=== PATIENT | female | born 1940 | race Caucasian/White ===

== ENCOUNTER → 2018-04-06 | Day surgery (SDC) | payer MEDICARE ==
[2018-04-06 11:24] VITALS: RESP 16; BMI 44.6
--- NOTE | 2018-04-06 13:43 | USB ---
EXAMINATION TYPE: US biopsy breast VAD LT, US biopsy breast add'l VAD LT, MG diagnostic mammo LT wo CAD DATE OF EXAM: 04/06/2018 CLINICAL HISTORY: N63 Breast lump/mass. Abnormal mammogram and ultrasound TECHNIQUE: Ultrasound guided core biopsy of right breast possible 2 sites with clip placement and follow-up diagnostic two-view mammogram.. COMPARISON: Outside ultrasound and mammogram from January 2018. FINDINGS: The procedure of ultrasound guided core biopsy was explained to the patient. Benefits, alternatives, and risks were discussed. An informed consent was then obtained. The patient was placed in supine positioning for imaging and for the procedure. Preprocedure ultrasound shows measured 2.5 cm irregular hypoechoic mass 12:00 position left breast zone A with posterior shadowing and a more superficial irregular heterogeneous hypoechoic wider greater than tall 2.4 cm lesion in zone B 12:00 position, this is within 1 cm of the zone A lesion. Scanning of axilla showed no definitive suspicious adenopathy. Overlying skin was prepped and draped in usual sterile fashion. Lidocaine was used as anesthetic into the skin and subcutaneous tissue up to area of concern in the left breast. Lidocaine with epinephrine is used as anesthetic into the deeper tissue. Under ultrasound guidance, a 12-gauge vacuum assisted biopsy gun device was used to obtain 8 core samples. Following this, a biopsy clip was left in lesion. Primary larger lesion. Under ultrasound guidance, a second vacuum assisted biopsy gun device was used to obtain 3 core samples through smaller zone B lesion. The patient tolerated the procedure well without any immediate complication. The patient was kept in the radiology department for short stay after the procedure and then discharged home in stable condition. Postprocedure mammogram shows successful deployment of clips within 1 to 2 cm of each other likely reflecting single lesion. IMPRESSION: Successful, uncomplicated ultrasound guided core biopsy of 2 areas of concern in the left breast, full pathology results to follow. High index of suspicion noted at time of biopsy. BI-RADS 5 lesion(s). Pathology Results: Malignant A. BREAST, LEFT, TWELVE O'CLOCK SITE A, CORE BIOPSY: INVASIVE POORLY DIFFERENTIATED DUCTAL CARCINOMA. SEE SURGICAL PATHOLOGY CANCER CASE SUMMARY AND COMMENT. B. BREAST, LEFT, TWELVE O'CLOCK SITE B, CORE BIOPSY: INVASIVE POORLY DIFFERENTIATED DUCTAL CARCINOMA. SEE SURGICAL PATHOLOGY CANCER CASE SUMMARY AND COMMENT. Recommendation Surgical consult of the left breast. [facility] CENTERMandy
[2018-04-06 14:07] VITALS: BP 136/72; PULSE 71; TEMP 97.8
== END ==
LOC: RADUSWWP 11:03
PROVIDERS: ATTEND Surgery
DX: C50.912 Malignant neoplasm of unspecified site of left female breast (principal)
CPT/HCPCS: 88305; 88342; 77065; 19083; 19084; A4648; J2001

== ENCOUNTER → 2018-04-13 | Outpatient (CLI) | payer MEDICARE ==
[2018-04-13 09:00] VITALS: BP 118/78; PULSE 92; TEMP 96.2; BMI 45.3
--- NOTE | 2018-04-13 10:33 | P.GSHP ---
History of Present Illness H&P Date: 04/13/18 The patient is a 77 year old white female status post a core biopsy of two sites in the left breast at twelve o'clock. Both were positive for invasive ductal carcinoma. Patient felt a change in her breast about 6 weeks just prior to her normal mammogram. She had no nipple discharge or changes. past surgical history: 1. thyroid surgery no cancer 2. bilaterl knee surgery 1999 family history: none menstral periods: start 10 : 1, not breast feed menopause: hysterectomy 1973, not take ovaries; done for heavy bleeding BCP: a few weeks hormones: none smoke: none alcohol: none drugs: none medical problems: atrial fib, on on savasya , stopped three days before for the biopsy arthritis uses a cane HEENT: macular degeneration lung: COPD sees DR. Nash/ may be related to wood burning stoves when young heart: atrial fib/ leaking valve follows with cardiology GI: none gu: as above musculoskeletal: arthritis neurologic: none endocirne: none - Constitutional Constitutional: Denies chills, Denies fever - EENT Comment: macular degeneration Ears: bilateral: decreased hearing, deny: ear discharge, earache, tinnitus Ears, nose, mouth and throat: Denies headache, Denies sore throat - Breasts Breasts: bilateral: as per HPI - Cardiovascular Comment: atrial fib Cardiovascular: Denies chest pain, Denies shortness of breath - Respiratory Comment: COPD - Gastrointestinal Gastrointestinal: Denies abdominal pain, Denies diarrhea, Denies nausea, Denies vomiting - Genitourinary (Female) Genitourinary: Denies dysuria, Denies hematuria - Menstruation Comment: hysterectomy bleeding no cancer - Musculoskeletal Comment: arthritis - Integumentary Integumentary: Denies pruritus, Denies rash - Neurological Neurological: Denies numbness, Denies weakness - Psychiatric Psychiatric: Denies anxiety, Denies depression - Endocrine Endocrine: Denies fatigue, Denies weight change - Hematologic/Lymphatic Comment: on blood thinner for atrail fib - Allergic/Immunologic Allergic/Immunologic: Reports seasonal allergies Past Medical History Past Medical History: Atrial Fibrillation, Asthma, COPD, Hyperlipidemia, Hypertension Additional Past Medical History / Comment(s): ALLERGIES History of Any Multi-Drug Resistant Organisms: None Reported Past Surgical History: Breast Surgery, Hysterectomy, Joint Replacement Additional Past Surgical History / Comment(s): BILATERAL KNEES REPLACED. LEFT LOBE THYROIDECTOMY BREAST BX-x1 Past Anesthesia/Blood Transfusion Reactions: No Reported Reaction Past Psychological History: No Psychological Hx Reported Smoking Status: Never smoker Past Alcohol Use History: None Reported Past Drug Use History: None Reported Medications and Allergies Home Medications Medication Instructions Recorded Confirmed Type Acetaminophen [Tylenol] 350 mg PO Q4-6H PRN 08/03/16 04/13/18 History Cyanocobalamin [Vitamin B-12] 1 tab PO QAM 08/03/16 04/13/18 History Edoxaban Tosylate [Savaysa] 30 mg PO QAM 08/03/16 04/13/18 History Fluticasone/Salmeterol [Advair Hfa 2 puff INHALATION BID 08/03/16 04/13/18 History 115-21 Mcg Inhaler] Hydrochlorothiazide 25 mg PO QAM 08/03/16 04/13/18 History [Hydrochlorothiazide] Olmesartan Medoxomil [Benicar] 20 mg PO QAM 08/03/16 04/13/18 History Simvastatin [Simvastatin] 20 mg PO HS 08/03/16 04/13/18 History Carvedilol [Coreg] 3.125 mg PO BID 03/15/18 04/13/18 History Febuxostat [Uloric] 40 mg PO QAM 03/15/18 04/13/18 History Vit C/E/Zn/Coppr/Lutein/Zeaxan 1 each PO BID 03/15/18 04/13/18 History [Preservision Areds 2 Softgel] Allergies Allergy/AdvReac Type Severity Reaction Status Date / Time No Known Allergies Allergy Verified 04/06/18 11:15 Surgical - Exam Vital Signs Temp Pulse BP Pulse Ox 96.2 F L 92 118/78 94 L 04/13/18 08:46 04/13/18 08:46 04/13/18 08:46 04/13/18 08:46 - General obese - Eyes normal ocular movement, no icteric - ENT no hearing loss, no congestion - Neck no masses, trachea midline - Respiratory normal expansion, normal respiratory effort, clear to auscultation - Cardiovascular Rhythm: irregularly irregular Heart Sounds: normal: S1, S2 - Abdomen Abdomen: soft, non tender, no guarding, no rigid, no rebound - Neurologic no disoriented, no combative - Musculoskeletal wheel chair bound - Psychiatric oriented to time, oriented to person, oriented to place, speech is normal, memory intact left breast: mass at 12 oclock right breast: no masses bilateral axilla no adenopathy of concern Results Pathology reviewed with patient and her daughter, surgical options and risk and benefits discussed. It is uncertain if the patient has one or two lesions in the breast. The case was discussed at length with DR. Santiago who recommended surgery prior to possible chemotherapy, if needed she can possible have chemotherapy postoperatively. The patient understands and wishes to proceed with surgery at this time. WE will obtain preoperative clearance. WE will also await ER, VT and HEr 2 makers if these are all negative will proceed with a PET scan pre-op. Assessment and Plan Assessment: 1. left breast cancer 2. atrial tigre 3. morbid obesity 4. COPD Plan: 1. pre-operative clearance 2. left breast lumpectomy, SNB, possible AND cc: denis Santiago
== END ==
LOC: WWCWWP 08:43
PROVIDERS: ATTEND Surgery
DX: C50.912 Malignant neoplasm of unspecified site of left female breast (principal); Z53.9 Procedure and treatment not carried out, unspecified reason

== ENCOUNTER 2018-04-25 07:25 | Day surgery (SDC) | payer MEDICARE ==
[2018-04-24 09:24] VITALS: BMI 45.4
[~2018-04-25 07:25] MED LIST: ALPRAZolam 0.25 MG TAB PO PRN; DEXAMETHASONE SOD PHOSPHATE 10 MG/ML 1 ML VIAL IV ONE; HEPARIN SODIUM,PORCINE 5,000 UNIT/ML 1 ML VIAL SQ ONE; HYDROmorphone 0.5 MG/0.5 ML SYRINGE IVP PRN; LACTATED RINGERS 1,000 ML IV SCH; MORPHINE SULFATE 2 MG/ML SYRINGE IV PRN; ONDANSETRON 4 MG/2 ML VIAL IVP ONE; ONDANSETRON 4 MG/2 ML VIAL IVP PRN; Pre Op ABX Message 1 EACH MISC MISCELLANE ONE
[2018-04-25] MEDS ORDERED: LIDOCAINE 1% 20 ML VIAL (10MG/ML) FOR IV START INTRADERMA ONE (08:29)
[2018-04-25] MEDS ORDERED: SODIUM BICARB 4% 5 ML VIAL (0.48 MEQ/ML) MISCELLANE ONE (09:15)
[2018-04-25] MEDS ORDERED: LIDOCAINE 1% INJ 10MG/ML (20 ML MDV) SQ ONE ×2 (09:15→11:24)
[2018-04-25] MEDS ORDERED: HEPARIN SODIUM,PORCINE 5,000 UNIT/ML 1 ML VIAL SQ ONE (10:19)
--- NOTE | 2018-04-25 10:21 | P.BCPRE ---
History of Present Illness Consent for Procedure: I have explained the operation/procedure to the patient, including the risks, benefits, side effects, alternative therapies (including not receiving the proposed treatment or service), the likelihood of the patient achieving his/her goals, and potential recuperation problems for the procedure/sedation/analgesia , as well as any blood products, if indicated. I also explained to the patient the risks, benefits and side effects of the alternatives, as well as the risks related to not receiving the proposed procedure, care, treatment, or services. Past Medical History Past Medical History: Atrial Fibrillation, Asthma, COPD, Hyperlipidemia, Hypertension, Renal Disease Additional Past Medical History / Comment(s): Chronic Kidney disease History of Any Multi-Drug Resistant Organisms: None Reported Past Surgical History: Breast Surgery, Hysterectomy, Joint Replacement Additional Past Surgical History / Comment(s): BILATERAL KNEES REPLACED. LEFT LOBE THYROIDECTOMY; BREAST BX Past Anesthesia/Blood Transfusion Reactions: No Reported Reaction Smoking Status: Never smoker - Past Family History Mother Family Medical History: No Reported History Medications and Allergies Home Medications Medication Instructions Recorded Confirmed Type Acetaminophen [Tylenol] 350 mg PO Q4-6H PRN 08/03/16 04/25/18 History Cyanocobalamin [Vitamin B-12] 1 tab PO QAM 08/03/16 04/25/18 History Edoxaban Tosylate [Savaysa] 30 mg PO QAM 08/03/16 04/24/18 History Fluticasone/Salmeterol [Advair Hfa 2 puff INHALATION BID 08/03/16 04/25/18 History 115-21 Mcg Inhaler] Hydrochlorothiazide 25 mg PO QAM 08/03/16 04/25/18 History [Hydrochlorothiazide] Olmesartan Medoxomil [Benicar] 20 mg PO QAM 08/03/16 04/24/18 History Simvastatin [Simvastatin] 20 mg PO HS 08/03/16 04/24/18 History Carvedilol [Coreg] 3.125 mg PO BID 03/15/18 04/24/18 History Febuxostat [Uloric] 40 mg PO QAM 03/15/18 04/25/18 History Vit C/E/Zn/Coppr/Lutein/Zeaxan 1 each PO BID 03/15/18 04/25/18 History [Preservision Areds 2 Softgel] Allergies Allergy/AdvReac Type Severity Reaction Status Date / Time No Known Allergies Allergy Verified 04/24/18 09:07 NAPBC Queries - NAPBC Queries Was patient's case review presented at tumor board? If no, comment.: Yes Was preop planning done after biopsy for surgical care, and treatment guidelines reviewed?: Yes Was breast conservation surgery offered? If no, comment.: Yes Was sentinel node biopsy appropriate for patient? If no, comment.: Yes Was diagnosis confirmed by percutaneous core biopsy? If no, comment.: Yes If masectomy patient, was a preop referral to a reconstructive surgeon offered? : Yes (Patient is opting for breast conservation)
[2018-04-25] MEDS ORDERED: PHENYLEPHRINE-0.9% NACL SYG 1 MG/10 ML SYRINGE ONE (10:50)
[2018-04-25] MEDS ORDERED: MIDAZOLAM 2 MG/2 ML VIAL ONE (10:50)
[2018-04-25] MEDS ORDERED: SUCCINYLCHOLINE CHLORIDE VIAL 200 MG/10 ML VIAL IV ONE (10:50)
[2018-04-25] MEDS ORDERED: ESMOLOL 100 MG/10 ML VIAL ONE (10:50)
[2018-04-25] MEDS ORDERED: HYDROmorphone (PF) 1 MG/ML ONE (10:50)
[2018-04-25] MEDS ORDERED: fentaNYL (PF) 50 MCG/ML 2 ML AMP ONE (10:50)
[2018-04-25] MEDS ORDERED: LIDOCAINE 1% INJ 10MG/ML (20 ML MDV) ONE (10:50)
[2018-04-25] MEDS ORDERED: ePHEDrine SULFATE/0.9% NACL/PF 50 MG/5 ML SYRINGE IV ONE (10:50)
[2018-04-25] MEDS ORDERED: PROPOFOL 10 MG/ML 20 ML VIAL IV ONE (10:50)
--- NOTE | 2018-04-25 11:55 | NM ---
EXAMINATION TYPE: NM sentinel node injection DATE OF EXAM: 04/25/2018 COMPARISON: Mammogram 04/06/2018 HISTORY: Left breast cancer TECHNIQUE AND FINDINGS: The procedure of sentinel lymph node injection was explained to the patient. The benefits, alternatives, and risks were discussed. An informed consent was then obtained. Overlying skin is cleaned with sterile alcohol. Following this, 562 uCi Tc99m Tilmanocept was inject ed into upper outer aspect of the left nipple intradermally. The patient tolerated the procedure well without any immediate complication. The patient was kept in the radiology department for short stay after the procedure and then taken to surgery for surgical p rocedure what is presumed intraoperative gamma probe will be used for sentinel lymph node detection. IMPRESSION: Left breast radiotracer injection for sentinel node localization as above.
[2018-04-25] MEDS ORDERED: ceFAZolin 2,000 MG in DEXTROSE/WATER 1 50ML.BAG IVPB SCH (12:00)
[2018-04-25] MEDS ORDERED: LACTATED RINGERS 1,000 ML IV ONE (12:12)
--- NOTE | 2018-04-25 13:57 | P.OP ---
Date of Procedure: 04/25/18 Preoperative Diagnosis: Left breast cancer Postoperative Diagnosis: Same Procedure(s) Performed: Left breast lumpectomy, sentinel node biopsy, excision of axillary tail area positive on frozen section for cancer Anesthesia: SALLY Surgeon: Elana Mehta Estimated Blood Loss (ml): 15 IV fluids (ml): 1,100 Pathology: other (Left breast tissue, left sentinel node biopsy) Condition: stable Disposition: PACU Indications for Procedure: Core biopsy left breast positive for malignancy Operative Findings: Left breast cancer, probable left axillary tail additionally site positive for cancer Description of Procedure: The patient was taken to the operating room and following induction of general anesthesia the left breast and axilla were prepped and draped in a sterile fashion. The axilla was approached initially. An incision was made just inferior to the hairbearing area and using the neoprobe the area of greatest radioactivity was identified. Diseaction into the area of the axilla revealed two lymph nodes which were radioactive. These was sent for frozen section evaluation. These were negative for malignancy. However, a second area of tissue was identified which was somewhat suspicious. This was also sent for frozen section patient. 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 The patient did have 2 sentinel nodes which were removed the radioactive count was over 50,000 units of the sentinel nodes at 10 seconds, and each of these were negative for malignancy. Additionally the background radioactive count at 10 seconds was approximately 20. No other adenopathy of concern was identified. The concern was whether the lesion removed in the region of the axilla was axillary breast tissue or a replaced lymph node. The case was discussed w intraoperatively with pathology as well as medical oncologist Dr. Santiago. The thought process was that the patient is very large and is at high risk for lymphedema, she will most likely receive radiation therapy to the area of the axilla. Therefore rather than a completion axillary dissection with 2 sentinel nodes being negative, and the third area of questionable eitology (replaced axillary breast tissue, replaced lymph node) we decided to re-excise the area of the positive nodule had been identified and await permanent pathology. The area of the breast was approached. Incision was made in the area of the needle localization's and the tissue was excised . The inferior margin appeared to be somewhat close grossly and this was re-excised. The specimen was painted for orientation. Radiographic evaluation revealed the concern had been removed. The dissection of the area was carried down to the muscle of the chest wall. Anteriorly a portion of skin was removed. Following this the remaining tissue was mobilized approximately 5 cm x 3 cm for 15 cm. The tissue was able to be moved into the defect for an oncoplastic closure. A BioZorb was chosen a 4 x 4 device was used. This was placed in the cavity and secured in place using Vicryl suture. The deep tissues were closed using Vicryl suture. The skin was closed using a 4-0 Vicryl suture followed by a 4-0 Monocryl. The area of the axilla was evaluated no evidence of bleeding was identified. The skin was closed using 4-0 Vicryl suture followed by a 4-0 Monocryl. Patient tolerated the procedure in stable condition. All instrument and sponge counts were correct at the end of the case. 1. Approximately 5 cm primary mass in the left breast at 12:00 2. Approximately 1 cm firm area in the region of the tail of the breast replaced axillary node versus axillary breast tissue 3. 2 sentinel nodes negative for cancer Plan: 1. Await final pathology to evaluate for margins and better evaluate the area of the desmoplastic tumor in the area of the axillary tail of the breast
--- NOTE | 2018-04-25 13:59 | P.DS ---
Providers Attending physician: Elana Mehta Primary care physician: Nasim Tovar Plan - Discharge Summary New Discharge Prescriptions: No Action Acetaminophen [Tylenol] 350 mg PO Q4-6H PRN PRN Reason: Pain Cyanocobalamin [Vitamin B-12] 1 tab PO QAM Edoxaban Tosylate [Savaysa] 30 mg PO QAM Fluticasone/Salmeterol [Advair Hfa 115-21 Mcg Inhaler] 2 puff INHALATION BID Hydrochlorothiazide [Hydrochlorothiazide] 25 mg PO QAM Olmesartan Medoxomil [Benicar] 20 mg PO QAM Simvastatin [Simvastatin] 20 mg PO HS Febuxostat [Uloric] 40 mg PO QAM Carvedilol [Coreg] 3.125 mg PO BID Vit C/E/Zn/Coppr/Lutein/Zeaxan [Preservision Areds 2 Softgel] 1 each PO BID Discharge Medication List Acetaminophen [Tylenol] 350 mg PO Q4-6H PRN 08/03/16 [History] Cyanocobalamin [Vitamin B-12] 1 tab PO QAM 08/03/16 [History] Edoxaban Tosylate [Savaysa] 30 mg PO QAM 08/03/16 [History] Fluticasone/Salmeterol [Advair Hfa 115-21 Mcg Inhaler] 2 puff INHALATION BID [History] Hydrochlorothiazide [Hydrochlorothiazide] 25 mg PO QAM 08/03/16 [History] Olmesartan Medoxomil [Benicar] 20 mg PO QAM 08/03/16 [History] Simvastatin [Simvastatin] 20 mg PO HS 08/03/16 [History] Carvedilol [Coreg] 3.125 mg PO BID 03/15/18 [History] Febuxostat [Uloric] 40 mg PO QAM 03/15/18 [History] Vit C/E/Zn/Coppr/Lutein/Zeaxan [Preservision Areds 2 Softgel] 1 each PO BID [History] Follow up Appointment(s)/Referral(s): Elana Mehta MD [STAFF PHYSICIAN] - 1 Week Activity/Diet/Wound Care/Special Instructions: 1. Do not drive today 2. May shower after 24 hours 2. Restart blood thinner at 24 hours Discharge Disposition: HOME SELF-CARE
[2018-04-25 14:37] VITALS: TEMP 97.2
--- NOTE | 2018-04-25 15:02 | MM ---
EXAMINATION TYPE: MG pre op needle loc LT, MG surgical specimen LT DATE OF EXAM: 04/25/2018 COMPARISON: Mammogram 04/06/2018 CLINICAL HISTORY: Breast cancer, abnormal mammogram TECHNIQUE: Needle localization with wire placement and surgical excision of area of concern in the left breast. FINDINGS: The procedure of needle localization with wire placement and than surgical excision was explained to the patient. Benefits, alternatives, and risks were discussed. An informed consent was then obtained. The overlying skin was prepped and draped in usual sterile fashion. Lidocaine buffered with bicarbonate was used as anesthetic into the skin and subcutaneous tissue up to the level of area of concern. A 9 cm needle was used. A second 9 cm needle was used to bracket the lesion. Subsequent 90 degrees mammogram show the needles to be in satisfactory position relative to the targeted area. At this point, wires were placed and the needles withdrawn. The wires fixed to patient's skin. Images were marked for surgeon. The patient tolerated the procedure well without any immediate complication. The patient was kept in the radiology department for short stay after the procedure and then taken to surgery for surgical excision. Mass with markers and wires are identified in specimen mammogram. The patient was kept in hospital for short stay after the procedure and then discharged home in stable condition. IMPRESSION: Successful, uncomplicated needle localization with wire placement and surgical excision of breast mass and biopsy markers in the left breast, full pathology results to follow. Pathology Results: Malignant A. "SENTINEL LYMPH NODE #1", BIOPSY: Infiltrating poorly differentiated adenocarcinoma involving adipose tissue, no normal breast or lymphoid tissue identified. Focal lymph vascular space invasion is identified. B. SENTINEL LYMPH NODE #2, BIOPSY: Negative for metastatic adenocarcinoma. Immunohistochemical studies for LORETTA and Cytokeratin 7 are negative. C. SENTINEL LYMPH NODE #3, BIOPSY: Negative for metastatic adenocarcinoma in two lymph nodes. Immunohistochemical studies for LORETTA and Cytokeratin 7 are negative for adenocarcinoma.' Good stain performance is noted on control sections for both specimens B and C. D. LEFT BREAT LUMPECTOMY: 3.8 x 3.3 x 2.5 cm in greatest dimension infiltrating poorly differentiated ductal adenocarcinoma with multifocal lymph vascular space invasion and a tumor nodule, in block D1 extending to an un- inked cauterized margin near the anterior margin of resection. Duct carcinoma in situ is identified focally. Lobular carcinoma in situ is not identified. E. NEW ANTERIOR MARGIN, EXCISION: Skin with post surgical changes, negative for involvement by adenocarcinoma. F. ADDITIONAL TISSUE ADJACENT TO POSITIVE AXILLARY TISSUE, EXCISION: Adipose tissue, negative for involvement by adenocarcinoma. Recommendation Surgical consult of the left breast. (continued surgical follow up, medical oncologic management) JEANNE
[2018-04-25 15:23] VITALS: RESP 20
[2018-04-25 15:27] LABS: Magnesium 1.8 mg/dL (1.6-2.3); Potassium 4.8 mmol/L (3.5-5.1)
[2018-04-25 15:35] VITALS: BP 136/71; PULSE 110
== END 2018-04-25 16:09 | disposition home or self-care (01) ==
LOC: OR 07:25
PROVIDERS: ATTEND Surgery
DX: C50.812 Malignant neoplasm of overlapping sites of left female breast (principal); I48.1 Persistent atrial fibrillation; I12.9 Hypertensive chronic kidney disease with stage 1 through stage 4 chronic kidney disease, or unspecified chronic kidney disease; N18.9 Chronic kidney disease, unspecified; E78.2 Mixed hyperlipidemia; J44.9 Chronic obstructive pulmonary disease, unspecified; E89.0 Postprocedural hypothyroidism; E66.01 Morbid (severe) obesity due to excess calories; Z68.42 Body mass index [BMI] 45.0-49.9, adult; Z96.653 Presence of artificial knee joint, bilateral; Z79.51 Long term (current) use of inhaled steroids; Z79.899 Other long term (current) drug therapy
CPT/HCPCS: 83735; 84132; 88342; 88331; 88307; 88341; 76098; 19281; 38792; 19301; 38525; A4648; A9520; J2250; J0330; J1644; J1100; J2405; J2001; J3010; J1170; J0690; J2370; J2704

== ENCOUNTER → 2018-05-04 | Outpatient (CLI) | payer MEDICARE ==
[2018-05-04 14:28] VITALS: BP 142/65; PULSE 90; TEMP 97.3; BMI 45.4
--- NOTE | 2018-05-04 14:54 | P.PN ---
Progress Note - Text Progress Note Date: 05/04/18 Patient is status post left breast lumpectomy and axillary node biopsy. The area in the axilla was suspicious for axillary tail breast tissue and after intra-operative consultation with medical oncology it was determined to await final pathology prior to proceeding with an axillary dissection secondary tot he risk of lymphedema. Pathology showed one "sentinel" node to be positive although this was not the radio-active node, and the other two sentinel nodes to be negative. The anterior margin was positive, however, it was re-excised and the skin was negative. The patient is without complaints. Lungs: clear heart: RRR incision: clean and dry IMP/PLAN: 1. follow up with medical and radiation oncology 2. consider completion axillary disection 3. follow up in two weeks cc: Dr. Delgado
== END | disposition home or self-care (01) ==
LOC: WWCWWP 14:11
PROVIDERS: ATTEND Surgery
DX: Z53.9 Procedure and treatment not carried out, unspecified reason (principal)

== ENCOUNTER → 2018-05-19 | Outpatient (CLI) | payer MEDICARE ==
[2018-05-19 11:57] VITALS: BMI 46.0
--- NOTE | 2018-05-19 12:02 | P.PN ---
Subjective Progress Note Date: 05/19/18 Patient is a 77-year-old white female status post left breast lumpectomy and sentinel node biopsy on 04/25/2018. The patient at this time is doing well. There was some question as to whether the patient had a second primary site in the axillary breast tissue versus a replaced lymph node. However her sentinel lymph nodes were negative. The patient is going to be presented at tumor board. She has seen radiation oncology will follow up with medical oncology. Depending on results of these meetings she will follow up in 3 months time. Lungs: Clear Heart: Regular rate and rhythm Incision: Clean and dry left breast Incision: Clean and dry left axilla Impression/plan: 1. Patient status post left breast lumpectomy and sentinel node biopsy patient is following with medical and radiation oncology 2. Patient to be presented at tumor board 3. Depending on results of tumor board meeting follow-up in 3 months time CC: Dr. Tovar Patient with no complaints of swelling in her arm at this time, however we will have her see a lymphedema specialist proactively. Objective - Vital Signs Vital signs: Intake & Output 05/18/18 05/19/18 05/19/18 18:59 06:59 18:59 Weight 145.603 kg
== END ==
LOC: WWCWWP 11:09
PROVIDERS: ATTEND Surgery
DX: Z51.89 Encounter for other specified aftercare (principal)

== ENCOUNTER → 2018-08-17 | Outpatient (CLI) | payer MEDICARE ==
[2018-08-17 08:47] VITALS: BP 118/68; PULSE 87; BMI 45.8
--- NOTE | 2018-08-17 09:08 | P.PN ---
Subjective Progress Note Date: 08/17/18 The patient is a 77-year-old white female who is status post left breast lumpectomy and sentinel biopsy and [id number]. At this time the patient is doing well. She is status post radiation therapy 3 weeks to the left breast and axilla. Additionally she is on Armidex. She was not recommended to undergo any chemotherapy. She initially had a question of a second primary in the axillary breast tissue versus a replaced lymph node. She was diagnosed as STAGE 2. Objective - Vital Signs Vital signs: Vital Signs Temp Pulse 87 08/17/18 08:41 Resp BP 118/68 08/17/18 08:41 Pulse Ox Intake & Output 08/16/18 08/17/18 08/17/18 18:59 06:59 18:59 Weight 144.696 kg - Constitutional General appearance: Present: obese - EENT Eyes: Present: EOMI - Neck Details: no adenopathy of concern Neck: Present: normal ROM - Respiratory Respiratory: bilateral: CTA - Cardiovascular Rhythm: regular Heart sounds: normal: S1, S2 - Gastrointestinal General gastrointestinal: Present: normal bowel sounds, soft - Musculoskeletal Musculoskeletal Comment(s): in a wheel chair - Psychiatric Psychiatric: Present: A&O x's 3, appropriate affect, intact judgment & insight Assessment and Plan Assessment: Impression: 1. Patient status post left breast lumpectomy and sentinel biopsy, diagnosed a stage II breast cancer status post radiation therapy and on Arimidex 2. Patient doing well at this time with no evidence of recurrent disease Plan: 1. Repeat left breast mammogram in 3 months 2. Repeat examination in 3 months Cc: Dr. Tovar
== END | disposition home or self-care (01) ==
LOC: WWCWWP 08:22
PROVIDERS: ATTEND Surgery
DX: Z53.9 Procedure and treatment not carried out, unspecified reason (principal)

== ENCOUNTER → 2018-09-11 | Outpatient (CLI) | payer MEDICARE ==
--- NOTE | 2018-09-11 13:00 | BD ---
EXAMINATION TYPE: Axial Bone Density DATE OF EXAM: 09/11/2018 COMPARISON: NONE CLINICAL HISTORY: Height: 64 IN Weight: 314 LBS FRAX RISK QUESTIONS: Secondary Osteoporosis: 3. Menopause before 45: YES AGE 34 RISK FACTORS HISTORY OF: Active: IN ACTIVE Diet low in dairy products/other sources of calcium: YES Postmenopausal woman: AGE 34 Lost more than 2 inches in height since high school: YES 6" MEDICATIONS: Additional Medications: VIT D, ULORIC, ADVAIR, BENICAR, HYDROCHLOROT, SIMVASTATIN, COREG, SAVAYSA, CA ESERVISION, B12, ANASTROZOLE, Additional History: BREAST CANCER WITH RADIATION EXAM MEASUREMENTS: Bone mineral densitometry was performed using the [employer] System. Bone mineral density as measured about the Lumbar spine is: ----- L1-L4(G/cm2): 1.287 T Score Values are as follows: ----- L2: 1.7 ----- L3: 2.1 ----- L4: 0.3 ----- L1-L4: 0.9 Bone mineral density has: Increased 12.5% since study of: 03/01/2005 Bone mineral density about the R hip (g/cm2): 0.866 Bone mineral density about the L hip (g/cm2): 0.866 T Score values are as follows: -----R Neck: -1.2 -----L Neck: -1.2 -----R Total: 0.3 -----L Total: 0.1 Bone mineral density has: Decreased -1.7% since study of: 03/01/2005 IMPRESSION: No evidence for osteoporosis or osteopenia. NOTE: T-SCORE=SD OF THE YOUNG ADULT MEAN.
== END | disposition home or self-care (01) ==
LOC: RADBDWWP 09:19
PROVIDERS: ATTEND Internal Medicine Hematology & Oncology
DX: C50.812 Malignant neoplasm of overlapping sites of left female breast (principal)
CPT/HCPCS: 77080

== ENCOUNTER → 2018-11-24 | Outpatient (CLI) | payer MEDICARE ==
--- NOTE | 2018-11-24 13:26 | MM ---
Reason for exam: follow-up at short interval from prior study. Last mammogram was performed 8 months ago. History: Patient is postmenopausal and has history of breast cancer at age 77. Malignant MG pre op needle loc LT of the left breast, April 25, 2018. Lumpectomy of the left breast, April 25, 2018. Malignant US biopsy breast VAD LT of the left breast, April 06, 2018. Malignant US biopsy breast add'l VAD LT of the left breast, April 06, 2018. Physical Findings: Nurse did not find any significant physical abnormalities on exam. MG 3D Diag Mammo W/Cad LT CC, MLO, and XCCL view(s) were taken of the left breast. Prior study comparison: April 06, 2018, left breast MG diagnostic mammo LT wo CAD. November 12, 2015, bilateral MG screening mammo w CAD. The breast tissue is heterogeneously dense. This may lower the sensitivity of mammography. Stable benign calcifications. Post lumpectomy changes with skin thickening. No significant new findings when compared with previous films. These results were verbally communicated with the patient and result sheet given to the patient on 11/24/18. ASSESSMENT: Benign, BI-RAD 2 RECOMMENDATION: Follow-up diagnostic mammogram of both breasts in 6 months.
== END | disposition home or self-care (01) ==
LOC: RADMAMWWP 12:34
PROVIDERS: ATTEND Surgery
DX: R92.8 Other abnormal and inconclusive findings on diagnostic imaging of breast (principal)
CPT/HCPCS: 77065; G0279; 77061

== ENCOUNTER → 2018-12-01 | Outpatient (CLI) | payer MEDICARE ==
[2018-12-01 10:23] VITALS: BP 142/69; PULSE 94; RESP 18; TEMP 96.9; BMI 48.6
--- NOTE | 2018-12-01 10:39 | P.PN ---
Subjective Progress Note Date: 12/01/18 Principal diagnosis: invasive cancer of the left breast STAGE: AJCC IIB, T2N1 ER+WA=HER2/JEROME- Kina is a 78-year-old white female who is status post a left breast lumpectomy in April 2018. She was treated with radiation therapy. She is also receiving feeding of Arimidex. She has no complaints at this time. She had her most recent mammogram on 1418. This was of the left breast and was felt to be benign BIRADS 2 and follow-up diagnostic mammogram of both breasts in 6 months time was recommended. Interval history: The patient has not had any changes in medical status since her last appointment. Objective - Vital Signs Vital signs: Vital Signs Temp 96.9 F L 12/01/18 10:12 Pulse 94 12/01/18 10:12 Resp 18 12/01/18 10:12 BP 142/69 12/01/18 10:12 Pulse Ox 96 12/01/18 10:12 Intake & Output 11/30/18 12/01/18 12/01/18 18:59 06:59 18:59 Weight 145.15 kg - Exam BMI 48.7 - Constitutional General appearance: Present: cooperative, obese - EENT EENT Comment(s): Mild conjunctival erythema related to an injection on the right thigh for macular degeneration Eyes: Present: EOMI ENT: Present: hearing grossly normal - Neck Neck: Present: normal ROM - Respiratory Respiratory: bilateral: CTA - Cardiovascular Rhythm: regular Heart sounds: normal: S1, S2 - Gastrointestinal General gastrointestinal: Present: soft - Integumentary Integumentary: Present: normal turgor - Musculoskeletal Musculoskeletal Comment(s): uses a wheel chair back and knee pain related to arthritis - Psychiatric Psychiatric: Present: A&O x's 3, appropriate affect, intact judgment & insight - Additional findings Additional findings: Breast examination: Right breast: Multi-positional exam no dominant masses or nodules of concern Right axilla: Enlarged node palpable freely mobile (no lesions on the upper extremity which was just reason for enlarged node under the right arm) Left breast: Changes related to lumpectomy and radiation no dominant masses or nodules of concern Left axilla: No adenopathy of concern Assessment and Plan Assessment: Impression: 1. Stage IIB left breast cancer treated with lumpectomy, sentinel node biopsy, radiation therapy, on Arimidex 2. Right axillary adenopathy 3. Arthritis 4. The lateral knee replacement Plan: 1. Ultrasound of right axilla to evaluate enlarged lymph node 2. Continued surveillance of the breast no evidence of recurrent cancer at this time 3. Follow-up here in 3 months time 4. Follow-up with medical and radiation oncology CC: Dr. Tovar
--- NOTE | 2018-12-03 08:37 | MM ---
Reason for exam: additional evaluation requested from prior study. Last mammogram was performed less than 1 month ago. History: Patient is postmenopausal and has history of breast cancer at age 77. Malignant MG pre op needle loc LT of the left breast, April 25, 2018. Lumpectomy of the left breast, April 25, 2018. Malignant US biopsy breast VAD LT of the left breast, April 06, 2018. Malignant US biopsy breast add'l VAD LT of the left breast, April 06, 2018. MG 3D Diag Mammo W/Cad RT CC and MLO view(s) were taken of the right breast. Prior study comparison: November 24, 2018, left breast MG 3d diag mammo w/cad LT. April 06, 2018, left breast MG diagnostic mammo LT wo CAD. There are scattered fibroglandular densities. No suspicious abnormality. Left axillary node has a 1 mm cortex on mammogram. Sonographic finding of thickened cortex may be artifactual. These results were verbally communicated with the patient and result sheet given to the patient on 12/01/18. ASSESSMENT: Probably benign, BI-RAD 3 RECOMMENDATION: Ultrasound of the right breast in 3 months. Possibly reactive node.
--- NOTE | 2018-12-07 08:03 | USB ---
History: Patient is postmenopausal and has history of breast cancer at age 77. Malignant MG pre op needle loc LT of the left breast, April 25, 2018. Lumpectomy of the left breast, April 25, 2018. Malignant US biopsy breast VAD LT of the left breast, April 06, 2018. Malignant US biopsy breast add'l VAD LT of the left breast, April 06, 2018. US Breast Axilla RT Right limited breast ultrasound including focal area of concern, retroareolar and axilla demonstrates a probable lymph node right axilla 2.7 x 1.3 x 1.8 cm with possible thickened cortex measuing 8 mm. No suspicious breast abnormality in the right upper outer quadrant. These results were verbally communicated with the patient and result sheet given to the patient on 12/01/18. ASSESSMENT: Incomplete: need additional imaging evaluation, BI-RAD 0 RECOMMENDATION: Follow-up diagnostic mammogram of the right breast.
== END ==
LOC: WWCWWP 09:24
PROVIDERS: ATTEND Surgery
DX: N63.31 Unspecified lump in axillary tail of the right breast (principal)
CPT/HCPCS: 77065; 76642; G0279; 77061

== ENCOUNTER → 2019-03-02 | Outpatient (CLI) | payer MEDICARE ==
--- NOTE | 2019-03-02 11:38 | USB ---
Reason for exam: clinical finding. History: Patient is postmenopausal and has history of breast cancer at age 77. Malignant MG pre op needle loc LT of the left breast, April 25, 2018. Lumpectomy of the left breast, April 25, 2018. Malignant US biopsy breast VAD LT of the left breast, April 06, 2018. Malignant US biopsy breast add'l VAD LT of the left breast, April 06, 2018. Indicated problem(s): palpable abnormality in the right breast. Physical Findings: Nurse Summary: left breast skin thickening, all soft, movable (nurse ts). US Breast RT Right complete breast ultrasound includes all four quadrants, the retroareolar region and axilla. Finding demonstrates stable lymph node correlate clinically. These results were verbally communicated with the patient and result sheet given to the patient on 03/02/19. ASSESSMENT: Benign, BI-RAD 2 RECOMMENDATION: Follow-up diagnostic mammogram of both breasts in 9 months. Ultrasound of the right breast in 9 months. Back on schedule.
== END | disposition home or self-care (01) ==
LOC: RADUSWWP 10:30
PROVIDERS: ATTEND Surgery
DX: R92.8 Other abnormal and inconclusive findings on diagnostic imaging of breast (principal); N63.31 Unspecified lump in axillary tail of the right breast

== ENCOUNTER → 2019-03-08 | Outpatient (CLI) | payer MEDICARE ==
[2019-03-08 13:30] VITALS: BP 112/78; PULSE 105; RESP 18; TEMP 97.6; BMI 47.9
--- NOTE | 2019-03-08 13:53 | P.PN ---
Subjective Progress Note Date: 03/08/19 Principal diagnosis: Patient for evaluation of prior enlarged right axillary node Stage IIB left breast cancer Kina is a 78-year-old white female who is status post left breast lumpectomy in April 2018. She was treated with radiation therapy and she is also receiving unlimited ax. She has no complaints at this time. On a prior exam she was noted to have a right axillary enlarged node however ultrasound of this area performed on does not reveal any axillary adenopathy of concern. She is due for bilateral diagnostic mammogram in 9 months and an ultrasound of the right breast at that time as well. The patient herself does not complain of any adenopathy or any concerns at this time. Family history: Negative Review of systems: HEENT: Negative Lungs: COPD Heart: Atrial fibrillation GI: Negative :follows with DR. Snow Musculoskeletal: Arthritis Neurologic: Negative Hematologic: Negative Psychiatric: Negative Objective - Vital Signs Vital signs: Vital Signs Temp 97.6 F 03/08/19 13:26 Pulse 105 H 03/08/19 13:26 Resp 18 03/08/19 13:26 BP 112/78 03/08/19 13:26 Pulse Ox 97 03/08/19 13:26 Intake & Output 03/07/19 03/08/19 03/08/19 18:59 06:59 18:59 Weight 147.418 kg - Exam BMI 48 - Constitutional General appearance: Present: obese - EENT Eyes: Present: EOMI ENT: Present: hearing grossly normal - Neck Neck: Present: normal ROM - Respiratory Respiratory: bilateral: CTA - Cardiovascular Rhythm: regular Heart sounds: normal: S1, S2 - Gastrointestinal General gastrointestinal: Present: soft - Integumentary Integumentary Comment(s): Left breast skin radiation changes Integumentary: Present: normal turgor - Musculoskeletal Musculoskeletal Comment(s): using a walker - Psychiatric Psychiatric: Present: A&O x's 3, appropriate affect, intact judgment & insight - Additional findings Additional findings: Breast examination: Right breast: No dominant masses or nodules of concern, fibrocystic changes Right axilla: No adenopathy of concern, particularly attention under the right axilla did not reveal any adenopathy of concern on today's examination Left breast: Postop changes, postradiation changes, examination no dominant masses or nodules of concern Left axilla: No adenopathy of concern Assessment and Plan Assessment: Impression: 1. Patient status post left breast lumpectomy and radiation therapy for a staged to be left breast cancer 2. Patient is presently on anastrozole 3. COPD 4. A-fib 5. arthritis 6. obesity 7. No evidence of recurrent cancer Plan: 1. Continue anastrozole 2. Continue close surveillance follow-up in 6 months 3. Medical management of medical conditions CC: Dr. Tovar
== END | disposition home or self-care (01) ==
LOC: WWCWWP 13:18
PROVIDERS: ATTEND Surgery
DX: Z53.9 Procedure and treatment not carried out, unspecified reason (principal)

== ENCOUNTER → 2019-09-28 | Outpatient (CLI) | payer MEDICARE ==
[2019-09-28 13:19] VITALS: BP 129/90; PULSE 98; RESP 18; TEMP 98; BMI 48.8
--- NOTE | 2019-09-28 13:43 | P.PN ---
Subjective Progress Note Date: 09/28/19 Principal diagnosis: Stage IIB left breast cancer [id number] Her2-G3 Kina is a 78-year-old white female who is status post left breast lumpectomy and sentinel node biopsy and 6518. The patient has undergone radiation therapy She recieved 15 fractions which she completed in June 2018. She was not felt to be a candidate for chemotherapy. She did receive anastrozole which she is still taking. She is following with Dr. Hale yearly, she is following with radiation oncology 6 months. Not have any complications related to her surgery or treatment at this time. The patient does not feel anything of concern in her breast or under her arms at this time. Patient had a left breast mammogram performed 11/24/2018. Results of this were benign BIRADS 2, the patient had a right breast mammogram then performed on 12/01/18 these were felt to be probably benign BIRADS 3 and ultrasound of the right breast in 3 months was recommended. The patient also had an ultrasound performed on which revealed a 2.7 x 1.8 cm lymph node which was felt to be most likely reactive. The patient absolutely underwent a repeat right breast ultrasound including the axilla in February 2019 which was benign BIRADS 2 stable lymph node was noted in the exam. Family History: niece: uterine cancer Medical history: Atrial fib Arthritis Surgical history: Left breast core biopsy Hysterectomy Replacement Hemithyroidectomy Systems: HEENT: Macular degeneration Lungs: COPD Heart: Atrial fib/leaking heart valve patient is on blood thinner GI: Negative : Hysterectomy Musculoskeletal: Arthritis Neurologic: Negative Endocrine: Negative Social history: Smoke: Negative Alcohol: Negative Drugs: Negative Objective - Vital Signs Vital signs: Vital Signs Temp 98.0 F 09/28/19 13:16 Pulse 98 09/28/19 13:16 Resp 18 09/28/19 13:16 BP 129/90 09/28/19 13:16 Pulse Ox 94 L 09/28/19 13:16 - Exam BMI 48.8 - Constitutional General appearance: Present: obese - EENT Eyes: Present: EOMI ENT: Present: hearing grossly normal - Neck Neck: Present: normal ROM - Respiratory Respiratory: bilateral: CTA - Cardiovascular Rhythm: regular Heart sounds: normal: S1, S2 - Gastrointestinal Gastrointestinal Comment(s): no guarding or rebound General gastrointestinal: Present: soft - Integumentary Integumentary: Present: normal turgor - Musculoskeletal Musculoskeletal Comment(s): uses a walker - Psychiatric Psychiatric: Present: A&O x's 3, appropriate affect, intact judgment & insight - Additional findings Additional findings: Breast examination: Bra 54 DD Ptosis Grade 3 Right breast: Multi-positional exam no dominant masses or nodules of concern fibrocystic changes Right axilla: No adenopathy of concern at this time Left breast: Multi-positional exam well-healed scar from prior surgery, radiation changes, no dominant masses or nodules of concern, fungal infection under her right breast Left axilla: No adenopathy of concern Estimated bilaterally to rule out swelling 24 cm bilateral Assessment and Plan Assessment: Impression: 1. Patient status post lumpectomy for stage II be left breast cancer, status post lumpectomy, radiation, on anastrozole did not have chemotherapy 2. No evidence of recurrent cancer 3. Patient not complaining of any swelling of her left arm or hand 4. Fungal infection under right breast 5. Fibrocystic changes bilat Plan: 1. Bilateral mammogram in November with extreme at that time 2. Nystatin powder under right breast 3. Medical management of medical conditions CC: Dr. Tovar Time with Patient: Greater than 30 (discussion of coordination of care)
== END ==
LOC: WWCWWP 12:32
PROVIDERS: ATTEND Surgery
DX: Z53.9 Procedure and treatment not carried out, unspecified reason (principal)

== ENCOUNTER → 2019-11-23 | Outpatient (CLI) | payer MEDICARE ==
[2019-11-23 11:37] VITALS: BMI 47.1
== END | disposition home or self-care (01) ==
LOC: DBWHC3 08:36
PROVIDERS: ATTEND Family Medicine
DX: R73.03 Prediabetes (principal)
CPT/HCPCS: 97802

== ENCOUNTER → 2019-12-05 | Outpatient (CLI) | payer MEDICARE ==
--- NOTE | 2019-12-05 09:54 | MM ---
Reason for exam: additional evaluation requested from prior study. Last mammogram was performed 1 year ago. History: Patient is postmenopausal and has history of breast cancer at age 77. Malignant MG pre op needle loc LT of the left breast, April 25, 2018. Lumpectomy of the left breast, April 25, 2018. Malignant US biopsy breast VAD LT of the left breast, April 06, 2018. Malignant US biopsy breast add'l VAD LT of the left breast, April 06, 2018. Physical Findings: Nurse did not find any significant physical abnormalities on exam. MG 3D Diag Mammo W/Cad BART Bilateral CC and MLO view(s) were taken. XCCL view(s) were taken of the left breast. Prior study comparison: December 01, 2018, right breast MG 3d diag mammo w/cad RT. November 24, 2018, left breast MG 3d diag mammo w/cad LT. April 06, 2018, left breast MG diagnostic mammo LT wo CAD. Post surgical changes left breast. No significant new findings when compared with previous films. These results were verbally communicated with the patient and result sheet given to the patient on 12/05/19. ASSESSMENT: Benign, BI-RAD 2 RECOMMENDATION: Follow-up diagnostic mammogram of both breasts in 1 year.
--- NOTE | 2019-12-05 09:55 | USB ---
Reason for exam: additional evaluation requested from prior study. History: Patient is postmenopausal and has history of breast cancer at age 77. Malignant MG pre op needle loc LT of the left breast, April 25, 2018. Lumpectomy of the left breast, April 25, 2018. Malignant US biopsy breast VAD LT of the left breast, April 06, 2018. Malignant US biopsy breast add'l VAD LT of the left breast, April 06, 2018. US Breast RT Left complete breast ultrasound includes all four quadrants, the retroareolar region and axilla. Finding demonstrates a 0.9cm oval lymph node at the axilla. These results were verbally communicated with the patient and result sheet given to the patient on 12/05/19. ASSESSMENT: Negative, BI-RAD 1 RECOMMENDATION: Follow-up diagnostic mammogram of both breasts in 1 year.
== END | disposition home or self-care (01) ==
LOC: RADMAMWWP 08:37
PROVIDERS: ATTEND Surgery
DX: Z08 Encounter for follow-up examination after completed treatment for malignant neoplasm (principal); Z85.3 Personal history of malignant neoplasm of breast
CPT/HCPCS: 77066; 76641; G0279; 77062

== ENCOUNTER → 2019-12-13 | Outpatient (CLI) | payer MEDICARE ==
[2019-12-13 09:42] VITALS: BP 143/90; PULSE 90; RESP 18; TEMP 97.6
--- NOTE | 2019-12-13 09:46 | P.PN ---
Subjective Progress Note Date: 12/13/19 Principal diagnosis: surveillance stage IIB T2N1 ER+Pr+Her2/micheal- Kina is an 79-year-old white female who is status post left breast lumpectomy and sentinel node biopsy on 65. The patient has undergone radiation therapy She recieved 15 fractions which she completed in June 2018. She was not felt to be a candidate for chemotherapy. She did receive anastrozole which she is still taking. She is following with Dr. Hale yearly, she is following with radiation oncology 6 months. Not have any complications related to her surgery or treatment at this time. The patient does not feel anything of concern in her breast or under her arms at this time[place] [address]. Following this it was recommended that she undergo a right breast ultrasound. Nothing of concern was noted on the mammogram. The ultrasound was a follow-up from prior ultrasound. Ultrasound was [id number]. This was of the right breast. It demonstrated a 0.9 cm oval lymph node at the axilla. It was felt to be negative BIRADS 1. Follow-up diagnostic mammogram of both breasts in 1 year was recommended. Family History: niece: uterine cancer Medical history: Atrial fib Arthritis Surgical history: Left breast core biopsy left bresat lumpectomy and SNB left thyroid bilateral knee replacement Hysterectomy Hemithyroidectomy Systems: HEENT: Macular degeneration Lungs: COPD Heart: Atrial fib/leaking heart valve patient is on blood thinner GI: Negative : Hysterectomy Musculoskeletal: Arthritis Neurologic: Negative Endocrine: Negative Social history: Smoke: Negative Alcohol: Negative Drugs: Negative Objective - Constitutional General appearance: Present: obese - EENT Eyes: Present: EOMI ENT: Present: hearing grossly normal - Neck Details: no adenopathy Neck: Present: normal ROM - Respiratory Respiratory: bilateral: CTA - Cardiovascular Rhythm: regular Heart sounds: normal: S1, S2 - Gastrointestinal General gastrointestinal: Present: normal bowel sounds, soft - Integumentary Integumentary: Present: normal turgor - Musculoskeletal Musculoskeletal Comment(s): difficulty with ambulation/ uses a walker - Psychiatric Psychiatric: Present: A&O x's 3, appropriate affect, intact judgment & insight - Additional findings Additional findings: Breast examination: BRA 54DD ptosis grade 3 Special: This radiation changes noted in the left breast related to prior surgery, scar related to prior surgery with some asymmetry in the left breast No skin changes of concern otherwise noted in either breast No nipple inversion Palpation: Right breast: fibro-cystic breast changes no dominant masses or nodules of concern Right axilla: No adenopathy of concern Left breast: Skin changes related to radiation therapy, thickening related to radiation therapy and scar tissue no dominant masses or nodules of concern Left axilla: No adenopathy of concern Assessment and Plan Assessment: Impression: 1. Patient status post lumpectomy/radiation therapy for stage IIB left breast cancer presently on anastrozole 2. No evidence of recurrent cancer at this time 3. Patient not complaining of any swelling of her arm or hand 4. Fungal infection under breast resolved 5. Fibrocystic changes bilateral Plan: 1. Bilateral mammogram in 1 year 2. Six-month follow-up surveillance 3. Continue anastrozole 4. Patient to call sooner if any questions of concern CC: Dr. Tovar encounter 15 minutes, > 50% of time in planning and counselling Time with Patient: Less than 30
== END | disposition home or self-care (01) ==
LOC: WWCWWP 09:24
PROVIDERS: ATTEND Surgery
DX: Z53.9 Procedure and treatment not carried out, unspecified reason (principal)

== ENCOUNTER → 2020-09-15 | Outpatient (CLI) | payer MEDICARE ==
--- NOTE | 2020-09-15 18:40 | BD ---
EXAMINATION TYPE: Axial Bone Density DATE OF EXAM: 09/15/2020 COMPARISON: NONE CLINICAL HISTORY: Postmenopausal screening Height: 5 FT 5 IN Weight: 320 FRAX RISK QUESTIONS: Alcohol (3 or more units per day): NO Family History (Parent hip fracture): NO Glucocorticoids (More than 3mos): NO (Ex: prednisone, prednisolone, methylprednisolone, dexamethasone, and hydrocortisone). History of Fracture in Adulthood: NO Secondary Osteoporosis: 1. Type 1 Diabetes: NO 2. Hyperthyroidism: NO 3. Menopause before 45: PART AGE 34 4. Malnutrition: NO 5. Chronic liver disease: NO Rheumatoid Arthritis: YES Current Tobacco Use: NO RISK FACTORS HISTORY OF: Family History of Osteoporosis: NO Active: YES Diet low in dairy products/other sources of calcium: YES Postmenopausal woman: PART AGE 34 Take estrogen and/or progesterone medications: SHE THINK SHE WAS ON HRT UNSURE Lost more than 2 inches in height since high school: YES Frequent falls: NO Poor Health: NO MEDICATIONS: Additional Medications: ALBUTEROL, ALLOPURINOL, ADVAIR, LOSARTAN, HYDROCHLOROTHIAZIDE, SIMVASTATIN, C ARVEDILOL, ANASTROZOLE, PRESERVISION, Additional History: EXAM MEASUREMENTS: Bone mineral densitometry was performed using the [employer] System. Bone mineral density as measured about the Lumbar spine is: ----- L1-L4(G/cm2): 1.276 T Score Values are as follows: ----- L2: 1.0 ----- L3: 2.3 ----- L4: 0.4 ----- L1-L4: 0.8 Bone mineral density has: DECREASED -0.1 % since study of: 2017 Bone mineral density about the R hip (g/cm2): 0.875 Bone mineral density about the L hip (g/cm2): 0.796 T Score values are as follows: -----R Neck: -1.2 -----L Neck: -1.7 -----R Total: 0.0 -----L Total: -0.7 Bone mineral density has: DECREASED - 5.9% since study of: 2017 IMPRESSION: Osteopenia (T Score between -2.5 and -1). There is slightly increased risk of fracture and the patient may be considered for treatment. Re-Screen 2-5 years. NOTE: T-SCORE=SD OF THE YOUNG ADULT MEAN.
== END | disposition home or self-care (01) ==
LOC: RADBDWWP 09:09
PROVIDERS: ATTEND Internal Medicine Hematology & Oncology
DX: M85.80 Other specified disorders of bone density and structure, unspecified site (principal); Z79.890 Hormone replacement therapy; C50.812 Malignant neoplasm of overlapping sites of left female breast
CPT/HCPCS: 77080

== ENCOUNTER → 2020-12-10 | Outpatient (CLI) | payer MEDICARE ==
--- NOTE | 2020-12-10 11:59 | MM ---
Reason for exam: additional evaluation requested from prior study. Last mammogram was performed 1 year ago. History: Patient is postmenopausal and has history of breast cancer at age 77. Malignant MG pre op needle loc LT of the left breast, April 25, 2018. Lumpectomy of the left breast, April 25, 2018. Malignant US biopsy breast VAD LT of the left breast, April 06, 2018. Malignant US biopsy breast add'l VAD LT of the left breast, April 06, 2018. Physical Findings: Nurse did not find any significant physical abnormalities on exam. MG 3D Diag Mammo W/Cad BART Bilateral CC and MLO view(s) were taken. ML, LM, CC with magnification, and MLO with magnification view(s) were taken of the left breast. Prior study comparison: December 05, 2019, bilateral MG 3d diag mammo w/cad BART. December 01, 2018, right breast MG 3d diag mammo w/cad RT. November 24, 2018, left breast MG 3d diag mammo w/cad LT. The breast tissue is heterogeneously dense. This may lower the sensitivity of mammography. Finding: There are new heterogeneous, grouped/clustered calcifications in the 9 o'clock position of the left breast, 7cm from the nipple which may be post radiation changes. Post surgical changes left breast. New finding since December 05, 2019. These results were verbally communicated with the patient and result sheet given to the patient on 12/10/20. ASSESSMENT: Probably benign, BI-RAD 3 RECOMMENDATION: Follow-up diagnostic mammogram of the left breast in 3 months. (3-6 months)
== END | disposition home or self-care (01) ==
LOC: RADMAMWWP 10:29
PROVIDERS: ATTEND Surgery
DX: Z08 Encounter for follow-up examination after completed treatment for malignant neoplasm (principal); Z85.3 Personal history of malignant neoplasm of breast
CPT/HCPCS: 77066; G0279; 77062

== ENCOUNTER → 2020-12-12 | Outpatient (CLI) | payer MEDICARE ==
[2020-12-12 09:40] VITALS: BP 127/69; PULSE 107; RESP 20; TEMP 98
--- NOTE | 2020-12-12 10:12 | P.PN ---
Subjective Progress Note Date: 12/12/20 Principal diagnosis: stage IIB left breast cancer, S0C2KcPH+Pr+Her2-G3 stage IIB left breast cancer, T2N1ER+Pr+Her2- surveillance stage IIB T2N1 ER+Pr+Her2/micheal-G3 Kina is an 80-year-old white female who is status post left breast lumpectomy and sentinel node biopsy on 65. The patient has undergone radiation therapy She recieved 15 fractions which she completed in June 2018. She was not felt to be a candidate for chemotherapy. She did receive anastrozole which she is still taking. She is following with Dr. Hale yearly, she is following with radiation oncology 6 months. The patient does not feel anything of concern in her breast or under her arms at this time. [place] [address]. Following this it was recommended that she undergo a right breast ultrasound. Nothing of concern was noted on the mammogram. The ultrasound was a follow-up from prior ultrasound. Ultrasound was [id number]. This was of the right breast. It demonstrated a 0.9 cm oval lymph node at the axilla. It was felt to be negative BIRADS 1. Follow-up diagnostic mammogram of both breasts in 1 year was recommended. The patients most recent mammogram was on 12-10-20, the mammogram was read as heterogeneous group/clustered calcifications in the 9 o'clock position postsurgical changes which may be related also to radiation changes. The radiograph was reviewed with Dr. Wells and we have called and also as the Dr. Orr review this and he is going to contact us back. The patient herself does not feel anything of concern in either breast. She does not complain of any new breast lumps masses or nodules. She is not complaining of any breast pain. Family History: niece: uterine cancer patient: left breast cancer Medical history: Atrial fib Arthritis Surgical history: Left breast core biopsy left bresat lumpectomy and SNB left thyroid bilateral knee replacement Hysterectomy [place] thyroidectomy two molars extracted 1 week ago Systems: HEENT: Macular degeneration, two molars extracted (cavities) Lungs: COPD Heart: Atrial fib/leaking heart valve patient is on blood thinner GI: Negative : Hysterectomy Musculoskeletal: Arthritis Psychiatric: Negative Neurologic: Negative Endocrine: Negative Allergies: none Social history: Smoke: Negative Alcohol: Negative Drugs: Negative Objective - Vital Signs Vital signs: Vital Signs Temp 98.0 F 12/12/20 09:35 Pulse 107 H 12/12/20 09:35 Resp 20 12/12/20 09:35 BP 127/69 12/12/20 09:35 Pulse Ox 97 12/12/20 09:35 Intake & Output 12/11/20 12/12/20 12/12/20 18:59 06:59 18:59 Weight 142.882 kg - Exam BMI 52.4 - Constitutional General appearance: Present: obese - EENT Eyes: Present: EOMI ENT: Present: hard of hearing - Neck Neck: Present: normal ROM - Respiratory Respiratory: bilateral: CTA - Cardiovascular Heart sounds: normal: S1, S2 - Gastrointestinal General gastrointestinal: Present: normal bowel sounds, soft - Integumentary Integumentary: Present: normal turgor - Psychiatric Psychiatric: Present: A&O x's 3, appropriate affect, intact judgment & insight - Additional findings Additional findings: breast exam: BRA 54DD inspection: bilateral grader 3 ptosis, scar and radiation changes left breast, fungal infection under right breast Palpation: Right breast: Multiple positional exam fibrocystic changes, no dominant masses or nodules of concern; fungal infection under the right breast Right axilla: No adenopathy of concern Left breast: Radiation and scar changes, otherwise no dominant masses or nodules of concern Left axilla: No adenopathy of concern Assessment and Plan Assessment: Impression: Atrial fib Arthritis Stage IIB left breast cancer diagnosed in 2018 treated with lumpectomy, radiation therapy, and anastrozole No evidence of recurrent cancer at this time however postoperative and post- radiation changes apparent in the left breast Abnormal left breast mammogram/repeat in 6 months Fungal infection under right breast Fibrocystic changes right breast Plan: 1. Repeat left breast mammogram in 6 months 2. Nystatin undergo right breast 3. Patient to follow up sooner if any questions or concerns 4. Continue follow-up with radiation and medical oncology 5. Follow-up. 6 months after left breast mammogram Cc: encounter 25 minutes, > 50% of time in planning and counselling
== END | disposition home or self-care (01) ==
LOC: WWCWWP 09:07
PROVIDERS: ATTEND Surgery
DX: Z53.9 Procedure and treatment not carried out, unspecified reason (principal)

== ENCOUNTER 2021-03-18 10:50 | Inpatient (IN) | payer MEDICARE ==
[2021-03-18] MEDS ORDERED: methylPREDNISolone SOD SUCCI 125 MG/2 ML VIAL IV STA (11:43)
[2021-03-18] MEDS ORDERED: IPRATROPIUM-ALBUTEROL 3 ML NEB INHALATION STA (11:43)
--- NOTE | 2021-03-18 12:11 | XR ---
EXAMINATION TYPE: XR chest 2V DATE OF EXAM: 03/18/2021 COMPARISON: NONE HISTORY: Shortness of breath TECHNIQUE: Frontal and lateral views of the chest are obtained. FINDINGS: Scattered senescent parenchymal changes noted. Hyperinflation compatible with COPD. No evidence for infiltrate. No evidence for atelectasis. Elevation right hemidiaphragm. Heart size is stable. Mediastinal structures are stable and grossly unremarkable. No evidence for hilar prominence. Degenerative changes dorsal spine. IMPRESSION: 1. No evidence for acute pulmonary disease.
--- NOTE | 2021-03-18 12:27 | ED ---
URI HPI - General Chief Complaint: Upper Respiratory Infection Stated Complaint: SOB Time Seen by Provider: 03/18/21 11:20 Source: patient Mode of arrival: ambulatory Limitations: no limitations - History of Present Illness Initial Comments: Patient is an 80-year-old female with history of COPD, A. fib, hypertension, kidney disease, presenting to the emergency Department with complaints of increasing shortness of breath cough over the past week. She states she went to her doctor last week for what she thought was a sinus infection, they did put her on amoxicillin and a steroid, she did feel improvement but over the last few days. Her symptoms are worse. She states she's lost some of her voice. She talked to her stuntman, Dr. Herrera who recommended coming in for examination. She is not on home O2. Patient denies any fevers or chills, no nausea or vomiting, no abdominal pain. She has been fully vaccinated against Covid since the end of January. She denies any chest pains. She has no further complaints at this time. Upon arrival to the ER, her vital signs are stable. - Related Data Home Medications Medication Instructions Recorded Confirmed Cyanocobalamin [Vitamin B-12] 1 tab PO QAM 08/03/16 03/18/21 Edoxaban Tosylate [Savaysa] 30 mg PO QAM 08/03/16 03/18/21 Fluticasone/Salmeterol [Advair Hfa 2 puff INHALATION RT-BID 08/03/16 03/18/21 115-21 Mcg Inhaler] Hydrochlorothiazide 25 mg PO QAM 08/03/16 03/18/21 Simvastatin 20 mg PO HS 08/03/16 03/18/21 Carvedilol [Coreg] 3.125 mg PO BID 03/15/18 03/18/21 Vit C/E/Zn/Coppr/Lutein/Zeaxan 1 cap PO BID 03/15/18 03/18/21 [Preservision Areds 2 Softgel] Anastrozole [Arimidex] 1 tab PO QAM 08/17/18 03/18/21 Loratadine [Claritin] 10 mg PO DAILY 03/08/19 03/18/21 Losartan Potassium 50 mg PO QAM 03/08/19 03/18/21 allopurinoL [Zyloprim] 100 mg PO QAM 03/08/19 03/18/21 Albuterol Sulfate [Proair 1 puff INHALATION RT-Q6H PRN 06/12/20 03/18/21 Digihaler] Acetaminophen [Tylenol Arthritis] 650 mg PO Q8H PRN 03/18/21 03/18/21 Cholecalciferol (Vitamin D3) 100 mcg PO DAILY 03/18/21 03/18/21 [Vitamin D3 (4,000 Iu)] Fluticasone Nasal [place] [Flonase 1 spray EA NOSTRIL DAILY 03/18/21 03/18/21 Nasal [place]] Allergies Allergy/AdvReac Type Severity Reaction Status Date / Time No Known Allergies Allergy Verified 03/18/21 13:04 Review of Systems ROS Statement: Those systems with pertinent positive or pertinent negative responses have been documented in the HPI. ROS Other: All systems not noted in ROS Statement are negative. Past Medical History Past Medical History: Atrial Fibrillation, Asthma, COPD, Hyperlipidemia, Hypertension, Renal Disease Additional Past Medical History / Comment(s): Chronic Kidney disease History of Any Multi-Drug Resistant Organisms: None Reported Past Surgical History: Breast Surgery, Hysterectomy, Joint Replacement Additional Past Surgical History / Comment(s): BILATERAL KNEES REPLACED. LEFT LOBE THYROIDECTOMY; BREAST BX Past Anesthesia/Blood Transfusion Reactions: No Reported Reaction Past Psychological History: No Psychological Hx Reported Smoking Status: Never smoker Past Alcohol Use History: None Reported Past Drug Use History: None Reported - Past Family History Mother Family Medical History: No Reported History General Exam - General Exam Comments Initial Comments: GENERAL: Patient is well-developed and well-nourished. Patient is nontoxic and in no acute distress, obese. HEAD: Atraumatic, normocephalic. EYES: Pupils equal round and reactive to light, extraocular movements intact, sclera anicteric, conjunctiva are normal. Eyelids were unremarkable. ENT: TMs normal, nares patent, oropharynx clear without exudates. Moist mucous memb ranes. NECK: Normal range of motion, supple without lymphadenopathy or JVD. LUNGS: Unlabored respirations. Decreased sounds in the lower shaikh, no wheezes. HEART: Regular rate and rhythm without murmurs, rubs or gallops. ABDOMEN: Soft, nontender, normoactive bowel sounds. No guarding, no rebound. No masses appreciated. : Deferred MUSCULOSKELETAL: Normal extremities with adequate strength and normal range of motion, no pitting or edema. No clubbing or cyanosis. NEUROLOGICAL: Patient is alert and oriented x 3. Motor and sensory are also intact. Cranial nerves II through XII grossly intact. Symmetrical smile. Normal speech, normal gait. PSYCH: Normal mood, normal affect. SKIN: Warm, Dry, normal turgor, no rashes or lesions noted. Limitations: no limitations Course Vital Signs 03/18/21 03/18/21 03/18/21 11:00 12:38 12:47 Temperature 98.2 F Pulse Rate 52 L 56 L 52 L Respiratory 18 Rate Blood Pressure 103/68 O2 Sat by Pulse 97 Oximetry 03/18/21 12:54 Temperature Pulse Rate 40 L Respiratory 22 Rate Blood Pressure 135/54 O2 Sat by Pulse 96 Oximetry Medical Decision Making - Medical Decision Making Patient is an 80-year-old female with history of COPD, presenting with 1 week of increasing shortness of breath, cough. She did finish a course of amoxicillin and steroids last week. Vitals are stable upon arrival. Labs show a normal white count, creatinine slightly up at 1.30, BUN is 33. Lactic acid is 2.5. Troponin is normal, BNP is 683, rapid Covid is not detected. His x-ray shows no acute process. EKG showing A. fib with slow ventricular response, heart rate has been in the 40s. Patient was given a liter bolus of fluids, DuoNeb and steroids. Patient will be admitted for COPD exacerbation, A. fib with slow response. Patient accepted by Dr. Maciel, with consult to cardiology. Case discussed with Dr. Quintanilla. - Lab Data Result diagrams: 03/18/21 12:28 03/18/21 12: Lab Results 03/18/21 03/18/21 03/18/21 Range/Units 12:28 12: 12: WBC 8.2 (3.8-10.6) k/uL RBC 4.65 (3.80-5.40) m/uL Hgb 15.2 (11.4-16.0) gm/dL Hct 46.8 H (34.0-46.0) % MCV 100.7 H (80.0-100.0) fL MCH 32.6 (25.0-35.0) pg MCHC 32.3 (31.0-37.0) g/dL RDW 14.3 (11.5-15.5) % Plt Count 188 (150-450) k/uL MPV 8.9 Neutrophils % 66 % Lymphocytes % 21 % Monocytes % 7 % Eosinophils % 4 % Basophils % 1 % Neutrophils # 5.4 (1.3-7.7) k/uL Lymphocytes # 1.7 (1.0-4.8) k/uL Monocytes # 0.6 (0-1.0) k/uL Eosinophils # 0.3 (0-0.7) k/uL Basophils # 0.0 (0-0.2) k/uL Macrocytosis Slight Sodium 139 (137-145) mmol/L Potassium 3.8 (3.5-5.1) mmol/L Chloride 104 (98-107) mmol/L Carbon Dioxide 27 (22-30) mmol/L Anion Gap 8 mmol/L BUN 33 H (7-17) mg/dL Creatinine 1.30 H (0.52-1.04) mg/dL Est GFR (CKD-EPI)AfAm 45 (>60 ml/min/1.73 sqM) Est GFR (CKD-EPI)NonAf 39 (>60 ml/min/1.73 sqM) Glucose 133 H (74-99) mg/dL Plasma Lactic Acid Liban 2.5 H* (0.7-2.0) mmol/L Calcium 9.2 (8.4-10.2) mg/dL Total Bilirubin 0.9 (0.2-1.3) mg/dL AST 27 (14-36) U/L ALT 20 (4-34) U/L Alkaline Phosphatase 82 (38-126) U/L Troponin I (0.000-0.034) ng/mL NT-Pro-B Natriuret Pep pg/mL Total Protein 6.0 L (6.3-8.2) g/dL Albumin 3.7 (3.5-5.0) g/dL Influenza Type A (PCR) (Not Detectd) Influenza Type B (PCR) (Not Detectd) RSV (PCR) (Not Detectd) SARS-CoV-2 (PCR) (Not Detectd) 03/18/21 03/18/21 03/18/21 Range/Units 12:28 12:28 12:28 WBC (3.8-10.6) k/uL RBC (3.80-5.40) m/uL Hgb (11.4-16.0) gm/dL Hct (34.0-46.0) % MCV (80.0-100.0) fL MCH (25.0-35.0) pg MCHC (31.0-37.0) g/dL RDW (11.5-15.5) % Plt Count (150-450) k/uL MPV Neutrophils % % Lymphocytes % % Monocytes % % Eosinophils % % Basophils % % Neutrophils # (1.3-7.7) k/uL Lymphocytes # (1.0-4.8) k/uL Monocytes # (0-1.0) k/uL Eosinophils # (0-0.7) k/uL Basophils # (0-0.2) k/uL Macrocytosis Sodium (137-145) mmol/L Potassium (3.5-5.1) mmol/L Chloride (98-107) mmol/L Carbon Dioxide (22-30) mmol/L Anion Gap mmol/L BUN (7-17) mg/dL Creatinine (0.52-1.04) mg/dL Est GFR (CKD-EPI)AfAm (>60 ml/min/1.73 sqM) Est GFR (CKD-EPI)NonAf (>60 ml/min/1.73 sqM) Glucose (74-99) mg/dL Plasma Lactic Acid Liban (0.7-2.0) mmol/L Calcium (8.4-10.2) mg/dL Total Bilirubin (0.2-1.3) mg/dL AST (14-36) U/L ALT (4-34) U/L Alkaline Phosphatase (38-126) U/L Troponin I <0.012 (0.000-0.034) ng/mL NT-Pro-B Natriuret Pep 683 pg/mL Total Protein (6.3-8.2) g/dL Albumin (3.5-5.0) g/dL Influenza Type A (PCR) Not Detected (Not Detectd) Influenza Type B (PCR) Not Detected (Not Detectd) RSV (PCR) Not Detected (Not Detectd) SARS-CoV-2 (PCR) Not Detected (Not Detectd) - EKG Data EKG Comments: A. fib with slow ventricular response, pulmonary disease pattern, incomplete RBBB, T-wave abnormalities. Ventricular rate 42, QRS duration 102, QTC 496. Disposition Clinical Impression: Atrial fibrillation with slow ventricular response, COPD exacerbation Disposition: ADMITTED IP TO THIS HOSP Condition: Stable Is patient prescribed a controlled substance at d/c from ED?: No Referrals: Nasim Tovar DO [Primary Care Provider] - 1-2 days Decision Date: 03/18/21 Decision Time: 14:10
[2021-03-18 12:55] LABS: Basophils % (A) 1 %; Eosinophils # (A) 0.3 k/uL (0-0.7); Eosinophils % (A) 4 %; HCT 46.8 % (34.0-46.0); HGB 15.2 gm/dL (11.4-16.0); Lymphocytes # (A) 1.7 k/uL (1.0-4.8); Lymphocytes % (A) 21 %; MCH 32.6 pg (25.0-35.0); MCHC 32.3 g/dL (31.0-37.0); MCV 100.7 fL (80.0-100.0); Macrocytosis Slight; Mean Platelet Volume 8.9; Monocytes # (A) 0.6 k/uL (0-1.0); Monocytes % (A) 7 %; Neutrophils # (A) 5.4 k/uL (1.3-7.7); Neutrophils % (A) 66 %; Platelet Count 188 k/uL (150-450); RBC 4.65 m/uL (3.80-5.40); RDW 14.3 % (11.5-15.5); WBC 8.2 k/uL (3.8-10.6)
[2021-03-18 13:07] LABS: Albumin 3.7 g/dL (3.5-5.0); Calcium 9.2 mg/dL (8.4-10.2); Potassium 3.8 mmol/L (3.5-5.1); Total Bilirubin 0.9 mg/dL (0.2-1.3)
[2021-03-18] MEDS ORDERED: SODIUM CHLORIDE 0.9% 1,000 ML IV STA (13:30)
[2021-03-18] MEDS ORDERED: ALBUTEROL HFA INHALER INHALATION PRN (14:09)
[2021-03-18] MEDS ORDERED: ACETAMINOPHEN TAB 325 MG TAB PO PRN (14:09)
[2021-03-18] MEDS ORDERED: FUROSEMIDE 10 MG/ML 4 ML VIAL IV STA (19:37)
--- NOTE | 2021-03-18 19:40 | P.HPIM ---
History of Present Illness H&P Date: 03/18/21 Chief Complaint: Short of breath History of presenting complaint: This is a 80-year-old patient of Dr. 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 Chronic stable medical conditions include atrial fibrillation, asthma, hyperlipidemia, hypertension, chronic kidney disease. Patient presents with about 10 days of increasing shortness of breath. Basically presented with activity. No edema. No chest pain. No fever no chills. No cough. At her baseline uses a walker Review of systems: GEN.: Tired EYES: None HEENT: None NECK: None RESPIRATORY: [As above CARDIOVASCULAR: None GASTROINTESTINAL: None GENITOURINARY: None MUSCULOSKELETAL: Joint pains LYMPHATICS: None HEMATOLOGICAL: None PSYCHIATRY: None NEUROLOGICAL: Does use a walker Past medical history to include: Atrial fibrillation, asthma, hyperlipidemia, hypertension, chronic kidney disease Social history: Daughter lives with her. Does use a walker. No history of smoking or alcohol Family history: Reviewed, noncontributory to presentation Physical examination: VITAL SIGNS: 98.2, 52, 18, 103/68, 97% room air GENERAL: BMI 51.3, reclining in bed, tired awake. EYES: Pupils equal. Conjunctiva normal. HEENT: External appearance of nose and ears normal, oral cavity grossly normal. NECK: JVD not raised; masses not palpable. HEART: First and second heart sounds are normal; no edema. LUNGS: Respiratory rate increased, decreased breath sounds. ABDOMEN: Soft, nontender, liver spleen not palpable, no masses palpable. PSYCH: Alert and oriented x3; mood and affect normal MUSCULAR skeletal: Evidence of OA. NEUROLOGICAL: Cranial nerves grossly intact; no facial asymmetry, power and sensation grossly intact. LYMPHATICS: No lymph nodes palpable in the axilla and neck INVESTIGATIONS, reviewed in the clinical context: WBC 8.2 hemoglobin 15.2 platelets 188 potassium 3.8 bun 33 creatinine 1.30 Lactic acid 2.5 troponin I less than 0.012 proBNP 63 Influenza type A, diabetic, RSV, COVID 19: Not detected EKG tracing personally reviewed by me-atrial fibrillation with a rate of 42 Chest x-ray film personally reviewed by me-elevated right diaphragm. Assessment and plan: -Persistent atrial fibrillation with a heart rate down to the 40s. Patient is on a beta liat that is currently being held. I.e. patient is on Coreg this may be the reason for patient shortness of breath -Moderate persistent asthma Continue DuoNeb and Symbicort -Morbid obesity BMI 51.3 Weight loss measures. Follow-up with PCP as an outpatient -Essential hypertension continue with losartan and follow blood pressure closely -History of breast cancer Continue with antiemetics Patient's Coreg has been discontinued. Patient is on telemetry. Other home medications resumed. We'll give 1 dose of IV Lasix. If heart rate doesn't, then pacemaker may be needed. Care was discussed with the patient. Questions answered. Past Medical History Past Medical History: Atrial Fibrillation, Asthma, COPD, Hyperlipidemia, Hypertension, Renal Disease Additional Past Medical History / Comment(s): Chronic Kidney disease History of Any Multi-Drug Resistant Organisms: None Reported Past Surgical History: Breast Surgery, Hysterectomy, Joint Replacement Additional Past Surgical History / Comment(s): BILATERAL KNEES REPLACED. LEFT LOBE THYROIDECTOMY; BREAST BX Past Anesthesia/Blood Transfusion Reactions: No Reported Reaction Past Psychological History: No Psychological Hx Reported Smoking Status: Never smoker Past Alcohol Use History: None Reported Past Drug Use History: None Reported - Past Family History Mother Family Medical History: No Reported History Medications and Allergies Home Medications Medication Instructions Recorded Confirmed Type Cyanocobalamin [Vitamin B-12] 1 tab PO QAM 08/03/16 03/18/21 History Edoxaban Tosylate [Savaysa] 30 mg PO QAM 08/03/16 03/18/21 History Fluticasone/Salmeterol [Advair Hfa 2 puff INHALATION RT-BID 08/03/16 03/18/21 History 115-21 Mcg Inhaler] Hydrochlorothiazide 25 mg PO QAM 08/03/16 03/18/21 History Simvastatin 20 mg PO HS 08/03/16 03/18/21 History Carvedilol [Coreg] 3.125 mg PO BID 03/15/18 03/18/21 History Vit C/E/Zn/Coppr/Lutein/Zeaxan 1 cap PO BID 03/15/18 03/18/21 History [Preservision Areds 2 Softgel] Anastrozole [Arimidex] 1 tab PO QAM 08/17/18 03/18/21 History Loratadine [Claritin] 10 mg PO DAILY 03/08/19 03/18/21 History Losartan Potassium 50 mg PO QAM 03/08/19 03/18/21 History allopurinoL [Zyloprim] 100 mg PO QAM 03/08/19 03/18/21 History Albuterol Sulfate [Proair 1 puff INHALATION RT-Q6H PRN 06/12/20 03/18/21 History Digihaler] Acetaminophen [Tylenol Arthritis] 650 mg PO Q8H PRN 03/18/21 03/18/21 History Cholecalciferol (Vitamin D3) 100 mcg PO DAILY 03/18/21 03/18/21 History [Vitamin D3 (4,000 Iu)] Fluticasone Nasal [place] [Flonase 1 spray EA NOSTRIL DAILY 03/18/21 03/18/21 History Nasal [place]] Allergies Allergy/AdvReac Type Severity Reaction Status Date / Time No Known Allergies Allergy Verified 03/18/21 13:04 Physical Exam Vitals: Vital Signs Temp Pulse Resp BP Pulse Ox 03/18/21 16:03 51 L 18 152/56 94 L 03/18/21 14:45 43 L 17 103/70 92 L 03/18/21 12:54 40 L 22 135/54 96 03/18/21 12:47 52 L 03/18/21 12:38 56 L 03/18/21 11:00 98.2 F 52 L 18 103/68 97 Intake and Output 03/18/21 03/18/21 03/18/21 06:59 14:59 22:59 Other: Weight 144.242 kg Results CBC & Chem 7: 03/18/21 12:28 03/18/21 12:28 Labs: Abnormal Lab Results - Last 24 Hours (Table) 03/18/21 03/18/21 03/18/21 Range/Units 12:28 12:28 12:28 Hct 46.8 H (34.0-46.0) % MCV 100.7 H (80.0-100.0) fL BUN 33 H (7-17) mg/dL Creatinine 1.30 H (0.52-1.04) mg/dL Glucose 133 H (74-99) mg/dL Plasma Lactic Acid Liban 2.5 H* (0.7-2.0) mmol/L Total Protein 6.0 L (6.3-8.2) g/dL
[2021-03-18] MEDS ORDERED: ENOXAPARIN 40 MG/0.4 ML SYRINGE SQ SCH (19:45)
[2021-03-18] MEDS: IPRATROPIUM-ALBUTEROL 3 ML NEB INHALATION PRN (20:41)
[2021-03-18] MEDS: SYMBICORT 160-4.5 MCG INHALER INHALATION SCH (20:41)
[2021-03-18] MEDS: ATORVASTATIN 10 MG TAB PO SCH (21:45)
[2021-03-18] MEDS: VIT A,C & E-LUTEIN-MINERALS 1 EACH TAB PO SCH (23:14)
[2021-03-19] MEDS ORDERED: EPINEPHrine 10 ML SYRINGE (0.1 MG/ML) ONE (03:46)
[2021-03-19] MEDS ORDERED: DEXTROSE 50% SYRINGE 50 ML IVP ONE (03:46)
[2021-03-19 03:54] LABS: Glucose,Whole Blood 273 mg/dL (75-99)
[2021-03-19] MEDS ORDERED: MIDAZOLAM 1 MG/ML 5 ML VIAL IV STA ×3 (04:04→05:50)
--- NOTE | 2021-03-19 04:20 | ED ---
Medical Decision Making - Medical Decision Making 80 female DF for evaluation patient had a cardiac arrest effusing the bathroom, patient was on med medical hold. Patient's prior charting show significant bradycardia throughout ER stay Patient found on ground with no pulse, patient given IV does have review of return of spontaneous circulation Patient intubated, does remain moderately responsive requiring sedation Patient placed on Levothroid for heart rate control Spoke with cardiology regarding significant bradycardia, patient will need ICU admission did speak with ICU, also updated Dr. sargent - Lab Data Result diagrams: 03/19/21 04:25 03/19/21 04:25 Lab Results 03/18/21 03/18/21 03/18/21 Range/Units 12:28 12:28 12:28 WBC 8.2 (3.8-10.6) k/uL RBC 4.65 (3.80-5.40) m/uL Hgb 15.2 (11.4-16.0) gm/dL Hct 46.8 H (34.0-46.0) % MCV 100.7 H (80.0-100.0) fL MCH 32.6 (25.0-35.0) pg MCHC 32.3 (31.0-37.0) g/dL RDW 14.3 (11.5-15.5) % Plt Count 188 (150-450) k/uL MPV 8.9 Neutrophils % 66 % Lymphocytes % 21 % Monocytes % 7 % Eosinophils % 4 % Basophils % 1 % Neutrophils # 5.4 (1.3-7.7) k/uL Lymphocytes # 1.7 (1.0-4.8) k/uL Monocytes # 0.6 (0-1.0) k/uL Eosinophils # 0.3 (0-0.7) k/uL Basophils # 0.0 (0-0.2) k/uL Macrocytosis Slight Sodium 139 (137-145) mmol/L Potassium 3.8 (3.5-5.1) mmol/L Chloride 104 (98-107) mmol/L Carbon Dioxide 27 (22-30) mmol/L Anion Gap 8 mmol/L BUN 33 H (7-17) mg/dL Creatinine 1.30 H (0.52-1.04) mg/dL Est GFR (CKD-EPI)AfAm 45 (>60 ml/min/1.73 sqM) Est GFR (CKD-EPI)NonAf 39 (>60 ml/min/1.73 sqM) Glucose 133 H (74-99) mg/dL Lactic Ac Sepsis Rflx Plasma Lactic Acid Liban 2.5 H* (0.7-2.0) mmol/L Calcium 9.2 (8.4-10.2) mg/dL Total Bilirubin 0.9 (0.2-1.3) mg/dL AST 27 (14-36) U/L ALT 20 (4-34) U/L Alkaline Phosphatase 82 (38-126) U/L Troponin I (0.000-0.034) ng/mL NT-Pro-B Natriuret Pep pg/mL Total Protein 6.0 L (6.3-8.2) g/dL Albumin 3.7 (3.5-5.0) g/dL Influenza Type A (PCR) (Not Detectd) Influenza Type B (PCR) (Not Detectd) RSV (PCR) (Not Detectd) SARS-CoV-2 (PCR) (Not Detectd) 03/18/21 03/18/21 03/18/21 Range/Units 12:28 12:28 12:28 WBC (3.8-10.6) k/uL RBC (3.80-5.40) m/uL Hgb (11.4-16.0) gm/dL Hct (34.0-46.0) % MCV (80.0-100.0) fL MCH (25.0-35.0) pg MCHC (31.0-37.0) g/dL RDW (11.5-15.5) % Plt Count (150-450) k/uL MPV Neutrophils % % Lymphocytes % % Monocytes % % Eosinophils % % Basophils % % Neutrophils # (1.3-7.7) k/uL Lymphocytes # (1.0-4.8) k/uL Monocytes # (0-1.0) k/uL Eosinophils # (0-0.7) k/uL Basophils # (0-0.2) k/uL Macrocytosis Sodium (137-145) mmol/L Potassium (3.5-5.1) mmol/L Chloride (98-107) mmol/L Carbon Dioxide (22-30) mmol/L Anion Gap mmol/L BUN (7-17) mg/dL Creatinine (0.52-1.04) mg/dL Est GFR (CKD-EPI)AfAm (>60 ml/min/1.73 sqM) Est GFR (CKD-EPI)NonAf (>60 ml/min/1.73 sqM) Glucose (74-99) mg/dL Lactic Ac Sepsis Rflx Plasma Lactic Acid Liban (0.7-2.0) mmol/L Calcium (8.4-10.2) mg/dL Total Bilirubin (0.2-1.3) mg/dL AST (14-36) U/L ALT (4-34) U/L Alkaline Phosphatase (38-126) U/L Troponin I <0.012 (0.000-0.034) ng/mL NT-Pro-B Natriuret Pep 683 pg/mL Total Protein (6.3-8.2) g/dL Albumin (3.5-5.0) g/dL Influenza Type A (PCR) Not Detected (Not Detectd) Influenza Type B (PCR) Not Detected (Not Detectd) RSV (PCR) Not Detected (Not Detectd) SARS-CoV-2 (PCR) Not Detected (Not Detectd) 03/18/21 Range/Units 13:13 WBC (3.8-10.6) k/uL RBC (3.80-5.40) m/uL Hgb (11.4-16.0) gm/dL Hct (34.0-46.0) % MCV (80.0-100.0) fL MCH (25.0-35.0) pg MCHC (31.0-37.0) g/dL RDW (11.5-15.5) % Plt Count (150-450) k/uL MPV Neutrophils % % Lymphocytes % % Monocytes % % Eosinophils % % Basophils % % Neutrophils # (1.3-7.7) k/uL Lymphocytes # (1.0-4.8) k/uL Monocytes # (0-1.0) k/uL Eosinophils # (0-0.7) k/uL Basophils # (0-0.2) k/uL Macrocytosis Sodium (137-145) mmol/L Potassium (3.5-5.1) mmol/L Chloride (98-107) mmol/L Carbon Dioxide (22-30) mmol/L Anion Gap mmol/L BUN (7-17) mg/dL Creatinine (0.52-1.04) mg/dL Est GFR (CKD-EPI)AfAm (>60 ml/min/1.73 sqM) Est GFR (CKD-EPI)NonAf (>60 ml/min/1.73 sqM) Glucose (74-99) mg/dL Lactic Ac Sepsis Rflx Y Plasma Lactic Acid Liban (0.7-2.0) mmol/L Calcium (8.4-10.2) mg/dL Total Bilirubin (0.2-1.3) mg/dL AST (14-36) U/L ALT (4-34) U/L Alkaline Phosphatase (38-126) U/L Troponin I (0.000-0.034) ng/mL NT-Pro-B Natriuret Pep pg/mL Total Protein (6.3-8.2) g/dL Albumin (3.5-5.0) g/dL Influenza Type A (PCR) (Not Detectd) Influenza Type B (PCR) (Not Detectd) RSV (PCR) (Not Detectd) SARS-CoV-2 (PCR) (Not Detectd) - EKG Data -: EKG Interpreted by Me (EKG is now wide complex QRS rate of 79 QRS 160 QTC 550) - Radiology Data Radiology results: report reviewed (Chest x-ray shows successful positive ET tube placement), image reviewed Critical Care Time Critical Care Time: Yes Total Critical Care Time: 31 Disposition Clinical Impression: Atrial fibrillation with slow ventricular response, COPD exacerbation, Cardiopulmonary arrest, Bradycardia Disposition: ADMITTED IP TO THIS HOSP Condition: Stable Is patient prescribed a controlled substance at d/c from ED?: No Procedures - Intubation Laryngoscope: Stan Size: 4 ET Tube Size: 7.5 ET Tube Uncuffed: No Tube Secured Location: teeth Tube Placement Confirmation: visualized tube passing through cords, equal breath sounds bilaterally, no breath sounds over epigastrium Patient Tolerated Procedure: well Intubation Complications: none
[2021-03-19] MEDS: NOREPINEPHRINE 4 MG in SODIUM CHLORIDE 0.9% 250 ML IV SCH ×2 (04:21→09:19)
--- NOTE | 2021-03-19 04:25 | XR ---
EXAM: XR Chest, 1 View CLINICAL HISTORY: ITS.REASON XR Reason: ET TECHNIQUE: Frontal view of the chest. COMPARISON: No relevant prior studies available. FINDINGS: Lungs: Similar prominent asymmetric elevation the right hemidiaphragm. Subsegmental perihilar changes noted, slightly increased from the previous exam. No lobar consolidation. Pleural space: No definite large pleural effusion or pneumothorax, accounting for limitations with supine technique. Heart: The cardiac silhouette is presumed accentuated by AP portable technique Mediastinum: No significant abnormality identified. The trachea is midline. Bones/joints: Unremarkable. Tubes, lines and devices: The endotracheal tube is identified approximately 1.5 cm from the armaan. A nasogastric tube traverses the mediastinum and extends into the left upper quadrant. IMPRESSION: 1. The endotracheal tube is identified approximately 1.5 cm from the armaan. 2. Similar prominent asymmetric elevation the right hemidiaphragm. Subsegmental perihilar changes noted, slightly increased from the previous exam. No lobar consolidation. No large pleural effusion or pneumothorax, accounting for limitations with supine technique.
[2021-03-19 04:39] LABS: Basophils % (A) 0 %; Eosinophils % (A) 0 %; HCT 47.5 % (34.0-46.0); HGB 14.8 gm/dL (11.4-16.0); Lymphocytes # (A) 2.3 k/uL (1.0-4.8); Lymphocytes % (A) 16 %; MCH 32.2 pg (25.0-35.0); MCHC 31.2 g/dL (31.0-37.0); MCV 103.2 fL (80.0-100.0); Macrocytosis Slight; Monocytes # (A) 0.6 k/uL (0-1.0); Monocytes % (A) 4 %; Neutrophils # (A) 11.3 k/uL (1.3-7.7); Neutrophils % (A) 79 %; Platelet Count 187 k/uL (150-450); WBC 14.4 k/uL (3.8-10.6)
[2021-03-19 04:42] LABS: VBG PH 7.2 (7.31-7.41)
[2021-03-19] MEDS ORDERED: MIDAZOLAM HCL 50 MG in SODIUM CHLORIDE 0.9% 40 ML IV SCH (05:00)
[2021-03-19 05:11] LABS: ABG Base Excess -6.1 mmol/L; ABG HCO3 20 mmol/L (21-25); ABG Oxygen Saturation 99.7 % (94-97); ABG PCO2 38 mmHg (35-45); ABG PH 7.33 (7.35-7.45); ABG PO2 312 mmHg (83-108); ABG TCO2 21 mmol/L (19-24); Allen Test Performed? Yes
--- NOTE | 2021-03-19 05:15 | CT ---
EXAM: CT Head Without Intravenous Contrast CLINICAL HISTORY: ITS.REASON CT Reason: fall TECHNIQUE: Axial computed tomography images of the head/brain without intravenous contrast. CTDI is 45.2 mGy and DLP is 1128 mGy-cm. This CT exam was performed using one or more of the following dose reduction techniques: automated exposure control, adjustment of the mA and/or kV according to patient size, and/or use of iterative reconstruction technique. COMPARISON: No relevant prior studies available. FINDINGS: Artifacts: There is beam hardening artifact from dental hardware which degrades image quality through the inferior occipital region and the posterior fossa. Limitations: There is mild motion artifact which degrades image quality on multiple image slices. Brain: No definite intracranial hemorrhage. No mass effect Underlying parenchymal involutional changes and mild periventricular deep white matter hypodense changes noted. Ventricles: Unremarkable. No ventriculomegaly. Bones/joints: Unremarkable. No acute fracture. Soft tissues: No significant overlying soft tissue abnormality identified radiographically. No radiopaque foreign body. Sinuses: Unremarkable as visualized. No acute sinusitis. Mastoid air cells: Unremarkable as visualized. No mastoid effusion. Tubes, lines and devices: An orogastric tube and endotracheal tube are noted in the oropharynx. IMPRESSION: No acute intracranial process identified. EXAM: CT Cervical Spine Without Intravenous Contrast CLINICAL HISTORY: ITS.REASON CT Reason: fall TECHNIQUE: Axial computed tomography images of the cervical spine without intravenous contrast. CTDI is 41.8 mGy and DLP is 1050 mGy-cm. This CT exam was performed using one or more of the following dose reduction techniques: automated exposure control, adjustment of the mA and/or kV according to patient size, and/or use of iterative reconstruction technique. COMPARISON: No relevant prior studies available. FINDINGS: Limitations: There is mild motion artifact which degrades image quality on multiple image slices. Vertebrae: The vertebral bodies are intact without acute osseous traumatic injury. No anterolisthesis or retrolisthesis is identified. The facet joints are well aligned without subluxation or dislocation. The spinous processes are intact. Discs/spinal canal/neural foramina: Multilevel disc marginal hypertrophic changes are noted at several levels with disc space narrowing noted. No severe osseous canal stenosis. Facet hypertrophic changes noted at several levels bilaterally. Soft tissues: No significant acute traumatic injury identified. Lung apices: Curvilinear subsegmental changes in the posterior right upper lobe are presumed atelectasis or scarring. Tubes, lines and devices: The endotracheal tube is noted in the cervical trachea. The orogastric tube is noted in the esophagus. IMPRESSION: No acute osseous traumatic injury or significant abnormal alignment involving the cervical spine. Incidental degenerative changes. No severe osseous canal stenosis.
[2021-03-19 05:16] LABS: Albumin 3.5 g/dL (3.5-5.0); Calcium 8.9 mg/dL (8.4-10.2); Magnesium 1.9 mg/dL (1.6-2.3); Phosphorus 6.7 mg/dL (2.5-4.5); Potassium 4.2 mmol/L (3.5-5.1); Total Bilirubin 0.7 mg/dL (0.2-1.3); Total Protein 5.8 g/dL (6.3-8.2)
[2021-03-19] MEDS: IPRATROPIUM-ALBUTEROL 3 ML NEB INHALATION PRN (07:05)
[2021-03-19] MEDS: allopurinoL 100 MG TAB PO SCH (07:32)
[2021-03-19] MEDS: ANASTROZOLE 1 MG TAB PO SCH (07:32)
[2021-03-19] MEDS: EDOXABAN TOSYLATE 30 MG TABLET PO SCH (07:33)
[2021-03-19] MEDS: VIT A,C & E-LUTEIN-MINERALS 1 EACH TAB PO SCH ×2 (07:34→22:18)
[2021-03-19] MEDS ORDERED: NALOXONE 0.4 MG/ML 1 ML VIAL IV PRN (08:22)
[2021-03-19 08:57] LABS: Glucose,Whole Blood 223 mg/dL (75-99)
[2021-03-19] MEDS ORDERED: LOSARTAN 50 MG TAB PO SCH (09:00)
[2021-03-19] MEDS ORDERED: CYANOCOBALAMIN 500 MCG TAB PO SCH (09:00)
[2021-03-19] MEDS ORDERED: hydroCHLOROthiazide 25 MG TAB PO SCH (09:00)
[2021-03-19] MEDS: INSULIN ASPART (NovoLOG) 100 UNIT/ML VIAL SQ SCH ×4 (09:22→21:15)
[2021-03-19] MEDS: CHLORHEXIDINE GLUCONATE 15 ML CUP MUCOUS MEM SCH ×2 (09:23→21:07)
[2021-03-19] MEDS ORDERED: CISATRACURIUM 2 MG/ML 5 ML VIAL IV ONE ×2 (09:27→09:30)
--- NOTE | 2021-03-19 10:04 | PCN ---
PROCEDURE NOTE PULMONARY/CRITICAL CARE PROCEDURE NOTE: PROCEDURE: Left internal jugular triple-lumen catheter. PREOPERATIVE DIAGNOSIS: Administration of fluids and pressors. POSTOPERATIVE DIAGNOSIS: Administration of fluids and pressors. OPERATORS: Dr. Maurer, Dr. Holt, Dr. Jolly. There was informed consent and universal timeout. TRIPLE LUMEN CATHETER PLACEMENT: Indication: Hemodynamic monitoring/Intravenous access. A time-out was completed verifying correct patient, procedure, site, positioning, and implant(s) or special equipment if applicable. The patient was placed in a dependent position appropriate for triple lumen catheter placement based on the vein to be cannulated. The patient's left neck was prepped and draped in sterile fashion. 1% Lidocaine was used to anesthetize the surrounding skin area. A triple lumen 9F Cordis catheter was introduced into the internal jugular vein using Seldinger technique. The catheter was threaded smoothly over the guide wire and appropriate blood return was obtained. Each lumen of the catheter was evacuated of air and flushed with sterile saline. The catheter was then sutured in place to the skin and a sterile dressing applied. Perfusion to the extremity distal to the point of catheter insertion was checked and found to be adequate. We used the left internal jugular site. We went through via the posterior approach. There was no immediate complication. There was good blood return from all 3 ports. The patient tolerated the procedure well. Catheter was sutured in place. Sterile dressing was applied by the nurse. A chest x-ray demonstrated the catheter to be in the area of the right atrium. Again, there was no immediate complication. Patient tolerated procedure well. MMODL / IJN: [id number] /
[2021-03-19] MEDS: SYMBICORT 160-4.5 MCG INHALER INHALATION SCH (10:12)
[2021-03-19 10:23] LABS: ABG Base Excess -1.7 mmol/L; ABG HCO3 24 mmol/L (21-25); ABG Oxygen Saturation 97.4 % (94-97); ABG PCO2 45 mmHg (35-45); ABG PH 7.34 (7.35-7.45); ABG PO2 102 mmHg (83-108); ABG TCO2 26 mmol/L (19-24); Allen Test Performed? Yes
--- NOTE | 2021-03-19 10:28 | PCN ---
PROCEDURE NOTE PROCEDURE: Right femoral arterial line. PREOPERATIVE DIAGNOSIS: Frequent blood draws and blood gas monitoring. POSTOPERATIVE DIAGNOSIS: Frequent blood draws and blood gas monitoring. OPERATORS: Dr. Maurer, Dr. Holt, Christina Jolly. ARTERIAL LINE PLACEMENT: Indications: Hemodynamic monitoring. A time-out was completed verifying correct patient, procedure, site, positioning, and implant(s) or special equipment if applicable. Eladio's test was performed to ensure adequate perfusion. The patient's right groin was prepped and draped in sterile fashion. 1% Lidocaine was used to anesthetize the area. An 18G Arrow arterial line was introduced into the right femoral artery. The catheter was threaded over the guide wire and the needle was removed with appropriate pulsatile blood return. Blood loss was minimal. The catheter was then sutured in place to the skin and a sterile dressing applied. Perfusion to the extremity distal to the point of catheter insertion was checked and found to be adequate. The patient tolerated the procedure well and there were no complications. There was informed consent and universal timeout. We used the right femoral artery. There was no immediate complication. There was good blood return and waveform. Catheter was sutured in place. Sterile dressing was applied by the nurse. There was no immediate complication. MMODL / IJN: [id number] /
--- NOTE | 2021-03-19 10:38 | P.CNPUL ---
History of Present Illness Consult date: 03/19/21 Requesting physician: Dax Maciel Reason for consult: other Chief complaint: Respiratory failure, syncope, cardiopulmonary arrest. History of present illness: Pulmonary consult dated 03/19/2021. 80-year-old female, who presented to the emergency department, on March 18, at 10:50 in the morning. The patient came in with complaints of increasing shortness of breath, and cough. She recently saw her doctor who put her on some antibiotics for a sinus infection. She apparently sees my partner as well, for her COPD. She apparently has a history of atrial fibrillation, hypertension, and chronic kidney disease. Anyway, sometime in the emergency department, she got up to go to the bathroom, and was found to be unresponsive on the bathroom floor. She had a brief episode of cardiopulmonary resuscitation, she received 2 rounds of epinephrine. The ER doctor who I spoke to follow she probably had a vasovagal episode. Patient did test negative for coronavirus, has received both of her vaccinations. Anyway, she did require intubation and mechanical ventilation. Currently, she seen in the emergency department, in the trauma room. The patient's on the volume assist control mode rate of 14, tidal volume 450, FiO2 50%, with a PEEP of 5. Arterial blood gases on the same settings, but 100%, she will PaO2 of 312, pCO2 38, and a pH is 7.33. The patient is on norepinephrine at 0.11 mcg/kg/m, and when we saw her in the emergency department, was on first set, at 10 mg an hour. We told the nurse to switch her to propofol. She's not receiving any additional IV fluids. Once in the ICU, we placed a right femoral arterial line, and a left internal jugular triple-lumen catheter. She apparently was scheduled to have a pacemaker insertion sometime in the future. Medical problem list includes atrial fibrillation, COPD/asthma, hyperlipidemia, hypertension, and chronic kidney disease. Labs include a white count of 14.4, hemoglobin 14.8, hematocrit 47.5, and a platelet count of 187,000. Repeat blood gases show a PaO2 of 102, pCO2 45, and a pH is 7.34. Sodium 138, potassium 4.2, chlorides 101, CO2 22, anion gap 15, BUN and creatinine 28 and 1.43. Lactic acid initially was 7.2. Chest x-ray shows a properly placed left internal jugular triple-lumen catheter, and endotracheal tube which is above the tracheal armaan, and relatively clear lung shaikh, but an elevated right diaphragm. Brain and cervical spine CT evaluations were both negative. Review of Systems REVIEW OF SYSTEMS: CONSTITUTIONAL: Weakness. NEUROLOGIC: Vasovagal syncope. HEENT: [ Negative.] CARDIAC: Bradycardia, cardiopulmonary arrest. PULMONARY: Shortness of breath and cough. GI: [Negative.] : [Negative.] RHEUMATOLOGIC: [ Negative.] IMMUNOLOGIC: [ Negative.] ENDOCRINE: [Negative. ] DERMATOLOGIC: [Negative.] Past Medical History Past Medical History: Atrial Fibrillation, Asthma, COPD, Hyperlipidemia, Hypertension, Renal Disease Additional Past Medical History / Comment(s): Chronic Kidney disease History of Any Multi-Drug Resistant Organisms: None Reported Past Surgical History: Breast Surgery, Hysterectomy, Joint Replacement Additional Past Surgical History / Comment(s): BILATERAL KNEES REPLACED. LEFT LOBE THYROIDECTOMY; BREAST BX Past Anesthesia/Blood Transfusion Reactions: No Reported Reaction Past Psychological History: No Psychological Hx Reported Smoking Status: Never smoker Past Alcohol Use History: None Reported Past Drug Use History: None Reported - Past Family History Mother Family Medical History: No Reported History Medications and Allergies Home Medications Medication Instructions Recorded Confirmed Type Cyanocobalamin [Vitamin B-12] 1 tab PO QAM 08/03/16 03/18/21 History Edoxaban Tosylate [Savaysa] 30 mg PO QAM 08/03/16 03/18/21 History Fluticasone/Salmeterol [Advair Hfa 2 puff INHALATION RT-BID 08/03/16 03/18/21 History 115-21 Mcg Inhaler] Hydrochlorothiazide 25 mg PO QAM 08/03/16 03/18/21 History Simvastatin 20 mg PO HS 08/03/16 03/18/21 History Carvedilol [Coreg] 3.125 mg PO BID 03/15/18 03/18/21 History Vit C/E/Zn/Coppr/Lutein/Zeaxan 1 cap PO BID 03/15/18 03/18/21 History [Preservision Areds 2 Softgel] Anastrozole [Arimidex] 1 tab PO QAM 08/17/18 03/18/21 History Loratadine [Claritin] 10 mg PO DAILY 03/08/19 03/18/21 History Losartan Potassium 50 mg PO QAM 03/08/19 03/18/21 History allopurinoL [Zyloprim] 100 mg PO QAM 03/08/19 03/18/21 History Albuterol Sulfate [Proair 1 puff INHALATION RT-Q6H PRN 06/12/20 03/18/21 History Digihaler] Acetaminophen [Tylenol Arthritis] 650 mg PO Q8H PRN 03/18/21 03/18/21 History Cholecalciferol (Vitamin D3) 100 mcg PO DAILY 03/18/21 03/18/21 History [Vitamin D3 (4,000 Iu)] Fluticasone Nasal [place] [Flonase 1 spray EA NOSTRIL DAILY 03/18/21 03/18/21 History Nasal [place]] Allergies Allergy/AdvReac Type Severity Reaction Status Date / Time No Known Allergies Allergy Verified 03/18/21 13:04 Physical Exam Osteopathic Statement: *. No significant issues noted on an osteopathic structural exam other than those noted in the History and Physical/Consult. Vitals: Vital Signs Temp Pulse Resp BP Pulse Ox 03/19/21 10:00 43 L 14 123/52 96 03/19/21 09:45 44 L 14 110/58 96 03/19/21 09:30 50 L 14 106/69 99 03/19/21 09:15 48 L 14 104/70 97 03/19/21 09:00 97.8 F 50 L 14 131/66 97 03/19/21 08:19 97.5 F L 53 L 28 H 126/45 99 03/19/21 08:00 97.5 F L 53 L 28 H 126/45 99 03/19/21 07:51 97.5 F L 53 L 28 H 152/76 99 03/19/21 07:29 49 L 03/19/21 07:05 50 L 03/19/21 05:37 43 L 28 H 140/71 99 03/19/21 04:34 40 L 24 109/53 98 03/19/21 03:40 62 18 98 03/19/21 02:30 43 L 03/19/21 00:27 98.3 F 65 18 117/52 95 03/18/21 20:51 111 H 03/18/21 20:41 92 03/18/21 20:24 98.3 F 75 18 153/65 94 L 03/18/21 16:03 51 L 18 152/56 94 L 03/18/21 14:45 43 L 17 103/70 92 L 03/18/21 12:54 40 L 22 135/54 96 03/18/21 12:47 52 L 03/18/21 12:38 56 L 03/18/21 11:00 98.2 F 52 L 18 103/68 97 Intake and Output 03/18/21 03/19/21 03/19/21 22:59 06:59 14:59 Intake Total 7.270 257.130 Output Total 41 Balance 7.270 216.130 Intake: IV 10 0.9 Normal Saline @ KVO 10 Intake, IV Titration 7.270 247.130 Amount Midazolam HCl 50 mg In 0.4 Sodium Chloride 0.9% 40 ml @ 1 MG/HR 1 mls/hr IV .Q24H [facility] Rx#:[id number] Norepinephrine 4 mg In 6.870 247.130 Sodium Chloride 0.9% 250 ml @ 0.05 MCG/KG/MIN 27. 478 mls/hr IV .Q9H15M [facility]IL[facility] Rx#:[id number] Output: Urine 41 Other: Voiding Method Indwelling Catheter No acute distress, sedated, with an orally placed endotracheal tube. HEENT examination is grossly unremarkable. Neck supple. Full range of motion. No adenopathy thyromegaly or neck vein distention. Recently placed left internal jugular triple-lumen catheter. Cardiovascular examination reveals an irregular rhythm and rate. S1-S2 normal. No S3 or S4. Heart sounds are distant. No murmur noted. She is in atrial fibrillation. Heart rate 43 bpm. Lungs reveal mostly clear breath sounds. Her sounds are equal bilaterally. Scattered rhonchi are noted. No wheezes or crackles. Abdomen soft bowel sounds are heard. No masses or tenderness. Abdomen is obese. Extremities are intact. Trace edema. No cyanosis or clubbing. Skin is without rash or lesion. Neurologic examination could not be properly assessed. Results - Laboratory Findings CBC and BMP: 03/19/21 04:25 03/19/21 04:25 ABG ABG pH 7.33 (7.35-7.45) L 03/19/21 05:07 ABG pCO2 38 mmHg (35-45) 03/19/21 05:07 ABG pO2 312 mmHg (83-108) H 03/19/21 05:07 ABG O2 Saturation 99.7 % (94-97) H 03/19/21 05:07 Abnormal lab findings: Abnormal Labs 03/18/21 03/18/21 03/18/21 12:28 12:28 12:28 WBC Hct 46.8 H MCV 100.7 H Neutrophils # ABG pH ABG pO2 ABG HCO3 ABG O2 Saturation VBG pH VBG pCO2 VBG HCO3 BUN 33 H Creatinine 1.30 H Glucose 133 H POC Glucose (mg/dL) Plasma Lactic Acid Liban 2.5 H* Phosphorus AST ALT Total Protein 6.0 L 03/19/21 03/19/21 03/19/21 03:53 04:25 04:25 WBC 14.4 H Hct 47.5 H MCV 103.2 H Neutrophils # 11.3 H ABG pH ABG pO2 ABG HCO3 ABG O2 Saturation VBG pH VBG pCO2 VBG HCO3 BUN 28 H Creatinine 1.43 H Glucose 329 H POC Glucose (mg/dL) 273 H Plasma Lactic Acid Liban Phosphorus 6.7 H AST 152 H ALT 129 H Total Protein 5.8 L 03/19/21 03/19/21 03/19/21 04:25 04:25 05:07 WBC Hct MCV Neutrophils # ABG pH 7.33 L ABG pO2 312 H ABG HCO3 20 L ABG O2 Saturation 99.7 H VBG pH 7.20 L* VBG pCO2 54 H VBG HCO3 20 L BUN Creatinine Glucose POC Glucose (mg/dL) Plasma Lactic Acid Liban 7.2 H* Phosphorus AST ALT Total Protein 03/19/21 08:56 WBC Hct MCV Neutrophils # ABG pH ABG pO2 ABG HCO3 ABG O2 Saturation VBG pH VBG pCO2 VBG HCO3 BUN Creatinine Glucose POC Glucose (mg/dL) 223 H Plasma Lactic Acid Liban Phosphorus AST ALT Total Protein - Diagnostic Findings Chest x-ray: image reviewed Assessment and Plan Assessment: Status post cardiopulmonary arrest, possible vasovagal syncope, in a patient with a history of bradycardia, and slow atrial fibrillation. Status post intubation and mechanical ventilation, for airway protection, 03/19/2021. History of COPD/asthma. History of hyperlipidemia. History of hypertension. History of chronic atrial fibrillation. History of chronic kidney disease. Recent sinus infection. Obesity. Plan: Plan dated 03/19/2021. The patient had a right femoral arterial line placed, and a left internal jugular triple-lumen catheter placed. We'll make sure the patient's on updrafts in the form of albuterol sulfate, and ipratropium bromide, every 4 hours [id number]. Additional recommendations and suggestions are forthcoming. If she is stable, we will attempt to wean and extubate her tomorrow. We discontinue the Versed in favor of propofol. Additional recommendations and suggestions are forthcoming. Prognosis is guarded. We'll continue to follow this patient and make recommendations where appropriate. Time with Patient: Greater than 30
--- NOTE | 2021-03-19 12:04 | P.CRDCN ---
History of Present Illness Consult date: 03/19/21 History of present illness: This is a 80-year-old female with history of COPD who came to the emergency room with complaints of cough and shortness of breath and concern for COVID. Apparently she had some sinus infection recently and has received antibiotics and outpatient. She has history of atrial fibrillation, hypertension and also chronic kidney disease. She was bradycardic when she came to the emergency room. While in the emergency room, patient went to the bathroom and apparently was found on the floor. She was unconscious requiring cardiopulmonary resus citation. Apparently she received 2 rounds of epinephrine. Subsequently she was intubated and transferred to intensive care unit. She has been bradycardic with heart rates in the 40s. She was on Coreg at home. She has had admissions to this hospital previously. There is question with history of possible pacemaker insertion being contemplated. At the time of my examination patient is on epinephrine drip. She is maintaining adequate blood pressure. Her heart rate is in the 40s. She is intubated and sedated. Her pupils are slightly unequal and reactive sluggishly. Her mental status is unknown at this time. We'll continue monitoring her heart rate. We'll discontinue Coreg. He geno ent's mental status is back to normal and she continues to have significant bradycardia, pacemaker insertion may be constricted. Meanwhile we'll get an echocardiogram to assess her LV function. Review of Systems Not obtained Past Medical History Past Medical History: Atrial Fibrillation, Asthma, COPD, Hyperlipidemia, Hypertension, Renal Disease Additional Past Medical History / Comment(s): Chronic Kidney disease History of Any Multi-Drug Resistant Organisms: None Reported Past Surgical History: Breast Surgery, Hysterectomy, Joint Replacement Additional Past Surgical History / Comment(s): BILATERAL KNEES REPLACED. LEFT LOBE THYROIDECTOMY; BREAST BX Past Anesthesia/Blood Transfusion Reactions: No Reported Reaction Past Psychological History: No Psychological Hx Reported Smoking Status: Never smoker Past Alcohol Use History: None Reported Past Drug Use History: None Reported - Past Family History Mother Family Medical History: No Reported History Medications and Allergies Home Medications Medication Instructions Recorded Confirmed Type Cyanocobalamin [Vitamin B-12] 1 tab PO QAM 08/03/16 03/18/21 History Edoxaban Tosylate [Savaysa] 30 mg PO QAM 08/03/16 03/18/21 History Fluticasone/Salmeterol [Advair Hfa 2 puff INHALATION RT-BID 08/03/16 03/18/21 History 115-21 Mcg Inhaler] Hydrochlorothiazide 25 mg PO QAM 08/03/16 03/18/21 History Simvastatin 20 mg PO HS 08/03/16 03/18/21 History Carvedilol [Coreg] 3.125 mg PO BID 03/15/18 03/18/21 History Vit C/E/Zn/Coppr/Lutein/Zeaxan 1 cap PO BID 03/15/18 03/18/21 History [Preservision Areds 2 Softgel] Anastrozole [Arimidex] 1 tab PO QAM 08/17/18 03/18/21 History Loratadine [Claritin] 10 mg PO DAILY 03/08/19 03/18/21 History Losartan Potassium 50 mg PO QAM 03/08/19 03/18/21 History allopurinoL [Zyloprim] 100 mg PO QAM 03/08/19 03/18/21 History Albuterol Sulfate [Proair 1 puff INHALATION RT-Q6H PRN 06/12/20 03/18/21 History Digihaler] Acetaminophen [Tylenol Arthritis] 650 mg PO Q8H PRN 03/18/21 03/18/21 History Cholecalciferol (Vitamin D3) 100 mcg PO DAILY 03/18/21 03/18/21 History [Vitamin D3 (4,000 Iu)] Fluticasone Nasal [place] [Flonase 1 spray EA NOSTRIL DAILY 03/18/21 03/18/21 History Nasal [place]] Allergies Allergy/AdvReac Type Severity Reaction Status Date / Time No Known Allergies Allergy Verified 03/18/21 13:04 Physical Exam Vitals: Vital Signs Temp Pulse Resp BP Pulse Ox 03/19/21 11:00 45 L 23 106/59 97 03/19/21 10:45 44 L 23 101/67 96 03/19/21 10:30 46 L 23 112/69 98 03/19/21 10:15 44 L 24 100/57 95 03/19/21 10:00 43 L 14 123/52 96 03/19/21 09:45 44 L 14 110/58 96 03/19/21 09:30 50 L 14 106/69 99 03/19/21 09:15 48 L 14 104/70 97 03/19/21 09:00 97.8 F 50 L 14 131/66 97 03/19/21 08:19 97.5 F L 53 L 28 H 126/45 99 03/19/21 08:00 97.5 F L 53 L 28 H 126/45 99 03/19/21 07:51 97.5 F L 53 L 28 H 152/76 99 03/19/21 07:29 49 L 03/19/21 07:05 50 L 03/19/21 05:37 43 L 28 H 140/71 99 03/19/21 04:34 40 L 24 109/53 98 03/19/21 03:40 62 18 98 03/19/21 02:30 43 L 03/19/21 00:27 98.3 F 65 18 117/52 95 03/18/21 20:51 111 H 03/18/21 20:41 92 03/18/21 20:24 98.3 F 75 18 153/65 94 L 03/18/21 16:03 51 L 18 152/56 94 L 03/18/21 14:45 43 L 17 103/70 92 L 03/18/21 12:54 40 L 22 135/54 96 03/18/21 12:47 52 L 03/18/21 12:38 56 L Intake and Output 03/18/21 03/19/21 03/19/21 22:59 06:59 14:59 Intake Total 7.270 364.471 Output Total 55 Balance 7.270 309.471 Intake: IV 23 0.9 Normal Saline @ KVO 20 0.9 Normal Saline 3 Pressure Bag @ 3mL/hr Intake, IV Titration 7.270 341.471 Amount Midazolam HCl 50 mg In 0.4 Sodium Chloride 0.9% 40 ml @ 1 MG/HR 1 mls/hr IV .Q24H [facility] Rx#:[id number] Norepinephrine 4 mg In 6.870 341.471 Sodium Chloride 0.9% 250 ml @ 0.05 MCG/KG/MIN 27. 478 mls/hr IV .Q9H15M [facility] Rx#:[id number] Output: Urine 55 Other: Voiding Method Indwelling Catheter ABP, PAP, CO, CI - Last 8 Hours Arterial Blood Pressure 137/42 Arterial Blood Pressure 115/35 Arterial Blood Pressure 113/37 Arterial Blood Pressure 140/53 GENERAL EXAM: Patient is intubated and sedated. Patient's pupils are slightly unequal, right being greater than the left. Sedation reactive HEENT: Normocephalic. Normal reaction of pupils, equal size, normal range of extraocular motion. No erythema or exudates in the throat. NECK: No masses, no nuchal rigidity. CHEST: No chest wall deformity. LUNGS: Diminished breath sounds HEART: S1 and S2 normal. Distant heart sounds ABDOMEN: No hepatosplenomegaly, normal bowel sounds, no guarding or rigidity. SKIN: No rashes CENTRAL NERVOUS SYSTEM: Not done EXTREMITIES: No cyanosis, clubbing or edema. Results 03/19/21 04:25 03/19/21 04:25 Cardiac Enzymes 03/18/21 03/18/21 03/19/21 Range/Units 12: 12: 04:25 AST 27 152 H (14-36) U/L Troponin I <0.012 (0.000-0.034) ng/mL CBC 03/18/21 03/19/21 Range/Units 12: 04:25 WBC 8.2 14.4 H (3.8-10.6) k/uL RBC 4.65 4.60 (3.80-5.40) m/uL Hgb 15.2 14.8 (11.4-16.0) gm/dL Hct 46.8 H 47.5 H (34.0-46.0) % Plt Count 188 187 (150-450) k/uL Comprehensive Metabolic Panel 03/18/21 03/19/21 Range/Units 12: 04:25 Sodium 139 138 (137-145) mmol/L Potassium 3.8 4.2 (3.5-5.1) mmol/L Chloride 104 101 (98-107) mmol/L Carbon Dioxide 27 22 (22-30) mmol/L BUN 33 H 28 H (7-17) mg/dL Creatinine 1.30 H 1.43 H (0.52-1.04) mg/dL Glucose 133 H 329 H (74-99) mg/dL Calcium 9.2 8.9 (8.4-10.2) mg/dL AST 27 152 H (14-36) U/L ALT 20 129 H (4-34) U/L Alkaline Phosphatase 82 66 (38-126) U/L Total Protein 6.0 L 5.8 L (6.3-8.2) g/dL Albumin 3.7 3.5 (3.5-5.0) g/dL Current Medications Generic Name Dose Route Start Last Admin Trade Name Freq PRN Reason Stop Dose Admin Albuterol/Ipratropium 3 ml 03/19/21 12:00 Ipratropium-Albuterol 3 Ml Neb INHALATION RT-Q4H [facility] Allopurinol 100 mg 03/19/21 09:00 03/19/21 07:32 Allopurinol 100 Mg Tab PO Not Given QAM [facility] Anastrozole 1 mg 03/19/21 09:00 03/19/21 07:32 Anastrozole 1 Mg Tab PO Not Given QAM [facility] Atorvastatin Calcium 10 mg 03/18/21 21:00 03/18/21 21:45 Atorvastatin 10 Mg Tab PO 10 mg HS [facility] Administration Chlorhexidine Gluconate 15 ml 03/19/21 09:00 03/19/21 09:23 Chlorhexidine Gluconate 15 Ml Cup MUCOUS MEM 15 ml BID [facility] Administration Edoxaban 30 mg 03/19/21 09:00 03/19/21 07:33 Edoxaban Tosylate 30 Mg Tablet PO Not Given QAM [facility] Propofol 1,000 mg/ IV Solution 100 mls @ 0 mls/hr 03/19/21 08:30 03/19/21 08:43 IV 30 mcg/kg/min .Q0M [facility] 25.964 mls/hr Administration Protocol Titrate Norepinephrine Bitartrate 32 250 mls @ 3.381 mls/hr 03/19/21 11:00 mg/ Sodium Chloride IV .Q24H [facility] Protocol 0.05 MCG/KG/MIN Insulin Aspart 0 unit 03/19/21 08:30 03/19/21 09:22 Insulin Aspart (Novolog) 100 Unit/Ml Vial SQ 4 unit Q4H [facility] Administration Protocol Multivitamins/Minerals 1 each 03/18/21 21:00 03/19/21 07:34 Vit A,C & S-Vegjfh-Jinqixkn 1 Each Tab PO Not Given BID [facility] Naloxone HCl 0.2 mg 03/19/21 08:22 Naloxone 0.4 Mg/Ml 1 Ml Vial IV Q2M PRN Opioid Reversal Pantoprazole Sodium 40 mg 03/20/21 09:00 Pantoprazole 40 Mg/10 Ml Vial IVP DAILY [facility] Intake and Output 03/18/21 03/19/21 03/19/21 22:59 06:59 14:59 Intake Total 7.270 364.471 Output Total 55 Balance 7.270 309.471 Intake: IV 23 0.9 Normal Saline @ KVO 20 0.9 Normal Saline 3 Pressure Bag @ 3mL/hr Intake, IV Titration 7.270 341.471 Amount Midazolam HCl 50 mg In 0.4 Sodium Chloride 0.9% 40 ml @ 1 MG/HR 1 mls/hr IV .Q24H [facility] Rx#:[id number] Norepinephrine 4 mg In 6.870 341.471 Sodium Chloride 0.9% 250 ml @ 0.05 MCG/KG/MIN 27. 478 mls/hr IV .Q9H15M [facility] Rx#:[id number] Output: Urine 55 Other: Voiding Method Indwelling Catheter 03/19/21 04:25 03/19/21 04:25 EKG Interpretations (text) Initial EKG showed atrial fibrillation with slow ventricular response. His second EKG showed wide-complex rhythm, probably post resuscitation Assessment and Plan (1) Atrial fibrillation with slow ventricular response Current Visit: Yes Status: Acute Code(s): I48.91 - UNSPECIFIED ATRIAL FIBRILLATION SNOMED Code(s): 63846572 (2) COPD exacerbation Current Visit: Yes Status: Acute Code(s): J44.1 - CHRONIC OBSTRUCTIVE PULMONARY DISEASE W (ACUTE) EXACERBATION SNOMED Code(s): 601055019 (3) Cardiopulmonary arrest Current Visit: Yes Status: Acute Code(s): I46.9 - CARDIAC ARREST, CAUSE UNSPECIFIED SNOMED Code(s): 750601491 (4) Essential hypertension Current Visit: Yes Status: Acute Code(s): I10 - ESSENTIAL (PRIMARY) HYPERTENSION SNOMED Code(s): 67195399 (5) Chronic renal failure Current Visit: Yes Status: Acute Code(s): N18.9 - CHRONIC KIDNEY DISEASE, UNSPECIFIED SNOMED Code(s): 50054299 Plan: Continue current therapy. Chest x-ray did not reveal any evidence of Sigmund CHF. Patient is still bradycardic but with adequate blood pressure. Will keep her off Coreg and continue monitor heart rhythm. Get an echocardiogram. Further recommendation depend upon the clinical course
--- NOTE | 2021-03-19 12:06 | XR ---
EXAMINATION TYPE: XR chest 1V portable DATE OF EXAM: 03/19/2021 COMPARISON: Chest x-ray 03/19/2021 at earlier time HISTORY: Status post central venous catheter placement TECHNIQUE: Single frontal view of the chest is obtained. FINDINGS: Left jugular central venous catheter placement has been performed, distal tip of the amanda ter is coursing to the level of the cavoatrial junction towards the right atrium. Endotracheal and NG tube are overlying appropriate positions. There is no evident pneumothorax. This persistent elevatio n right hemidiaphragm. Patient is markedly rotated. Heart is likely enlarged. Patchy basilar density is noted. IMPRESSION: No evident complication status post central venous catheter placement.
[2021-03-19 12:12] LABS: Glucose,Whole Blood 161 mg/dL (75-99)
[2021-03-19] MEDS ORDERED: SODIUM CHLORIDE 0.9% 1,000 ML IV ONE (12:19)
[2021-03-19] MEDS: SODIUM CHLORIDE 0.9% 1,000 ML IV SCH ×2 (12:23→22:19)
[2021-03-19] MEDS: IPRATROPIUM-ALBUTEROL 3 ML NEB INHALATION SCH ×4 (14:06→23:58)
[2021-03-19 16:46] LABS: Glucose,Whole Blood 158 mg/dL (75-99)
[2021-03-19] MEDS: NOREPINEPHRINE 32 MG in SODIUM CHLORIDE 0.9% 218 ML IV SCH (17:00)
--- NOTE | 2021-03-19 19:05 | P.PN ---
Progress Note - Text Progress Note Date: 03/19/21 Chief Complaint: Short of breath History of presenting complaint: This is a 80-year-old patient of Dr. Tovar. Charge Out Clerk Dr. Bland. Chronic stable medical conditions include atrial fibrillation, asthma, hyperlipidemia, hypertension, chronic kidney disease. Patient presents with about 10 days of increasing shortness of breath. Basically presented with activity. No edema. No chest pain. No fever no chills. No cough. At her baseline uses a walker. Today: Only this morning patient was being held in the ER as an overflow was found unconscious in the bathroom for. With no pulse. Patient is intubated. Patient did have return of spontaneous circulation. Bradycardic. Admitted to the ICU. Currently on the ventilator with FiO2 50 and a PEEP of 5. Has endotracheal tube. Current drips include norepinephrine and propofol. Review of systems: Patient intubated Active Medications Albuterol/Ipratropium (Ipratropium-Albuterol 3 Ml Neb) 3 ml INHALATION RT-Q4H [facility] Last Admin: 03/19/21 16:06 Dose: Not Given Documented by: Allopurinol ([facility]ol 100 Mg Tab) [facility] [place] Admin: 03/19/21 07:32 Dose: Not Given Documented by: Anastrozole (Anastrozole 1 Mg Tab) 1 [facility] [place] Admin: 03/19/21 07:32 Dose: Not Given Documented by: Atorvastatin Calcium (Atorvastatin 10 Mg Tab) [facility] Last Admin: 03/18/21 21:45 Dose: 10 mg Documented by: Chlorhexidine Gluconate (Chlorhexidine Gluconate 15 Ml Cup) 15 ml MUCOUS MEM BID [facility] Last Admin: 03/19/21 09:23 Dose: 15 ml Documented by: Edoxaban (Edoxaban Tosylate 30 Mg Tablet) 30 [facility] [place] Admin: 03/19/21 07:33 Dose: Not Given Documented by: Propofol 1,000 mg/ IV Solution 100 mls @ 0 mls/hr IV .Q0M [facility]; Protocol Last Admin: 03/19/21 18:12 Dose: 50 mcg/kg/min, 43.08 mls/hr Documented by: Norepinephrine Bitartrate 32 (mg/ Sodium Chloride) 250 mls @ 3.381 mls/hr IV .Q24H [facility]; Protocol Last Titration: 03/19/21 18:05 Dose: 0.1 mcg/kg/min, 6.761 mls/hr Documented by: Sodium Chloride (Saline 0.9%) 1,000 mls @ 100 mls/hr IV .Q10H [facility] Last Admin: 03/19/21 12:23 Dose: 100 mls/hr Documented by: Insulin Aspart (Insulin Aspart (Novolog) 100 Unit/Ml Vial) 0 unit SQ Q4H [facility]; Protocol Last Admin: 03/19/21 17:38 Dose: 2 unit Documented by: Multivitamins/Minerals (Vit A,C & S-Bjlqmb-Cclqpevr 1 Each Tab) 1 each PO BID [facility] Last Admin: 03/19/21 07:34 Dose: Not Given Documented by: Naloxone HCl (Naloxone 0.4 Mg/Ml 1 Ml Vial) 0.2 mg IV Q2M PRN PRN Reason: Opioid Reversal Pantoprazole Sodium (Pantoprazole 40 Mg/10 Ml Vial) 40 mg IVP DAILY [facility] Past medical history to include: Atrial fibrillation, asthma, hyperlipidemia, hypertension, chronic kidney disease Social history: Daughter lives with her. Does use a walker. No history of smoking or alcohol Family history: Reviewed, noncontributory to presentation Physical examination: VITAL SIGNS: 97.6, 51, 15, 113/65, 98% on ventilator GENERAL: Laying in bed, intubated EYES: Pupils equal. Conjunctiva normal. HEENT: External appearance of nose and ears normal, ETT. NECK: JVD unable to assess; masses not palpable. HEART: Heart sounds irregular; no edema. LUNGS: Respiratory rate increased, decreased breath sounds. ABDOMEN: Soft, nontender, liver spleen not palpable, no masses palpable. PSYCH: Patient sedated MUSCULAR skeletal: Evidence of OA. INVESTIGATIONS, reviewed in the clinical context: March 19: Obesity 14.4 hemoglobin 14.8 platelets 187 potassium 4.2 bun 28 creatinine 1.43 AST 152 ALT 129 WBC 8.2 hemoglobin 15.2 platelets 188 potassium 3.8 bun 33 creatinine 1.30 Lactic acid 2.5 troponin I less than 0.012 proBNP 63 Influenza type A, diabetic, RSV, COVID 19: Not detected EKG tracing personally reviewed by me-atrial fibrillation with a rate of 42 Chest x-ray film personally reviewed by me-elevated right diaphragm. Assessment and plan: -Persistent atrial fibrillation with a heart rate down to the 40s./Symptomatic bradycardia Coreg discontinued. Telemetry. -Acute hypoxic respiratory failure, requiring ventilator support On FiO2 of 50% -Moderate persistent asthma Continue DuoNeb and Symbicort -Morbid obesity BMI 51.3 Weight loss measures. Follow-up with PCP as an outpatient -Essential hypertension Currently antihypertensive held -Cardiogenic shock On IV norepinephrine -History of breast cancer Continue with antiemetics intubated. ICU. Follow with top and seat cover fitter and cardiology. May need a farshad cemaker.
[2021-03-19] MEDS: ATORVASTATIN 10 MG TAB PO SCH (21:07)
[2021-03-19 21:23] LABS: Glucose,Whole Blood 162 mg/dL (75-99)
--- NOTE | 2021-03-19 22:22 | US ---
EXAMINATION TYPE: US kidneys/renal and bladder DATE OF EXAM: 03/19/2021 COMPARISON: US CLINICAL HISTORY: assess for CK D. Assess for CKD per order. Patient on ventilator. EXAM MEASUREMENTS: Right Kidney: 10.0 x 5.8 x 5.2 cm Left Kidney: 11.0 x 6.0 x 6.0 cm Difficult study due to patient body habitus and positioning. Right Kidney: Hypoechoic area seen laterally: 2.8 x 2.8 x 2.4 cm. Hyperechoic foci seen: #1: 0.7 x 0. 8 x 0.4 cm. #2: 0.9 x 0.8 x 0.4 cm. Left Kidney: Hypoechoic area seen laterally: 4.0 x 3.1 x 3.9 cm. Hypoechoic area seen mid: 4.0 x 2.5 x 2.0 cm. Bladder: Not visualized. Bilateral Jets seen: No. IMPRESSION: There is no hydronephrosis. There is rounded hypoechoic area in the lateral right kidney involving th e cortex that is not clearly a cyst. There are calculi in the right kidney. There is hypoechoic focus with posterior enhancement is probably a cyst in the posterior left kidney. Exam limited by the patient's size. Urinary bladder not well evaluated. Bladder apparently was empty . Renal tumor not excluded. CT scan recommended for further evaluation if clinically indicated.
[2021-03-19 23:08] LABS: Appearance,Urine Cloudy (Clear); Bacteria,Urine Rare /hpf; Bilirubin,Urine Negative (Negative); Blood,Urine Large (Negative); Color,Urine Yellow; Glucose,Urine (UA) Negative (Negative); Hyaline Casts,Urine 42 /lpf (0-2); Ketones,Urine Negative (Negative); Leukocyte Esterase,Urine Large (Negative); Mucus,Urine Rare /hpf; Nitrite,Urine Negative (Negative); PH, Urine 5.5 (5.0-8.0); Protein,Urine 1+ (Negative); RBC,Urine 96 /hpf (0-5); Specific Gravity,Urine 1.025 (1.001-1.035); Squamous Epithelial Cell,Urine 1 /hpf (0-4); Urobilinogen,Urine <2.0 mg/dL (<2.0); WBC,Urine 37 /hpf (0-5)
[2021-03-20 00:50] LABS: Glucose,Whole Blood 165 mg/dL (75-99)
[2021-03-20] MEDS: INSULIN ASPART (NovoLOG) 100 UNIT/ML VIAL SQ SCH ×6 (01:00→20:45)
[2021-03-20] MEDS: IPRATROPIUM-ALBUTEROL 3 ML NEB INHALATION SCH ×5 (03:46→19:56)
[2021-03-20 05:15] LABS: Glucose,Whole Blood 150 mg/dL (75-99)
[2021-03-20 05:16] LABS: ABG Base Excess -0.8 mmol/L; ABG HCO3 24 mmol/L (21-25); ABG Oxygen Saturation 95.3 % (94-97); ABG PCO2 37 mmHg (35-45); ABG PH 7.42 (7.35-7.45); ABG PO2 75 mmHg (83-108); ABG TCO2 25 mmol/L (19-24)
[2021-03-20 05:40] LABS: Allen Test Performed? no
[2021-03-20 05:46] LABS: Calcium 8.6 mg/dL (8.4-10.2); Magnesium 1.8 mg/dL (1.6-2.3); Potassium 3.6 mmol/L (3.5-5.1)
[2021-03-20 06:19] LABS: Basophils % (A) 0 %; Eosinophils % (A) 0 %; HCT 43.6 % (34.0-46.0); HGB 13.9 gm/dL (11.4-16.0); Lymphocytes # (A) 1.2 k/uL (1.0-4.8); Lymphocytes % (A) 8 %; MCH 32.3 pg (25.0-35.0); Macrocytosis Slight; Mean Platelet Volume 9.3; Monocytes # (A) 0.9 k/uL (0-1.0); Monocytes % (A) 6 %; Neutrophils # (A) 12.9 k/uL (1.3-7.7); Neutrophils % (A) 85 %; Platelet Count 157 k/uL (150-450); RBC 4.31 m/uL (3.80-5.40); RDW 14.6 % (11.5-15.5); WBC 15.2 k/uL (3.8-10.6)
[2021-03-20] MEDS: MAGNESIUM SULFATE-D5W PMX 1 GM in DEXTROSE/WATER 1 100ML.BAG IVPB SCH ×2 (06:41→08:01)
[2021-03-20] MEDS ORDERED: POTASSIUM BICARBONATE/CIT AC 20 MEQ TABLET.EFF NG-TUBE SCH (07:00)
--- NOTE | 2021-03-20 08:00 | ECHOF ---
Referral Reason:shortness of breath, bradycardia MEASUREMENTS -------- HEIGHT: 167.6 cm WEIGHT: 143.3 kg BP: 132/46 RVIDd: 4.4 cm (< 3.3) IVSd: 1.3 cm (0.6 - 1.1) LVIDd: 4.2 cm (3.9 - 5.3) LVPWd: 1.5 cm (0.6 - 1.1) IVSs: 1.9 cm LVIDs: 2.6 cm LVPWs: 1.5 cm LA Diam: 4.2 cm (2.7 - 3.8) Ao Diam: 3.3 cm (2.0 - 3.7) AV Cusp: 2.1 cm (1.5 - 2.6) MV EXCURSION: 16.074 mm (> 18.000) MV EF SLOPE: 55 mm/s (70 - 150) EPSS: 1.4 cm RAP: 5.00 mmHg RVSP: 51.60 mmHg FINDINGS -------- Atrial fibrillation. This was a technically difficult study with suboptimal views. The left ventricular size is normal. There is moderate concentric left ventricular hypertrophy. O verall left ventricular systolic function is mildly impaired with, an EF between 45 - 50 %. The right ventricle is severely enlarged. The left atrium is mildly dilated. The right atrium was not well visualized. 5 ml of Lumason was utilized for enhancement of images. The aortic valve was not well visualized. The mitral valve was not well visualized. Mild mitral regurgitation is present. The tricuspid valve was not well visualized. [id number] tricuspid regurgitation present. Th ere is moderate pulmonary hypertension. The right ventricular systolic pressure, as measured by Dop pler, is 51.60mmHg. The pulmonic valve was not well visualized. The aortic root size is normal. IVC Not well visulized. There is no pericardial effusion. CONCLUSIONS -------- 1. Atrial fibrillation. 2. This was a technically difficult study with suboptimal views. 3. There is moderate concentric left ventricular hypertrophy. 4. Overall left ventricular systolic function is mildly impaired with, an EF between 45 - 50 %. 5. The right ventricle is severely enlarged. 6. The left atrium is mildly dilated. 7. 5 ml of Lumason was utilized for enhancement of images. 8. The aortic valve was not well visualized. 9. Mild mitral regurgitation is present. 10. [id number] tricuspid regurgitation present. 11. There is moderate pulmonary hypertension. 12. There is no pericardial effusion. COMMERCIAL CORRESPONDENT: Roopa Crockett RDCS
[2021-03-20 08:07] LABS: Glucose,Whole Blood 162 mg/dL (75-99)
[2021-03-20] MEDS: CHLORHEXIDINE GLUCONATE 15 ML CUP MUCOUS MEM SCH ×2 (09:24→21:39)
[2021-03-20] MEDS: PANTOPRAZOLE 40 MG/10 ML VIAL IVP SCH (09:24)
[2021-03-20] MEDS: ANASTROZOLE 1 MG TAB PO SCH (09:25)
[2021-03-20] MEDS: allopurinoL 100 MG TAB PO SCH (09:25)
[2021-03-20] MEDS: VIT A,C & E-LUTEIN-MINERALS 1 EACH TAB PO SCH ×2 (09:25→21:39)
[2021-03-20] MEDS: EDOXABAN TOSYLATE 30 MG TABLET PO SCH (09:26)
[2021-03-20] MEDS: SODIUM CHLORIDE 0.9% 1,000 ML IV SCH ×2 (10:33→21:02)
--- NOTE | 2021-03-20 10:46 | XR ---
EXAMINATION TYPE: XR chest 1V portable DATE OF EXAM: 03/20/2021 COMPARISON: Chest x-ray dated 03/19/2021 HISTORY: Intubated TECHNIQUE: Single frontal view of the chest is obtained. FINDINGS: Endotracheal tube, orogastric tube, left-sided central venous catheter are again noted, si de-port of the orogastric tube is approximately at the level of the gastroesophageal junction. Cardia c mediastinal silhouette shows a similar appearance accounting for differences in technique, the hear t may be enlarged. There are overlying artifacts. There is no evident pneumothorax or pleural effusio n. Right hemidiaphragm is elevated. There may be some in aeration, interstitium appears less conspicu ous. IMPRESSION: There are differences in technique, possible improvement in patient's volume status, aer ation appears improved. Suspect cardiomegaly. Rotated exam.
--- NOTE | 2021-03-20 10:57 | P.PN ---
Subjective Progress Note Date: 03/20/21 Principal diagnosis: Acute hypoxemic respiratory failure secondary to cardiopulmonary arrest 80-year-old female, who presented to the emergency department, on March 18, at 10:50 in the morning. The patient came in with complaints of increasing shortness of breath, and cough. She recently saw her doctor who put her on some antibiotics for a sinus infection. She apparently sees my partner as well, for her COPD. She apparently has a history of atrial fibrillation, hypertension, and chronic kidney disease. Anyway, sometime in the emergency department, she got up to go to the bathroom, and was found to be unresponsive on the bathroom floor. She had a brief episode of cardiopulmonary resuscitation, she received 2 rounds of epinephrine. The ER doctor who I spoke to follow she probably had a vasovagal episode. Patient did test negative for coronavirus, has received both of her vaccinations. Anyway, she did require intubation and mechanical ventilation. Currently, she seen in the emergency department, in the trauma room. The patient's on the volume assist control mode rate of 14, tidal volume 450, FiO2 50%, with a PEEP of 5. Arterial blood gases on the same settings, but 100%, she will PaO2 of 312, pCO2 38, and a pH is 7.33. The patient is on norepinephrine at 0.11 mcg/kg/m, and when we saw her in the emergency department, was on first set, at 10 mg an hour. We told the nurse to switch her to propofol. She's not receiving any additional IV fluids. Once in the ICU, we placed a right femoral arterial line, and a left internal jugular triple-lumen c atheter. She apparently was scheduled to have a pacemaker insertion sometime in the future. Medical problem list includes atrial fibrillation, COPD/asthma, hyperlipidemia, hypertension, and chronic kidney disease. Labs include a white count of 14.4, hemoglobin 14.8, hematocrit 47.5, and a platelet count of 187,000. Repeat blood gases show a PaO2 of 102, pCO2 45, and a pH is 7.34. Sodium 138, potassium 4.2, chlorides 101, CO2 22, anion gap 15, BUN and creatinine 28 and 1.43. Lactic acid initially was 7.2. Chest x-ray shows a properly placed left internal jugular triple-lumen catheter, and endotracheal tube which is above the tracheal armaan, and relatively clear lung shaikh, but an elevated right diaphragm. Brain and cervical spine CT evaluations were both negative. The patient is seen today 03/20/2021 and follow-up in the intensive care unit. She remains intubated, sedated on the mechanical ventilator. Current settings assist-control mode at a rate of 14, tidal volume 450, FiO2 50% and a PEEP of 5. Morning blood gases reveal a P O2 75, pCO2 37, pH 7.42. She remains on pr opofol at 50 mcg/kg/m, norepinephrine at 16 mcg/m. 0.9 normal saline at 100 MLS per hour. Being nourished with vital HPI 30 MLS per hour with a goal of 55. Echocardiogram revealed ejection fraction between 45 and 50%. He had white count 15.2. Hemoglobin 13.9. Sodium 136. Potassium 3.6. Creatinine 1.54. Glucose 159. TSH 0.408. Cortisol level 38. Urine culture pending. Questionable UTI. She remains on DuoNeb inhalations. Objective - Vital Signs Vital signs: Vital Signs Temp 99.0 F 03/20/21 08:00 Pulse 47 L 03/20/21 10:00 Resp 22 03/20/21 10:00 BP 95/45 03/20/21 10:00 Pulse Ox 96 03/20/21 10:00 Intake & Output 03/19/21 03/20/21 03/20/21 18:59 06:59 18:59 Intake Total 2201.877 2009 541.008 Output Total 240 262 60 Balance 6195.987 3008 481.008 Weight 143.6 kg 145.1 kg Intake: IV 1654 1339 309 0.9 Normal Saline @ KVO 30 0.9 Normal Saline 24 39 9 Pressure Bag @ 3mL/hr Sodium Chloride 0.9% 1, 600 1300 300 000 ml @ 100 mls/hr IV . Q10H [facility] Rx#:[id number] Sodium Chloride 0.9% 1, 1000 000 ml @ 999 mls/hr IV . Q1H1M ONE Rx#:[id number] Intake, IV Titration 477.877 400 112.008 Amount Norepinephrine 32 mg In 4.609 112.008 Sodium Chloride 0.9% 218 ml @ 0.05 MCG/KG/MIN 3. 381 mls/hr IV .Q24H [facility] Rx#:[id number] Norepinephrine 4 mg In 341.471 Sodium Chloride 0.9% 250 ml @ 0.05 MCG/KG/MIN 27. 478 mls/hr IV .Q9H15M [facility] Rx#:[id number] propofoL 1,000 mg In 131.797 400 Empty Bag 1 bag @ Titrate IV .Q0M [facility] Rx#: [id number] Tube Feeding 40 180 90 Other 30 90 30 Output: Urine 240 262 60 Other: Voiding Method Indwelling Catheter Indwelling Catheter Indwelling Catheter ABP, PAP, CO, CI - Last Documented Arterial Blood Pressure 88/32 - Exam GENERAL EXAM: Intubated, sedated, morbidly obese 80-year-old female patient, in no apparent distress. HEAD: Normocephalic. EYES: Sluggish reaction of pupils, equal size. NOSE: Clear with pink turbinates. THROAT: Oral endotracheal tube and gastric tube secured in place. No erythema or exudates. NECK: No masses, no JVD. CHEST: No chest wall deformity. LUNGS: Equal air entry with few bilateral scattered rhonchi. CVS: S1 and S2 normal with no audible murmur, regular rhythm. ABDOMEN: No hepatosplenomegaly, normal bowel sounds, no guarding or rigidity. SPINE: No scoliosis or deformity SKIN: No rashes CENTRAL NERVOUS SYSTEM: No focal deficits, tone is normal in all 4 extremities. EXTREMITIES: There is no peripheral edema. No clubbing, no cyanosis. Peripheral pulses are intact. - Labs CBC & Chem 7: 03/20/21 05:15 03/20/21 05:15 Labs: Abnormal Lab Results - Last 24 Hours (Table) 03/19/21 03/19/21 03/19/21 Range/Units 12:11 16:44 21:22 WBC (3.8-10.6) k/uL MCV (80.0-100.0) fL Neutrophils # (1.3-7.7) k/uL ABG pO2 (83-108) mmHg ABG Total CO2 (19-24) mmol/L Sodium (137-145) mmol/L BUN (7-17) mg/dL Creatinine (0.52-1.04) mg/dL Glucose (74-99) mg/dL POC Glucose (mg/dL) 161 H 158 H 162 H (75-99) mg/dL TSH (0.465-4.680) mIU/L Urine Appearance (Clear) Urine Protein (Negative) Urine Blood (Negative) Ur Leukocyte Esterase (Negative) Urine RBC (0-5) /hpf Urine WBC (0-5) /hpf Urine Bacteria (None) /hpf Hyaline Casts (0-2) /lpf Urine Mucus (None) /hpf 03/19/21 03/20/21 03/20/21 Range/Units 22:30 00:49 05:13 WBC (3.8-10.6) k/uL MCV (80.0-100.0) fL Neutrophils # (1.3-7.7) k/uL ABG pO2 (83-108) mmHg ABG Total CO2 (19-24) mmol/L Sodium (137-145) mmol/L BUN (7-17) mg/dL Creatinine (0.52-1.04) mg/dL Glucose (74-99) mg/dL POC Glucose (mg/dL) 165 H 150 H (75-99) mg/dL TSH (0.465-4.680) mIU/L Urine Appearance Cloudy H (Clear) Urine Protein 1+ H (Negative) Urine Blood Large H (Negative) Ur Leukocyte Esterase Large H (Negative) Urine RBC 96 H (0-5) /hpf Urine WBC 37 H (0-5) /hpf Urine Bacteria Rare H (None) /hpf Hyaline Casts 42 H (0-2) /lpf Urine Mucus Rare H (None) /hpf 03/20/21 03/20/21 03/20/21 Range/Units 05:15 05:15 05:15 WBC 15.2 H (3.8-10.6) k/uL MCV 101.0 H (80.0-100.0) fL Neutrophils # 12.9 H (1.3-7.7) k/uL ABG pO2 75 L (83-108) mmHg ABG Total CO2 25 H (19-24) mmol/L Sodium 136 L (137-145) mmol/L BUN 33 H (7-17) mg/dL Creatinine 1.54 H (0.52-1.04) mg/dL Glucose 159 H (74-99) mg/dL POC Glucose (mg/dL) (75-99) mg/dL TSH (0.465-4.680) mIU/L Urine Appearance (Clear) Urine Protein (Negative) Urine Blood (Negative) Ur Leukocyte Esterase (Negative) Urine RBC (0-5) /hpf Urine WBC (0-5) /hpf Urine Bacteria (None) /hpf Hyaline Casts (0-2) /lpf Urine Mucus (None) /hpf 03/20/21 03/20/21 Range/Units 08:05 08:47 WBC (3.8-10.6) k/uL MCV (80.0-100.0) fL Neutrophils # (1.3-7.7) k/uL ABG pO2 (83-108) mmHg ABG Total CO2 (19-24) mmol/L Sodium (137-145) mmol/L BUN (7-17) mg/dL Creatinine (0.52-1.04) mg/dL Glucose (74-99) mg/dL POC Glucose (mg/dL) 162 H (75-99) mg/dL TSH 0.408 L (0.465-4.680) mIU/L Urine Appearance (Clear) Urine Protein (Negative) Urine Blood (Negative) Ur Leukocyte Esterase (Negative) Urine RBC (0-5) /hpf Urine WBC (0-5) /hpf Urine Bacteria (None) /hpf Hyaline Casts (0-2) /lpf Urine Mucus (None) /hpf Assessment and Plan Assessment: 1 Status post cardiopulmonary arrest, possible vasovagal syncope, in a patient with a history of bradycardia, and slow atrial fibrillation. 2 Status post intubation and mechanical ventilation, for airway protection, 03/19/2021. 3 History of COPD/asthma. 4 History of hyperlipidemia. 5 History of hypertension. 6 History of chronic atrial fibrillation. 7 History of chronic kidney disease. 8 Recent sinus infection. 9 Obesity. 10 Suspected urinary tract infection Plan: The patient was seen and evaluated by Dr. Maurer Chest x-ray, ABGs and labs reviewed Add Rocephin for suspected UTI Blood cultures, urine culture, sputum cultures pending Check pro calcitonin TSH, cortisol levels We'll continue to follow and make further recommendations based on her clinical status Critical care time 38 minutes I, the cosigning physician, performed a history & physical examination of the patient. Lungs sounds with diffuse bilateral scattered rhonchi. Maintaining good O2 saturations in the 90s on 50% FiO2 via the mechanical ventilator. I discussed the assessment and plan of care with my nurse practitioner, Kimberly Yanet. I attest to the above note as dictated by her.
[2021-03-20 11:09] LABS: T4, Free (Free Thyroxine) 1.62 ng/dL (0.78-2.19)
[2021-03-20 11:31] LABS: Glucose,Whole Blood 154 mg/dL (75-99)
--- NOTE | 2021-03-20 16:11 | P.PN ---
Subjective Progress Note Date: 03/20/21 This 80-year-old female still remains intubated and sedated. She is still bradycardic with rates in the 40s. She still hypotensive requiring norepinephrine drip at 16 mics. She is a sedated with IV propofol. Patient's hemodynamic derangement and hypotension is not explained by the mild bradycardia. Suspect underlying septicemia. Her TSH is slightly low but free T4 is normal. Patient mental status difficult to evaluate because she is intubated, sedated. Patient also requiring PEEP for pulmonary support. Chest x-ray did not show significant findings. At this point we'll continue with current management including antibiotics. Urine and blood cultures are pending. I do not think a pacemaker and make a difference and hemodynamics. In the long run if patient continues to be bradycardic, pacemaker may be considered but may not be the answer for the acute events. Neurology consult also is recommended to assess her neurological status. Prognosis is guarded Objective - Vital Signs Vital signs: Vital Signs Temp 98.5 F 03/20/21 12:00 Pulse 44 L 03/20/21 15:59 Resp 18 03/20/21 15:00 BP 93/50 03/20/21 15:00 Pulse Ox 93 L 03/20/21 15:00 Intake & Output 03/19/21 03/20/21 03/20/21 18:59 06:59 18:59 Intake Total 2201.877 2009 1409.633 Output Total 240 262 145 Balance 6668.409 2882 1264.633 Weight 143.6 kg 145.1 kg 145.1 kg Intake: IV 1654 1339 824 0.9 Normal Saline @ KVO 30 0.9 Normal Saline 24 39 24 Pressure Bag @ 3mL/hr Sodium Chloride 0.9% 1, 600 1300 800 000 ml @ 100 mls/hr IV . Q10H [facility] Rx#:[id number] Sodium Chloride 0.9% 1, 1000 000 ml @ 999 mls/hr IV . Q1H1M ONE Rx#:[id number] Intake, IV Titration 477.877 400 325.633 Amount Norepinephrine 32 mg In 4.609 125.633 Sodium Chloride 0.9% 218 ml @ 0.05 MCG/KG/MIN 3. 381 mls/hr IV .Q24H [facility] Rx#:[id number] Norepinephrine 4 mg In 341.471 Sodium Chloride 0.9% 250 ml @ 0.05 MCG/KG/MIN 27. 478 mls/hr IV .Q9H15M [facility] Rx#:[id number] propofoL 1,000 mg In 131.797 400 200.000 Empty Bag 1 bag @ Titrate IV .Q0M [facility] Rx#: [id number] Tube Feeding 40 180 200 Other 30 90 60 Output: Urine 240 262 145 Other: Voiding Method Indwelling Catheter Indwelling Catheter Indwelling Catheter ABP, PAP, CO, CI - Last Documented Arterial Blood Pressure 105/34 - Exam GENERAL EXAM: Patient is intubated and sedated HEENT: Normocephalic. N NECK: No masses, no nuchal rigidity. CHEST: No chest wall deformity. LUNGS: Diminished air exchange HEART: S1 and S2 normal ABDOMEN: No hepatosplenomegaly, normal bowel sounds, no guarding or rigidity. SKIN: No rashes CENTRAL NERVOUS SYSTEM: Not performed EXTREMITIES: No cyanosis, clubbing or edema. - Labs CBC & Chem 7: 03/20/21 05:15 03/20/21 05:15 Labs: Abnormal Lab Results - Last 24 Hours (Table) 03/19/21 03/19/21 03/19/21 Range/Units 16:44 21:22 22:30 WBC (3.8-10.6) k/uL MCV (80.0-100.0) fL Neutrophils # (1.3-7.7) k/uL ABG pO2 (83-108) mmHg ABG Total CO2 (19-24) mmol/L Sodium (137-145) mmol/L BUN (7-17) mg/dL Creatinine (0.52-1.04) mg/dL Glucose (74-99) mg/dL POC Glucose (mg/dL) 158 H 162 H (75-99) mg/dL TSH (0.465-4.680) mIU/L Urine Appearance Cloudy H (Clear) Urine Protein 1+ H (Negative) Urine Blood Large H (Negative) Ur Leukocyte Esterase Large H (Negative) Urine RBC 96 H (0-5) /hpf Urine WBC 37 H (0-5) /hpf Urine Bacteria Rare H (None) /hpf Hyaline Casts 42 H (0-2) /lpf Urine Mucus Rare H (None) /hpf 03/20/21 03/20/21 03/20/21 Range/Units 00:49 05:13 05:15 WBC 15.2 H (3.8-10.6) k/uL MCV 101.0 H (80.0-100.0) fL Neutrophils # 12.9 H (1.3-7.7) k/uL ABG pO2 (83-108) mmHg ABG Total CO2 (19-24) mmol/L Sodium (137-145) mmol/L BUN (7-17) mg/dL Creatinine (0.52-1.04) mg/dL Glucose (74-99) mg/dL POC Glucose (mg/dL) 165 H 150 H (75-99) mg/dL TSH (0.465-4.680) mIU/L Urine Appearance (Clear) Urine Protein (Negative) Urine Blood (Negative) Ur Leukocyte Esterase (Negative) Urine RBC (0-5) /hpf Urine WBC (0-5) /hpf Urine Bacteria (None) /hpf Hyaline Casts (0-2) /lpf Urine Mucus (None) /hpf 03/20/21 03/20/21 03/20/21 Range/Units 05:15 05:15 08:05 WBC (3.8-10.6) k/uL MCV (80.0-100.0) fL Neutrophils # (1.3-7.7) k/uL ABG pO2 75 L (83-108) mmHg ABG Total CO2 25 H (19-24) mmol/L Sodium 136 L (137-145) mmol/L BUN 33 H (7-17) mg/dL Creatinine 1.54 H (0.52-1.04) mg/dL Glucose 159 H (74-99) mg/dL POC Glucose (mg/dL) 162 H (75-99) mg/dL TSH (0.465-4.680) mIU/L Urine Appearance (Clear) Urine Protein (Negative) Urine Blood (Negative) Ur Leukocyte Esterase (Negative) Urine RBC (0-5) /hpf Urine WBC (0-5) /hpf Urine Bacteria (None) /hpf Hyaline Casts (0-2) /lpf Urine Mucus (None) /hpf 03/20/21 03/20/21 Range/Units 08:47 11:29 WBC (3.8-10.6) k/uL MCV (80.0-100.0) fL Neutrophils # (1.3-7.7) k/uL ABG pO2 (83-108) mmHg ABG Total CO2 (19-24) mmol/L Sodium (137-145) mmol/L BUN (7-17) mg/dL Creatinine (0.52-1.04) mg/dL Glucose (74-99) mg/dL POC Glucose (mg/dL) 154 H (75-99) mg/dL TSH 0.408 L (0.465-4.680) mIU/L Urine Appearance (Clear) Urine Protein (Negative) Urine Blood (Negative) Ur Leukocyte Esterase (Negative) Urine RBC (0-5) /hpf Urine WBC (0-5) /hpf Urine Bacteria (None) /hpf Hyaline Casts (0-2) /lpf Urine Mucus (None) /hpf Microbiology - Last 24 Hours (Table) 03/20/21 08:30 Urine Culture - Preliminary Urine,Catheterized 03/20/21 09:56 Sputum Culture - Preliminary Sputum Assessment and Plan (1) Atrial fibrillation with slow ventricular response Current Visit: Yes Status: Acute Code(s): I48.91 - UNSPECIFIED ATRIAL FIBRILLATION SNOMED Code(s): 10831925 (2) COPD exacerbation Current Visit: Yes Status: Acute Code(s): J44.1 - CHRONIC OBSTRUCTIVE PULMONARY DISEASE W (ACUTE) EXACERBATION SNOMED Code(s): 513686309 (3) Cardiopulmonary arrest Current Visit: Yes Status: Acute Code(s): I46.9 - CARDIAC ARREST, CAUSE UNSPECIFIED SNOMED Code(s): 411512884 (4) Essential hypertension Current Visit: Yes Status: Acute Code(s): I10 - ESSENTIAL (PRIMARY) HYPERTENSION SNOMED Code(s): 73865773 (5) Chronic renal failure Current Visit: Yes Status: Acute Code(s): N18.9 - CHRONIC KIDNEY DISEASE, UNSPECIFIED SNOMED Code(s): 77329556 Plan: Patient remains bradycardic with heart rates in the 40s. This mild bradycardia would not explain profound hemodynamic derangement with severe hypotension requiring so much Levophed. Underlying sepsis and other metabolic issues to be constricted. May also need neurology evaluation to assess her neurological status. I do not think it temporary pacemaker would correct the hemodynamic derangements.
[2021-03-20 16:36] LABS: Glucose,Whole Blood 139 mg/dL (75-99)
--- NOTE | 2021-03-20 17:37 | P.PN ---
Progress Note - Text Progress Note Date: 03/20/21 Chief Complaint: Short of breath History of presenting complaint: This is a 80-year-old patient of Dr. Tovar. 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 Chronic stable medical conditions include atrial fibrillation, asthma, hyperlipidemia, hypertension, chronic kidney disease. Patient presents with about 10 days of increasing shortness of breath. Basically presented with activity. No edema. No chest pain. No fever no chills. No cough. At her baseline uses a walker. patient was being held in the ER as an overflow was found unconscious in the bathroom for. With no pulse. intubated. Patient did have return of spontaneous circulation. Bradycardic. Admitted to the ICU. Today: ICU: Ventilator: FiO2 50 PEEP of 5. Telemetry: Sinus rhythm. Drips include norepinephrine and propofol. Heart rate 46 Review of systems: Patient intubated Active Medications Albuterol/Ipratropium (Ipratropium-Albuterol 3 Ml Neb) 3 ml INHALATION RT-Q4H [facility] Last Admin: 03/20/21 15:47 Dose: 3 ml Documented by: Allopurinol (Allopurinol 100 Mg Tab) [facility] [place] Last Admin: 03/20/21 09:25 Dose: 100 mg Documented by: Anastrozole (Anastrozole 1 Mg Tab) 1 mg PO [facility] Last Admin: 03/20/21 09:25 Dose: 1 mg Documented by: Atorvastatin Calcium (Atorvastatin 10 Mg Tab) 10 mg PO HS [facility] Last Admin: 03/19/21 21:07 Dose: 10 mg Documented by: Chlorhexidine Gluconate (Chlorhexidine Gluconate 15 Ml Cup) 15 ml MUCOUS MEM BID [facility] Last Admin: 03/20/21 09:24 Dose: 15 ml Documented by: Edoxaban (Edoxaban Tosylate 30 Mg Tablet) [facility] [place] Last Admin: 03/20/21 09:26 Dose: 30 mg Documented by: Propofol 1,000 mg/ IV Solution 100 mls @ 0 mls/hr IV .Q0M [facility]; Protocol Last Admin: 03/20/21 17:12 Dose: 35 mcg/kg/min, 30.471 mls/hr Documented by: Norepinephrine Bitartrate 32 (mg/ Sodium Chloride) 250 mls @ 3.381 mls/hr IV .Q24H [facility]; Protocol Last Titration: 03/20/21 17:32 Dose: 0.13 mcg/kg/min, 8.79 mls/hr Documented by: Sodium Chloride (Saline 0.9%) 1,000 mls @ 100 mls/hr IV .Q10H [facility] Last Admin: 03/20/21 10:33 Dose: 100 mls/hr Documented by: Ceftriaxone Sodium 1 gm/ (Sodium Chloride) 50 mls @ 100 mls/hr IVPB Q24HR [facility] Last Admin: 03/20/21 09:25 Dose: 100 mls/hr Documented by: Insulin Aspart (Insulin Aspart (Novolog) 100 Unit/Ml Vial) 0 unit SQ Q4H [facility]; Protocol Last Admin: 03/20/21 16:36 Dose: 2 unit Documented by: Multivitamins/Minerals (Vit A,C & Y-Zgjbwm-Whugimlv 1 Each Tab) 1 each PO BID S Last Admin: 03/20/21 09:25 Dose: 1 each Documented by: Naloxone HCl (Naloxone 0.4 Mg/Ml 1 Ml Vial) 0.2 mg IV Q2M PRN PRN Reason: Opioid Reversal Pantoprazole Sodium (Pantoprazole 40 Mg/10 Ml Vial) 40 mg IVP DAILY [facility] Last Admin: 03/20/21 09:24 Dose: 40 mg Documented by: Past medical history to include: Atrial fibrillation, asthma, hyperlipidemia, hypertension, chronic kidney disea se Social history: Daughter lives with her. Does use a walker. No history of smoking or alcohol Family history: Reviewed, noncontributory to presentation Physical examination: VITAL SIGNS: 98.6, 43, 22, 107/43, 97% on the ventilator GENERAL: Laying in bed, intubated EYES: Pupils equal. Conjunctiva normal. HEENT: External appearance of nose and ears normal, ETT. NECK: JVD unable to assess; masses not palpable. HEART: Heart sounds irregular; no edema. LUNGS: Respiratory rate increased, decreased breath sounds. ABDOMEN: Soft, nontender, liver spleen not palpable, no masses palpable. PSYCH: Patient sedated MUSCULAR skeletal: Evidence of OA. INVESTIGATIONS, reviewed in the clinical context: March 20: WBC 15.2 hemoglobin 13.9 platelets 157 potassium 3.6 creatinine 1.5 for March 19: Obesity 14.4 hemoglobin 14.8 platelets 187 potassium 4.2 bun 28 creatinine 1.43 AST 152 ALT 129 WBC 8.2 hemoglobin 15.2 platelets 188 potassium 3.8 bun 33 creatinine 1.30 Lactic acid 2.5 troponin I less than 0.012 proBNP 63 Influenza type A, diabetic, RSV, COVID 19: Not detected EKG tracing personally reviewed by me-atrial fibrillation with a rate of 42 Chest x-ray film personally reviewed by me-elevated right diaphragm. Assessment and plan: -Persistent atrial fibrillation with a heart rate down to the 40s./Symptomatic bradycardia -slow to respond Coreg discontinued. Telemetry. -Acute hypoxic respiratory failure, requiring ventilator support-slow to respond On FiO2 of 50% -Moderate persistent asthma Continue DuoNeb and Symbicort -Morbid obesity BMI 51.3 Weight loss measures. Follow-up with PCP as an outpatient -Essential hypertension Currently antihypertensive held -Cardiogenic shock-slow to respond On IV norepinephrine -History of breast cancer Continue with arimidex intubated. ICU. Follow with cardiology and pulmonary
[2021-03-20] MEDS: NOREPINEPHRINE 32 MG in SODIUM CHLORIDE 0.9% 218 ML IV SCH (18:40)
[2021-03-20 20:18] LABS: Glucose,Whole Blood 147 mg/dL (75-99)
[2021-03-20] MEDS: ATORVASTATIN 10 MG TAB PO SCH (21:39)
[2021-03-21] MEDS: INSULIN ASPART (NovoLOG) 100 UNIT/ML VIAL SQ SCH ×7 (02:41→23:50)
[2021-03-21] MEDS: IPRATROPIUM-ALBUTEROL 3 ML NEB INHALATION SCH ×5 (04:21→20:08)
[2021-03-21 05:12] LABS: Glucose,Whole Blood 178 mg/dL (75-99)
[2021-03-21] MEDS: SODIUM CHLORIDE 0.9% 1,000 ML IV SCH ×3 (05:29→20:55)
[2021-03-21 05:31] LABS: ABG HCO3 21 mmol/L (21-25); ABG Oxygen Saturation 98.5 % (94-97); ABG PCO2 35 mmHg (35-45); ABG PH 7.38 (7.35-7.45); ABG PO2 122 mmHg (83-108); ABG TCO2 22 mmol/L (19-24); Allen Test Performed? Yes
[2021-03-21 05:59] LABS: Basophils % (A) 0 %; Eosinophils % (A) 0 %; HGB 12.8 gm/dL (11.4-16.0); Lymphocytes # (A) 1.3 k/uL (1.0-4.8); Lymphocytes % (A) 9 %; MCH 34.2 pg (25.0-35.0); MCHC 34.6 g/dL (31.0-37.0); MCV 98.7 fL (80.0-100.0); Mean Platelet Volume 9.5; Monocytes # (A) 0.9 k/uL (0-1.0); Monocytes % (A) 7 %; Neutrophils # (A) 11.2 k/uL (1.3-7.7); Neutrophils % (A) 82 %; Platelet Count 122 k/uL (150-450); RBC 3.75 m/uL (3.80-5.40); RDW 13.9 % (11.5-15.5); WBC 13.6 k/uL (3.8-10.6)
[2021-03-21 06:16] LABS: Calcium 8.3 mg/dL (8.4-10.2); Potassium 3.8 mmol/L (3.5-5.1)
--- NOTE | 2021-03-21 06:48 | XR ---
EXAMINATION TYPE: XR chest 1V portable DATE OF EXAM: 03/21/2021 COMPARISON: 03/20/2021 HISTORY: Tube placement TECHNIQUE: Single frontal view of the chest is obtained. FINDINGS: There is an NG tube within the stomach. There is a left central venous catheter the tip of which is in the right atrium and is unchanged compared to the prior study. There is an NG tube appro ximately 3.4 cm above the armaan. There is a retrocardiac opacity likely indicating combination of small pleural effusion and mild atel ectasis. The right lung remains clear. There is no pneumothorax . IMPRESSION: NG tube approximately 3.4 cm above the armaan left central venous catheter tip in the right atrium. No change in the left pleural effusion and atelectasis.
[2021-03-21 08:03] LABS: Glucose,Whole Blood 143 mg/dL (75-99)
[2021-03-21] MEDS: PANTOPRAZOLE 40 MG/10 ML VIAL IVP SCH (08:42)
[2021-03-21] MEDS: VIT A,C & E-LUTEIN-MINERALS 1 EACH TAB PO SCH ×2 (08:43→20:39)
[2021-03-21] MEDS: ANASTROZOLE 1 MG TAB PO SCH (08:43)
[2021-03-21] MEDS: CHLORHEXIDINE GLUCONATE 15 ML CUP MUCOUS MEM SCH ×2 (08:43→20:39)
[2021-03-21] MEDS: allopurinoL 100 MG TAB PO SCH (08:43)
[2021-03-21] MEDS: EDOXABAN TOSYLATE 30 MG TABLET PO SCH (08:43)
--- NOTE | 2021-03-21 10:59 | P.PN ---
Subjective Progress Note Date: 03/21/21 Principal diagnosis: Acute hypoxemic respiratory failure secondary to cardiopulmonary arrest 80-year-old female, who presented to the emergency department, on March 18, at 10:50 in the morning. The patient came in with complaints of increasing shortness of breath, and cough. She recently saw her doctor who put her on some antibiotics for a sinus infection. She apparently sees my partner as well, for her COPD. She apparently has a history of atrial fibrillation, hypertension, and chronic kidney disease. Anyway, sometime in the emergency department, she got up to go to the bathroom, and was found to be unresponsive on the bathroom floor. She had a brief episode of cardiopulmonary resuscitation, she received 2 rounds of epinephrine. The ER doctor who I spoke to follow she probably had a vasovagal episode. Patient did test negative for coronavirus, has received both of her vaccinations. Anyway, she did require intubation and mechanical ventilation. Currently, she seen in the emergency department, in the trauma room. The patient's on the volume assist control mode rate of 14, tidal volume 450, FiO2 50%, with a PEEP of 5. Arterial blood gases on the same settings, but 100%, she will PaO2 of 312, pCO2 38, and a pH is 7.33. The patient is on norepinephrine at 0.11 mcg/kg/m, and when we saw her in the emergency department, was on first set, at 10 mg an hour. We told the nurse to switch her to propofol. She's not receiving any additional IV fluids. Once in the ICU, we placed a right femoral arterial line, and a left internal jugular triple-lumen c atheter. She apparently was scheduled to have a pacemaker insertion sometime in the future. Medical problem list includes atrial fibrillation, COPD/asthma, hyperlipidemia, hypertension, and chronic kidney disease. Labs include a white count of 14.4, hemoglobin 14.8, hematocrit 47.5, and a platelet count of 187,000. Repeat blood gases show a PaO2 of 102, pCO2 45, and a pH is 7.34. Sodium 138, potassium 4.2, chlorides 101, CO2 22, anion gap 15, BUN and creatinine 28 and 1.43. Lactic acid initially was 7.2. Chest x-ray shows a properly placed left internal jugular triple-lumen catheter, and endotracheal tube which is above the tracheal armaan, and relatively clear lung shaikh, but an elevated right diaphragm. Brain and cervical spine CT evaluations were both negative. The patient is seen today 03/20/2021 and follow-up in the intensive care unit. She remains intubated, sedated on the mechanical ventilator. Current settings assist-control mode at a rate of 14, tidal volume 450, FiO2 50% and a PEEP of 5. Morning blood gases reveal a P O2 75, pCO2 37, pH 7.42. She remains on pr opofol at 50 mcg/kg/m, norepinephrine at 16 mcg/m. 0.9 normal saline at 100 MLS per hour. Being nourished with vital HPI 30 MLS per hour with a goal of 55. Echocardiogram revealed ejection fraction between 45 and 50%. He had white count 15.2. Hemoglobin 13.9. Sodium 136. Potassium 3.6. Creatinine 1.54. Glucose 159. TSH 0.408. Cortisol level 38. Urine culture pending. Questionable UTI. She remains on DuoNeb inhalations. The patient is seen today in 03/21/2021 in follow-up in the intensive care unit. She remains intubated on mechanical ventilator. Current settings assist-control at a rate of 14, tidal volume 450, FiO2 40% and a PEEP of 5. Morning blood gases revealed a pO2 of 122, pCO2 35, pH 7.38. This was on 50% FiO2. She is sedated on propofol at 35 mcg/kg/m. Norepinephrine at 0.17 mcg/kg/m. 0.9 normal saline at 100 ML's per hour. Vital HPI 20 ML's per hour which is goal. She remains in a slow atrial fibrillation with a rate in the 40s. Chest x-ray reveals mild atelectasis small effusion on the left right lung mainly clear. Urine culture pending. Sputum culture pending. White count 13.6. Hemoglobin 12.8. Platelets 122. Sodium 136. Potassium 3.8. Creatinine 1.91. Glucose 179. She remains anticoagulated with Savaysa. Antibiotics in the form of ceftriaxone. Remains on bronchodilators. Objective - Vital Signs Vital signs: Vital Signs Temp 98.4 F 03/21/21 04:00 Pulse 42 L 03/21/21 09:16 Resp 27 H 03/21/21 07:00 BP 125/38 03/21/21 07:00 Pulse Ox 96 03/21/21 07:00 Intake & Output 03/20/21 03/21/21 03/21/21 18:59 06:59 18:59 Intake Total 5473.991 5958.859 123 Output Total 210 250 20 Balance 6023.886 1859.859 103 Weight 145.1 kg 147.7 kg Intake: IV 1133 1236 103 0.9 Normal Saline 33 36 3 Pressure Bag @ 3mL/hr Sodium Chloride 0.9% 1, 1100 1200 100 000 ml @ 100 mls/hr IV . Q10H [facility] Rx#:[id number] Intake, IV Titration 483.866 65.859 Amount Norepinephrine 32 mg In 189.406 65.859 Sodium Chloride 0.9% 218 ml @ 0.05 MCG/KG/MIN 3. 381 mls/hr IV .Q24H [facility] Rx#:[id number] propofoL 1,000 mg In 294.460 Empty Bag 1 bag @ Titrate IV .Q0M [facility] Rx#: [id number] Tube Feeding 260 240 20 Other 90 90 Output: Urine 210 250 20 Other: Voiding Method Indwelling Catheter Indwelling Catheter Indwelling Catheter ABP, PAP, CO, CI - Last Documented Arterial Blood Pressure 116/37 - Exam GENERAL EXAM: Intubated, sedated, morbidly obese 80-year-old female patient, in no apparent distress. HEAD: Normocephalic. EYES: Sluggish reaction of pupils, equal size. NOSE: Clear with pink turbinates. THROAT: Oral endotracheal tube and gastric tube secured in place. No erythema or exudates. NECK: No masses, no JVD. CHEST: No chest wall deformity. LUNGS: Equal air entry with few bilateral scattered rhonchi. CVS: S1 and S2 normal with no audible murmur, regular rhythm. ABDOMEN: No hepatosplenomegaly, normal bowel sounds, no guarding or rigidity. SPINE: No scoliosis or deformity SKIN: No rashes CENTRAL NERVOUS SYSTEM: No focal deficits, tone is normal in all 4 extremities. EXTREMITIES: There is no peripheral edema. No clubbing, no cyanosis. Peripheral pulses are intact. - Labs CBC & Chem 7: 03/21/21 05:10 03/21/21 05:10 Labs: Abnormal Lab Results - Last 24 Hours (Table) 03/20/21 03/20/21 03/20/21 Range/Units 08:47 11:29 16:34 WBC (3.8-10.6) k/uL RBC (3.80-5.40) m/uL Plt Count (150-450) k/uL Neutrophils # (1.3-7.7) k/uL ABG pO2 (83-108) mmHg ABG O2 Saturation (94-97) % Sodium (137-145) mmol/L Carbon Dioxide (22-30) mmol/L BUN (7-17) mg/dL Creatinine (0.52-1.04) mg/dL Glucose (74-99) mg/dL POC Glucose (mg/dL) 154 H 139 H (75-99) mg/dL Calcium (8.4-10.2) mg/dL Procalcitonin 0.52 H (0.02-0.09) ng/mL 03/20/21 03/21/21 03/21/21 Range/Units 20:16 05:10 05:10 WBC 13.6 H (3.8-10.6) k/uL RBC 3.75 L (3.80-5.40) m/uL Plt Count 122 L (150-450) k/uL Neutrophils # 11.2 H (1.3-7.7) k/uL ABG pO2 (83-108) mmHg ABG O2 Saturation (94-97) % Sodium 136 L (137-145) mmol/L Carbon Dioxide 21 L (22-30) mmol/L BUN 41 H (7-17) mg/dL Creatinine 1.91 H (0.52-1.04) mg/dL Glucose 179 H (74-99) mg/dL POC Glucose (mg/dL) 147 H (75-99) mg/dL Calcium 8.3 L (8.4-10.2) mg/dL Procalcitonin (0.02-0.09) ng/mL 03/21/21 03/21/21 03/21/21 Range/Units 05:10 05:25 08:02 WBC (3.8-10.6) k/uL RBC (3.80-5.40) m/uL Plt Count (150-450) k/uL Neutrophils # (1.3-7.7) k/uL ABG pO2 122 H (83-108) mmHg ABG O2 Saturation 98.5 H (94-97) % Sodium (137-145) mmol/L Carbon Dioxide (22-30) mmol/L BUN (7-17) mg/dL Creatinine (0.52-1.04) mg/dL Glucose (74-99) mg/dL POC Glucose (mg/dL) 178 H 143 H (75-99) mg/dL Calcium (8.4-10.2) mg/dL Procalcitonin (0.02-0.09) ng/mL Microbiology - Last 24 Hours (Table) 03/20/21 09:56 Gram Stain - Preliminary Sputum Sputum Culture - Preliminary 03/20/21 08:30 Urine Culture - Preliminary Urine,Catheterized Assessment and Plan Assessment: 1 Status post cardiopulmonary arrest, possible vasovagal syncope, in a patient with a history of bradycardia, and slow atrial fibrillation. Impaired left ventricular systolic function with ejection fraction 45-50%. 2 Status post intubation and mechanical ventilation, for airway protection, 03/19/2021. 3 Hypotension, secondary to above, requiring pressor support 4 History of hyperlipidemia. 5 History of hypertension. 6 History of chronic atrial fibrillation with bradycardia. 7 History of chronic kidney disease. 8 Recent sinus infection. 9 Obesity. 10 Suspected urinary tract infection 11 History of COPD/asthma. Plan: The patient was seen and evaluated by Dr. Maurer Chest x-ray, ABGs and labs reviewed Urine culture, sputum culture pending Remains on ceftriaxone Anticoagulated with Savaysa We'll continue to follow and make further recommendations based on her clinical status Critical care time 36 minutes I, the cosigning physician, performed a history & physical examination of the patient. Lungs sounds with diffuse bilateral scattered rhonchi. Maintaining good O2 saturations in the 90s on 40% FiO2 via the mechanical ventilator. I discussed the assessment and plan of care with my nurse practitioner, Kimberly Holt. I attest to the above note as dictated by her.
[2021-03-21 12:18] LABS: Glucose,Whole Blood 143 mg/dL (75-99)
--- NOTE | 2021-03-21 14:28 | P.PN ---
Progress Note - Text Progress Note Date: 03/21/21 Chief Complaint: Short of breath History of presenting complaint: This is a 80-year-old patient of Dr. Tovar. Trauma Surgeon Dr. Bland. Chronic stable medical conditions include atrial fibrillation, asthma, hyperlipidemia, hypertension, chronic kidney disease. Patient presents with about 10 days of increasing shortness of breath. Basically presented with activity. No edema. No chest pain. No fever no chills. No cough. At her baseline uses a walker. patient was being held in the ER as an overflow was found unconscious in the bathroom for. With no pulse. intubated. Patient did have return of spontaneous circulation. Bradycardic. Admitted to the ICU. Today: ICU: Ventilator: FiO2 50 PEEP of 5. Telemetry: Sinus rhythm. Drips include norepinephrine and propofol. Heart rate 46 Review of systems: Patient intubated Active Medications Active Medications Albuterol/Ipratropium (Ipratropium-Albuterol 3 Ml Neb) 3 ml INHALATION RT-Q4H [facility] Last Admin: 03/21/21 12:05 Dose: 3 ml Documented by: Allopurinol (Allopurinol 100 Mg Tab) 100 mg PO [facility] Last Admin: 03/21/21 08:43 Dose: 100 mg Documented by: Anastrozole (Anastrozole 1 Mg Tab) 1 mg PO [facility] Last Admin: 03/21/21 08:43 Dose: 1 mg Documented by: Atorvastatin Calcium (Atorvastatin 10 Mg Tab) 10 mg PO [facility] Last Admin: 03/20/21 21:39 Dose: 10 mg Documented by: Chlorhexidine Gluconate (Chlorhexidine Gluconate 15 Ml Cup) 15 ml MUCOUS MEM BID [facility] Last Admin: 03/21/21 08:43 Dose: 15 ml Documented by: Edoxaban (Edoxaban Tosylate 30 Mg Tablet) 30 mg PO [facility] Last Admin: 03/21/21 08:43 Dose: 30 mg Documented by: Propofol 1,000 mg/ IV Solution 100 mls @ 0 mls/hr IV .Q0M [facility]; Protocol Last Admin: 03/20/21 17:12 Dose: 35 mcg/kg/min, 30.471 mls/hr Documented by: Norepinephrine Bitartrate 32 (mg/ Sodium Chloride) 250 mls @ 3.381 mls/hr IV .Q24H [facility]; Protocol Last Titration: 03/21/21 02:47 Dose: 0.16 mcg/kg/min, 10.818 mls/hr Documented by: Sodium Chloride (Saline 0.9%) 1,000 mls @ 100 mls/hr IV .Q10H [facility] Last Admin: 03/21/21 05:29 Dose: 100 mls/hr Documented by: Ceftriaxone Sodium 1 gm/ (Sodium Chloride) 50 mls @ 100 mls/hr IVPB Q24HR [facility] Last Admin: 03/21/21 08:43 Dose: 100 mls/hr Documented by: Insulin Aspart (Insulin Aspart (Novolog) 100 Unit/Ml Vial) 0 unit SQ Q4H [facility]; Protocol Last Admin: 03/21/21 12:59 Dose: 1 unit Documented by: Multivitamins/Minerals (Vit A,C & V-Bynhoa-Vcjpncrd 1 Each Tab) 1 each PO BID [facility] Last Admin: 03/21/21 08:43 Dose: 1 each Documented by: Naloxone HCl (Naloxone 0.4 Mg/Ml 1 Ml Vial) 0.2 mg IV Q2M PRN PRN Reason: Opioid Reversal Pantoprazole Sodium (Pantoprazole 40 Mg/10 Ml Vial) 40 mg IVP DAILY [facility] Last Admin: 03/21/21 08:42 Dose: 40 mg Documented by: Past medical history to include: Atrial fibrillation, asthma, hyperlipidemia, hypertension, chronic kidney disease Social history: Daughter lives with her. Does use a walker. No history of smoking or alcohol Family history: Reviewed, noncontributory to presentation Physical examination: VITAL SIGNS: 98.5, 42, 36, 115/50, 97% on the ventilator GENERAL: Laying in bed, intubated EYES: Pupils equal. Conjunctiva normal. HEENT: External appearance of nose and ears normal, ETT. NECK: JVD unable to assess; masses not palpable. HEART: Heart sounds irregular; no edema. LUNGS: Respiratory rate increased, decreased breath sounds. ABDOMEN: Soft, nontender, liver spleen not palpable, no masses palpable. PSYCH: Patient sedated MUSCULAR skeletal: Evidence of OA. INVESTIGATIONS, reviewed in the clinical context: March 21: Obesity 13.6 hemoglobin 12.8 platelets 122 potassium 3.8 creatinine 1.91 March 20: WBC 15.2 hemoglobin 13.9 platelets 157 potassium 3.6 creatinine 1.5 for March 19: Obesity 14.4 hemoglobin 14.8 platelets 187 potassium 4.2 bun 28 creatinine 1.43 AST 152 ALT 129 WBC 8.2 hemoglobin 15.2 platelets 188 potassium 3.8 bun 33 creatinine 1.30 Lactic acid 2.5 troponin I less than 0.012 proBNP 63 Influenza type A, diabetic, RSV, COVID 19: Not detected EKG tracing personally reviewed by me-atrial fibrillation with a rate of 42 Chest x-ray film personally reviewed by me-elevated right diaphragm. Assessment and plan: -Persistent atrial fibrillation with a heart rate down to the 40s./Symptomatic bradycardia -slow to respond Coreg discontinued. Telemetry. -Acute hypoxic respiratory failure, requiring ventilator support-slow to respond On FiO2 of 50% -Moderate persistent asthma Continue DuoNeb and Symbicort -Morbid obesity BMI 51.3 Weight loss measures. Follow-up with PCP as an outpatient -Essential hypertension Currently antihypertensive held -Cardiogenic shock-slow to respond On IV norepinephrine -History of breast cancer Continue with arimidex -Acute kidney injury possibly from cardiorenal syndrome. Follow lites closely. intubated. ICU. Follow with cardiology and pulmonary
--- NOTE | 2021-03-21 15:38 | P.PN ---
Subjective Progress Note Date: 03/21/21 This 80-year-old female still remains intubated and sedated. She is still bradycardic with rates in the 40s. She still hypotensive requiring norepinephrine drip at 16 mics. She is a sedated with IV propofol. Patient's hemodynamic derangement and hypotension is not explained by the mild bradycardia. Suspect underlying septicemia. Her TSH is slightly low but free T4 is normal. Patient mental status difficult to evaluate because she is intubated, sedated. Patient also requiring PEEP for pulmonary support. Chest x-ray did not show significant findings. At this point we'll continue with current management including antibiotics. Urine and blood cultures are pending. I do not think a pacemaker and make a difference and hemodynamics. In the long run if patient continues to be bradycardic, pacemaker may be considered but may not be the answer for the acute events. Neurology consult also is recommended to assess her neurological status. Prognosis is guarded. 03/21/2021: This patient still remains intubated and sedated. Blood pressure is more stable and she is coming down on the amount of norepinephrine drip. Mental status is unknown. Patient still remains bradycardic with rates between 40-50. Her LV function is fair. Her cultures are pending. She is on empiric antibiotics. This is also on anticoagulation. A trial of weaning will be attempted with pulmonology. This point we'll continue current medical therapy. Her pulmonary and hemodynamic derangement is not explained by the bradycardia. Her mental status is also unknown at this time. We will continue to follow. If her heart rate doesn't come up, she may need a permanent pacemaker in the long run. Objective - Vital Signs Vital signs: Vital Signs Temp 98.5 F 03/21/21 12:00 Pulse 40 L 03/21/21 13:00 Resp 25 H 03/21/21 13:00 BP 117/49 03/21/21 13:00 Pulse Ox 98 03/21/21 13:00 Intake & Output 03/20/21 03/21/21 03/21/21 18:59 06:59 18:59 Intake Total 7448.282 3634.859 911 Output Total 210 250 315 Balance 6477.055 6099.859 596 Weight 145.1 kg 147.7 kg 147.7 kg Intake: IV 1133 1236 721 0.9 Normal Saline 33 36 21 Pressure Bag @ 3mL/hr Sodium Chloride 0.9% 1, 1100 1200 700 000 ml @ 100 mls/hr IV . Q10H [facility] Rx#:[id number] Intake, IV Titration 483.866 65.859 Amount Norepinephrine 32 mg In 189.406 65.859 Sodium Chloride 0.9% 218 ml @ 0.05 MCG/KG/MIN 3. 381 mls/hr IV .Q24H [facility] Rx#:[id number] propofoL 1,000 mg In 294.460 Empty Bag 1 bag @ Titrate IV .Q0M [facility] Rx#: [id number] Tube Feeding 260 240 160 Other 90 90 30 Output: Urine 210 250 315 Other: Voiding Method Indwelling Catheter Indwelling Catheter Indwelling Catheter ABP, PAP, CO, CI - Last Documented Arterial Blood Pressure 118/42 - Exam GENERAL EXAM: Patient is intubated and sedated HEENT: Normocephalic. N NECK: No masses, no nuchal rigidity. CHEST: No chest wall deformity. LUNGS: Diminished air exchange HEART: S1 and S2 normal ABDOMEN: No hepatosplenomegaly, normal bowel sounds, no guarding or rigidity. SKIN: No rashes CENTRAL NERVOUS SYSTEM: Not performed EXTREMITIES: No cyanosis, clubbing or edema. - Labs CBC & Chem 7: 03/21/21 05:10 03/21/21 05:10 Labs: Abnormal Lab Results - Last 24 Hours (Table) 03/20/21 03/20/21 03/20/21 Range/Units 08:47 16:34 20:16 WBC (3.8-10.6) k/uL RBC (3.80-5.40) m/uL Plt Count (150-450) k/uL Neutrophils # (1.3-7.7) k/uL ABG pO2 (83-108) mmHg ABG O2 Saturation (94-97) % Sodium (137-145) mmol/L Carbon Dioxide (22-30) mmol/L BUN (7-17) mg/dL Creatinine (0.52-1.04) mg/dL Glucose (74-99) mg/dL POC Glucose (mg/dL) 139 H 147 H (75-99) mg/dL Calcium (8.4-10.2) mg/dL Procalcitonin 0.52 H (0.02-0.09) ng/mL 03/21/21 03/21/21 03/21/21 Range/Units 05:10 05:10 05:10 WBC 13.6 H (3.8-10.6) k/uL RBC 3.75 L (3.80-5.40) m/uL Plt Count 122 L (150-450) k/uL Neutrophils # 11.2 H (1.3-7.7) k/uL ABG pO2 (83-108) mmHg ABG O2 Saturation (94-97) % Sodium 136 L (137-145) mmol/L Carbon Dioxide 21 L (22-30) mmol/L BUN 41 H (7-17) mg/dL Creatinine 1.91 H (0.52-1.04) mg/dL Glucose 179 H (74-99) mg/dL POC Glucose (mg/dL) 178 H (75-99) mg/dL Calcium 8.3 L (8.4-10.2) mg/dL Procalcitonin (0.02-0.09) ng/mL 03/21/21 03/21/21 03/21/21 Range/Units 05:25 08:02 12:15 WBC (3.8-10.6) k/uL RBC (3.80-5.40) m/uL Plt Count (150-450) k/uL Neutrophils # (1.3-7.7) k/uL ABG pO2 122 H (83-108) mmHg ABG O2 Saturation 98.5 H (94-97) % Sodium (137-145) mmol/L Carbon Dioxide (22-30) mmol/L BUN (7-17) mg/dL Creatinine (0.52-1.04) mg/dL Glucose (74-99) mg/dL POC Glucose (mg/dL) 143 H 143 H (75-99) mg/dL Calcium (8.4-10.2) mg/dL Procalcitonin (0.02-0.09) ng/mL Microbiology - Last 24 Hours (Table) 03/20/21 08:30 Urine Culture - Preliminary Urine,Catheterized Gram Neg Bacilli 03/20/21 08:48 Blood Culture - Preliminary Blood No Growth after 24 hours 03/20/21 08:47 Blood Culture - Preliminary Blood No Growth after 24 hours 03/20/21 09:56 Gram Stain - Preliminary Sputum Sputum Culture - Preliminary Assessment and Plan (1) Atrial fibrillation with slow ventricular response Current Visit: Yes Status: Acute Code(s): I48.91 - UNSPECIFIED ATRIAL FIBRILLATION SNOMED Code(s): 70460844 (2) COPD exacerbation Current Visit: Yes Status: Acute Code(s): J44.1 - CHRONIC OBSTRUCTIVE PULMONARY DISEASE W (ACUTE) EXACERBATION SNOMED Code(s): 913042606 (3) Cardiopulmonary arrest Current Visit: Yes Status: Acute Code(s): I46.9 - CARDIAC ARREST, CAUSE UNSPECIFIED SNOMED Code(s): 000072283 (4) Essential hypertension Current Visit: Yes Status: Acute Code(s): I10 - ESSENTIAL (PRIMARY) HYPERTENSION SNOMED Code(s): 15913228 (5) Chronic renal failure Current Visit: Yes Status: Acute Code(s): N18.9 - CHRONIC KIDNEY DISEASE, UNSPECIFIED SNOMED Code(s): 56692290 Plan: Remains bradycardic. Remains on the ventilator and small dose of vasodepressor. We'll continue to monitor her. May consider neurology evaluation. We'll follow
[2021-03-21 16:01] LABS: Glucose,Whole Blood 143 mg/dL (75-99)
[2021-03-21 16:05] LABS: Glucose,Whole Blood 144 mg/dL (75-99)
[2021-03-21] MEDS: NOREPINEPHRINE 32 MG in SODIUM CHLORIDE 0.9% 218 ML IV SCH (18:06)
[2021-03-21 20:21] LABS: Glucose,Whole Blood 158 mg/dL (75-99)
[2021-03-21] MEDS: ATORVASTATIN 10 MG TAB PO SCH (20:39)
[2021-03-21 23:39] LABS: Glucose,Whole Blood 149 mg/dL (75-99)
[2021-03-22] MEDS: IPRATROPIUM-ALBUTEROL 3 ML NEB INHALATION SCH ×6 (02:10→20:00)
[2021-03-22 03:55] LABS: Glucose,Whole Blood 144 mg/dL (75-99)
[2021-03-22] MEDS: INSULIN ASPART (NovoLOG) 100 UNIT/ML VIAL SQ SCH ×5 (03:56→23:38)
[2021-03-22 04:15] LABS: Basophils % (A) 0 %; Eosinophils # (A) 0.1 k/uL (0-0.7); Eosinophils % (A) 1 %; HCT 33.7 % (34.0-46.0); HGB 11.8 gm/dL (11.4-16.0); Lymphocytes % (A) 9 %; MCH 34.5 pg (25.0-35.0); MCHC 35.1 g/dL (31.0-37.0); MCV 98.2 fL (80.0-100.0); Monocytes # (A) 0.8 k/uL (0-1.0); Monocytes % (A) 7 %; Neutrophils % (A) 82 %; Platelet Count 119 k/uL (150-450); RBC 3.43 m/uL (3.80-5.40); RDW 13.7 % (11.5-15.5)
[2021-03-22 04:45] LABS: Albumin 2.3 g/dL (3.5-5.0); Calcium 8.1 mg/dL (8.4-10.2); Magnesium 2.5 mg/dL (1.6-2.3); Total Bilirubin 0.6 mg/dL (0.2-1.3); Total Protein 4.5 g/dL (6.3-8.2)
[2021-03-22 05:39] LABS: ABG HCO3 23 mmol/L (21-25); ABG PCO2 38 mmHg (35-45); ABG PH 7.39 (7.35-7.45); ABG PO2 106 mmHg (83-108); ABG TCO2 24 mmol/L (19-24); Allen Test Performed? Yes
--- NOTE | 2021-03-22 07:07 | XR ---
EXAMINATION TYPE: XR chest 1V portable DATE OF EXAM: 03/22/2021 COMPARISON: 03/21/2021 HISTORY: Tube placed TECHNIQUE: Single frontal view of the chest is obtained. FINDINGS: ET and NG tube stable. Central line stable. Bilateral infiltrate and pleural effusion. No pneumothorax. Heart is enlarged. Atherosclerotic change aorta. IMPRESSION: Bilateral infiltrate and pleural effusion. Stable
[2021-03-22] MEDS: PANTOPRAZOLE 40 MG/10 ML VIAL IVP SCH (09:04)
[2021-03-22] MEDS: CHLORHEXIDINE GLUCONATE 15 ML CUP MUCOUS MEM SCH ×2 (09:04→19:41)
[2021-03-22] MEDS: EDOXABAN TOSYLATE 30 MG TABLET PO SCH (09:05)
[2021-03-22] MEDS: VIT A,C & E-LUTEIN-MINERALS 1 EACH TAB PO SCH ×2 (09:05→19:41)
[2021-03-22] MEDS: allopurinoL 100 MG TAB PO SCH (09:05)
[2021-03-22] MEDS: ANASTROZOLE 1 MG TAB PO SCH (09:06)
--- NOTE | 2021-03-22 11:10 | P.PN ---
Subjective Progress Note Date: 03/22/21 Principal diagnosis: Acute hypoxemic respiratory failure secondary to cardiopulmonary arrest 80-year-old female, who presented to the emergency department, on March 18, at 10:50 in the morning. The patient came in with complaints of increasing shortness of breath, and cough. She recently saw her doctor who put her on some antibiotics for a sinus infection. She apparently sees my partner as well, for her COPD. She apparently has a history of atrial fibrillation, hypertension, and chronic kidney disease. Anyway, sometime in the emergency department, she got up to go to the bathroom, and was found to be unresponsive on the bathroom floor. She had a brief episode of cardiopulmonary resuscitation, she received 2 rounds of epinephrine. The ER doctor who I spoke to follow she probably had a vasovagal episode. Patient did test negative for coronavirus, has received both of her vaccinations. Anyway, she did require intubation and mechanical ventilation. Currently, she seen in the emergency department, in the trauma room. The patient's on the volume assist control mode rate of 14, tidal volume 450, FiO2 50%, with a PEEP of 5. Arterial blood gases on the same settings, but 100%, she will PaO2 of 312, pCO2 38, and a pH is 7.33. The patient is on norepinephrine at 0.11 mcg/kg/m, and when we saw her in the emergency department, was on first set, at 10 mg an hour. We told the nurse to switch her to propofol. She's not receiving any additional IV fluids. Once in the ICU, we placed a right femoral arterial line, and a left internal jugular triple-lumen c atheter. She apparently was scheduled to have a pacemaker insertion sometime in the future. Medical problem list includes atrial fibrillation, COPD/asthma, hyperlipidemia, hypertension, and chronic kidney disease. Labs include a white count of 14.4, hemoglobin 14.8, hematocrit 47.5, and a platelet count of 187,000. Repeat blood gases show a PaO2 of 102, pCO2 45, and a pH is 7.34. Sodium 138, potassium 4.2, chlorides 101, CO2 22, anion gap 15, BUN and creatinine 28 and 1.43. Lactic acid initially was 7.2. Chest x-ray shows a properly placed left internal jugular triple-lumen catheter, and endotracheal tube which is above the tracheal armaan, and relatively clear lung shaikh, but an elevated right diaphragm. Brain and cervical spine CT evaluations were both negative. The patient is seen today 03/20/2021 and follow-up in the intensive care unit. She remains intubated, sedated on the mechanical ventilator. Current settings assist-control mode at a rate of 14, tidal volume 450, FiO2 50% and a PEEP of 5. Morning blood gases reveal a P O2 75, pCO2 37, pH 7.42. She remains on pr opofol at 50 mcg/kg/m, norepinephrine at 16 mcg/m. 0.9 normal saline at 100 MLS per hour. Being nourished with vital HPI 30 MLS per hour with a goal of 55. Echocardiogram revealed ejection fraction between 45 and 50%. He had white count 15.2. Hemoglobin 13.9. Sodium 136. Potassium 3.6. Creatinine 1.54. Glucose 159. TSH 0.408. Cortisol level 38. Urine culture pending. Questionable UTI. She remains on DuoNeb inhalations. The patient is seen today in 03/21/2021 in follow-up in the intensive care unit. She remains intubated on mechanical ventilator. Current settings assist-control at a rate of 14, tidal volume 450, FiO2 40% and a PEEP of 5. Morning blood gases revealed a pO2 of 122, pCO2 35, pH 7.38. This was on 50% FiO2. She is sedated on propofol at 35 mcg/kg/m. Norepinephrine at 0.17 mcg/kg/m. 0.9 normal saline at 100 ML's per hour. Vital HPI 20 ML's per hour which is goal. She remains in a slow atrial fibrillation with a rate in the 40s. Chest x-ray reveals mild atelectasis small effusion on the left right lung mainly clear. Urine culture pending. Sputum culture pending. White count 13.6. Hemoglobin 12.8. Platelets 122. Sodium 136. Potassium 3.8. Creatinine 1.91. Glucose 179. She remains anticoagulated with Savaysa. Antibiotics in the form of ceftriaxone. Remains on bronchodilators. The patient is seen today 03/22/2021 follow-up in the intensive care unit. She remains intubated on mechanical ventilator. Current settings assist-control m ode at a rate of 14, tidal volume 450, FiO2 40% and a PEEP of 5. Morning blood gases revealed a pO2 of 106, pCO2 38, pH 7.38. She was off sedation until approximately 8:30 last night. She developed increased respiratory rate, restlessness, agitation. Not following any significant commands. She is currently sedated on propofol at 35 mcg/kg/m, norepinephrine at 0.4 mcg/kg/m. 0.9 normal saline at 100 ML's per hour. She is receiving nourishment via vital HPI at 40 ML's per hour with a goal of 53 ML's per hour. She has had some increased edema. Urine output averaging 20-40 ML's per hour. She remains bradycardic with atrial fibrillation. Anti coagulated with Savaysa. Chest x- ray reveals bilateral infiltrates and pleural effusion. Stable compared to previous. Urine culture was positive for E. coli. Blood cultures show no growth. Sputum culture no growth. Count 11.0. Hemoglobin 11.8. Platelets 119. Sodium 137. Potassium 4.0. Creatinine 1.45. She remains on ceftriaxone. Bronchodilators. Objective - Vital Signs Vital signs: Vital Signs Temp 98.9 F 03/22/21 08:00 Pulse 43 L 03/22/21 11:00 Resp 27 H 03/22/21 11:00 BP 109/50 03/22/21 11:00 Pulse Ox 99 03/22/21 11:00 Intake & Output 03/21/21 03/22/21 03/22/21 18:59 06:59 18:59 Intake Total 6561.065 1263.644 964.416 Output Total 390 655 185 Balance 9457.902 7317.644 779.416 Weight 147.7 kg 147.4 kg Intake: IV 1236 1236 515 0.9 Normal Saline 36 36 15 Pressure Bag @ 3mL/hr Sodium Chloride 0.9% 1, 1200 1200 500 000 ml @ 100 mls/hr IV . Q10H [facility] Rx#:[id number] Intake, IV Titration 240.948 180.644 180.416 Amount Norepinephrine 32 mg In 140.948 80.416 Sodium Chloride 0.9% 218 ml @ 0.05 MCG/KG/MIN 3. 381 mls/hr IV .Q24H [facility] Rx#:[id number] propofoL 1,000 mg In 100 180.644 100 Empty Bag 1 bag @ Titrate IV .Q0M [facility] Rx#: [id number] Tube Feeding 260 400 239 Other 60 100 30 Output: Urine 390 655 185 Other: Voiding Method Indwelling Catheter Indwelling Catheter Indwelling Catheter ABP, PAP, CO, CI - Last Documented Arterial Blood Pressure 128/52 - Exam GENERAL EXAM: Intubated, sedated, morbidly obese 80-year-old female patient, in no apparent distress. HEAD: Normocephalic. EYES: Sluggish reaction of pupils, equal size. NOSE: Clear with pink turbinates. THROAT: Oral endotracheal tube and gastric tube secured in place. No erythema or exudates. NECK: No masses, no JVD. CHEST: No chest wall deformity. LUNGS: Equal air entry with few bilateral scattered rhonchi. CVS: S1 and S2 normal with no audible murmur, regular rhythm. ABDOMEN: No hepatosplenomegaly, normal bowel sounds, no guarding or rigidity. SPINE: No scoliosis or deformity SKIN: No rashes CENTRAL NERVOUS SYSTEM: No focal deficits, tone is normal in all 4 extremities. EXTREMITIES: There is no peripheral edema. No clubbing, no cyanosis. Peripheral pulses are intact. - Labs CBC & Chem 7: 03/22/21 04:00 03/22/21 04:00 Labs: Abnormal Lab Results - Last 24 Hours (Table) 03/21/21 03/21/21 03/21/21 Range/Units 12:15 15:59 16:03 WBC (3.8-10.6) k/uL RBC (3.80-5.40) m/uL Hct (34.0-46.0) % Plt Count (150-450) k/uL Neutrophils # (1.3-7.7) k/uL ABG O2 Saturation (94-97) % Chloride (98-107) mmol/L BUN (7-17) mg/dL Creatinine (0.52-1.04) mg/dL Glucose (74-99) mg/dL POC Glucose (mg/dL) 143 H 143 H 144 H (75-99) mg/dL Calcium (8.4-10.2) mg/dL Magnesium (1.6-2.3) mg/dL ALT (4-34) U/L Total Protein (6.3-8.2) g/dL Albumin (3.5-5.0) g/dL 03/21/21 03/21/21 03/22/21 Range/Units 20:19 23:38 03:53 WBC (3.8-10.6) k/uL RBC (3.80-5.40) m/uL Hct (34.0-46.0) % Plt Count (150-450) k/uL Neutrophils # (1.3-7.7) k/uL ABG O2 Saturation (94-97) % Chloride (98-107) mmol/L BUN (7-17) mg/dL Creatinine (0.52-1.04) mg/dL Glucose (74-99) mg/dL POC Glucose (mg/dL) 158 H 149 H 144 H (75-99) mg/dL Calcium (8.4-10.2) mg/dL Magnesium (1.6-2.3) mg/dL ALT (4-34) U/L Total Protein (6.3-8.2) g/dL Albumin (3.5-5.0) g/dL 03/22/21 03/22/21 03/22/21 Range/Units 04:00 04:00 05:35 WBC 11.0 H (3.8-10.6) k/uL RBC 3.43 L (3.80-5.40) m/uL Hct 33.7 L (34.0-46.0) % Plt Count 119 L (150-450) k/uL Neutrophils # 9.0 H (1.3-7.7) k/uL ABG O2 Saturation 98.0 H (94-97) % Chloride 109 H (98-107) mmol/L BUN 46 H (7-17) mg/dL Creatinine 1.45 H (0.52-1.04) mg/dL Glucose 142 H (74-99) mg/dL POC Glucose (mg/dL) (75-99) mg/dL Calcium 8.1 L (8.4-10.2) mg/dL Magnesium 2.5 H (1.6-2.3) mg/dL ALT 41 H (4-34) U/L Total Protein 4.5 L (6.3-8.2) g/dL Albumin 2.3 L (3.5-5.0) g/dL Microbiology - Last 24 Hours (Table) 03/20/21 08:47 Blood Culture - Preliminary Blood No Growth after 48 hours 03/20/21 08:48 Blood Culture - Preliminary Blood No Growth after 48 hours 03/20/21 09:56 Gram Stain - Final Sputum Sputum Culture - Final 03/20/21 08:30 Urine Culture - Final Urine,Catheterized Escherichia coli Assessment and Plan Assessment: 1 Status post cardiopulmonary arrest, possible vasovagal syncope, in a patient with a history of bradycardia, and slow atrial fibrillation. Impaired left ventricular systolic function with ejection fraction 45-50%. 2 Status post intubation and mechanical ventilation, for airway protection, 03/19/2021. 3 Hypotension, secondary to above, requiring pressor support 4 History of hyperlipidemia. 5 History of hypertension. 6 History of chronic atrial fibrillation with bradycardia. 7 History of chronic kidney disease. 8 Recent sinus infection. 9 Obesity. 10 Urinary tract infection secondary to E. coli, currently on ceftriaxone 11 History of COPD/asthma. Plan: The patient was seen and evaluated by Dr. Maurer Chest x-ray, ABGs and labs reviewed Not following any purposeful commands while off sedation Neurology is consulted Continue with daily interruption of sedation We'll continue to follow and make further recommendations based on her clinical status Critical care time 38 minutes I, the cosigning physician, performed a history & physical examination of the patient. Lungs sounds with diffuse bilateral scattered rhonchi. Maintaining good O2 saturations in the 90s on 40% FiO2 via the mechanical ventilator. I discussed the assessment and plan of care with my nurse practitioner, Kimberly Holt. I attest to the above note as dictated by her.
[2021-03-22 11:24] LABS: Glucose,Whole Blood 145 mg/dL (75-99)
--- NOTE | 2021-03-22 12:46 | P.CNNES ---
History of Present Illness Consult date: 03/22/21 Requesting physician: Charlie Boone Reason for Consult: altered mental status History of Present Illness: This is an 80-year-old woman with medical history of atrial fibrillation (on Edoxaban), chronic kidney disease, hypertension, hyperlipidemia who presented to the emergency department on 03/18/2021 with increased shortness of breath and cough. Neurology is consulted for altered mental status. History was obtained from medical record as well as the patient nurse. Per medical record the while the patient was in the emergency department, she got up to the bathroom and then she was found unresponsive in the bathroom. She had a cardiopulmonary arrest and received 2 rounds of epinephrine. Per the patient nurse it seems that she was down for possibly 5 minutes. It is reported by the ICU nurse practitioner that ER doctor felt she had a vasovagal syncope episode that was a suspicion. Patient required intubation for airway protection. She had hypotesion and was epinephrine during the hospital stay she was on propofol. Per the patient nurse the IV propofol was held for 12 hours yesterday and the patient was not responsive or following commands. Also she stated that that she held the propofol today for 1 hour an no responding. In the morning she was on Propofol 35mcg/kg/min. Of note it was suspected that cardiopulmonary arrest as mentioned above was possibly vasovagal in the patient with history of bradycardia and slow atrial fibrillation. Patient has a heart rates predominantly in the 40s for the most part and sometimes goes to the 50s. Cardiology on board and per the nurse she notified me that cardiology did not feel her bradycardia was symptomatic. In the hospital stay has urinary tract infection. Prior to coming to the hospital, per the nurse patient was awake and responsive. Some of the workup consisted of: Most recent vitals his blood pressure of 128/52 heart rate 43, respiratory of 27, pulse ox of 99 on FiO2 of [address] of the head in the cervical spine on 03/19/2021: Was CT of the brain it is reported as no acute intracranial process identified. While the CT cervical spine is reported as no acute osseous traumatic injury or significant abnormal alignment involving the cervical spine. Incidental degenerative changes at. No severe osseous canal stenosis. 2-D echo was reported as atrial fibrillation that. Moderate concentric left ventricular hypertrophy. Ejection fraction of 45-50%. Left atrium is mildly dilated that. Moderate pulmonary hypertension. EKG was reported as age are fibrillation with slow ventricular response. Left axis deviation. Pulmonary disease pattern. Incomplete right bundle branch block. Inferior infarct, age undetermined. Assess T and T-wave abnormality, consider anterolateral ischemia or digitalis effect. Abnormal EKG. Patient last white blood cell is 11.0 which is trending down. Sodium is 137 last which is normal. Creatinine last is 1.45 which is trending down now. POC glucose is been in the range of 140s to 150s at. Calcium is 8.1 which is low but there is no ionized calcium as to compare with. Magnesium 2.5 which is slightly elevated. AST of 26 and ALT of 41. TSH of 0.408 which is low but the free T4 is 1.62 which is normal. SARS Covid to PCR was not detected Review of Systems Review of system is limited but the prone positive and negative as per HPI. Past Medical History Past Medical History: Atrial Fibrillation, Asthma, COPD, Hyperlipidemia, Hypertension, Renal Disease Additional Past Medical History / Comment(s): Chronic Kidney disease History of Any Multi-Drug Resistant Organisms: None Reported Past Surgical History: Breast Surgery, Hysterectomy, Joint Replacement Additional Past Surgical History / Comment(s): BILATERAL KNEES REPLACED. LEFT LOBE THYROIDECTOMY; BREAST BX Past Anesthesia/Blood Transfusion Reactions: No Reported Reaction Past Psychological History: No Psychological Hx Reported Smoking Status: Never smoker Past Alcohol Use History: None Reported Past Drug Use History: None Reported - Past Family History Mother Family Medical History: No Reported History Daughter(s) Family Medical History: Diabetes Mellitus Medications and Allergies Home Medications Medication Instructions Recorded Confirmed Type Cyanocobalamin [Vitamin B-12] 1 tab PO QAM 08/03/16 03/18/21 History Edoxaban Tosylate [Savaysa] 30 mg PO QAM 08/03/16 03/18/21 History Fluticasone/Salmeterol [Advair Hfa 2 puff INHALATION RT-BID 08/03/16 03/18/21 History 115-21 Mcg Inhaler] Hydrochlorothiazide 25 mg PO QAM 08/03/16 03/18/21 History Simvastatin 20 mg PO HS 08/03/16 03/18/21 History Carvedilol [Coreg] 3.125 mg PO BID 03/15/18 03/18/21 History Vit C/E/Zn/Coppr/Lutein/Zeaxan 1 cap PO BID 03/15/18 03/18/21 History [Preservision Areds 2 Softgel] Anastrozole [Arimidex] 1 tab PO QAM 08/17/18 03/18/21 History Loratadine [Claritin] 10 mg PO DAILY 03/08/19 03/18/21 History Losartan Potassium 50 mg PO QAM 03/08/19 03/18/21 History allopurinoL [Zyloprim] 100 mg PO QAM 03/08/19 03/18/21 History Albuterol Sulfate [Proair 1 puff INHALATION RT-Q6H PRN 06/12/20 03/18/21 History Digihaler] Acetaminophen [Tylenol Arthritis] 650 mg PO Q8H PRN 03/18/21 03/18/21 History Cholecalciferol (Vitamin D3) 100 mcg PO DAILY 03/18/21 03/18/21 History [Vitamin D3 (4,000 Iu)] Fluticasone Nasal [place] [Flonase 1 spray EA NOSTRIL DAILY 03/18/21 03/18/21 History Nasal [place]] Allergies Allergy/AdvReac Type Severity Reaction Status Date / Time No Known Allergies Allergy Verified 03/18/21 13:04 Physical Examination - Vital Signs Vital Signs: Vital Signs Temp Pulse Resp BP Pulse Ox 03/22/21 10:00 44 L 28 H 107/51 98 03/22/21 09:43 46 L 03/22/21 09:00 43 L 26 H 107/48 97 03/22/21 08:00 98.9 F 40 L 40 H 103/50 97 03/22/21 07:00 43 L 24 112/50 96 03/22/21 06:00 42 L 20 122/51 98 03/22/21 05:00 56 L 21 97 03/22/21 04:00 99.2 F 46 L 17 98 03/22/21 03:00 51 L 19 98 03/22/21 02:00 47 L 22 118/47 99 03/22/21 01:00 44 L 19 98 03/22/21 00:00 98.8 F 43 L 19 119/50 98 03/21/21 23:46 40 L 23 98 03/21/21 23:00 38 L 19 109/48 97 03/21/21 22:00 44 L 23 120/49 97 03/21/21 21:00 46 L 22 132/53 97 03/21/21 20:23 42 L 03/21/21 20:08 42 L 03/21/21 20:00 99.1 F 51 L 24 133/47 95 03/21/21 19:00 46 L 29 H 134/52 96 03/21/21 18:00 56 L 24 127/52 97 03/21/21 17:00 42 L 21 147/50 97 03/21/21 16:35 46 L 03/21/21 16:18 47 L 03/21/21 16:00 98.2 F 42 L 26 H 105/87 98 03/21/21 15:00 44 L 38 H 119/49 98 03/21/21 14:00 45 L 26 H 116/49 98 03/21/21 13:00 40 L 25 H 117/49 98 03/21/21 12:46 43 L 03/21/21 12:08 43 L 03/21/21 12:00 98.5 F 42 L 36 H 115/50 97 Intake and Output 03/21/21 03/22/21 03/22/21 22:59 06:59 14:59 Intake Total 0181.860 6549.644 808.416 Output Total 270 430 135 Balance 825.242 924.644 673.416 Intake: IV 824 824 412 0.9 Normal Saline 24 24 12 Pressure Bag @ 3mL/hr Sodium Chloride 0.9% 1, 800 800 400 000 ml @ 100 mls/hr IV . Q10H [facility]ILDA Rx#:[id number] Intake, IV Titration 41.242 180.644 180.416 Amount Norepinephrine 32 mg In 41.242 80.416 Sodium Chloride 0.9% 218 ml @ 0.05 MCG/KG/MIN 3. 381 mls/hr IV .Q24H [facility]ILDA Rx#:[id number] propofoL 1,000 mg In 180.644 100 Empty Bag 1 bag @ Titrate IV .Q0M HILDA Rx#: [id number] Tube Feeding 170 280 186 Other 60 70 30 Output: Urine 270 430 135 Other: Voiding Method Indwelling Catheter Indwelling Catheter Indwelling Catheter Weight 147.4 kg ABP, PAP, CO, CI - Last 8 Hours Arterial Blood Pressure 109/44 Arterial Blood Pressure 100/46 Arterial Blood Pressure 114/42 Arterial Blood Pressure 119/43 Arterial Blood Pressure 126/43 Arterial Blood Pressure 124/45 Arterial Blood Pressure 129/45 GENERAL: The patient is an morbid obese lady, lying in bed and is not in acute distress. CHEST: The heart rate is regular rate rhythm. No murmurs to auscultation. LUNG: Clear to auscultation bilaterally no wheezing noted throughout. Not labored breathing. Intubated on ventilator (breathing over the lyla. Set at 14 and is breathing at 27). ABDOMEN/GI: Bowel sounds present in all 4 quadrants. No tenderness to palpation throughout. NEUROLOGICAL: Limited since patient is intubated on ventilator. IV propofol 35mcg/kg/min has been held for 1 1/2 hours. Higher mental function: The patient is comatose. GCS 6 (E4,VT1, M1). No responsive or following commands. Cranial nerves: The patient would open and close the eyes spontaneously. The pupils are round, equal (4-5mm) and reactive to light. Primary gaze is midline. No facial weakness. Rest of cranial nerves could not be assessed. Motor: The strength is 0/5 and no movement even with painful stimuli. Slight decreased tone in upper. No spontaneous movement noted. Cerebellum: Could not assess. Sensation: Could not assess. But to painful stimuli not grimacing or withdrawing. Reflexes (right/left): 1+ throughout. Plantars are upgoing bilaterally at baseline. Results - Laboratory Findings CBC and BMP: 03/22/21 04:00 03/22/21 04:00 Abnormal Lab Findings: Abnormal Labs 03/18/21 03/18/21 03/18/21 12:28 12:28 12:28 WBC RBC Hct 46.8 H MCV 100.7 H Plt Count Neutrophils # ABG pH ABG pO2 ABG HCO3 ABG Total CO2 ABG O2 Saturation VBG pH VBG pCO2 VBG HCO3 Sodium Chloride Carbon Dioxide BUN 33 H Creatinine 1.30 H Glucose 133 H POC Glucose (mg/dL) Plasma Lactic Acid Lyla 2.5 H* Calcium Phosphorus Magnesium AST ALT Total Protein 6.0 L Albumin Procalcitonin TSH Urine Appearance Urine Protein Urine Blood Ur Leukocyte Esterase Urine RBC Urine WBC Urine Bacteria Hyaline Casts Urine Mucus 03/19/21 03/19/21 03/19/21 03:53 04:25 04:25 WBC 14.4 H RBC Hct 47.5 H MCV 103.2 H Plt Count Neutrophils # 11.3 H ABG pH ABG pO2 ABG HCO3 ABG Total CO2 ABG O2 Saturation VBG pH VBG pCO2 VBG HCO3 Sodium Chloride Carbon Dioxide BUN 28 H Creatinine 1.43 H Glucose 329 H POC Glucose (mg/dL) 273 H Plasma Lactic Acid Lyla Calcium Phosphorus 6.7 H Magnesium AST 152 H ALT 129 H Total Protein 5.8 L Albumin Procalcitonin TSH Urine Appearance Urine Protein Urine Blood Ur Leukocyte Esterase Urine RBC Urine WBC Urine Bacteria Hyaline Casts Urine Mucus 03/19/21 03/19/21 03/19/21 04:25 04:25 05:07 WBC RBC Hct MCV Plt Count Neutrophils # ABG pH 7.33 L ABG pO2 312 H ABG HCO3 20 L ABG Total CO2 ABG O2 Saturation 99.7 H VBG pH 7.20 L* VBG pCO2 54 H VBG HCO3 20 L Sodium Chloride Carbon Dioxide BUN Creatinine Glucose POC Glucose (mg/dL) Plasma Lactic Acid Lyla 7.2 H* Calcium Phosphorus Magnesium AST ALT Total Protein Albumin Procalcitonin TSH Urine Appearance Urine Protein Urine Blood Ur Leukocyte Esterase Urine RBC Urine WBC Urine Bacteria Hyaline Casts Urine Mucus 03/19/21 03/19/21 03/19/21 08:56 10:09 10:20 WBC RBC Hct MCV Plt Count Neutrophils # ABG pH 7.34 L ABG pO2 ABG HCO3 ABG Total CO2 26 H ABG O2 Saturation 97.4 H VBG pH VBG pCO2 VBG HCO3 Sodium Chloride Carbon Dioxide BUN Creatinine Glucose POC Glucose (mg/dL) 223 H Plasma Lactic Acid Lyla 2.7 H* Calcium Phosphorus Magnesium AST ALT Total Protein Albumin Procalcitonin TSH Urine Appearance Urine Protein Urine Blood Ur Leukocyte Esterase Urine RBC Urine WBC Urine Bacteria Hyaline Casts Urine Mucus 03/19/21 03/19/21 03/19/21 12:11 16:44 21:22 WBC RBC Hct MCV Plt Count Neutrophils # ABG pH ABG pO2 ABG HCO3 ABG Total CO2 ABG O2 Saturation VBG pH VBG pCO2 VBG HCO3 Sodium Chloride Carbon Dioxide BUN Creatinine Glucose POC Glucose (mg/dL) 161 H 158 H 162 H Plasma Lactic Acid Lyla Calcium Phosphorus Magnesium AST ALT Total Protein Albumin Procalcitonin TSH Urine Appearance Urine Protein Urine Blood Ur Leukocyte Esterase Urine RBC Urine WBC Urine Bacteria Hyaline Casts Urine Mucus 03/19/21 03/20/21 03/20/21 22:30 00:49 05:13 WBC RBC Hct MCV Plt Count Neutrophils # ABG pH ABG pO2 ABG HCO3 ABG Total CO2 ABG O2 Saturation VBG pH VBG pCO2 VBG HCO3 Sodium Chloride Carbon Dioxide BUN Creatinine Glucose POC Glucose (mg/dL) 165 H 150 H Plasma Lactic Acid Lyla Calcium Phosphorus Magnesium AST ALT Total Protein Albumin Procalcitonin TSH Urine Appearance Cloudy H Urine Protein 1+ H Urine Blood Large H Ur Leukocyte Esterase Large H Urine RBC 96 H Urine WBC 37 H Urine Bacteria Rare H Hyaline Casts 42 H Urine Mucus Rare H 03/20/21 03/20/21 03/20/21 05:15 05:15 05:15 WBC 15.2 H RBC Hct MCV 101.0 H Plt Count Neutrophils # 12.9 H ABG pH ABG pO2 75 L ABG HCO3 ABG Total CO2 25 H ABG O2 Saturation VBG pH VBG pCO2 VBG HCO3 Sodium 136 L Chloride Carbon Dioxide BUN 33 H Creatinine 1.54 H Glucose 159 H POC Glucose (mg/dL) Plasma Lactic Acid Lyla Calcium Phosphorus Magnesium AST ALT Total Protein Albumin Procalcitonin TSH Urine Appearance Urine Protein Urine Blood Ur Leukocyte Esterase Urine RBC Urine WBC Urine Bacteria Hyaline Casts Urine Mucus 03/20/21 03/20/21 03/20/21 08:05 08:47 08:47 WBC RBC Hct MCV Plt Count Neutrophils # ABG pH ABG pO2 ABG HCO3 ABG Total CO2 ABG O2 Saturation VBG pH VBG pCO2 VBG HCO3 Sodium Chloride Carbon Dioxide BUN Creatinine Glucose POC Glucose (mg/dL) 162 H Plasma Lactic Acid Lyla Calcium Phosphorus Magnesium AST ALT Total Protein Albumin Procalcitonin 0.52 H TSH 0.408 L Urine Appearance Urine Protein Urine Blood Ur Leukocyte Esterase Urine RBC Urine WBC Urine Bacteria Hyaline Casts Urine Mucus 03/20/21 03/20/21 03/20/21 11:29 16:34 20:16 WBC RBC Hct MCV Plt Count Neutrophils # ABG pH ABG pO2 ABG HCO3 ABG Total CO2 ABG O2 Saturation VBG pH VBG pCO2 VBG HCO3 Sodium Chloride Carbon Dioxide BUN Creatinine Glucose POC Glucose (mg/dL) 154 H 139 H 147 H Plasma Lactic Acid Lyla Calcium Phosphorus Magnesium AST ALT Total Protein Albumin Procalcitonin TSH Urine Appearance Urine Protein Urine Blood Ur Leukocyte Esterase Urine RBC Urine WBC Urine Bacteria Hyaline Casts Urine Mucus 03/21/21 03/21/2103/21/21 05:10 05:10 05:10 WBC 13.6 H RBC 3.75 L Hct MCV Plt Count 122 L Neutrophils # 11.2 H ABG pH ABG pO2 ABG HCO3 ABG Total CO2 ABG O2 Saturation VBG pH VBG pCO2 VBG HCO3 Sodium 136 L Chloride Carbon Dioxide 21 L BUN 41 H Creatinine 1.91 H Glucose 179 H POC Glucose (mg/dL) 178 H Plasma Lactic Acid Lyla Calcium 8.3 L Phosphorus Magnesium AST ALT Total Protein Albumin Procalcitonin TSH Urine Appearance Urine Protein Urine Blood Ur Leukocyte Esterase Urine RBC Urine WBC Urine Bacteria Hyaline Casts Urine Mucus 03/21/21 03/21/21 03/21/21 05:25 08:02 12:15 WBC RBC Hct MCV Plt Count Neutrophils # ABG pH ABG pO2 122 H ABG HCO3 ABG Total CO2 ABG O2 Saturation 98.5 H VBG pH VBG pCO2 VBG HCO3 Sodium Chloride Carbon Dioxide BUN Creatinine Glucose POC Glucose (mg/dL) 143 H 143 H Plasma Lactic Acid Lyla Calcium Phosphorus Magnesium AST ALT Total Protein Albumin Procalcitonin TSH Urine Appearance Urine Protein Urine Blood Ur Leukocyte Esterase Urine RBC Urine WBC Urine Bacteria Hyaline Casts Urine Mucus 03/21/21 03/21/21 03/21/21 15:59 16:03 20:19 WBC RBC Hct MCV Plt Count Neutrophils # ABG pH ABG pO2 ABG HCO3 ABG Total CO2 ABG O2 Saturation VBG pH VBG pCO2 VBG HCO3 Sodium Chloride Carbon Dioxide BUN Creatinine Glucose POC Glucose (mg/dL) 143 H 144 H 158 H Plasma Lactic Acid Lyla Calcium Phosphorus Magnesium AST ALT Total Protein Albumin Procalcitonin TSH Urine Appearance Urine Protein Urine Blood Ur Leukocyte Esterase Urine RBC Urine WBC Urine Bacteria Hyaline Casts Urine Mucus 03/21/21 03/22/21 03/22/21 23:38 03:53 04:00 WBC 11.0 H RBC 3.43 L Hct 33.7 L MCV Plt Count 119 L Neutrophils # 9.0 H ABG pH ABG pO2 ABG HCO3 ABG Total CO2 ABG O2 Saturation VBG pH VBG pCO2 VBG HCO3 Sodium Chloride Carbon Dioxide BUN Creatinine Glucose POC Glucose (mg/dL) 149 H 144 H Plasma Lactic Acid Lyla Calcium Phosphorus Magnesium AST ALT Total Protein Albumin Procalcitonin TSH Urine Appearance Urine Protein Urine Blood Ur Leukocyte Esterase Urine RBC Urine WBC Urine Bacteria Hyaline Casts Urine Mucus 03/22/21 03/22/21 04:00 05:35 WBC RBC Hct MCV Plt Count Neutrophils # ABG pH ABG pO2 ABG HCO3 ABG Total CO2 ABG O2 Saturation 98.0 H VBG pH VBG pCO2 VBG HCO3 Sodium Chloride 109 H Carbon Dioxide BUN 46 H Creatinine 1.45 H Glucose 142 H POC Glucose (mg/dL) Plasma Lactic Acid Lyla Calcium 8.1 L Phosphorus Magnesium 2.5 H AST ALT 41 H Total Protein 4.5 L Albumin 2.3 L Procalcitonin TSH Urine Appearance Urine Protein Urine Blood Ur Leukocyte Esterase Urine RBC Urine WBC Urine Bacteria Hyaline Casts Urine Mucus Assessment and Plan Assessment: Altered mental status. Septic encephalopathy (UTI), Has component of metabolic encephalopathy (URMILA on CKI--improving), and medication effect (Propofol). Rule out seizure. Cardiopulmonary arrest lasting 5 mnutes (Was suspected by ED team possible vasovagal syncope and patient with history of bradycardia and the atrial fibrillation with ejection fraction of 45-50%). Bradycardia (heart rate in 40-50). Acute urinary tract infection on ceftriaxone Status post intubation on mechanical intubation for airway protection Hypotensive requiring pressors Atrial fibrillation with bradycardia on anticoagulation (on Edoxaban) History of hypertension History of hyperlipidemia Morbid Obese Plan: CT of the head in the cervical spine on 03/19/2021: Was CT of the brain it is reported as no acute intracranial process identified. While the CT cervical spine is reported as no acute osseous traumatic injury or significant abnormal alignment involving the cervical spine. Incidental degenerative changes at. No severe osseous canal stenosis. 2-D echo was reported as atrial fibrillation that. Moderate concentric left ventricular hypertrophy. Ejection fraction of 45-50%. Left atrium is mildly dilated that. Moderate pulmonary hypertension. EKG was reported as age are fibrillation with slow ventricular response. Left axis deviation. Pulmonary disease pattern. Incomplete right bundle branch block. Inferior infarct, age undetermined. Assess T and T-wave abnormality, consider anterolateral ischemia or digitalis effect. Abnormal EKG. AST of 26 and ALT of 41. TSH of 0.408 which is low but the free T4 is 1.62 which is normal. SARS Covid to PCR was not detected I ordered a stat EEG. I will not start the patient on antiepileptic drug unless there is epileptiform discharges or seizure on the EEG. I ordered a repeat CT of the head. Cardiology is on board. We'll defer the rest of the medical management to the primary team. The plan is discussed with the patient's nurse. Thank you for the consult. UPDATE: Repeat CT head: Is reported as Cerebral atrophy. No acute intracranial abnormality. No change compared to old exam. The patient had a routine EEG (03/22/2021) Preliminary report: It was an abnormal EEG. The Frequent Sharps and slow waves over the bilateral frontal region with episodes of moderate voltage of 1-2 delta activity that seems rhythmic is concerning for seizure. The background slowing is suggestive of severe encephalopathy. I started ordered Ativan 4mg once, Loaded the patient on Keppra 1500mg once and started the patient on Keppra 750mg once every 12 hours. I spoke with patient's daughter Kathi (via phone) and she stated that prior to this she was awake, alert, oriented X3. Walking and talking appropriately. And the patient does not have history of seizure. I notified her about my findings. I notified her that we do not have 24 hour snf EEG and she stated she does not want patient to be transferred and wants her to stay in our facility. I ordered prolonged EEG tomorrow STAT in AM (2.5 hours). Dr. Herrera will take over neurology coverage starting tomorrow (03/23/01) AM. Tavares Maurer MD Neuro-Hospitalist Time with Patient: Greater than 30
--- NOTE | 2021-03-22 13:07 | P.PN ---
Subjective Progress Note Date: 03/22/21 This 80-year-old female still remains intubated and sedated. She is still bradycardic with rates in the 40s. She still hypotensive requiring norepinephrine drip at 16 mics. She is a sedated with IV propofol. Patient's hemodynamic derangement and hypotension is not explained by the mild bradycardia. Suspect underlying septicemia. Her TSH is slightly low but free T4 is normal. Patient mental status difficult to evaluate because she is intubated, sedated. Patient also requiring PEEP for pulmonary support. Chest x-ray did not show significant findings. At this point we'll continue with current management including antibiotics. Urine and blood cultures are pending. I do not think a pacemaker and make a difference and hemodynamics. In the long run if patient continues to be bradycardic, pacemaker may be considered but may not be the answer for the acute events. Neurology consult also is recommended to assess her neurological status. Prognosis is guarded. 03/21/2021: This patient still remains intubated and sedated. Blood pressure is more stable and she is coming down on the amount of norepinephrine drip. Mental status is unknown. Patient still remains bradycardic with rates between 40-50. Her LV function is fair. Her cultures are pending. She is on empiric antibiotics. This is also on anticoagulation. A trial of weaning will be attempted with pulmonology. This point we'll continue current medical therapy. Her pulmonary and hemodynamic derangement is not explained by the bradycardia. Her mental status is also unknown at this time. We will continue to follow. If her heart rate doesn't come up, she may need a permanent pacemaker in the long run. 03/22/2021: This patient is still intubated and sedated. Off sedation, patient is not showing any meaningful response. Patient is back on sedation. Neurology consult is obtained here patient is being treated for UTI. It is felt that patient may have septic encephalopathy and metabolic encephalopathy. Permanent status hasn't changed. We'll continue to monitor her. No need for any definite permanent pacemaker or Temperature pacemaker at this time. We'll follow Objective - Vital Signs Vital signs: Vital Signs Temp 98.5 F 03/22/21 12:00 Pulse 53 L 03/22/21 13:01 Resp 27 H 03/22/21 12:00 BP 125/51 03/22/21 12:00 Pulse Ox 98 03/22/21 12:00 Intake & Output 03/21/21 03/22/21 03/22/21 18:59 06:59 18:59 Intake Total 6285.556 8272.644 1150.979 Output Total 390 655 230 Balance 8965.051 4763.644 920.979 Weight 147.7 kg 147.4 kg Intake: IV 1236 1236 618 0.9 Normal Saline 36 36 18 Pressure Bag @ 3mL/hr Sodium Chloride 0.9% 1, 1200 1200 600 000 ml @ 100 mls/hr IV . Q10H [facility] Rx#:[id number] Intake, IV Titration 240.948 180.644 180.979 Amount Norepinephrine 32 mg In 140.948 80.979 Sodium Chloride 0.9% 218 ml @ 0.05 MCG/KG/MIN 3. 381 mls/hr IV .Q24H [facility] Rx#:[id number] propofoL 1,000 mg In 100 180.644 100 Empty Bag 1 bag @ Titrate IV .Q0M [facility] Rx#: [id number] Tube Feeding 260 400 292 Other 60 100 60 Output: Urine 390 655 230 Other: Voiding Method Indwelling Catheter Indwelling Catheter Indwelling Catheter ABP, PAP, CO, CI - Last Documented Arterial Blood Pressure 125/50 - Exam GENERAL EXAM: Patient is intubated and sedated HEENT: Normocephalic. N NECK: No masses, no nuchal rigidity. CHEST: No chest wall deformity. LUNGS: Diminished air exchange HEART: S1 and S2 normal ABDOMEN: No hepatosplenomegaly, normal bowel sounds, no guarding or rigidity. SKIN: No rashes CENTRAL NERVOUS SYSTEM: Not performed EXTREMITIES: No cyanosis, clubbing or edema. - Labs CBC & Chem 7: 03/22/21 04:00 03/22/21 04:00 Labs: Abnormal Lab Results - Last 24 Hours (Table) 03/21/21 03/21/21 03/21/21 Range/Units 15:59 16:03 20:19 WBC (3.8-10.6) k/uL RBC (3.80-5.40) m/uL Hct (34.0-46.0) % Plt Count (150-450) k/uL Neutrophils # (1.3-7.7) k/uL ABG O2 Saturation (94-97) % Chloride (98-107) mmol/L BUN (7-17) mg/dL Creatinine (0.52-1.04) mg/dL Glucose (74-99) mg/dL POC Glucose (mg/dL) 143 H 144 H 158 H (75-99) mg/dL Calcium (8.4-10.2) mg/dL Magnesium (1.6-2.3) mg/dL ALT (4-34) U/L Total Protein (6.3-8.2) g/dL Albumin (3.5-5.0) g/dL 03/21/21 03/22/21 03/22/21 Range/Units 23:38 03:53 04:00 WBC 11.0 H (3.8-10.6) k/uL RBC 3.43 L (3.80-5.40) m/uL Hct 33.7 L (34.0-46.0) % Plt Count 119 L (150-450) k/uL Neutrophils # 9.0 H (1.3-7.7) k/uL ABG O2 Saturation (94-97) % Chloride (98-107) mmol/L BUN (7-17) mg/dL Creatinine (0.52-1.04) mg/dL Glucose (74-99) mg/dL POC Glucose (mg/dL) 149 H 144 H (75-99) mg/dL Calcium (8.4-10.2) mg/dL Magnesium (1.6-2.3) mg/dL ALT (4-34) U/L Total Protein (6.3-8.2) g/dL Albumin (3.5-5.0) g/dL 03/22/21 03/22/21 03/22/21 Range/Units 04:00 05:35 11:22 WBC (3.8-10.6) k/uL RBC (3.80-5.40) m/uL Hct (34.0-46.0) % Plt Count (150-450) k/uL Neutrophils # (1.3-7.7) k/uL ABG O2 Saturation 98.0 H (94-97) % Chloride 109 H (98-107) mmol/L BUN 46 H (7-17) mg/dL Creatinine 1.45 H (0.52-1.04) mg/dL Glucose 142 H (74-99) mg/dL POC Glucose (mg/dL) 145 H (75-99) mg/dL Calcium 8.1 L (8.4-10.2) mg/dL Magnesium 2.5 H (1.6-2.3) mg/dL ALT 41 H (4-34) U/L Total Protein 4.5 L (6.3-8.2) g/dL Albumin 2.3 L (3.5-5.0) g/dL Microbiology - Last 24 Hours (Table) 03/20/21 08:47 Blood Culture - Preliminary Blood No Growth after 48 hours 03/20/21 08:48 Blood Culture - Preliminary Blood No Growth after 48 hours 03/20/21 09:56 Gram Stain - Final Sputum Sputum Culture - Final 03/20/21 08:30 Urine Culture - Final Urine,Catheterized Escherichia coli Assessment and Plan (1) Atrial fibrillation with slow ventricular response Current Visit: Yes Status: Acute Code(s): I48.91 - UNSPECIFIED ATRIAL FIBRILLATION SNOMED Code(s): 76171278 (2) COPD exacerbation Current Visit: Yes Status: Acute Code(s): J44.1 - CHRONIC OBSTRUCTIVE PULMONARY DISEASE W (ACUTE) EXACERBATION SNOMED Code(s): 758149155 (3) Cardiopulmonary arrest Current Visit: Yes Status: Acute Code(s): I46.9 - CARDIAC ARREST, CAUSE UNSP ECIFIED SNOMED Code(s): 022949779 (4) Essential hypertension Current Visit: Yes Status: Acute Code(s): I10 - ESSENTIAL (PRIMARY) HYPERTENSION SNOMED Code(s): 73545120 (5) Chronic renal failure Current Visit: Yes Status: Acute Code(s): N18.9 - CHRONIC KIDNEY DISEASE, UNSPECIFIED SNOMED Code(s): 06112484 Plan: No significant improvement in the mental status. Patient is still intubated and sedated. Heart rate fluctuating between 40-50. We'll continue to monitor her.
--- NOTE | 2021-03-22 13:31 | P.PN ---
Progress Note - Text Progress Note Date: 03/22/21 Chief Complaint: Short of breath History of presenting complaint: This is a 80-year-old patient of Dr. Tovar. Car Inspector Dr. Bland. Chronic stable medical conditions include atrial fibrillation, asthma, hyperlipidemia, hypertension, chronic kidney disease. Patient presents with about 10 days of increasing shortness of breath. Basically presented with activity. No edema. No chest pain. No fever no chills. No cough. At her baseline uses a walker. patient was being held in the ER as an overflow was found unconscious in the bathroom for. With no pulse. intubated. Patient did have return of spontaneous circulation. Bradycardic. Admitted to the ICU. Today: ICU: Ventilator: FiO2 40 and a PEEP of 5. Heart rate in the 30s. 2 feeding at 53 mL an hour. Drips include norepinephrine Review of systems: Patient intubated Active Medications Albuterol/Ipratropium (Ipratropium-Albuterol 3 Ml Neb) 3 ml INHALATION RT-Q4H [facility] Last Admin: 03/22/21 12:55 Dose: 3 ml Documented by: Allopurinol (Allopurinol 100 Mg Tab) 100 mg PO [facility] Last Admin: 03/22/21 09:05 Dose: 100 mg Documented by: Anastrozole (Anastrozole 1 Mg Tab) 1 mg PO [facility] Last Admin: 03/22/21 09:06 Dose: 1 mg Documented by: Atorvastatin Calcium (Atorvastatin 10 Mg Tab) 10 mg PO [facility] Last Admin: 03/21/21 20:39 Dose: 10 mg Documented by: Chlorhexidine Gluconate (Chlorhexidine Gluconate 15 Ml Cup) 15 ml MUCOUS MEM BID [facility] Last Admin: 03/22/21 09:04 Dose: 15 ml Documented by: Edoxaban (Edoxaban Tosylate 30 Mg Tablet) 30 mg PO [facility] Last Admin: 03/22/21 09:05 Dose: 30 mg Documented by: Propofol 1,000 mg/ IV Solution 100 mls @ 0 mls/hr IV .Q0M [facility]; Protocol Last Admin: 03/22/21 08:58 Dose: 35 mcg/kg/min, 30.954 mls/hr Documented by: Norepinephrine Bitartrate 32 (mg/ Sodium Chloride) 250 mls @ 3.381 mls/hr IV .Q24H [facility]; Protocol Last Titration: 03/22/21 11:15 Dose: 0.01 mcg/kg/min, 0.676 mls/hr Documented by: Sodium Chloride (Saline 0.9%) 1,000 mls @ 100 mls/hr IV .Q10H [facility] Last Admin: 03/21/21 20:55 Dose: 100 mls/hr Documented by: Ceftriaxone Sodium 1 gm/ (Sodium Chloride) 50 mls @ 100 mls/hr IVPB Q24HR [facility] Last Admin: 03/22/21 09:07 Dose: 100 mls/hr Documented by: Insulin Aspart (Insulin Aspart (Novolog) 100 Unit/Ml Vial) 0 unit SQ Q6H [facility]; Protocol Last Admin: 03/22/21 11:25 Dose: 1 unit Documented by: Multivitamins/Minerals (Vit A,C & P-Lkrepu-Xelupzqo 1 Each Tab) 1 each PO BID [facility] Last Admin: 03/22/21 09:05 Dose: 1 each Documented by: Naloxone HCl (Naloxone 0.4 Mg/Ml 1 Ml Vial) 0.2 mg IV Q2M PRN PRN Reason: Opioid Reversal Pantoprazole Sodium (Pantoprazole 40 Mg/10 Ml Vial) 40 mg IVP DAILY [facility] Last Admin: 03/22/21 09:04 Dose: 40 mg Documented by: Past medical history to include: Atrial fibrillation, asthma, hyperlipidemia, hypertension, chronic kidney disease Social history: Daughter lives with her. Does use a walker. No history of smoking or alcohol Family history: Reviewed, noncontributory to presentation Physical examination: VITAL SIGNS: 98.5, 48, 27, 1 25 x 51, 98% on the ventilator GENERAL: Laying in bed, intubated EYES: Pupils equal. Conjunctiva normal. HEENT: External appearance of nose and ears normal, ETT. NECK: JVD unable to assess; masses not palpable. HEART: Heart sounds irregular; no edema. LUNGS: Respiratory rate increased, decreased breath sounds. ABDOMEN: Soft, nontender, liver spleen not palpable, no masses palpable. PSYCH: Patient sedated MUSCULAR skeletal: Evidence of OA. INVESTIGATIONS, reviewed in the clinical context: March 22: WBC 11 hemoglobin 11.8 platelets 119 potassium 4 creatinine 1.45 March 21: WBC 13.6 hemoglobin 12.8 platelets 122 potassium 3.8 creatinine 1.91 March 20: WBC 15.2 hemoglobin 13.9 platelets 157 potassium 3.6 creatinine 1.5 for March 19: Obesity 14.4 hemoglobin 14.8 platelets 187 potassium 4.2 bun 28 creatinine 1.43 AST 152 ALT 129 WBC 8.2 hemoglobin 15.2 platelets 188 potassium 3.8 bun 33 creatinine 1.30 Lactic acid 2.5 troponin I less than 0.012 proBNP 63 Influenza type A, diabetic, RSV, COVID 19: Not detected EKG tracing personally reviewed by me-atrial fibrillation with a rate of 42 Chest x-ray film personally reviewed by me-elevated right diaphragm. Assessment and plan: -Persistent atrial fibrillation with a heart rate down to the 40s./Symptomatic bradycardia -slow to respond Coreg discontinued. Telemetry. Follow with cardiology -Acute hypoxic respiratory failure, requiring ventilator support-slow to respond On FiO2 of 40 % -Moderate persistent asthma Continue DuoNeb and Symbicort -Morbid obesity BMI 51.3 Weight loss measures. Follow-up with PCP as an outpatient -Essential hypertension Currently antihypertensive held -Cardiogenic shock-slow to respond On IV norepinephrine -History of breast cancer Continue with arimidex -Acute kidney injury possibly from cardiorenal syndrome. Follow lites closely. Neurology was consulted. They will order EEG. Other medications to continue.
[2021-03-22] MEDS: SODIUM CHLORIDE 0.9% 1,000 ML IV SCH ×2 (14:50→19:42)
--- NOTE | 2021-03-22 16:08 | CT ---
EXAMINATION TYPE: CT brain wo con DATE OF EXAM: 03/22/2021 COMPARISON: 03/19/2021 HISTORY: Mental status changes. CT DLP: 1290.4 mGycm Automated exposure control for dose reduction was used. There is cerebral cortical atrophy. There is no mass effect nor midline shift. There is no sign of in tracranial hemorrhage. The calvarium is intact. Skull base is intact. IMPRESSION: Cerebral atrophy. No acute intracranial abnormality. No change compared to old exam.
[2021-03-22] MEDS ORDERED: LORazepam 2 MG/ML INJ IV STA (16:12)
[2021-03-22] MEDS ORDERED: levETIRAcetam IV 1,500 MG in SALINE 1 100ML.BAG IVPB STA (16:21)
[2021-03-22 17:57] LABS: Glucose,Whole Blood 139 mg/dL (75-99)
--- NOTE | 2021-03-22 18:44 | EEG ---
ELECTROENCEPHALOGRAM REPORT DATE OF SERVICE: 03/22/2021. CLINICAL HISTORY: This is an 80-year-old woman who had an episode of unresponsiveness on 03/18/2021 and continues to have altered mental status. This video EEG is obtained to evaluate for seizure and epileptiform activity. RELEVANT MEDICATION: Propofol. EEG: A routine 21 channel EEG is performed with video using the 10/20 electrode placement system. DESCRIPTION: The patient is intubated on ventilator and is on IV propofol. The background consists of low to moderate voltage delta activity. There are no physiological sleep architecture structures seen. There is no focal slowing seen. Interictal and ictal: There are frequent sharp and slow waves over the bilateral frontal derivatives and at times there is moderate voltage of 1-2 hertz delta activity that seems rhythmic that is concerning for procedure. Clinically, the patient has no movement of any of the extremities. ACTIVATION PROCEDURE: Photic stimulation did not evoke a posterior driving response. There is no abnormality during the photic response. Hyperventilation is not performed. CLINICAL INTERPRETATION: This is an abnormal routine EEG. The frequent sharp and slow waves over the bilateral frontal regions with what appears to be rhythmic delta activity is concerning for seizure. The background slowing is suggestive of severe encephalopathy. There is no focal slowing. Clinical correlation is recommended. RECOMMENDATION: Recommend prolonged EEG. MMODL / IJN: [id number] / JEANNE
[2021-03-22] MEDS: ATORVASTATIN 10 MG TAB PO SCH (19:41)
[2021-03-22 23:37] LABS: Glucose,Whole Blood 157 mg/dL (75-99)
[2021-03-23] MEDS ORDERED: levETIRAcetam IV 750 MG in SODIUM CHLORIDE 0.9% 100 ML IVPB SCH ×2
[2021-03-23] MEDS: IPRATROPIUM-ALBUTEROL 3 ML NEB INHALATION SCH ×6 (02:27→19:56)
[2021-03-23 04:04] LABS: Basophils % (A) 0 %; Eosinophils # (A) 0.1 k/uL (0-0.7); Eosinophils % (A) 1 %; HGB 11.9 gm/dL (11.4-16.0); Lymphocytes # (A) 1.3 k/uL (1.0-4.8); Lymphocytes % (A) 12 %; MCHC 34.1 g/dL (31.0-37.0); MCV 99.7 fL (80.0-100.0); Mean Platelet Volume 9.4; Monocytes # (A) 0.9 k/uL (0-1.0); Monocytes % (A) 9 %; Neutrophils # (A) 8.5 k/uL (1.3-7.7); Neutrophils % (A) 77 %; Platelet Count 134 k/uL (150-450); RBC 3.51 m/uL (3.80-5.40); RDW 13.8 % (11.5-15.5)
[2021-03-23 04:14] LABS: Albumin 2.4 g/dL (3.5-5.0); Calcium 8.1 mg/dL (8.4-10.2); Magnesium 2.5 mg/dL (1.6-2.3); Potassium 4.1 mmol/L (3.5-5.1); Total Bilirubin 0.6 mg/dL (0.2-1.3); Total Protein 4.6 g/dL (6.3-8.2)
[2021-03-23 05:17] LABS: ABG HCO3 22 mmol/L (21-25); ABG Oxygen Saturation 98.9 % (94-97); ABG PCO2 38 mmHg (35-45); ABG PH 7.38 (7.35-7.45); ABG PO2 128 mmHg (83-108); ABG TCO2 23 mmol/L (19-24); Allen Test Performed? Yes
[2021-03-23] MEDS: INSULIN ASPART (NovoLOG) 100 UNIT/ML VIAL SQ SCH ×4 (05:27→23:20)
[2021-03-23] MEDS: NOREPINEPHRINE 32 MG in SODIUM CHLORIDE 0.9% 218 ML IV SCH ×2 (05:28→11:54)
[2021-03-23] MEDS: SODIUM CHLORIDE 0.9% 1,000 ML IV SCH ×2 (05:28→18:08)
[2021-03-23 05:45] LABS: Glucose,Whole Blood 156 mg/dL (75-99)
--- NOTE | 2021-03-23 07:10 | P.PN ---
Subjective Progress Note Date: 03/22/21 80-year-old female patient with known history of chronic atrial fibrillation, bronchial asthma, hypertension, hyperlipidemia and chronic kidney disease who is being seen in the intensive care unit and a follow-up on 03/23/2021 as the patient was brought into the intensive care unit after she suffered a cardiac arrest related patient was found to be unconscious in the bathroom in the emergency department where she was intubated and placed on mechanical ventilator resuscitated and following that she was brought into the intensive care units. On today's evaluation, the patient remains on a mechanical ventilator assist control mode at the rate of 14 with a tidal volume of 450 and FiO2 of 40% with a PEEP of 5. A sedation holiday was given to her over the past 48 hours and the patient demonstrated increased respiratory rate, restlessness and agitation and she was not following any commands. Based on that, the patient was kept sedated with propofol which is running at 25 mg/kg per minute. Repeat EKG was done yesterday and was quite abnormal and the patient was found to have sharp and slow waves over the bilateral frontal region concerning for seizure. No focal slowing. CAT scan of the brain showed diffuse atrophy. No other acute abnormalities have been noted. The patient was started on Keppra 1 g every 12 hours. The patient had a cardiac arrest for approximately 5 minutes as suspec raymundo by the emergency department team. The echocardiogram showed atrial fibrillation. The left-sided percent was normal. There was moderate concentric left ventricular hypertrophy. Overall LV function was normal with an ejection fraction of 45-50%. RV was severely enlarged. No pericardial effusion. Hemodynamically, the patient is still requiring pressors with norepinephrine running at 0.4 mcg/kg per minute. The patient is also on normal saline at the rate of 100 mL an hour and the patient is receiving enteral feeding for nutritional support with vital high protein at the rate of 40 mL an hour. Urine output is noted of 20-40 mL an hour. Chest x-ray showing bilateral pulmonary infiltrates and pleural effusions and urine cultures positive for E. coli. COVID-19 testing was negative. Influenza screen was negative. Serum cortisol was 38, pro-calcitonin level was 0.52 and the UA was normal and there was E. coli growing in the urine culture. This morning, the patient remains sedated with propofol which is running at 25 mcg/kg per minute. The patient remains on the same ventilator settings. Blood gases from this morning shows a pH of 7.38 with a pCO2 of 38 and pO2 of 128. The chest x-ray showing a some mild cardiomegaly and some interstitial infiltrates bilaterally. Pulmonary arteries are also prominent. ET tube is in a good location. The patient has a left subclavian triple-lumen catheter in place. OG tube is also in good location. The creatinine is improving is currently down to 1.27. BUN is at 56. White cell count is at 11. Remains on low-dose norepinephrine infusion for blood pressure support and remains on IV Rocephin. Objective - Vital Signs Vital signs: Vital Signs Temp 98.4 F 03/22/21 16:00 Pulse 46 L 03/22/21 19:00 Resp 23 03/22/21 19:00 BP 114/51 03/22/21 19:00 Pulse Ox 96 03/22/21 19:00 Intake & Output 03/22/21 03/22/21 03/23/21 06:59 18:59 06:59 Intake Total 8747.675 5188.171 156 Output Total 655 490 50 Balance 0268.502 7990.171 106 Weight 147.4 kg Intake: IV 1236 1236 103 0.9 Normal Saline 36 36 3 Pressure Bag @ 3mL/hr Sodium Chloride 0.9% 1, 1200 1200 100 000 ml @ 100 mls/hr IV . Q10H [facility] Rx#:[id number] Intake, IV Titration 180.644 289.171 Amount Norepinephrine 32 mg In 89.171 Sodium Chloride 0.9% 218 ml @ 0.05 MCG/KG/MIN 3. 381 mls/hr IV .Q24H [facility] Rx#:[id number] propofoL 1,000 mg In 180.644 200 Empty Bag 1 bag @ Titrate IV .Q0M [facility] Rx#: [id number] Tube Feeding 400 557 53 Other 100 90 Output: Urine 655 490 50 Other: Voiding Method Indwelling Catheter Indwelling Catheter ABP, PAP, CO, CI - Last Documented Arterial Blood Pressure 110/37 - Exam GENERAL EXAM: Intubated, sedated, morbidly obese 80-year-old female patient, in no apparent distress. HEAD: Normocephalic. EYES: Sluggish reaction of pupils, equal size. NOSE: Clear with pink turbinates. THROAT: Oral endotracheal tube and gastric tube secured in place. No erythema or exudates. NECK: No masses, no JVD. CHEST: No chest wall deformity. LUNGS: Equal air entry with few bilateral scattered rhonchi. CVS: S1 and S2 normal with no audible murmur, regular rhythm. ABDOMEN: No hepatosplenomegaly, normal bowel sounds, no guarding or rigidity. SPINE: No scoliosis or deformity SKIN: No rashes CENTRAL NERVOUS SYSTEM: No focal deficits, tone is normal in all 4 extremities. EXTREMITIES: There is no peripheral edema. No clubbing, no cyanosis. Peripheral pulses are intact. - Labs CBC & Chem 7: 03/23/21 03:40 03/23/21 03:40 Labs: Abnormal Lab Results - Last 24 Hours (Table) 03/21/21 03/21/21 03/22/21 Range/Units 20:19 23:38 03:53 WBC (3.8-10.6) k/uL RBC (3.80-5.40) m/uL Hct (34.0-46.0) % Plt Count (150-450) k/uL Neutrophils # (1.3-7.7) k/uL ABG O2 Saturation (94-97) % Chloride (98-107) mmol/L BUN (7-17) mg/dL Creatinine (0.52-1.04) mg/dL Glucose (74-99) mg/dL POC Glucose (mg/dL) 158 H 149 H 144 H (75-99) mg/dL Calcium (8.4-10.2) mg/dL Magnesium (1.6-2.3) mg/dL ALT (4-34) U/L Total Protein (6.3-8.2) g/dL Albumin (3.5-5.0) g/dL 03/22/21 03/22/21 03/22/21 Range/Units 04:00 04:00 05:35 WBC 11.0 H (3.8-10.6) k/uL RBC 3.43 L (3.80-5.40) m/uL Hct 33.7 L (34.0-46.0) % Plt Count 119 L (150-450) k/uL Neutrophils # 9.0 H (1.3-7.7) k/uL ABG O2 Saturation 98.0 H (94-97) % Chloride 109 H (98-107) mmol/L BUN 46 H (7-17) mg/dL Creatinine 1.45 H (0.52-1.04) mg/dL Glucose 142 H (74-99) mg/dL POC Glucose (mg/dL) (75-99) mg/dL Calcium 8.1 L (8.4-10.2) mg/dL Magnesium 2.5 H (1.6-2.3) mg/dL ALT 41 H (4-34) U/L Total Protein 4.5 L (6.3-8.2) g/dL Albumin 2.3 L (3.5-5.0) g/dL 03/22/21 03/22/21 Range/Units 11:22 17:56 WBC (3.8-10.6) k/uL RBC (3.80-5.40) m/uL Hct (34.0-46.0) % Plt Count (150-450) k/uL Neutrophils # (1.3-7.7) k/uL ABG O2 Saturation (94-97) % Chloride (98-107) mmol/L BUN (7-17) mg/dL Creatinine (0.52-1.04) mg/dL Glucose (74-99) mg/dL POC Glucose (mg/dL) 145 H 139 H (75-99) mg/dL Calcium (8.4-10.2) mg/dL Magnesium (1.6-2.3) mg/dL ALT (4-34) U/L Total Protein (6.3-8.2) g/dL Albumin (3.5-5.0) g/dL Microbiology - Last 24 Hours (Table) 03/20/21 08:47 Blood Culture - Preliminary Blood No Growth after 48 hours 03/20/21 08:48 Blood Culture - Preliminary Blood No Growth after 48 hours 03/20/21 09:56 Gram Stain - Final Sputum Sputum Culture - Final 03/20/21 08:30 Urine Culture - Final Urine,Catheterized Escherichia coli Assessment and Plan Plan: 1 Status post cardiopulmonary arrest, possible vasovagal syncope, in a patient with a history of bradycardia, and slow atrial fibrillation. Impaired left ventricular systolic function with ejection fraction 45-50%. Cardiac arrest lasting for around 5 minutes as suspected by the emergency department team and the patient was quite bradycardic in atrial fibrillation following that. Meanwhile, the patient has a right-sided failure with significant enlargement of the right ventricular severe pulmonary hypertension. I have a suspicion that she has chronic hypoxemic and hypercapnic respiratory failure and her right ventricular findings are essentially chronic and she has a component of cor pulmonale. 2 Status post intubation and mechanical ventilation, for airway protection, 03/19/2021. 3 Hypotension, secondary to above, requiring pressor support and the patient is currently on low-dose norepinephrine 4 History of hyperlipidemia. 5 History of hypertension. 6 History of chronic atrial fibrillation with bradycardia. The patient is on long-term and to coagulation with Savaysa 7 History of chronic kidney disease. 8 Recent sinus infection. 9 Obesity. 10 acute Urinary tract infection secondary to E. coli, currently on ceftriaxone, pro-calcitonin level was mildly elevated, and the patient's white cell count is improving 11 History of COPD/asthma. 12 obesity 13 altered mental status, consider combination of septic encephalopathy/UTI, metabolic encephalopathy as the patient is a component of acute on top of chronic kidney disease in addition to medication effect as the patient is currently sedated with propofol. CT of the head in the cervical spine on 03/19/2021: CT of the brain it is reported as no acute intracranial process identified. CT cervical spine is reported as no acute osseous traumatic injury or significant abnormal alignment involving the cervical spine. Incidental degenerative changes at. No severe osseous canal stenosis. Plan Take the patient off sedation and assess the patient's mental status. Her cardiac arrest was brief and numbness usually if she has any significant neurologic impairment due to that. We are going to reevaluate her mental status accordingly. Wean off pressors and discontinue Recheck pro-calcitonin level Continue IV Rocephin Chest x-ray, ABGs and labs reviewed Not following any purposeful commands while off sedation Neurology is consulted We'll continue to follow and make further recommendations based on her clinical status Critical care time > 30 minutes Time with Patient: Greater than 30
--- NOTE | 2021-03-23 07:37 | P.PN ---
Subjective Progress Note Date: 03/23/21 80-year-old female patient with known history of chronic atrial fibrillation, bronchial asthma, hypertension, hyperlipidemia and chronic kidney disease who is being seen in the intensive care unit and a follow-up on 03/23/2021 as the patient was brought into the intensive care unit after she suffered a cardiac arrest related patient was found to be unconscious in the bathroom in the emergency department where she was intubated and placed on mechanical ventilator resuscitated and following that she was brought into the intensive care units. On today's evaluation, the patient remains on a mechanical ventilator assist control mode at the rate of 14 with a tidal volume of 450 and FiO2 of 40% with a PEEP of 5. A sedation holiday was given to her over the past 48 hours and the patient demonstrated increased respiratory rate, restlessness and agitation and she was not following any commands. Based on that, the patient was kept sedated with propofol which is running at 25 mg/kg per minute. Repeat EKG was done yesterday and was quite abnormal and the patient was found to have sharp and slow waves over the bilateral frontal region concerning for seizure. No focal slowing. CAT scan of the brain showed diffuse atrophy. No other acute abnormalities have been noted. The patient was started on Keppra 1 g every 12 hours. The patient had a cardiac arrest for approximately 5 minutes as suspec raymundo by the emergency department team. The echocardiogram showed atrial fibrillation. The left-sided percent was normal. There was moderate concentric left ventricular hypertrophy. Overall LV function was normal with an ejection fraction of 45-50%. RV was severely enlarged. No pericardial effusion. Hemodynamically, the patient is still requiring pressors with norepinephrine running at 0.4 mcg/kg per minute. The patient is also on normal saline at the rate of 100 mL an hour and the patient is receiving enteral feeding for nutritional support with vital high protein at the rate of 40 mL an hour. Urine output is noted of 20-40 mL an hour. Chest x-ray showing bilateral pulmonary infiltrates and pleural effusions and urine cultures positive for E. coli. COVID-19 testing was negative. Influenza screen was negative. Serum cortisol was 38, pro-calcitonin level was 0.52 and the UA was normal and there was E. coli growing in the urine culture. This morning, the patient remains sedated with propofol which is running at 25 mcg/kg per minute. The patient remains on the same ventilator settings. Blood gases from this morning shows a pH of 7.38 with a pCO2 of 38 and pO2 of 128. The chest x-ray showing a some mild cardiomegaly and some interstitial infiltrates bilaterally. Pulmonary arteries are also prominent. ET tube is in a good location. The patient has a left subclavian triple-lumen catheter in place. OG tube is also in good location. The creatinine is improving is currently down to 1.27. BUN is at 56. White cell count is at 11. Remains on low-dose norepinephrine infusion for blood pressure support and remains on IV Rocephin. Objective - Vital Signs Vital signs: Vital Signs Temp 98.2 F 03/23/21 04:00 Pulse 37 L 03/23/21 07:00 Resp 17 03/23/21 07:00 BP 127/63 03/23/21 07:00 Pulse Ox 98 03/23/21 07:00 Intake & Output 03/22/21 03/23/21 03/23/21 18:59 06:59 18:59 Intake Total 2172.171 2068.307 156 Output Total 490 660 50 Balance 3704.233 4878.307 106 Weight 149.6 kg Intake: IV 1236 1236 103 0.9 Normal Saline 36 36 3 Pressure Bag @ 3mL/hr Sodium Chloride 0.9% 1, 1200 1200 100 000 ml @ 100 mls/hr IV . Q10H [facility] Rx#:[id number] Intake, IV Titration 289.171 106.307 Amount Norepinephrine 32 mg In 89.171 30.027 Sodium Chloride 0.9% 218 ml @ 0.05 MCG/KG/MIN 3. 381 mls/hr IV .Q24H [facility] Rx#:[id number] propofoL 1,000 mg In 200 76.28 Empty Bag 1 bag @ Titrate IV .Q0M [facility]ILDA Rx#: [id number] Tube Feeding 557 636 53 Other 90 90 Output: Urine 490 660 50 Other: Voiding Method Indwelling Catheter Indwelling Catheter ABP, PAP, CO, CI - Last Documented Arterial Blood Pressure 112/47 - Exam GENERAL EXAM: Intubated, sedated, morbidly obese 80-year-old female patient, in no apparent distress. HEAD: Normocephalic. EYES: Sluggish reaction of pupils, equal size. NOSE: Clear with pink turbinates. THROAT: Oral endotracheal tube and gastric tube secured in place. No erythema or exudates. NECK: No masses, no JVD. CHEST: No chest wall deformity. LUNGS: Equal air entry with few bilateral scattered rhonchi. CVS: S1 and S2 normal with no audible murmur, regular rhythm. ABDOMEN: No hepatosplenomegaly, normal bowel sounds, no guarding or rigidity. SPINE: No scoliosis or deformity SKIN: No rashes CENTRAL NERVOUS SYSTEM: No focal deficits, tone is normal in all 4 extremities. EXTREMITIES: There is no peripheral edema. No clubbing, no cyanosis. Peripheral pulses are intact. - Labs CBC & Chem 7: 03/23/21 03:40 03/23/21 03:40 Labs: Abnormal Lab Results - Last 24 Hours (Table) 03/22/21 03/22/21 03/22/21 Range/Units 11:22 17:56 23:35 WBC (3.8-10.6) k/uL RBC (3.80-5.40) m/uL Plt Count (150-450) k/uL Neutrophils # (1.3-7.7) k/uL ABG pO2 (83-108) mmHg ABG O2 Saturation (94-97) % Chloride (98-107) mmol/L BUN (7-17) mg/dL Creatinine (0.52-1.04) mg/dL Glucose (74-99) mg/dL POC Glucose (mg/dL) 145 H 139 H 157 H (75-99) mg/dL Calcium (8.4-10.2) mg/dL Magnesium (1.6-2.3) mg/dL ALT (4-34) U/L Total Protein (6.3-8.2) g/dL Albumin (3.5-5.0) g/dL 03/23/21 03/23/21 03/23/21 Range/Units 03:40 03:40 05:13 WBC 11.0 H (3.8-10.6) k/uL RBC 3.51 L (3.80-5.40) m/uL Plt Count 134 L (150-450) k/uL Neutrophils # 8.5 H (1.3-7.7) k/uL ABG pO2 128 H (83-108) mmHg ABG O2 Saturation 98.9 H (94-97) % Chloride 110 H (98-107) mmol/L BUN 56 H (7-17) mg/dL Creatinine 1.27 H (0.52-1.04) mg/dL Glucose 161 H (74-99) mg/dL POC Glucose (mg/dL) (75-99) mg/dL Calcium 8.1 L (8.4-10.2) mg/dL Magnesium 2.5 H (1.6-2.3) mg/dL ALT 35 H (4-34) U/L Total Protein 4.6 L (6.3-8.2) g/dL Albumin 2.4 L (3.5-5.0) g/dL 03/23/21 Range/Units 05:44 WBC (3.8-10.6) k/uL RBC (3.80-5.40) m/uL Plt Count (150-450) k/uL Neutrophils # (1.3-7.7) k/uL ABG pO2 (83-108) mmHg ABG O2 Saturation (94-97) % Chloride (98-107) mmol/L BUN (7-17) mg/dL Creatinine (0.52-1.04) mg/dL Glucose (74-99) mg/dL POC Glucose (mg/dL) 156 H (75-99) mg/dL Calcium (8.4-10.2) mg/dL Magnesium (1.6-2.3) mg/dL ALT (4-34) U/L Total Protein (6.3-8.2) g/dL Albumin (3.5-5.0) g/dL Microbiology - Last 24 Hours (Table) 03/20/21 08:47 Blood Culture - Preliminary Blood No Growth after 48 hours 03/20/21 08:48 Blood Culture - Preliminary Blood No Growth after 48 hours 03/20/21 09:56 Gram Stain - Final Sputum Sputum Culture - Final 03/20/21 08:30 Urine Culture - Final Urine,Catheterized Escherichia coli Assessment and Plan Plan: 1 Status post cardiopulmonary arrest, possible vasovagal syncope, in a patient with a history of bradycardia, and slow atrial fibrillation. Impaired left ventricular systolic function with ejection fraction 45-50%. Cardiac arrest l asting for around 5 minutes as suspected by the emergency department team and the patient was quite bradycardic in atrial fibrillation following that. Meanwhile, the patient has a right-sided failure with significant enlargement of the right ventricular severe pulmonary hypertension. I have a suspicion that she has chronic hypoxemic and hypercapnic respiratory failure and her right ventricular findings are essentially chronic and she has a component of cor pulmonale. 2 Status post intubation and mechanical ventilation, for airway protection, 03/19/2021. 3 Hypotension, secondary to above, requiring pressor support and the patient is currently on low-dose norepinephrine 4 History of hyperlipidemia. 5 History of hypertension. 6 History of chronic atrial fibrillation with bradycardia. The patient is on long-term and to coagulation with Savaysa 7 History of chronic kidney disease. 8 Recent sinus infection. 9 Obesity. 10 acute Urinary tract infection secondary to E. coli, currently on ceftriaxone, pro-calcitonin level was mildly elevated, and the patient's white cell count is improving 11 History of COPD/asthma. 12 obesity 13 altered mental status, consider combination of septic encephalopathy/UTI, metabolic encephalopathy as the patient is a component of acute on top of chronic kidney disease in addition to medication effect as the patient is currently sedated with propofol. CT of the head in the cervical spine on 03/19/2021: CT of the brain it is reported as no acute intracranial process identified. CT cervical spine is reported as no acute osseous traumatic injury or significant abnormal alignment involving the cervical spine. Incidental degenerative changes at. No severe osseous canal stenosis. Plan Take the patient off sedation and assess the patient's mental status. Her cardiac arrest was brief and numbness usually if she has any significant neurologic impairment due to that. We are going to reevaluate her mental status accordingly. Wean off pressors and discontinue Recheck pro-calcitonin level Continue IV Rocephin Chest x-ray, ABGs and labs reviewed Not following any purposeful commands while off sedation Neurology is consulted We'll continue to follow and make further recommendations based on her clinical status Critical care time > 30 minutes Time with Patient: Greater than 30
[2021-03-23] MEDS: ANASTROZOLE 1 MG TAB PO SCH (08:17)
[2021-03-23] MEDS: CHLORHEXIDINE GLUCONATE 15 ML CUP MUCOUS MEM SCH ×2 (08:18→19:31)
[2021-03-23] MEDS: levETIRAcetam IV 1,000 MG in SODIUM CHLORIDE 0.9% 100 ML IVPB SCH ×2 (08:18→20:02)
[2021-03-23] MEDS: VIT A,C & E-LUTEIN-MINERALS 1 EACH TAB PO SCH ×2 (08:18→19:31)
[2021-03-23] MEDS: allopurinoL 100 MG TAB PO SCH (08:18)
[2021-03-23] MEDS: PANTOPRAZOLE 40 MG/10 ML VIAL IVP SCH (08:18)
[2021-03-23] MEDS: EDOXABAN TOSYLATE 30 MG TABLET PO SCH (08:18)
--- NOTE | 2021-03-23 09:36 | XR ---
EXAMINATION TYPE: XR chest 1V portable DATE OF EXAM: 03/23/2021 CLINICAL HISTORY: Tube placement. TECHNIQUE: Portable semiupright view of the chest. COMPARISON: 03/22/2021 FINDINGS: Endotracheal tube is somewhat obscured, with distal tip likely approximately 4.2 cm from the armaan. Enteric tube with nonvisualization of distal tip. Left internal jugular central venous catheter dista l tip over the right atrium. Low lung volumes accentuates the lung markings. The cardiomediastinal silhouette is unchanged. By bas ilar airspace opacities and small bilateral pleural effusions redemonstrated. No pneumothorax seen. IMPRESSION: Bibasilar airspace opacities and small bilateral pleural effusions not significantly changed.
--- NOTE | 2021-03-23 10:07 | PN ---
PROGRESS NOTE Mrs. Barrera is an 80-year-old lady who has been admitted to the hospital through the emergency room when she presented with shortness of breath and had a cardiac arrest in the emergency room. She remains on a ventilator, intubated, sedated. Neurologically, her response is suboptimal and she is being assessed by Neurology and EEG is being planned. The patient remains bradycardic. Heart rate is in the mid 40s to high 40s. She remains in atrial fibrillation. She is anticoagulated. There is a possibility of anoxic encephalopathy and metabolic encephalopathy as well. Unable to assess her neurological function at this time. However, she has significant comorbid conditions in the form of COPD exacerbation, atrial fib, slow ventricular rate, cardiopulmonary arrest recently and also chronic kidney disease. PHYSICAL EXAMINATION: Blood pressure today is 120/70, pulse rate is about 48 and irregular with isolated PVCs. Physical exam revealed JVD of 1 cm, no carotid bruit. S1, S2 with a short systolic murmur audible, bradycardia noted. Lungs reveal diminished air entry assisted by ventilator breaths. Rest of physical exam unchanged. Prognosis remains guarded. We will continue supportive care and see how she does neurologically. If she continues to have bradycardia, pacemaker is a consideration, but for now we will not do any intervention. We will continue to monitor her. Prognosis remains poor. MMODL / IJN: [id number] /
--- NOTE | 2021-03-23 12:06 | P.PN ---
Subjective Progress Note Date: 03/23/21 Patient was seen for a follow-up. Patient initially seen by Dr. Tavares Maurer yesterday. Please refer to his note for details. Patient actually came to the hospital on 03/18/2021 with increasing shortness of breath, cough. Patient has history of COPD, atrial fibrillation, hypertension, renal disease. Patient has been on Edoxaban 30 mg every a.m., Lipitor 20 mg, Coreg, Arimidex losartan. Neurology was consulted for altered mental status. While in the ER, patient got up to go to the bathroom and then was found unresponsive in the bathroom. Patient had a cardiopulmonary arrest and received 2 rounds of epinephrine. Patient was down for about 5 minutes. It was felt to be a vasovagal syncope. Patient was intubated for airway protection. Patient was hypotensive and epinephrine started. 2-D echo revealed atrial fibrillation. Moderate concentric LVH, EF is 45-50%. Patient's EEG revealed frequent sharp and slow waves over the bilateral frontal region with episodes of moderate 4 date of 1-2 Hz delta activity that seems rhythmic and is concerning for seizures. The background slowing is suggestive of severe encephalopathy. Patient was given Ativan 4 mg, Keppra loaded with 1500 mg and started on 1000 mg every 12 hours. Patient's blood test shows WBC 11.0, hemoglobin 11.9, platelets 134. Sodium and potassium are normal, BUN 56 creatine 1.07. AST is normal, ALT mildly elevated 35. TSH is mildly decreased 0.40 and free T4 normal 1.62. SARS Cov-2 PCR negative. Patient also on Kavon ephin 1 g every 24 hours. Patient was seen in the ICU. Patient is off sedation since 7:30 AM. Patient continues to be comatose, not responding to vocal or tactile stimuli. Please refer to examination below. Objective - Vital Signs Vital signs: Vital Signs Temp 98.2 F 03/23/21 04:00 Pulse 46 L 03/23/21 07:45 Resp 17 03/23/21 07:00 BP 127/63 03/23/21 07:00 Pulse Ox 98 03/23/21 07:00 Intake & Output 03/22/21 03/23/21 03/23/21 18:59 06:59 18:59 Intake Total 2172.171 2068.307 256 Output Total 490 660 50 Balance 1524.751 7514.307 206 Weight 149.6 kg Intake: IV 1236 1236 103 0.9 Normal Saline 36 36 3 Pressure Bag @ 3mL/hr Sodium Chloride 0.9% 1, 1200 1200 100 000 ml @ 100 mls/hr IV . Q10H [facility] Rx#:[id number] Intake, IV Titration 289.171 106.307 100 Amount Norepinephrine 32 mg In 89.171 30.027 Sodium Chloride 0.9% 218 ml @ 0.05 MCG/KG/MIN 3. 381 mls/hr IV .Q24H [facility] Rx#:[id number] propofoL 1,000 mg In 200 76.28 100 Empty Bag 1 bag @ Titrate IV .Q0M [facility] Rx#: [id number] Tube Feeding 557 636 53 Other 90 90 Output: Urine 490 660 50 Other: Voiding Method Indwelling Catheter Indwelling Catheter ABP, PAP, CO, CI - Last Documented Arterial Blood Pressure 112/47 - Exam GENERAL: The patient is an morbid obese lady, lying in bed and is not in acute distress. Patient has moderate peripheral edema. CHEST: The heart rate is regular rate rhythm. No murmurs to auscultation. LUNG: Clear to auscultation bilaterally no wheezing noted throughout. Not labored breathing. Intubated on ventilator (breathing over the lyla. ABDOMEN/GI: Bowel sounds present in all 4 quadrants. No tenderness to palpation throughout. NEUROLOGICAL: Patient is off sedation since 7:30 AM. Not showing any meaningful response. Higher mental function: The patient is comatose. GCS 6 (E4,V1, M1). No responsive or following commands. Cranial nerves: The patient would open and close the eyes spontaneously, however she does not track, does not make eye contact. The pupils are round, equal (4- 5mm) and reactive to light. Primary gaze is midline. Oculocephalics negative. Corneal negative. No facial weakness. Rest of cranial nerves could not be assessed. Motor: The strength is 0/5 and no movement even with painful stimuli. Slight decreased tone in upper. No spontaneous movement noted. Cerebellum: Could not assess. Sensation: Could not assess. But to painful stimuli not grimacing or withdrawing. Reflexes (right/left): Almost absent, except biceps is 1+ on the left. Plantars are upgoing bilaterally at baseline. - Labs CBC & Chem 7: 03/23/21 03:40 03/23/21 03:40 Labs: Abnormal Lab Results - Last 24 Hours (Table) 03/22/21 03/22/21 03/22/21 Range/Units 11:22 17:56 23:35 WBC (3.8-10.6) k/uL RBC (3.80-5.40) m/uL Plt Count (150-450) k/uL Neutrophils # (1.3-7.7) k/uL ABG pO2 (83-108) mmHg ABG O2 Saturation (94-97) % Chloride (98-107) mmol/L BUN (7-17) mg/dL Creatinine (0.52-1.04) mg/dL Glucose (74-99) mg/dL POC Glucose (mg/dL) 145 H 139 H 157 H (75-99) mg/dL Calcium (8.4-10.2) mg/dL Magnesium (1.6-2.3) mg/dL ALT (4-34) U/L Total Protein (6.3-8.2) g/dL Albumin (3.5-5.0) g/dL 03/23/21 03/23/21 03/23/21 Range/Units 03:40 03:40 05:13 WBC 11.0 H (3.8-10.6) k/uL RBC 3.51 L (3.80-5.40) m/uL Plt Count 134 L (150-450) k/uL Neutrophils # 8.5 H (1.3-7.7) k/uL ABG pO2 128 H (83-108) mmHg ABG O2 Saturation 98.9 H (94-97) % Chloride 110 H (98-107) mmol/L BUN 56 H (7-17) mg/dL Creatinine 1.27 H (0.52-1.04) mg/dL Glucose 161 H (74-99) mg/dL POC Glucose (mg/dL) (75-99) mg/dL Calcium 8.1 L (8.4-10.2) mg/dL Magnesium 2.5 H (1.6-2.3) mg/dL ALT 35 H (4-34) U/L Total Protein 4.6 L (6.3-8.2) g/dL Albumin 2.4 L (3.5-5.0) g/dL 03/23/21 Range/Units 05:44 WBC (3.8-10.6) k/uL RBC (3.80-5.40) m/uL Plt Count (150-450) k/uL Neutrophils # (1.3-7.7) k/uL ABG pO2 (83-108) mmHg ABG O2 Saturation (94-97) % Chloride (98-107) mmol/L BUN (7-17) mg/dL Creatinine (0.52-1.04) mg/dL Glucose (74-99) mg/dL POC Glucose (mg/dL) 156 H (75-99) mg/dL Calcium (8.4-10.2) mg/dL Magnesium (1.6-2.3) mg/dL ALT (4-34) U/L Total Protein (6.3-8.2) g/dL Albumin (3.5-5.0) g/dL Microbiology - Last 24 Hours (Table) 03/20/21 08:47 Blood Culture - Preliminary Blood No Growth after 48 hours 03/20/21 08:48 Blood Culture - Preliminary Blood No Growth after 48 hours 03/20/21 09:56 Gram Stain - Final Sputum Sputum Culture - Final 03/20/21 08:30 Urine Culture - Final Urine,Catheterized Escherichia coli Assessment and Plan Assessment: Altered mental status. Acute UTI with E. coli. Possible Septic encephalopathy (UTI), Has component of metabolic encephalopathy (URMILA on CKI--improving). Abnormal EEG, rule out status epilepticus. Cardiopulmonary arrest lasting 5 minutes (Was suspected by ED team possible vasovagal syncope and patient with history of bradycardia and the atrial fibrillation with ejection fraction of 45-50%). Bradycardia (heart rate in 40-50). Acute urinary tract infection on ceftriaxone Status post intubation on mechanical intubation for airway protection Hypotensive requiring pressors Atrial fibrillation with bradycardia on anticoagulation (on Edoxaban) History of hypertension History of hyperlipidemia Morbid Obese Plan: Patient underwent prolonged, 2.5 hours EEG today. It was abnormal. The diffuse synchronous and asynchronous delta range slowing mentioned above is not epileptiform in nature. This was low frequency low amplitude delta range slowing. The triphasic waves mentioned above are not epileptiform in nature. Triphasic waves can be seen in setting of metabolic encephalopathy. In combination, these findings indicate severe diffuse cerebral dysfunction as may be seen in a toxic metabolic or anoxic encephalopathy. No seizures were recorded. No epileptiform activity was present. Initial CT Head (03/19/2021) and repeat CT of the head from 03/22/2021 negative for any acute process. 2-D echo was reported as atrial fibrillation. Moderate concentric left ventricular hypertrophy. Ejection fraction of 45-50%. Left atrium is mildly dilated that. Moderate pulmonary hypertension. EKG was reported as atrial fibrillation with slow ventricular response. Left axis deviation. Pulmonary disease pattern. Incomplete right bundle branch block. Inferior infarct, age undetermined. Assess T and T-wave abnormality, consider anterolateral ischemia or digitalis effect. Abnormal EKG. Patient on anticoagulation. AST of 27 and ALT of 35, improved. We will check ammonia level. TSH of 0.408 which is low but the free T4 is 1.62 which is normal. SARS Covid-2 PCR was not detected EEG (03/22/2021) Preliminary report: It was an abnormal EEG. The Frequent Sharps and slow waves over the bilateral frontal region with episodes of moderate voltage of 1-2 delta activity that seems rhythmic is concerning for seizure. The background slowing is suggestive of severe encephalopathy. Patient currently on Keppra 1500mg loading dose followed by Keppra 1000mg once every 12 hours. We will decrease Keppra to 750 mg twice a day. We will repeat EEG on 03/25/2021. Patient at baseline does not have any history of seizures and is otherwise normally functioning person.
[2021-03-23 12:43] LABS: Glucose,Whole Blood 170 mg/dL (75-99)
--- NOTE | 2021-03-23 16:24 | EEG ---
ELECTROENCEPHALOGRAM REPORT PROCEDURE DATE: 03/23/2021 ELECTROENCEPHALOGRAM (EEG) REPORT: TECHNIQUE: This is a report from a prolonged 2-1/2 hour inpatient digital video EEG performed using the 10-20 electrode placement system. HISTORY: Atrial fibrillation. Other history includes respiratory failure. Patient found down. CURRENT MEDICATIONS: Protonix, Keppra, insulin, and others. FINDINGS: Recording start time: 03/23/2021 at 10:10 a.m. Recording end time: 03/23/2021 at 1:02 p.m. EVENTS: During this 2-1/2 hour prolonged inpatient digital video EEG, no clinical or electrographic seizures were recorded. BACKGROUND: A sustained posterior dominant rhythm was not seen. Frequencies of the posterior quadrants consisted of poorly modulated 1-2 hertz waveforms. ACTIVATION: Hyperventilation: Not performed. Photic stimulation: No driving seen. Sleep: Distinctive sleep stages not seen. ABNORMALITIES: This EEG consisted of diffuse low amplitude synchronous and asynchronous 1-2 hertz delta range slowing with intermixed triphasic waves. Please note that 1 channel of this EEG was dedicated to EKG, at times it did not demonstrate a sinus rhythm. IMPRESSION: Abnormal prolonged 2.5 hour continuous EEG. The diffuse synchronous and asynchronous delta range slowing mentioned above is not epileptiform in nature. The triphasic waves mentioned above are not epileptiform in nature. Triphasic waves can be seen in the setting of a metabolic encephalopathy. In combination, these findings indicate severe diffuse cerebral dysfunction as may be seen in a toxometabolic or anoxic encephalopathy. No seizures were recorded. No epileptiform activity was present. MMODL / IJN: [id number] / MTDD
--- NOTE | 2021-03-23 16:38 | P.PN ---
Progress Note - Text Progress Note Date: 03/23/21 Chief Complaint: Short of breath History of presenting complaint: This is a 80-year-old patient of Dr. Tovar. Manager Pathology Dr. Bland. Chronic stable medical conditions include atrial fibrillation, asthma, hyperlipidemia, hypertension, chronic kidney disease. Patient presents with about 10 days of increasing shortness of breath. Basically presented with activity. No edema. No chest pain. No fever no chills. No cough. At her baseline uses a walker. patient was being held in the ER as an overflow was found unconscious in the bathroom for. With no pulse. intubated. Patient did have return of spontaneous circulation. Bradycardic. Admitted to the ICU. Today: ICU: Ventilator: FiO2 40 and a PEEP of 5. Drips include norepinephrine. Propofol has been held. 2 feeding. Heart rate around 40 Review of systems: Patient intubated Active Medications Albuterol/Ipratropium (Ipratropium-Albuterol 3 Ml Neb) 3 ml INHALATION RT-Q4H [facility] Last Admin: 03/23/21 11:43 Dose: Not Given Documented by: Allopurinol (Allopurinol 100 Mg Tab) 100 mg PO [facility] Last Admin: 03/23/21 08:18 Dose: 100 mg Documented by: Anastrozole (Anastrozole 1 Mg Tab) 1 mg PO [facility] Last Admin: 03/23/21 08:17 Dose: 1 mg Documented by: Atorvastatin Calcium (Atorvastatin 10 Mg Tab) 10 mg PO [facility] Last Admin: 03/22/21 19:41 Dose: 10 mg Documented by: Chlorhexidine Gluconate (Chlorhexidine Gluconate 15 Ml Cup) 15 ml MUCOUS MEM BID [facility] Last Admin: 03/23/21 08:18 Dose: 15 ml Documented by: Edoxaban (Edoxaban Tosylate 30 Mg Tablet) 30 mg PO [facility] Last Admin: 03/23/21 08:18 Dose: 30 mg Documented by: Propofol 1,000 mg/ IV Solution 100 mls @ 0 mls/hr IV .Q0M [facility]; Protocol Last Titration: 03/23/21 07:30 Dose: Infused Documented by: Norepinephrine Bitartrate 32 (mg/ Sodium Chloride) 250 mls @ 3.381 mls/hr IV .Q24H [facility]; Protocol Last Titration: 03/23/21 11:54 Dose: 0.03 mcg/kg/min, 2.028 mls/hr Documented by: Sodium Chloride (Saline 0.9%) 1,000 mls @ 100 mls/hr IV .Q10H [facility] Last Admin: 03/23/21 05:28 Dose: 100 mls/hr Documented by: Ceftriaxone Sodium 1 gm/ (Sodium Chloride) 50 mls @ 100 mls/hr IVPB Q24HR [facility] Last Admin: 03/23/21 08:17 Dose: 100 mls/hr Documented by: Levetiracetam 1,000 mg/ Sodium (Chloride) 110 mls @ 400 mls/hr IVPB Q12HR [facility] Last Admin: 03/23/21 08:18 Dose: 400 mls/hr Documented by: Insulin Aspart (Insulin Aspart (Novolog) 100 Unit/Ml Vial) 0 unit SQ Q6H [facility]; Protocol Last Admin: 03/23/21 12:22 Dose: 2 unit Documented by: Multivitamins/Minerals (Vit A,C & M-Ssrhfb-Vmrcyemt 1 Each Tab) 1 each PO BID [facility] Last Admin: 03/23/21 08:18 Dose: 1 each Documented by: Naloxone HCl (Naloxone 0.4 Mg/Ml 1 Ml Vial) 0.2 mg IV Q2M PRN PRN Reason: Opioid Reversal Pantoprazole Sodium (Pantoprazole 40 Mg/10 Ml Vial) 40 mg IVP DAILY [facility] Last Admin: 03/23/21 08:18 Dose: 40 mg Documented by: Past medical history to include: Atrial fibrillation, asthma, hyperlipidemia, hypertension, chronic kidney disease Social history: Daughter lives with her. Does use a walker. No history of smoking or alcohol Family history: Reviewed, noncontributory to presentation Physical examination: VITAL SIGNS: 98.2, 51, 24, 130/54, 98% on the ventilator GENERAL: Laying in bed, intubated EYES: Pupils equal. Conjunctiva normal. HEENT: External appearance of nose and ears normal, ETT. NECK: JVD unable to assess; masses not palpable. HEART: Heart sounds irregular; no edema. LUNGS: Respiratory rate increased, decreased breath sounds. ABDOMEN: Soft, nontender, liver spleen not palpable, no masses palpable. PSYCH: Patient sedated MUSCULAR skeletal: Evidence of OA. INVESTIGATIONS, reviewed in the clinical context: March 23: WBC 11 hemoglobin 11.9 potassium 4.1 creatinine 1.27 EEG: Negative for epilepsy March 22: WBC 11 hemoglobin 11.8 platelets 119 potassium 4 creatinine 1.45 March 21: WBC 13.6 hemoglobin 12.8 platelets 122 potassium 3.8 creatinine 1.91 March 20: WBC 15.2 hemoglobin 13.9 platelets 157 potassium 3.6 creatinine 1.5 for March 19: Obesity 14.4 hemoglobin 14.8 platelets 187 potassium 4.2 bun 28 creatinine 1.43 AST 152 ALT 129 WBC 8.2 hemoglobin 15.2 platelets 188 potassium 3.8 bun 33 creatinine 1.30 Lactic acid 2.5 troponin I less than 0.012 proBNP 63 Influenza type A, diabetic, RSV, COVID 19: Not detected EKG tracing personally reviewed by me-atrial fibrillation with a rate of 42 Chest x-ray film personally reviewed by me-elevated right diaphragm. Assessment and plan: -Persistent atrial fibrillation with a heart rate down to the 40s./Symptomatic bradycardia -slow to respond Coreg discontinued. Telemetry. Follow with cardiology -Acute hypoxic respiratory failure, requiring ventilator support-slow to respond On FiO2 of 40 % -Moderate persistent asthma Continue DuoNeb and Symbicort -Morbid obesity BMI 51.3 Weight loss measures. Follow-up with PCP as an outpatient -Essential hypertension Currently antihypertensive held -Cardiogenic shock-slow to respond On IV norepinephrine -History of breast cancer Continue with arimidex -Acute kidney injury possibly from cardiorenal syndrome. Follow lites closely. -Acute metabolic encephalopathy Propofol has been held. Continue other medication treatment plan. Critical.
[2021-03-23 17:58] LABS: Glucose,Whole Blood 144 mg/dL (75-99)
[2021-03-23] MEDS: ATORVASTATIN 10 MG TAB PO SCH (19:31)
[2021-03-23 23:19] LABS: Glucose,Whole Blood 160 mg/dL (75-99)
[2021-03-24] MEDS: SODIUM CHLORIDE 0.9% 1,000 ML IV SCH ×2 (02:16→18:39)
[2021-03-24] MEDS: IPRATROPIUM-ALBUTEROL 3 ML NEB INHALATION SCH ×6 (02:17→23:27)
[2021-03-24 05:00] LABS: ABG Base Excess -1.9 mmol/L; ABG HCO3 23 mmol/L (21-25); ABG Oxygen Saturation 94.1 % (94-97); ABG PCO2 36 mmHg (35-45); ABG PH 7.41 (7.35-7.45); ABG PO2 70 mmHg (83-108); ABG TCO2 24 mmol/L (19-24); Allen Test Performed? Yes
[2021-03-24 05:25] LABS: Basophils % (A) 0 %; Eosinophils # (A) 0.1 k/uL (0-0.7); Eosinophils % (A) 1 %; HCT 32.6 % (34.0-46.0); HGB 11.1 gm/dL (11.4-16.0); Lymphocytes % (A) 9 %; MCH 34.1 pg (25.0-35.0); MCV 100.3 fL (80.0-100.0); Macrocytosis Slight; Mean Platelet Volume 9.6; Monocytes # (A) 1.1 k/uL (0-1.0); Monocytes % (A) 10 %; Neutrophils # (A) 8.2 k/uL (1.3-7.7); Neutrophils % (A) 78 %; Platelet Count 137 k/uL (150-450); RBC 3.25 m/uL (3.80-5.40); RDW 13.9 % (11.5-15.5); WBC 10.6 k/uL (3.8-10.6)
[2021-03-24 05:52] LABS: Albumin 2.3 g/dL (3.5-5.0); Calcium 8.1 mg/dL (8.4-10.2); Potassium 4.3 mmol/L (3.5-5.1); Total Bilirubin 0.6 mg/dL (0.2-1.3); Total Protein 4.4 g/dL (6.3-8.2)
[2021-03-24 06:01] LABS: Glucose,Whole Blood 139 mg/dL (75-99)
[2021-03-24] MEDS: INSULIN ASPART (NovoLOG) 100 UNIT/ML VIAL SQ SCH ×4 (06:08→23:38)
--- NOTE | 2021-03-24 08:11 | P.PN ---
Subjective Progress Note Date: 03/24/21 80-year-old female patient with known history of chronic atrial fibrillation, bronchial asthma, hypertension, hyperlipidemia and chronic kidney disease who is being seen in the intensive care unit and a follow-up on 03/23/2021 as the patient was brought into the intensive care unit after she suffered a cardiac arrest related patient was found to be unconscious in the bathroom in the emergency department where she was intubated and placed on mechanical ventilator resuscitated and following that she was brought into the intensive care units. On today's evaluation, the patient remains on a mechanical ventilator assist control mode at the rate of 14 with a tidal volume of 450 and FiO2 of 40% with a PEEP of 5. A sedation holiday was given to her over the past 48 hours and the patient demonstrated increased respiratory rate, restlessness and agitation and she was not following any commands. Based on that, the patient was kept sedated with propofol which is running at 25 mg/kg per minute. Repeat EKG was done yesterday and was quite abnormal and the patient was found to have sharp and slow waves over the bilateral frontal region concerning for seizure. No focal slowing. CAT scan of the brain showed diffuse atrophy. No other acute abnormalities have been noted. The patient was started on Keppra 1 g every 12 hours. The patient had a cardiac arrest for approximately 5 minutes as suspec raymundo by the emergency department team. The echocardiogram showed atrial fibrillation. The left-sided percent was normal. There was moderate concentric left ventricular hypertrophy. Overall LV function was normal with an ejection fraction of 45-50%. RV was severely enlarged. No pericardial effusion. Hemodynamically, the patient is still requiring pressors with norepinephrine running at 0.4 mcg/kg per minute. The patient is also on normal saline at the rate of 100 mL an hour and the patient is receiving enteral feeding for nutritional support with vital high protein at the rate of 40 mL an hour. Urine output is noted of 20-40 mL an hour. Chest x-ray showing bilateral pulmonary infiltrates and pleural effusions and urine cultures positive for E. coli. COVID-19 testing was negative. Influenza screen was negative. Serum cortisol was 38, pro-calcitonin level was 0.52 and the UA was normal and there was E. coli growing in the urine culture. This morning, the patient remains sedated with propofol which is running at 25 mcg/kg per minute. The patient remains on the same ventilator settings. Blood gases from this morning shows a pH of 7.38 with a pCO2 of 38 and pO2 of 128. The chest x-ray showing a some mild cardiomegaly and some interstitial infiltrates bilaterally. Pulmonary arteries are also prominent. ET tube is in a good location. The patient has a left subclavian triple-lumen catheter in place. OG tube is also in good location. The creatinine is improving is currently down to 1.27. BUN is at 56. White cell count is at 11. Remains on low-dose norepinephrine infusion for blood pressure support and remains on IV Rocephin. Evaluation of , the patient is being seen for a follow-up. Since I evaluation yesterday, the patient has been off sedation and unfortunately we have not seen any reasonable neurological recovery. The patient has brainstem reflexes. Nevertheless, she does not grimace or respond to any deep painful stimulation. She does not respond to any verbal stimulation. She has been off sedation for now. She is on a mechanical ventilator. This morning she is on no sedation, assist-control mode at the rate of 14 with a tidal volume of 450 and FiO2 of 30% with a PEEP of 5. The chest x-ray from today shows no major interval change. ET tube is in a good location. Some mild cardiomegaly and mild pulmonary vessel congestion. The blood gases from today shows a pH of 7.41 with a pCO2 of 36 and pO2 of 70 and this was done and FiO2 of 30%. The patient hemodynamically remains in the low right atrial fibrillation. She is on norepinephrine infusion running at 0.02 mcg/kg per minute. She is producing adequate amount of urine output. Echocardiogram that was done earlier showed a relatively preserved LV function with mild LV impairment with an ejection fraction of 45-50%. The patient is on long-term anticoagulation with Savaysa in terms of her unresponsiveness, the patient underwent further workup by neurology. A prolonged EEG was done yesterday that showed significant abnormalities with diffuse synchronous/asynchronous Doppler wave range slowing and no evidence of any seizure activity was noted. This was consistent with severe dyspnea diffuse cerebral dysfunction which could be seen with toxic metabolic encephalopathy versus anoxic encephalopathy.. Her last CAT scan of the head was on 03/22/2021 and it showed no acute abnormalities. Meanwhile, the patient is being supported. She is being treated for an E. coli urinary tract infection with Rocephin. She is also receiving enteral feeding for nutritional support. She has an OG tube in place and currently she is on vital high protein at the rate of 53 mL an hour which is at goal. Ammonia level was at 33. No hepatic dysfunction at this point in time. Objective - Vital Signs Vital signs: Vital Signs Temp 99.2 F 03/24/21 04:00 Pulse 52 L 03/24/21 07:24 Resp 30 H 03/24/21 07:00 BP 108/46 03/24/21 07:00 Pulse Ox 94 L 03/24/21 07:00 Intake & Output 03/23/21 03/24/21 03/24/21 18:59 06:59 18:59 Intake Total 2136.737 1962 156 Output Total 745 755 60 Balance 7841.271 6971 96 Weight 154.1 kg Intake: IV 1236 1236 103 0.9 Normal Saline 36 36 3 Pressure Bag @ 3mL/hr Sodium Chloride 0.9% 1, 1200 1200 100 000 ml @ 100 mls/hr IV . Q10H [facility] Rx#:[id number] Intake, IV Titration 129.737 0 Amount Norepinephrine 32 mg In 29.737 0 Sodium Chloride 0.9% 218 ml @ 0.05 MCG/KG/MIN 3. 381 mls/hr IV .Q24H [facility] Rx#:[id number] propofoL 1,000 mg In 100 Empty Bag 1 bag @ Titrate IV .Q0M [facility] Rx#: [id number] Tube Feeding 636 636 53 Other 135 90 Output: Urine 745 755 60 Other: Voiding Method Indwelling Catheter Indwelling Catheter ABP, PAP, CO, CI - Last Documented Arterial Blood Pressure 109/101 - Exam GENERAL EXAM: Intubated, sedated, morbidly obese 80-year-old female patient, in no apparent distress. Unresponsive off sedation HEAD: Normocephalic. EYES: Sluggish reaction of pupils, equal size. NOSE: Clear with pink turbinates. THROAT: Oral endotracheal tube and gastric tube secured in place. No erythema or exudates. NECK: No masses, no JVD. CHEST: No chest wall deformity. LUNGS: Equal air entry with few bilateral scattered rhonchi. CVS: S1 and S2 normal with no audible murmur, regular rhythm. ABDOMEN: No hepatosplenomegaly, normal bowel sounds, no guarding or rigidity. SPINE: No scoliosis or deformity SKIN: No rashes CENTRAL NERVOUS SYSTEM: No focal deficits, tone is normal in all 4 extremities. The patient has brainstem reflexes. She has pupillary reflex. She has corneal reflex. She has a gag reflex. Babinski is equivocal. Reflexes are diminished in all 4 extremities. No facial asymmetry. On unresponsive to any verbal or painful stimulation. EXTREMITIES: There is no peripheral edema. No clubbing, no cyanosis. Peripheral pulses are intact. - Labs CBC & Chem 7: 03/24/21 04:27 03/24/21 04:27 Labs: Abnormal Lab Results - Last 24 Hours (Table) 03/23/21 03/23/21 03/23/21 Range/Units 03:40 12:20 17:56 RBC (3.80-5.40) m/uL Hgb (11.4-16.0) gm/dL Hct (34.0-46.0) % MCV (80.0-100.0) fL Plt Count (150-450) k/uL Neutrophils # (1.3-7.7) k/uL Monocytes # (0-1.0) k/uL ABG pO2 (83-108) mmHg Chloride (98-107) mmol/L BUN (7-17) mg/dL Creatinine (0.52-1.04) mg/dL Glucose (74-99) mg/dL POC Glucose (mg/dL) 170 H 144 H (75-99) mg/dL Calcium (8.4-10.2) mg/dL Magnesium (1.6-2.3) mg/dL Ammonia (<30) umol/L Total Protein (6.3-8.2) g/dL Albumin (3.5-5.0) g/dL Procalcitonin 0.31 H (0.02-0.09) ng/mL 03/23/21 03/23/21 03/24/21 Range/Units 20:05 23:17 04:27 RBC 3.25 L (3.80-5.40) m/uL Hgb 11.1 L (11.4-16.0) gm/dL Hct 32.6 L (34.0-46.0) % MCV 100.3 H (80.0-100.0) fL Plt Count 137 L (150-450) k/uL Neutrophils # 8.2 H (1.3-7.7) k/uL Monocytes # 1.1 H (0-1.0) k/uL ABG pO2 (83-108) mmHg Chloride (98-107) mmol/L BUN (7-17) mg/dL Creatinine (0.52-1.04) mg/dL Glucose (74-99) mg/dL POC Glucose (mg/dL) 160 H (75-99) mg/dL Calcium (8.4-10.2) mg/dL Magnesium (1.6-2.3) mg/dL Ammonia 30 H (<30) umol/L Total Protein (6.3-8.2) g/dL Albumin (3.5-5.0) g/dL Procalcitonin (0.02-0.09) ng/mL 03/24/21 03/24/21 03/24/21 Range/Units 04:27 04:27 04:55 RBC (3.80-5.40) m/uL Hgb (11.4-16.0) gm/dL Hct (34.0-46.0) % MCV (80.0-100.0) fL Plt Count (150-450) k/uL Neutrophils # (1.3-7.7) k/uL Monocytes # (0-1.0) k/uL ABG pO2 70 L (83-108) mmHg Chloride 111 H (98-107) mmol/L BUN 58 H (7-17) mg/dL Creatinine 1.28 H (0.52-1.04) mg/dL Glucose 131 H (74-99) mg/dL POC Glucose (mg/dL) (75-99) mg/dL Calcium 8.1 L (8.4-10.2) mg/dL Magnesium 2.5 H (1.6-2.3) mg/dL Ammonia (<30) umol/L Total Protein 4.4 L (6.3-8.2) g/dL Albumin 2.3 L (3.5-5.0) g/dL Procalcitonin (0.02-0.09) ng/mL 03/24/21 Range/Units 05:59 RBC (3.80-5.40) m/uL Hgb (11.4-16.0) gm/dL Hct (34.0-46.0) % MCV (80.0-100.0) fL Plt Count (150-450) k/uL Neutrophils # (1.3-7.7) k/uL Monocytes # (0-1.0) k/uL ABG pO2 (83-108) mmHg Chloride (98-107) mmol/L BUN (7-17) mg/dL Creatinine (0.52-1.04) mg/dL Glucose (74-99) mg/dL POC Glucose (mg/dL) 139 H (75-99) mg/dL Calcium (8.4-10.2) mg/dL Magnesium (1.6-2.3) mg/dL Ammonia (<30) umol/L Total Protein (6.3-8.2) g/dL Albumin (3.5-5.0) g/dL Procalcitonin (0.02-0.09) ng/mL Microbiology - Last 24 Hours (Table) 03/20/21 08:48 Blood Culture - Preliminary Blood No Growth after 72 hours 03/20/21 08:47 Blood Culture - Preliminary Blood No Growth after 72 hours Assessment and Plan Plan: 1 Status post cardiopulmonary arrest, possible vasovagal syncope, in a patient with a history of bradycardia, and slow atrial fibrillation. Impaired left ventricular systolic function with ejection fraction 45-50%. Cardiac arrest lasting for around 5 minutes as suspected by the emergency department team and the patient was quite bradycardic in atrial fibrillation following that. Nevertheless, the patient remains unresponsive and I suspect that the address was probably longer contributing to hypoxic encephalopathy. EEG was done yesterday and was quite abnormal with cerebral dysfunction that was diffuse consistent with anoxic/metabolic encephalopathy. Meanwhile, the patient has a right-sided failure with significant enlargement of the right ventricular severe pulmonary hypertension. I have a suspicion that she has chronic hypoxemic and hypercapnic respiratory failure and her right ventricular findings are essentially chronic and she has a component of cor pulmonale. 2 Status post intubation and mechanical ventilation, for airway protection, 03/19/2021. 3 Hypotension, secondary to above, requiring pressor support and the patient is currently on low-dose norepinephrine 4 History of hyperlipidemia. 5 History of hypertension. 6 History of chronic atrial fibrillation with bradycardia. The patient is on long-term and to coagulation with Savaysa 7 History of chronic kidney disease. Creatinine stable at 1.28 Remains stable at 1.28 8 Recent sinus infection. 9 Obesity. 10 acute Urinary tract infection secondary to E. coli, currently on ceftriaxone, pro-calcitonin level was mildly elevated, and the patient's white cell count is improving 11 History of COPD/asthma. 12 obesity 13 altered mental status, consider x-ray encephalopathy. CT of the head in the cervical spine on 03/19/2021: CT of the brain it is reported as no acute intracranial process identified. CT cervical spine is reported as no acute osseous traumatic injury or significant abnormal alignment involving the cervical spine. Incidental degenerative changes at. No severe osseous canal stenosis. Plan Keep the patient off sedation and monitor the mental status Neurologically the, and on the possibility of hypoxic encephalopathy Wean off pressors and discontinue Continue IV Rocephin Continue enteral feeding for nutritional support Continue anticoagulation with Savaysa Ventilator changes for today Possible repeat CAT scan of the brain and this will be discussed further with neurology Obviously the concern is still the patient's unresponsiveness which could be a sign of hypoxic encephalopathy. Neurology is consulted Pro-calcitonin level is improving We'll continue to follow and make further recommendations based on her clinical status Critical care time > 30 minutes Time with Patient: Greater than 30
--- NOTE | 2021-03-24 08:19 | XR ---
EXAMINATION TYPE: XR chest 1V portable DATE OF EXAM: 03/24/2021 CLINICAL HISTORY: Tube placement. TECHNIQUE: Semiupright portable COMPARISON: 03/23/2021 FINDINGS: Endotracheal tube distal tip at the level of the clavicular heads. Redemonstrated right int ernal jugular central venous catheter and enteric tube. There are low lung volumes. There is mildly i mproved aeration of the right lung base and improved sharpness of the right costophrenic angle. There is persistent left small effusion. IMPRESSION: Minimally improved aeration at the right lung base.
--- NOTE | 2021-03-24 09:05 | PN ---
PROGRESS NOTE Mrs. Barrera remains intubated and heart rate is in the mid-to-high 40s in atrial fibrillation. Cardiac-bolaños, no specific intervention. Her neurological status is questionable. We will continue supportive care and see how she does. I would not recommend any pacemaker at this time. The patient remains in atrial fib with a controlled ventricular rate and she is also anticoagulated with Savaysa 30 mg daily. PHYSICAL EXAMINATION: Physical exam revealed a blood pressure of about 116/70, pulse rate is about 48, atrial fib irregular. JVD 1 cm. No carotid bruits. Ejection systolic murmur is audible. Lungs reveal diminished air entry Abdomen is soft. Lower extremities reveal diminished pulses. Central nervous system assessment was not performed. Prognosis remains a poor. Neurologically, the recovery is not optimal. Heart rate remains in the high 40s to low 50s, atrial fibrillation. No intervention at this time. MMODL / IJN: [id number] /
[2021-03-24 10:31] VITALS: BMI 54.8
[2021-03-24] MEDS: allopurinoL 100 MG TAB PO SCH (11:35)
[2021-03-24] MEDS: ANASTROZOLE 1 MG TAB PO SCH (11:35)
[2021-03-24] MEDS: CHLORHEXIDINE GLUCONATE 15 ML CUP MUCOUS MEM SCH ×2 (11:36→20:48)
[2021-03-24] MEDS: EDOXABAN TOSYLATE 30 MG TABLET PO SCH (11:36)
[2021-03-24] MEDS: PANTOPRAZOLE 40 MG/10 ML VIAL IVP SCH (11:36)
[2021-03-24] MEDS: VIT A,C & E-LUTEIN-MINERALS 1 EACH TAB PO SCH ×2 (11:36→20:47)
[2021-03-24] MEDS: levETIRAcetam IV 750 MG in SODIUM CHLORIDE 0.9% 100 ML IVPB SCH ×2 (11:37→20:48)
[2021-03-24 12:25] LABS: Glucose,Whole Blood 125 mg/dL (75-99)
--- NOTE | 2021-03-24 12:50 | P.PN ---
Progress Note - Text Progress Note Date: 03/24/21 Chief Complaint: Short of breath History of presenting complaint: This is a 80-year-old patient of Dr. Tovar. [employer] Dr. Bland. Chronic stable medical conditions include atrial fibrillation, asthma, hyperlipidemia, hypertension, chronic kidney disease. Patient presents with about 10 days of increasing shortness of breath. Basically presented with activity. No edema. No chest pain. No fever no chills. No cough. At her baseline uses a walker. patient was being held in the ER as an overflow was found unconscious in the bathroom for. With no pulse. intubated. Patient did have return of spontaneous circulation. Bradycardic. Admitted to the ICU. Patient was on propofol. Discontinued. Patient did not wake up. EKG shows encephalopathy. No seizure activity. Cook to have anoxic encephalopathy. Today: ICU: Ventilator: FiO2 30 and a PEEP of 5. Heart rate in the 40s. 2 feeding at 53 mL an hour. Patient been on propofol. Off levo fed. Not waking up. Suspected underlying hypoxic encephalopathy. Review of systems: Patient intubated Active Medications Albuterol/Ipratropium (Ipratropium-Albuterol 3 Ml Neb) 3 ml INHALATION RT-Q4H [facility] Last Admin: 03/24/21 12:25 Dose: 3 ml Documented by: Allopurinol (Allopurinol 100 Mg Tab) 100 mg PO [facility] Last Admin: 03/24/21 11:35 Dose: 100 mg Documented by: Anastrozole (Anastrozole 1 Mg Tab) 1 mg PO [facility] Last Admin: 03/24/21 11:35 Dose: 1 mg Documented by: Atorvastatin Calcium (Atorvastatin 10 Mg Tab) 10 mg PO [facility] Last Admin: 03/23/21 19:31 Dose: 10 mg Documented by: Chlorhexidine Gluconate (Chlorhexidine Gluconate 15 Ml Cup) 15 ml MUCOUS MEM BID [facility] Last Admin: 03/24/21 11:36 Dose: 15 ml Documented by: Edoxaban (Edoxaban Tosylate 30 Mg Tablet) 30 mg PO [facility] Last Admin: 03/24/21 11:36 Dose: 30 mg Documented by: Norepinephrine Bitartrate 32 (mg/ Sodium Chloride) 250 mls @ 3.381 mls/hr IV .Q24H [facility]; Protocol Last Titration: 03/24/21 09:55 Dose: 0 mcg/kg/min, 0 mls/hr Documented by: Sodium Chloride (Saline 0.9%) 1,000 mls @ 100 mls/hr IV .Q10H [facility] Last Admin: 03/24/21 02:16 Dose: 100 mls/hr Documented by: Ceftriaxone Sodium 1 gm/ (Sodium Chloride) 50 mls @ 100 mls/hr IVPB Q24HR [facility] Last Admin: 03/24/21 11:35 Dose: 100 mls/hr Documented by: Levetiracetam 750 mg/ Sodium (Chloride) 107.5 mls @ 400 mls/hr IVPB Q12HR [facility] Last Admin: 03/24/21 11:37 Dose: 400 mls/hr Documented by: Insulin Aspart (Insulin Aspart (Novolog) 100 Unit/Ml Vial) 0 unit SQ Q6H [facility]; Protocol Last Admin: 03/24/21 06:08 Dose: 1 unit Documented by: Multivitamins/Minerals (Vit A,C & X-Wjkxae-Ykmbejdq 1 Each Tab) 1 each PO BID [facility] Last Admin: 03/24/21 11:36 Dose: 1 each Documented by: Naloxone HCl (Naloxone 0.4 Mg/Ml 1 Ml Vial) 0.2 mg IV Q2M PRN PRN Reason: Opioid Reversal Pantoprazole Sodium (Pantoprazole 40 Mg/10 Ml Vial) 40 mg IVP DAILY [facility] Last Admin: 03/24/21 11:36 Dose: 40 mg Documented by: Past medical history to include: Atrial fibrillation, asthma, hyperlipidemia, hypertension, chronic kidney disease Social history: Daughter lives with her. Does use a walker. No history of smoking or alcohol Family history: Reviewed, noncontributory to presentation Physical examination: VITAL SIGNS: 42, 30, 108/46, 94% on the ventilator GENERAL: Laying in bed, intubated EYES: Pupils equal. Conjunctiva normal. HEENT: External appearance of nose and ears normal, ETT. NECK: JVD unable to assess; masses not palpable. HEART: Heart sounds irregular; no edema. LUNGS: Respiratory rate increased, decreased breath sounds. ABDOMEN: Soft, nontender, liver spleen not palpable, no masses palpable. PSYCH: Patient sedated MUSCULAR skeletal: Evidence of OA. INVESTIGATIONS, reviewed in the clinical context: March 24: WBC 10.6 hemoglobin 11.1 platelets 137 potassium 4.3 BUN 58 creatinine 1 .28 March 3: WBC 11 hemoglobin 11.9 potassium 4.1 creatinine 1.27 EEG: Negative for epilepsy March 22: WBC 11 hemoglobin 11.8 platelets 119 potassium 4 creatinine 1.45 March 21: WBC 13.6 hemoglobin 12.8 platelets 122 potassium 3.8 creatinine 1.91 March 20: WBC 15.2 hemoglobin 13.9 platelets 157 potassium 3.6 creatinine 1.5 for 2-D echocardiogram: Moderate concentric LVH. EF 45-50% right ventricle severely enlarged. Tricuspid regurgitation. Moderate pulmonary hypertension March 19: Obesity 14.4 hemoglobin 14.8 platelets 187 potassium 4.2 bun 28 creatinine 1.43 AST 152 ALT 129 WBC 8.2 hemoglobin 15.2 platelets 188 potassium 3.8 bun 33 creatinine 1.30 Lactic acid 2.5 troponin I less than 0.012 proBNP 63 Influenza type A, diabetic, RSV, COVID 19: Not detected EKG tracing personally reviewed by me-atrial fibrillation with a rate of 42 Chest x-ray film personally reviewed by me-elevated right diaphragm. Assessment and plan: -Persistent atrial fibrillation with a heart rate down to the 40s./Symptomatic bradycardia -slow to respond Coreg discontinued. Telemetry. Follow with cardiology -Acute hypoxic respiratory failure, requiring ventilator support- On FiO2 of 30 % -Moderate persistent asthma Continue DuoNeb and Symbicort -Morbid obesity BMI 51.3 Weight loss measures. Follow-up with PCP as an outpatient -Essential hypertension Currently antihypertensive held -Cardiogenic shock-slow to respond On IV norepinephrine -History of breast cancer Continue with arimidex -Acute kidney injury possibly from cardiorenal syndrome. Follow lites closely. -Acute metabolic/anoxic encephalopathy-not improving EEG negative for epilepsy. Patient is off sedatives. -Secondary pulmonary hypertension, multifactorial -Suspect acute on chronic cor pulmonale Fluid management -Hypertensive heart disease Follow blood pressure closely Prognosis guarded. Follow-up with multiple consultants. Continue current medications
[2021-03-24] MEDS: NOREPINEPHRINE 32 MG in SODIUM CHLORIDE 0.9% 218 ML IV SCH (14:15)
--- NOTE | 2021-03-24 15:16 | P.PN ---
Subjective Progress Note Date: 03/24/21 03/24/2021: Patient's grandson was present today. Patient is off sedation since 7:30 AM yesterday. No clinical improvement. Patient continues to be comatose. No seizure-like activity noted. 03/23/2021: Patient was seen for a follow-up. Patient initially seen by Dr. Tavares Maurer yesterday. Please refer to his note for details. Patient actually came to the hospital on 03/18/2021 with increasing shortness of breath, cough. Patient has history of COPD, atrial fibrillation, hypertension, renal disease. Patient has been on Edoxaban 30 mg every a.m., Lipitor 20 mg, Coreg, Arimidex losartan. Neurology was consulted for altered mental status. While in the ER, patient got up to go to the bathroom and then was found unresponsive in the bathroom. Patient had a cardiopulmonary arrest and received 2 rounds of epinephrine. Patient was down for about 5 minutes. It was felt to be a vasovagal syncope. Patient was intubated for airway protection. Patient was hypotensive and epinephrine started. 2-D echo revealed atrial fibrillation. Moderate concentric LVH, EF is 45-50%. Patient's EEG revealed frequent sharp and slow waves over the bilateral frontal region with episodes of moderate 4 date of 1-2 Hz delta activity that seems rhythmic and is concerning for seizures. The background slowing is suggestive of severe encephalopathy. Patient was given Ativan 4 mg, Keppra loaded with 1500 mg and started on 1000 mg every 12 hours. Patient's blood test shows WBC 11.0, hemoglobin 11.9, platelets 134. Sodium and potassium are normal, BUN 56 creatine 1.07. AST is normal, ALT mildly elevated 35. TSH is mildly decreased 0.40 and free T4 normal 1.62. SARS Cov-2 PCR negative. Patient also on Rocephin 1 g every 24 hours. Patient was seen in the ICU. Patient is off sedation since 7:30 AM. Patient continues to be comatose, not responding to vocal or tactile stimuli. Please refer to examination below. Objective - Vital Signs Vital signs: Vital Signs Temp 99.2 F 03/24/21 04:00 Pulse 52 L 03/24/21 12:37 Resp 30 H 03/24/21 07:00 BP 108/46 03/24/21 07:00 Pulse Ox 94 L 03/24/21 07:00 Intake & Output 03/23/21 03/24/21 03/24/21 18:59 06:59 18:59 Intake Total 2136.737 1962 169.182 Output Total 745 755 60 Balance 0273.937 9772 109.182 Weight 154.1 kg 154.1 kg Intake: IV 1236 1236 103 0.9 Normal Saline 36 36 3 Pressure Bag @ 3mL/hr Sodium Chloride 0.9% 1, 1200 1200 100 000 ml @ 100 mls/hr IV . Q10H [facility] Rx#:[id number] Intake, IV Titration 129.737 0 13.182 Amount Norepinephrine 32 mg In 29.737 0 13.182 Sodium Chloride 0.9% 218 ml @ 0.05 MCG/KG/MIN 3. 381 mls/hr IV .Q24H [facility] Rx#:[id number] propofoL 1,000 mg In 100 Empty Bag 1 bag @ Titrate IV .Q0M [facility] Rx#: [id number] Tube Feeding 636 636 53 Other 135 90 Output: Urine 745 755 60 Other: Voiding Method Indwelling Catheter Indwelling Catheter ABP, PAP, CO, CI - Last Documented Arterial Blood Pressure 109/101 - Exam GENERAL: The patient is an morbid obese lady, lying in bed and is not in acute distress. Patient has moderate peripheral edema. CHEST: The heart rate is regular rate rhythm. No murmurs to auscultation. LUNG: Clear to auscultation bilaterally no wheezing noted throughout. Not labored breathing. Intubated on ventilator (breathing over the lyla. NEUROLOGICAL: Patient is off sedation since 7:30 AM on 03/23/2021. Not showing any meaningful response. Higher mental function: The patient is comatose. GCS 3 (E1, V1, M1). No responsive or following commands. Patient does not open her eyes to calling her name or even with painful stimuli. After the pupils were checked, patient minimally opens the eyes, which is not purposeful, more reflexive with abnormal gaze. Cranial nerves: The patient does not open her eyes to calling her name or with painful stimuli. The pupils are round, equal (4-5mm) and reactive to light. Primary gaze is midline. Oculocephalics negative. Corneal negative. No facial weakness. Rest of cranial nerves could not be assessed. Motor: The strength is 0/5 and no movement even with painful stimuli. Slight decreased tone in upper. No spontaneous movement noted. Cerebellum: Could not assess. Sensation: Could not assess. But to painful stimuli not grimacing or withdrawing. Reflexes (right/left): Almost absent, except biceps is 1+ on the left. Plantars are upgoing bilaterally. - Labs CBC & Chem 7: 03/24/21 04:27 03/24/21 04:27 Labs: Abnormal Lab Results - Last 24 Hours (Table) 03/23/21 03/23/21 03/23/21 Range/Units 17:56 20:05 23:17 RBC (3.80-5.40) m/uL Hgb (11.4-16.0) gm/dL Hct (34.0-46.0) % MCV (80.0-100.0) fL Plt Count (150-450) k/uL Neutrophils # (1.3-7.7) k/uL Monocytes # (0-1.0) k/uL ABG pO2 (83-108) mmHg Chloride (98-107) mmol/L BUN (7-17) mg/dL Creatinine (0.52-1.04) mg/dL Glucose (74-99) mg/dL POC Glucose (mg/dL) 144 H 160 H (75-99) mg/dL Calcium (8.4-10.2) mg/dL Magnesium (1.6-2.3) mg/dL Ammonia 30 H (<30) umol/L Total Protein (6.3-8.2) g/dL Albumin (3.5-5.0) g/dL 03/24/21 03/24/21 03/24/21 Range/Units 04:27 04:27 04:27 RBC 3.25 L (3.80-5.40) m/uL Hgb 11.1 L (11.4-16.0) gm/dL Hct 32.6 L (34.0-46.0) % MCV 100.3 H (80.0-100.0) fL Plt Count 137 L (150-450) k/uL Neutrophils # 8.2 H (1.3-7.7) k/uL Monocytes # 1.1 H (0-1.0) k/uL ABG pO2 (83-108) mmHg Chloride 111 H (98-107) mmol/L BUN 58 H (7-17) mg/dL Creatinine 1.28 H (0.52-1.04) mg/dL Glucose 131 H (74-99) mg/dL POC Glucose (mg/dL) (75-99) mg/dL Calcium 8.1 L (8.4-10.2) mg/dL Magnesium 2.5 H (1.6-2.3) mg/dL Ammonia (<30) umol/L Total Protein 4.4 L (6.3-8.2) g/dL Albumin 2.3 L (3.5-5.0) g/dL 03/24/21 03/24/21 03/24/21 Range/Units 04:55 05:59 12:23 RBC (3.80-5.40) m/uL Hgb (11.4-16.0) gm/dL Hct (34.0-46.0) % MCV (80.0-100.0) fL Plt Count (150-450) k/uL Neutrophils # (1.3-7.7) k/uL Monocytes # (0-1.0) k/uL ABG pO2 70 L (83-108) mmHg Chloride (98-107) mmol/L BUN (7-17) mg/dL Creatinine (0.52-1.04) mg/dL Glucose (74-99) mg/dL POC Glucose (mg/dL) 139 H 125 H (75-99) mg/dL Calcium (8.4-10.2) mg/dL Magnesium (1.6-2.3) mg/dL Ammonia (<30) umol/L Total Protein (6.3-8.2) g/dL Albumin (3.5-5.0) g/dL Microbiology - Last 24 Hours (Table) 03/20/21 08:48 Blood Culture - Preliminary Blood No Growth after 96 hours 03/20/21 08:47 Blood Culture - Preliminary Blood No Growth after 96 hours Assessment and Plan Assessment: Persistent comatose state. Patient with history of cardiac arrest with downtime of 5 minutes. Patient also has metabolic encephalopathy, with acute UTI with E. coli. Possible Septic encephalopathy (UTI), URMILA on CKI--improving. Abnormal EEG, rule out status epilepticus. Status post Cardiopulmonary arrest lasting 5 minutes (Was suspected by ED team possible vasovagal syncope and patient with history of bradycardia and the atrial fibrillation with ejection fraction of 45-50%). Bradycardia (heart rate in 40-50). Acute urinary tract infection on ceftriaxone Status post intubation on mechanical intubation for airway protection Atrial fibrillation with bradycardia on anticoagulation (on Edoxaban) History of hypertension History of hyperlipidemia Morbid Obese Plan: Patient continues to be in a comatose state. Patient is off sedation since yesterday 7:30 AM. No clinical improvement noted. Patient underwent prolonged, 2.5 hours EEG 03/23/2021. It was abnormal. The diffuse synchronous and asynchronous delta range slowing mentioned above is not epileptiform in nature. This was low frequency low amplitude delta range slowing. The triphasic waves mentioned above are not epileptiform in nature. Triphasic waves can be seen in setting of metabolic encephalopathy. In combination, these findings indicate severe diffuse cerebral dysfunction as may be seen in a toxic metabolic or anoxic encephalopathy. No seizures were recorded. No epileptiform activity was present. Keppra was decreased to 750 mg twice a day. We will recheck EEG in the morning 03/25/2021. Initial CT Head (03/19/2021) and repeat CT of the head from 03/22/2021 negative for any acute process. 2-D echo was reported as atrial fibrillation. Moderate concentric left ventricular hypertrophy. Ejection fraction of 45-50%. Left atrium is mildly dilated that. Moderate pulmonary hypertension. EKG was reported as atrial fibrillation with slow ventricular response. Left axis deviation. Pulmonary disease pattern. Incomplete right bundle branch block. Inferior infarct, age undetermined. Assess T and T-wave abnormality, consider anterolateral ischemia or digitalis effect. Abnormal EKG. Patient on anticoagulation. AST of 27 and ALT of 35, improved. Ammonia level is borderline 30 (range <30). TSH of 0.408 which is low but the free T4 is 1.62 which is normal. SARS Covid-2 PCR was not detected EEG (03/22/2021) Preliminary report: It was an abnormal EEG. The Frequent Sharps and slow waves over the bilateral frontal region with episodes of moderate voltage of 1-2 delta activity that seems rhythmic is concerning for seizure. The background slowing is suggestive of severe encephalopathy. I spoke to patient's grandson, who mentions that patient was mentally perfectly normal before this cardiac arrest. Patient used to walk with a cane and a walker. She has some breathing difficulty but otherwise was functioning well.
[2021-03-24 17:43] LABS: Glucose,Whole Blood 126 mg/dL (75-99)
[2021-03-24] MEDS: ATORVASTATIN 10 MG TAB PO SCH (20:48)
[2021-03-24 23:39] LABS: Glucose,Whole Blood 144 mg/dL (75-99)
[2021-03-25] MEDS: HYDROmorphone 0.5 MG/0.5 ML SYRINGE IVP PRN ×2 (01:00→20:09)
[2021-03-25] MEDS: IPRATROPIUM-ALBUTEROL 3 ML NEB INHALATION SCH ×5 (03:00→20:56)
[2021-03-25 05:18] LABS: Glucose,Whole Blood 154 mg/dL (75-99)
[2021-03-25 05:23] LABS: ABG Base Excess -1.5 mmol/L; ABG HCO3 23 mmol/L (21-25); ABG Oxygen Saturation 93.7 % (94-97); ABG PCO2 36 mmHg (35-45); ABG PH 7.42 (7.35-7.45); ABG PO2 69 mmHg (83-108); ABG TCO2 24 mmol/L (19-24)
[2021-03-25] MEDS: INSULIN ASPART (NovoLOG) 100 UNIT/ML VIAL SQ SCH ×4 (05:29→23:56)
[2021-03-25] MEDS: SODIUM CHLORIDE 0.9% 1,000 ML IV SCH ×3 (05:29→10:14)
[2021-03-25 05:34] LABS: Basophils % (A) 0 %; Eosinophils # (A) 0.1 k/uL (0-0.7); Eosinophils % (A) 1 %; HCT 33.4 % (34.0-46.0); HGB 11.2 gm/dL (11.4-16.0); Lymphocytes # (A) 1.1 k/uL (1.0-4.8); Lymphocytes % (A) 9 %; MCH 34.2 pg (25.0-35.0); MCHC 33.6 g/dL (31.0-37.0); MCV 101.8 fL (80.0-100.0); Macrocytosis Slight; Mean Platelet Volume 9.8; Monocytes # (A) 0.8 k/uL (0-1.0); Monocytes % (A) 6 %; Neutrophils # (A) 10.4 k/uL (1.3-7.7); Neutrophils % (A) 83 %; Platelet Count 139 k/uL (150-450); RBC 3.28 m/uL (3.80-5.40); RDW 14.3 % (11.5-15.5); WBC 12.6 k/uL (3.8-10.6)
[2021-03-25 05:47] LABS: Albumin 2.3 g/dL (3.5-5.0); Calcium 8.5 mg/dL (8.4-10.2); Potassium 4.4 mmol/L (3.5-5.1); Total Bilirubin 0.6 mg/dL (0.2-1.3); Total Protein 4.5 g/dL (6.3-8.2)
[2021-03-25 06:26] LABS: Allen Test Performed? yes
[2021-03-25] MEDS: VIT A,C & E-LUTEIN-MINERALS 1 EACH TAB PO SCH ×2 (08:43→20:09)
[2021-03-25] MEDS: CHLORHEXIDINE GLUCONATE 15 ML CUP MUCOUS MEM SCH ×2 (08:44→20:08)
[2021-03-25] MEDS: ANASTROZOLE 1 MG TAB PO SCH (08:44)
[2021-03-25] MEDS: levETIRAcetam IV 750 MG in SODIUM CHLORIDE 0.9% 100 ML IVPB SCH ×2 (08:44→20:08)
[2021-03-25] MEDS: allopurinoL 100 MG TAB PO SCH (08:44)
[2021-03-25] MEDS: EDOXABAN TOSYLATE 30 MG TABLET PO SCH (08:44)
[2021-03-25] MEDS: PANTOPRAZOLE 40 MG/10 ML VIAL IVP SCH (08:44)
--- NOTE | 2021-03-25 09:08 | P.PN ---
Subjective Progress Note Date: 03/25/21 80-year-old female patient with known history of chronic atrial fibrillation, bronchial asthma, hypertension, hyperlipidemia and chronic kidney disease who is being seen in the intensive care unit and a follow-up on 03/23/2021 as the patient was brought into the intensive care unit after she suffered a cardiac arrest related patient was found to be unconscious in the bathroom in the emergency department where she was intubated and placed on mechanical ventilator resuscitated and following that she was brought into the intensive care units. On today's evaluation, the patient remains on a mechanical ventilator assist control mode at the rate of 14 with a tidal volume of 450 and FiO2 of 40% with a PEEP of 5. A sedation holiday was given to her over the past 48 hours and the patient demonstrated increased respiratory rate, restlessness and agitation and she was not following any commands. Based on that, the patient was kept sedated with propofol which is running at 25 mg/kg per minute. Repeat EKG was done yesterday and was quite abnormal and the patient was found to have sharp and slow waves over the bilateral frontal region concerning for seizure. No focal slowing. CAT scan of the brain showed diffuse atrophy. No other acute abnormalities have been noted. The patient was started on Keppra 1 g every 12 hours. The patient had a cardiac arrest for approximately 5 minutes as suspec raymundo by the emergency department team. The echocardiogram showed atrial fibrillation. The left-sided percent was normal. There was moderate concentric left ventricular hypertrophy. Overall LV function was normal with an ejection fraction of 45-50%. RV was severely enlarged. No pericardial effusion. Hemodynamically, the patient is still requiring pressors with norepinephrine running at 0.4 mcg/kg per minute. The patient is also on normal saline at the rate of 100 mL an hour and the patient is receiving enteral feeding for nutritional support with vital high protein at the rate of 40 mL an hour. Urine output is noted of 20-40 mL an hour. Chest x-ray showing bilateral pulmonary infiltrates and pleural effusions and urine cultures positive for E. coli. COVID-19 testing was negative. Influenza screen was negative. Serum cortisol was 38, pro-calcitonin level was 0.52 and the UA was normal and there was E. coli growing in the urine culture. This morning, the patient remains sedated with propofol which is running at 25 mcg/kg per minute. The patient remains on the same ventilator settings. Blood gases from this morning shows a pH of 7.38 with a pCO2 of 38 and pO2 of 128. The chest x-ray showing a some mild cardiomegaly and some interstitial infiltrates bilaterally. Pulmonary arteries are also prominent. ET tube is in a good location. The patient has a left subclavian triple-lumen catheter in place. OG tube is also in good location. The creatinine is improving is currently down to 1.27. BUN is at 56. White cell count is at 11. Remains on low-dose norepinephrine infusion for blood pressure support and remains on IV Rocephin. Evaluation of , the patient is being seen for a follow-up. Since I evaluation yesterday, the patient has been off sedation and unfortunately we have not seen any reasonable neurological recovery. The patient has brainstem reflexes. Nevertheless, she does not grimace or respond to any deep painful stimulation. She does not respond to any verbal stimulation. She has been off sedation for now. She is on a mechanical ventilator. This morning she is on no sedation, assist-control mode at the rate of 14 with a tidal volume of 450 and FiO2 of 30% with a PEEP of 5. The chest x-ray from today shows no major interval change. ET tube is in a good location. Some mild cardiomegaly and mild pulmonary vessel congestion. The blood gases from today shows a pH of 7.41 with a pCO2 of 36 and pO2 of 70 and this was done and FiO2 of 30%. The patient hemodynamically remains in the low right atrial fibrillation. She is on norepinephrine infusion running at 0.02 mcg/kg per minute. She is producing adequate amount of urine output. Echocardiogram that was done earlier showed a relatively preserved LV function with mild LV impairment with an ejection fraction of 45-50%. The patient is on long-term anticoagulation with Savaysa in terms of her unresponsiveness, the patient underwent further workup by neurology. A prolonged EEG was done yesterday that showed significant abnormalities with diffuse synchronous/asynchronous Doppler wave range slowing and no evidence of any seizure activity was noted. This was consistent with severe dyspnea diffuse cerebral dysfunction which could be seen with toxic metabolic encephalopathy versus anoxic encephalopathy.. Her last CAT scan of the head was on 03/22/2021 and it showed no acute abnormalities. Meanwhile, the patient is being supported. She is being treated for an E. coli urinary tract infection with Rocephin. She is also receiving enteral feeding for nutritional support. She has an OG tube in place and currently she is on vital high protein at the rate of 53 mL an hour which is at goal. Ammonia level was at 33. No hepatic dysfunction at this point in time. 03/25/2021, the patient remains unresponsive on a mechanical ventilator. His been off sedation for more than 48 hours have not seen any reasonable neurological recovery. Neurologist on the case. She is currently on a mechanical ventilator. She remains on assist control mode at the rate of 14 with a tidal volume of 450 and FiO2 of 30%. Chest x-ray shows no major interval change. ET tube is in a good location. No evidence of any pneumothorax. There is some underlying cardiomegaly. No other significant abnormalities noted. The peak airway pressures around 27 for now. Meanwhile, the blood gases from today is showing pH of 7.4 with a pCO2 of 36 and pO2 of 68. As such, the overall pulmonary status is stable for now. Hemodynamically, she remains in lowering atrial fibrillation. He was taken off the pressors yesterday and she has been off pressors for the past 12 hours at least. He is producing adequate amount of urine output. Fluid is in order of 100 mL of normal saline and she has a good urine output. The patient remains on long-term anticoagulation. The patient is going to have another EEG monitor today we are awaiting further input from neurology regarding her altered mentation. She is on Rocephin regarding follow urine tract infection. She is tolerating her enteral feeding which is in order of 53 mL an hour of Nepro Objective - Vital Signs Vital signs: Vital Signs Temp 99.8 F H 03/25/21 08:00 Pulse 47 L 03/25/21 08:00 Resp 24 03/25/21 08:00 BP 118/53 03/25/21 08:00 Pulse Ox 93 L 03/25/21 08:00 Intake & Output 03/24/21 03/25/21 03/25/21 18:59 06:59 18:59 Intake Total 8249.051 7162 336 Output Total 785 610 105 Balance 3242.498 4774 231 Weight 154.1 kg 156.4 kg Intake: IV 1236 1236 206 0.9 Normal Saline 36 36 6 Pressure Bag @ 3mL/hr Sodium Chloride 0.9% 1, 1200 1200 200 000 ml @ 100 mls/hr IV . Q10H [facility] Rx#:[id number] Intake, IV Titration 13.182 Amount Norepinephrine 32 mg In 13.182 Sodium Chloride 0.9% 218 ml @ 0.05 MCG/KG/MIN 3. 381 mls/hr IV .Q24H [facility] Rx#:[id number] Tube Feeding 636 600 100 Other 90 90 30 Output: Urine 785 610 105 Other: Voiding Method Indwelling Catheter Indwelling Catheter Indwelling Catheter ABP, PAP, CO, CI - Last Documented Arterial Blood Pressure 109/101 - Exam GENERAL EXAM: Intubated, sedated, morbidly obese 80-year-old female patient, in no apparent distress. Unresponsive off sedation HEAD: Normocephalic. EYES: Sluggish reaction of pupils, equal size. NOSE: Clear with pink turbinates. THROAT: Oral endotracheal tube and gastric tube secured in place. No erythema or exudates. NECK: No masses, no JVD. CHEST: No chest wall deformity. LUNGS: Equal air entry with few bilateral scattered rhonchi. CVS: S1 and S2 normal with no audible murmur, regular rhythm. ABDOMEN: No hepatosplenomegaly, normal bowel sounds, no guarding or rigidity. SPINE: No scoliosis or deformity SKIN: No rashes CENTRAL NERVOUS SYSTEM: No focal deficits, tone is normal in all 4 extremities. The patient has brainstem reflexes. She has pupillary reflex. She has corneal reflex. She has a gag reflex. Babinski is equivocal. Reflexes are diminished in all 4 extremities. No facial asymmetry. On unresponsive to any verbal or painful stimulation. The neurologic examination remains unchanged. Cranial nerves are still present. The patient continues to have a positive cough and a gag and positive corneal. EXTREMITIES: There is no peripheral edema. No clubbing, no cyanosis. Periph eral pulses are intact. - Labs CBC & Chem 7: 03/25/21 05:00 03/25/21 05:00 Labs: Abnormal Lab Results - Last 24 Hours (Table) 03/24/21 03/24/21 03/24/21 Range/Units 12:23 17:42 23:37 WBC (3.8-10.6) k/uL RBC (3.80-5.40) m/uL Hgb (11.4-16.0) gm/dL Hct (34.0-46.0) % MCV (80.0-100.0) fL Plt Count (150-450) k/uL Neutrophils # (1.3-7.7) k/uL ABG pO2 (83-108) mmHg ABG O2 Saturation (94-97) % Chloride (98-107) mmol/L BUN (7-17) mg/dL Creatinine (0.52-1.04) mg/dL Glucose (74-99) mg/dL POC Glucose (mg/dL) 125 H 126 H 144 H (75-99) mg/dL AST (14-36) U/L ALT (4-34) U/L Total Protein (6.3-8.2) g/dL Albumin (3.5-5.0) g/dL 03/25/21 03/25/21 03/25/21 Range/Units 05:00 05:00 05:16 WBC 12.6 H (3.8-10.6) k/uL RBC 3.28 L (3.80-5.40) m/uL Hgb 11.2 L (11.4-16.0) gm/dL Hct 33.4 L (34.0-46.0) % MCV 101.8 H (80.0-100.0) fL Plt Count 139 L (150-450) k/uL Neutrophils # 10.4 H (1.3-7.7) k/uL ABG pO2 (83-108) mmHg ABG O2 Saturation (94-97) % Chloride 114 H (98-107) mmol/L BUN 59 H (7-17) mg/dL Creatinine 1.17 H (0.52-1.04) mg/dL Glucose 151 H (74-99) mg/dL POC Glucose (mg/dL) 154 H (75-99) mg/dL AST 38 H (14-36) U/L ALT 35 H (4-34) U/L Total Protein 4.5 L (6.3-8.2) g/dL Albumin 2.3 L (3.5-5.0) g/dL 03/25/21 Range/Units 05:21 WBC (3.8-10.6) k/uL RBC (3.80-5.40) m/uL Hgb (11.4-16.0) gm/dL Hct (34.0-46.0) % MCV (80.0-100.0) fL Plt Count (150-450) k/uL Neutrophils # (1.3-7.7) k/uL ABG pO2 69 L (83-108) mmHg ABG O2 Saturation 93.7 L (94-97) % Chloride (98-107) mmol/L BUN (7-17) mg/dL Creatinine (0.52-1.04) mg/dL Glucose (74-99) mg/dL POC Glucose (mg/dL) (75-99) mg/dL AST (14-36) U/L ALT (4-34) U/L Total Protein (6.3-8.2) g/dL Albumin (3.5-5.0) g/dL Microbiology - Last 24 Hours (Table) 03/20/21 08:48 Blood Culture - Preliminary Blood No Growth after 96 hours 03/20/21 08:47 Blood Culture - Preliminary Blood No Growth after 96 hours Assessment and Plan Plan: 1 Status post cardiopulmonary arrest, in a patient with a history of bradycardia, and slow atrial fibrillation. Impaired left ventricular systolic function with ejection fraction 45-50%. Cardiac arrest lasting for around 5 minutes as suspected by the emergency department team and the patient was quite bradycardic in atrial fibrillation following that. Nevertheless, the patient remains unresponsive and I suspect that the address was probably longer contributing to hypoxic encephalopathy. EEG was done yesterday and was quite abnormal with cerebral dysfunction that was diffuse consistent with anoxic/metabolic encephalopathy. Meanwhile, the patient has a right-sided failure with significant enlargement of the right ventricular severe pulmonary hypertension. I have a suspicion that she has chronic hypoxemic and hypercapnic respiratory failure and her right ventricular findings are essentially chronic and she has a component of cor pulmonale. On today's evaluation of 03/25/2021, the patient remains unresponsive and her neurologic status remains quite impaired and the patient is comatose. Cranial nerves are intact. No cortical function. No alertness. No weakness. No response to any painful stimulation. A repeat EEG to be done. Earlier EKG showed cerebral dysfunction that was quite severe 2 Status post intubation and mechanical ventilation, for airway protection, 03/19/2021. 3 Hypotension, secondary to above, requiring pressor support and the patient is currently on low-dose norepinephrine 4 History of hyperlipidemia. 5 History of hypertension. 6 History of chronic atrial fibrillation with bradycardia. The patient is on long-term and to coagulation with Savaysa 7 History of chronic kidney disease. Creatinine stable at 1.1 8 Recent sinus infection. 9 Obesity. 10 acute Urinary tract infection secondary to E. coli, currently on ceftriaxone, pro-calcitonin level was mildly elevated, and the patient's white cell count is improving 11 History of COPD/asthma. 12 obesity 13 altered mental status, consider x-ray encephalopathy. CT of the head in the cervical spine on 03/19/2021: CT of the brain it is reported as no acute intracranial process identified. CT cervical spine is reported as no acute osseous traumatic injury or significant abnormal alignment involving the cervical spine. Incidental degenerative changes at. No severe osseous canal stenosis. Plan IV fluids to KVO Given a dose of Lasix 40 mg IV push to maintain adequate fluid balance She is currently off pressors Continuel feeding for nutritional support, She is currently receiving Nepro at 50 mL an hour. Vasopressin to clinic no Continue anticoagulation with Savaysa No Ventilator changes for today Repeat EEG today for Obviously the concern is still the patient's unresponsiveness which could be a sign of hypoxic encephalopathy. Neurology is consulted Pro-calcitonin level is improving We'll continue to follow and make further recommendations based on her clinical status She has been off sedation for the past 48 hours and I have not seen any reasonable neurologic Critical care time > 30 minutes Time with Patient: Greater than 30
[2021-03-25] MEDS ORDERED: FUROSEMIDE 10 MG/ML 4 ML VIAL IV STA (09:27)
--- NOTE | 2021-03-25 09:32 | XR ---
EXAMINATION TYPE: XR chest 1V portable DATE OF EXAM: 03/25/2021 CLINICAL HISTORY: Tube placement. TECHNIQUE: Portable semiupright view of the chest. COMPARISON: 03/24/2021 FINDINGS: Endotracheal tube distal tip at the superior aspect of the clavicular heads, approximately 4.9 cm from the armaan. Enteric tube with nonvisualization of the distal tip. Left internal jugular c entral venous catheter redemonstrated. Low lung volumes. Perihilar opacities and small left pleural e ffusion unchanged. Cardiac silhouette normal. IMPRESSION: 1. Perihilar opacities and small left pleural effusion unchanged versus 03/24/2021. 2. Endotracheal tube distal tip 4.9 cm and the armaan.
--- NOTE | 2021-03-25 09:41 | P.PN ---
Subjective This is Barrera remains intubated with heart rate in the 40s to 50s. Neurologic status continues to be questionable. No plans for pacemaker at this time. According to the nurse they are doing a repeat EEG this morning to assess neurologic function. Blood pressure 118/53 heart rate 47 afebrile maintaining oxygen saturation on mechanical ventilation. Laboratory data reviewed, WBC 12.6, hgb 11.2, plt 139, sodium 143, potassium 4.4, creatinine 1.17. GENERAL: In no acute distress maintained on mechanical ventilator, non- responsive NECK: Supple with + JVD or thyromegaly. LUNGS: Breath sounds clear to auscultation bilaterally. Respiration equal and unlabored. No wheezes, rales or rhonchi. Diminished bilaterally. HEART: Regular rate and rhythm with systolic ejection murmur at the base, no rubs or gallops. S1 and S2 heard. EXTREMITIES: Normal range of motion, no edema. No clubbing or cyanosis. Peripheral pulses intact. ASSESSMENT Status post cardiopulmonary arrest Chronic persistent atrial fibrillation with slow ventricular response Hypertension Dyslipidemia PLAN Continue current medical regimen. No plans for pacemaker at this time. Prognosis remains poor with questionable mentation. We will follow along as needed. Nurse Practitioner note has been reviewed, I agree with a documented findings and plan of care. Patient was seen and examined. Objective - Vital Signs Vital signs: Vital Signs Temp 99.8 F H 03/25/21 08:00 Pulse 47 L 03/25/21 08:00 Resp 24 03/25/21 08:00 BP 118/53 03/25/21 08:00 Pulse Ox 93 L 03/25/21 08:00 Intake & Output 03/24/21 03/25/21 03/25/21 18:59 06:59 18:59 Intake Total 5753.242 8647 336 Output Total 785 610 105 Balance 7746.599 0145 231 Weight 154.1 kg 156.4 kg Intake: IV 1236 1236 206 0.9 Normal Saline 36 36 6 Pressure Bag @ 3mL/hr Sodium Chloride 0.9% 1, 1200 1200 200 000 ml @ 100 mls/hr IV . Q10H [facility] Rx#:[id number] Intake, IV Titration 13.182 Amount Norepinephrine 32 mg In 13.182 Sodium Chloride 0.9% 218 ml @ 0.05 MCG/KG/MIN 3. 381 mls/hr IV .Q24H [facility] Rx#:[id number] Tube Feeding 636 600 100 Other 90 90 30 Output: Urine 785 610 105 Other: Voiding Method Indwelling Catheter Indwelling Catheter Indwelling Catheter ABP, PAP, CO, CI - Last Documented Arterial Blood Pressure 109/101 - Labs CBC & Chem 7: 03/25/21 05:00 03/25/21 05:00 Labs: Abnormal Lab Results - Last 24 Hours (Table) 03/24/21 03/24/21 03/24/21 Range/Units 12:23 17:42 23:37 WBC (3.8-10.6) k/uL RBC (3.80-5.40) m/uL Hgb (11.4-16.0) gm/dL Hct (34.0-46.0) % MCV (80.0-100.0) fL Plt Count (150-450) k/uL Neutrophils # (1.3-7.7) k/uL ABG pO2 (83-108) mmHg ABG O2 Saturation (94-97) % Chloride (98-107) mmol/L BUN (7-17) mg/dL Creatinine (0.52-1.04) mg/dL Glucose (74-99) mg/dL POC Glucose (mg/dL) 125 H 126 H 144 H (75-99) mg/dL AST (14-36) U/L ALT (4-34) U/L Total Protein (6.3-8.2) g/dL Albumin (3.5-5.0) g/dL 03/25/21 03/25/21 03/25/21 Range/Units 05:00 05:00 05:16 WBC 12.6 H (3.8-10.6) k/uL RBC 3.28 L (3.80-5.40) m/uL Hgb 11.2 L (11.4-16.0) gm/dL Hct 33.4 L (34.0-46.0) % MCV 101.8 H (80.0-100.0) fL Plt Count 139 L (150-450) k/uL Neutrophils # 10.4 H (1.3-7.7) k/uL ABG pO2 (83-108) mmHg ABG O2 Saturation (94-97) % Chloride 114 H (98-107) mmol/L BUN 59 H (7-17) mg/dL Creatinine 1.17 H (0.52-1.04) mg/dL Glucose 151 H (74-99) mg/dL POC Glucose (mg/dL) 154 H (75-99) mg/dL AST 38 H (14-36) U/L ALT 35 H (4-34) U/L Total Protein 4.5 L (6.3-8.2) g/dL Albumin 2.3 L (3.5-5.0) g/dL 03/25/21 Range/Units 05:21 WBC (3.8-10.6) k/uL RBC (3.80-5.40) m/uL Hgb (11.4-16.0) gm/dL Hct (34.0-46.0) % MCV (80.0-100.0) fL Plt Count (150-450) k/uL Neutrophils # (1.3-7.7) k/uL ABG pO2 69 L (83-108) mmHg ABG O2 Saturation 93.7 L (94-97) % Chloride (98-107) mmol/L BUN (7-17) mg/dL Creatinine (0.52-1.04) mg/dL Glucose (74-99) mg/dL POC Glucose (mg/dL) (75-99) mg/dL AST (14-36) U/L ALT (4-34) U/L Total Protein (6.3-8.2) g/dL Albumin (3.5-5.0) g/dL Microbiology - Last 24 Hours (Table) 03/20/21 08:48 Blood Culture - Preliminary Blood No Growth after 96 hours 03/20/21 08:47 Blood Culture - Preliminary Blood No Growth after 96 hours
[2021-03-25] MEDS ORDERED: FUROSEMIDE 10 MG/ML 10 ML VIAL IV STA (11:02)
[2021-03-25 12:04] LABS: Glucose,Whole Blood 152 mg/dL (75-99)
[2021-03-25 14:15] LABS: Calcium 8.5 mg/dL (8.4-10.2); Magnesium 2.5 mg/dL (1.6-2.3); Potassium 3.9 mmol/L (3.5-5.1)
[2021-03-25] MEDS ORDERED: Potassium Replacement Protocol 1 EACH MISC MISCELLANE PRN (14:42)
[2021-03-25] MEDS ORDERED: POTASSIUM BICARBONATE/CIT AC 20 MEQ TABLET.EFF NG-TUBE SCH (15:00)
--- NOTE | 2021-03-25 16:36 | P.PN ---
Subjective Progress Note Date: 03/25/21 03/25/2021: Patient was seen for a follow-up. Patient is undergoing a prolonged, 2.5 hours EEG. No convulsive activity was noted earlier or while I examined the patient. However later on the decontamination technician witnessed some fine tremors of the hand, left or both hands. Patient is not on any sedation. 03/24/2021: Patient's grandson was present today. Patient is off sedation since 7:30 AM yesterday. No clinical improvement. Patient continues to be comatose. No seizure-like activity noted. 03/23/2021: Patient was seen for a follow-up. Patient initially seen by Dr. Tavares Maurer yesterday. Please refer to his note for details. Patient actually came to the hospital on 03/18/2021 with increasing shortness of breath, cough. Patient has history of COPD, atrial fibrillation, hypertension, renal disease. Patient has been on Edoxaban 30 mg every a.m., Lipitor 20 mg, Coreg, Arimidex losartan. Neurology was consulted for altered mental status. While in the ER, patient got up to go to the bathroom and then was found unresponsive in the bathroom. Patient had a cardiopulmonary arrest and received 2 rounds of epinephrine. Patient was down for about 5 minutes. It was felt to be a vasovagal syncope. Patient was intubated for airway protection. Patient was hypotensive and epinephrine started. 2-D echo revealed atrial fibrillation. Moderate concentric LVH, EF is 45-50%. Patient's EEG revealed frequent sharp and slow waves over the bilateral frontal region with episodes of moderate 4 date of 1-2 Hz delta activity that seems rhythmic and is concerning for seizures. The background slowing is suggestive of severe encephalopathy. Patient was given Ativan 4 mg, Keppra loaded with 150 0 mg and started on 1000 mg every 12 hours. Patient's blood test shows WBC 11.0, hemoglobin 11.9, platelets 134. Sodium and potassium are normal, BUN 56 creatine 1.07. AST is normal, ALT mildly elevated 35. TSH is mildly decreased 0.40 and free T4 normal 1.62. SARS Cov-2 PCR negative. Patient also on Rocephin 1 g every 24 hours. Patient was seen in the ICU. Patient is off sedation since 7:30 AM. Patient continues to be comatose, not responding to vocal or tactile stimuli. Please refer to examination below. Objective - Vital Signs Vital signs: Vital Signs Temp 99.6 F 03/25/21 12:00 Pulse 44 L 03/25/21 16:00 Resp 27 H 03/25/21 16:00 BP 118/45 03/25/21 16:00 Pulse Ox 95 03/25/21 16:00 Intake & Output 03/24/21 03/25/21 03/25/21 18:59 06:59 18:59 Intake Total 3483.613 4485 974 Output Total 941 351 4489 Balance 1643.921 0230 -766 Weight 154.1 kg 156.4 kg Intake: IV 1236 1236 384 0.9 Normal Saline 36 36 24 Pressure Bag @ 3mL/hr Sodium Chloride 0.9% 1, 1200 1200 360 000 ml @ 100 mls/hr IV . Q10H [facility] Rx#:[id number] Intake, IV Titration 13.182 Amount Norepinephrine 32 mg In 13.182 Sodium Chloride 0.9% 218 ml @ 0.05 MCG/KG/MIN 3. 381 mls/hr IV .Q24H [facility] Rx#:[id number] Tube Feeding 636 600 500 Other 90 90 90 Output: Urine 650 351 0521 Other: Voiding Method Indwelling Catheter Indwelling Catheter Indwelling Catheter ABP, PAP, CO, CI - Last Documented Arterial Blood Pressure 109/101 - Exam GENERAL: The patient is an morbid obese lady, lying in bed. Patient is on mechanical ventilation. Patient appears to be often coughing, tachypneic. Patient has moderate peripheral edema. CHEST: The heart rate is regular rate rhythm. No murmurs to auscultation. LUNG: Not labored breathing. Intubated on ventilator (breathing over the vent). NEUROLOGICAL: Patient is off sedation since 7:30 AM on 03/23/2021. Not showing any meaningful response. Higher mental function: The patient is comatose. GCS 3 (E1, V1, M1). No responsive or following commands. Patient does not open her eyes to calling her name or even with painful stimuli. Cranial nerves: The patient does not open her eyes to calling her name or with painful stimuli. The pupils are round, equal (4-5mm) and reactive to light. Primary gaze is midline. Oculocephalics negative. Corneal negative. No obvious facial weakness. Rest of cranial nerves could not be assessed. Motor: The strength is 0/5 and no movement even with painful stimuli. Slight decreased tone in upper. No spontaneous movement noted. Cerebellum: Could not assess. Sensation: Could not assess. But to painful stimuli not grimacing or withdrawing. Reflexes (right/left): Almost absent, except biceps is 1+ on the left. Plantars are upgoing bilaterally. - Labs CBC & Chem 7: 03/25/21 05:00 03/25/21 13:36 Labs: Abnormal Lab Results - Last 24 Hours (Table) 03/24/21 03/24/21 03/25/21 Range/Units 17:42 23:37 05:00 WBC 12.6 H (3.8-10.6) k/uL RBC 3.28 L (3.80-5.40) m/uL Hgb 11.2 L (11.4-16.0) gm/dL Hct 33.4 L (34.0-46.0) % MCV 101.8 H (80.0-100.0) fL Plt Count 139 L (150-450) k/uL Neutrophils # 10.4 H (1.3-7.7) k/uL ABG pO2 (83-108) mmHg ABG O2 Saturation (94-97) % Chloride (98-107) mmol/L BUN (7-17) mg/dL Creatinine (0.52-1.04) mg/dL Glucose (74-99) mg/dL POC Glucose (mg/dL) 126 H 144 H (75-99) mg/dL Magnesium (1.6-2.3) mg/dL AST (14-36) U/L ALT (4-34) U/L Total Protein (6.3-8.2) g/dL Albumin (3.5-5.0) g/dL 03/25/21 03/25/21 03/25/21 Range/Units 05:00 05:16 05:21 WBC (3.8-10.6) k/uL RBC (3.80-5.40) m/uL Hgb (11.4-16.0) gm/dL Hct (34.0-46.0) % MCV (80.0-100.0) fL Plt Count (150-450) k/uL Neutrophils # (1.3-7.7) k/uL ABG pO2 69 L (83-108) mmHg ABG O2 Saturation 93.7 L (94-97) % Chloride 114 H (98-107) mmol/L BUN 59 H (7-17) mg/dL Creatinine 1.17 H (0.52-1.04) mg/dL Glucose 151 H (74-99) mg/dL POC Glucose (mg/dL) 154 H (75-99) mg/dL Magnesium (1.6-2.3) mg/dL AST 38 H (14-36) U/L ALT 35 H (4-34) U/L Total Protein 4.5 L (6.3-8.2) g/dL Albumin 2.3 L (3.5-5.0) g/dL 03/25/21 03/25/21 Range/Units 12:01 13:36 WBC (3.8-10.6) k/uL RBC (3.80-5.40) m/uL Hgb (11.4-16.0) gm/dL Hct (34.0-46.0) % MCV (80.0-100.0) fL Plt Count (150-450) k/uL Neutrophils # (1.3-7.7) k/uL ABG pO2 (83-108) mmHg ABG O2 Saturation (94-97) % Chloride 114 H (98-107) mmol/L BUN 60 H (7-17) mg/dL Creatinine 1.13 H (0.52-1.04) mg/dL Glucose 156 H (74-99) mg/dL POC Glucose (mg/dL) 152 H (75-99) mg/dL Magnesium 2.5 H (1.6-2.3) mg/dL AST (14-36) U/L ALT (4-34) U/L Total Protein (6.3-8.2) g/dL Albumin (3.5-5.0) g/dL Microbiology - Last 24 Hours (Table) 03/20/21 08:47 Blood Culture - Preliminary Blood No Growth after 120 hours 03/20/21 08:48 Blood Culture - Preliminary Blood No Growth after 120 hours Assessment and Plan Assessment: * Persistent comatose state. Patient with history of cardiac arrest with reported downtime of 5 minutes. Patient also has severe metabolic encephalopathy, with acute UTI with E. coli, acute kidney injury, mild hepatic dysfunction, possible pneumonia. Patient continues to have low-grade fever, hypoxemia with pO2 running between around 70, borderline ammonia, mildly thyroid dysfunction, hyperphosphatemia, hypermagnesemia. * Abnormal EEG, with evidence of persistent diffuse slowing, triphasic waves suggestive of severe metabolic and/or anoxic encephalopathy. * Status post Cardiopulmonary arrest lasting 5 minutes (Was suspected by ED team possible vasovagal syncope and patient with history of bradycardia and the atrial fibrillation with ejection fraction of 45-50%). * Bradycardia (heart rate in 40-50). * Acute urinary tract infection on ceftriaxone * Status post intubation on mechanical intubation for airway protection * Atrial fibrillation with bradycardia on anticoagulation (on Edoxaban) * History of hypertension * History of hyperlipidemia * Morbid Obese Plan: Patient continues to be in a comatose state with GCS of 3. Patient is off sedat ion since 7:30 AM on 03/23/2021. No clinical improvement noted. Patient's Keppra was reduced based upon the results of EEG. Today the EEG was repeated, and apparently showed the same abnormality, with diffuse delta slowing and some triphasic waves. Patient has some tremors noted of the hands, but there was no electrographic correlate with it. The tremors were possible metabolic in nature. No evidence of status epilepticus. Overall prognosis appears poor based upon her current neurological status. Official EEG report pending. Patient underwent prolonged, 2.5 hours EEG 03/23/2021. It was abnormal. The diffuse synchronous and asynchronous delta range slowing mentioned above is not epileptiform in nature. This was low frequency low amplitude delta range slowing. The triphasic waves mentioned above are not epileptiform in nature. Triphasic waves can be seen in setting of metabolic encephalopathy. In combination, these findings indicate severe diffuse cerebral dysfunction as may be seen in a toxic metabolic or anoxic encephalopathy. No seizures were recorded. No epileptiform activity was present. Continue Keppra 750 mg twice a day. Initial CT Head (03/19/2021) and repeat CT of the head from 03/22/2021 negative for any acute process. 2-D echo was reported as atrial fibrillation. Moderate concentric left ventricular hypertrophy. Ejection fraction of 45-50%. Left atrium is mildly dilated that. Moderate pulmonary hypertension. EKG was reported as atrial fibrillation with slow ventricular response. Left axis deviation. Pulmonary disease pattern. Incomplete right bundle branch block. Inferior infarct, age undetermined. Assess T and T-wave abnormality, consider anterolateral ischemia or digitalis effect. Abnormal EKG. Patient on anticoagulation. AST of 38 and ALT of 35, improved. Ammonia level is borderline 30 (range <30). TSH of 0.408 which is low but the free T4 is 1.62 which is normal. SARS Covid-2 PCR was not detected EEG (03/22/2021) Preliminary report: It was an abnormal EEG. The Frequent Sharps and slow waves over the bilateral frontal region with episodes of moderate voltage of 1-2 delta activity that seems rhythmic is concerning for seizure. The background slowing is suggestive of severe encephalopathy. I spoke to patient's grandson, who mentions that patient was mentally perfectly normal before this cardiac arrest. Patient used to walk with a cane and a walker. She has some breathing difficulty but otherwise was functioning well. I will try to speak to patient's daughter. Discussed with Dr. Felipe in detail. Discussed with Dr. Santiago about the EEGs. I also personally reviewed EEGs. Repeat CT head, consider lumbar puncture to rule out any other avenues. Patient would need to discontinue anticoagulation, which will pose risk for embolic stroke. Overall prognosis appears poor based upon above factors mentioned. Time with Patient: Greater than 30
[2021-03-25] MEDS ORDERED: PHENYTOIN SODIUM INJ 1,000 MG in SODIUM CHLORIDE 0.9% 100 ML IVPB STA (16:37)
[2021-03-25] MEDS: NOREPINEPHRINE 32 MG in SODIUM CHLORIDE 0.9% 218 ML IV SCH (17:17)
--- NOTE | 2021-03-25 17:52 | P.PN ---
Progress Note - Text Progress Note Date: 03/25/21 Chief Complaint: Short of breath History of presenting complaint: This is a 80-year-old patient of Dr. Tovar. Trials Manager Dr. Bland. Chronic stable medical conditions include atrial fibrillation, asthma, hyperlipidemia, hypertension, chronic kidney disease. Patient presents with about 10 days of increasing shortness of breath. Basically presented with activity. No edema. No chest pain. No fever no chills. No cough. At her baseline uses a walker. patient was being held in the ER as an overflow was found unconscious in the bathroom for. With no pulse. intubated. Patient did have return of spontaneous circulation. Bradycardic. Admitted to the ICU. Patient was on propofol. Discontinued. Patient did not wake up. EKG shows encephalopathy. No seizure activity. Solen to have anoxic encephalopathy. Today: ICU: Ventilator: FiO2 30 PEEP of 5. Heart rate 40. 2 feeding 50. Remains off sedatives. Unresponsive. Review of systems: Patient intubated Active Medications Albuterol/Ipratropium (Ipratropium-Albuterol 3 Ml Neb) 3 ml INHALATION RT-Q4H [facility] Last Admin: 03/25/21 16:44 Dose: Not Given Documented by: Allopurinol (Allopurinol 100 Mg Tab) 100 mg PO [facility] Last Admin: 03/25/21 08:44 Dose: 100 mg Documented by: Anastrozole (Anastrozole 1 Mg Tab) 1 mg PO [facility] Last Admin: 03/25/21 08:44 Dose: 1 mg Documented by: Atorvastatin Calcium (Atorvastatin 10 Mg Tab) 10 mg PO HS [facility] Last Admin: 03/24/21 20:48 Dose: 10 mg Documented by: Chlorhexidine Gluconate (Chlorhexidine Gluconate 15 Ml Cup) 15 ml MUCOUS MEM BID [facility] Last Admin: 03/25/21 08:44 Dose: 15 ml Documented by: Edoxaban (Edoxaban Tosylate 30 Mg Tablet) 30 mg PO [facility] Last Admin: 03/25/21 08:44 Dose: 30 mg Documented by: Hydromorphone HCl (Hydromorphone 0.5 Mg/0.5 Ml Syringe) 0.5 mg IVP Q4HR PRN PRN Reason: Pain Last Admin: 03/25/21 01:00 Dose: 0.5 mg Documented by: Norepinephrine Bitartrate 32 (mg/ Sodium Chloride) 250 mls @ 3.381 mls/hr IV .Q24H [facility]; Protocol Last Admin: 03/25/21 17:17 Dose: Not Given Documented by: Ceftriaxone Sodium 1 gm/ (Sodium Chloride) 50 mls @ 100 mls/hr IVPB Q24HR [facility] Last Admin: 03/25/21 08:43 Dose: 100 mls/hr Documented by: Levetiracetam 750 mg/ Sodium (Chloride) 107.5 mls @ 400 mls/hr IVPB Q12HR [facility] Last Admin: 03/25/21 08:44 Dose: 400 mls/hr Documented by: Sodium Chloride (Saline 0.9%) 1,000 mls @ 20 mls/hr IV .Q24H [facility] Last Admin: 03/25/21 10:13 Dose: 20 mls/hr Documented by: Insulin Aspart (Insulin Aspart (Novolog) 100 Unit/Ml Vial) 0 unit SQ Q6H [facility]; Protocol Last Admin: 03/25/21 12:14 Dose: 2 unit Documented by: Miscellaneous Information (Potassium Replacement Protocol 1 Each Misc) 1 each MISCELLANE DAILY PRN; Protocol PRN Reason: Per Protocol Multivitamins/Minerals (Vit A,C & I-Kjqsay-Nwhlbkpf 1 Each Tab) 1 each PO BID [facility] Last Admin: 03/25/21 08:43 Dose: 1 each Documented by: Naloxone HCl (Naloxone 0.4 Mg/Ml 1 Ml Vial) 0.2 mg IV Q2M PRN PRN Reason: Opioid Reversal Pantoprazole Sodium (Pantoprazole 40 Mg/10 Ml Vial) 40 mg IVP DAILY [facility] Last Admin: 03/25/21 08:44 Dose: 40 mg Documented by: Past medical history to include: Atrial fibrillation, asthma, hyperlipidemia, hypertension, chronic kidney disease Social history: Daughter lives with her. Does use a walker. No history of smoking or alcohol Family history: Reviewed, noncontributory to presentation Physical examination: VITAL SIGNS: 99.6, 48, 37, 116/91, 93% on the ventilator GENERAL: Laying in bed, intubated EYES: Pupils equal. Conjunctiva normal. HEENT: External appearance of nose and ears normal, ETT. NECK: JVD unable to assess; masses not palpable. HEART: Heart sounds irregular; no edema. LUNGS: Respiratory rate increased, decreased breath sounds. ABDOMEN: Soft, nontender, liver spleen not palpable, no masses palpable. PSYCH: Patient unresponsive MUSCULAR skeletal: Evidence of OA. INVESTIGATIONS, reviewed in the clinical context: March 25: Hemoglobin 11.2 platelets 139 potassium 4.4 creatinine 1.17 March 24: WBC 10.6 hemoglobin 11.1 platelets 137 potassium 4.3 BUN 58 creatinine 1.28 March 23: WBC 11 hemoglobin 11.9 potassium 4.1 creatinine 1.27 EEG: Negative for epilepsy March 22: WBC 11 hemoglobin 11.8 platelets 119 potassium 4 creatinine 1.45 March 21: WBC 13.6 hemoglobin 12.8 platelets 122 potassium 3.8 creatinine 1.91 March 20: WBC 15.2 hemoglobin 13.9 platelets 157 potassium 3.6 creatinine 1.5 for 2-D echocardiogram: Moderate concentric LVH. EF 45-50% right ventricle severely enlarged. Tricuspid regurgitation. Moderate pulmonary hypertension March 19: Obesity 14.4 hemoglobin 14.8 platelets 187 potassium 4.2 bun 28 creatinine 1.43 AST 152 ALT 129 WBC 8.2 hemoglobin 15.2 platelets 188 potassium 3.8 bun 33 creatinine 1.30 Lactic acid 2.5 troponin I less than 0.012 proBNP 63 Influenza type A, diabetic, RSV, COVID 19: Not detected EKG tracing personally reviewed by me-atrial fibrillation with a rate of 42 Chest x-ray film personally reviewed by me-elevated right diaphragm. Assessment and plan: -Persistent atrial fibrillation with a heart rate down to the 40s./Symptomatic bradycardia -slow to respond Coreg discontinued. Telemetry. Follow with cardiology -Acute hypoxic respiratory failure, requiring ventilator support- On FiO2 of 30 % -Moderate persistent asthma Continue DuoNeb and Symbicort -Morbid obesity BMI 51.3 Weight loss measures. Follow-up with PCP as an outpatient -Essential hypertension Currently antihypertensive held -Cardiogenic shock: stabilized On IV norepinephrine-discontinued -History of breast cancer Continue with arimidex -Acute kidney injury possibly from cardiorenal syndrome. Improvement Follow lites closely. -Acute metabolic/anoxic encephalopathy-not improving EEG negative for epilepsy. Patient is off sedatives. Since March 23. -Secondary pulmonary hypertension, multifactorial -Suspect acute on chronic cor pulmonale Fluid management -Hypertensive heart disease Follow blood pressure closely Patient not waking up. In spite of being off sedatives. Being followed by neurology. Prognosis not good. Follow with cheese tester
[2021-03-25 18:08] LABS: Glucose,Whole Blood 148 mg/dL (75-99)
--- NOTE | 2021-03-25 18:24 | EEG ---
ELECTROENCEPHALOGRAM REPORT ELECTROENCEPHALOGRAM (EEG) REPORT: PROCEDURE DATE: 03/25/2021. TECHNIQUE: This is a report from a prolonged 2-1/2-hour inpatient digital EEG performed using the 10/20 international electrode placement system. HISTORY: COPD exacerbation. The patient is currently intubated. CURRENT MEDICATIONS: Unknown. FINDINGS: Recording start time: 03/25/2021 at 11 a.m. Recording end time: 03/25/2021 at 1355. EVENTS: During this prolonged 2-1/2-hour inpatient digital video EEG, no clinical or electrographic seizures were recorded. Please note that the patient had left hand tremoring noted at 1302:26. Low- amplitude tremoring of both hands was noted at 1319:37. Tremoring of the right upper arm was noted at 1340:03. These events were not associated with epileptiform activity. BACKGROUND: A sustained posterior-dominant rhythm was not seen. Frequencies of the posterior quadrants consisted of poorly modulated 1-2 hertz waveforms. ACTIVATION Hyperventilation: Not performed. Photic stimulation: No driving seen. Sleep: Distinctive sleep stages not seen. ABNORMALITIES: 1. Occasional [id number] voltage frontally predominant triphasic waves were seen. 2. Diffuse synchronous and asynchronous 1-2 hertz delta range slowing was seen, more frontally predominant. 3. Occasionally over the bilateral mid temporal regions some theta range slowing was seen in the 4-5 hertz range. IMPRESSION: Abnormal prolonged 2-1/2-hour inpatient EEG. No clinical or electrographic seizures were recorded. No epileptiform activity was present. The triphasic waves mentioned above are not epileptiform in nature. Triphasic waves can be seen in the setting of a metabolic or anoxic encephalopathy. The frontally predominant delta range slowing as well as the diffuse theta range slowing mentioned above is not epileptiform in nature. In combination, these findings indicate moderate to severe diffuse cerebral dysfunction as may be seen in a toxometabolic encephalopathy. As mentioned above, a few episodes of hand tremoring of low amplitude were recorded, these were not associated with epileptiform activity. MMODL / IJN: [id number] / [facility]
[2021-03-25] MEDS: ATORVASTATIN 10 MG TAB PO SCH (20:08)
[2021-03-25 23:17] LABS: Glucose,Whole Blood 126 mg/dL (75-99)
[2021-03-26] MEDS: HYDROmorphone 0.5 MG/0.5 ML SYRINGE IVP PRN ×3 (00:08→15:12)
[2021-03-26] MEDS: IPRATROPIUM-ALBUTEROL 3 ML NEB INHALATION SCH ×7 (00:23→23:58)
[2021-03-26 05:01] LABS: Basophils % (A) 0 %; Eosinophils # (A) 0.2 k/uL (0-0.7); Eosinophils % (A) 2 %; HCT 33.1 % (34.0-46.0); HGB 11.3 gm/dL (11.4-16.0); Lymphocytes # (A) 0.9 k/uL (1.0-4.8); Lymphocytes % (A) 9 %; MCH 34.6 pg (25.0-35.0); MCHC 34.1 g/dL (31.0-37.0); MCV 101.6 fL (80.0-100.0); Macrocytosis Slight; Mean Platelet Volume 9.5; Monocytes # (A) 0.7 k/uL (0-1.0); Monocytes % (A) 6 %; Neutrophils # (A) 8.8 k/uL (1.3-7.7); Neutrophils % (A) 82 %; Platelet Count 147 k/uL (150-450); RBC 3.26 m/uL (3.80-5.40); WBC 10.7 k/uL (3.8-10.6)
[2021-03-26] MEDS: INSULIN ASPART (NovoLOG) 100 UNIT/ML VIAL SQ SCH ×3 (05:20→19:01)
[2021-03-26 05:21] LABS: Glucose,Whole Blood 136 mg/dL (75-99)
[2021-03-26 05:47] LABS: ABG Base Excess 1.3 mmol/L; ABG HCO3 26 mmol/L (21-25); ABG Oxygen Saturation 94.7 % (94-97); ABG PCO2 40 mmHg (35-45); ABG PH 7.42 (7.35-7.45); ABG PO2 73 mmHg (83-108); ABG TCO2 27 mmol/L (19-24); Allen Test Performed? Yes
[2021-03-26 05:57] LABS: Albumin 2.3 g/dL (3.5-5.0); Calcium 8.9 mg/dL (8.4-10.2); Potassium 4.4 mmol/L (3.5-5.1); Total Bilirubin 0.6 mg/dL (0.2-1.3); Total Protein 4.6 g/dL (6.3-8.2)
[2021-03-26] MEDS: PANTOPRAZOLE 40 MG/10 ML VIAL IVP SCH (08:02)
[2021-03-26] MEDS: allopurinoL 100 MG TAB PO SCH (08:02)
[2021-03-26] MEDS: CHLORHEXIDINE GLUCONATE 15 ML CUP MUCOUS MEM SCH ×2 (08:02→22:01)
[2021-03-26] MEDS: ANASTROZOLE 1 MG TAB PO SCH (08:03)
[2021-03-26] MEDS: EDOXABAN TOSYLATE 30 MG TABLET PO SCH (08:03)
[2021-03-26] MEDS: VIT A,C & E-LUTEIN-MINERALS 1 EACH TAB PO SCH ×2 (08:03→22:14)
[2021-03-26] MEDS: levETIRAcetam IV 750 MG in SODIUM CHLORIDE 0.9% 100 ML IVPB SCH (08:09)
--- NOTE | 2021-03-26 08:39 | XR ---
EXAMINATION TYPE: XR chest 1V portable DATE OF EXAM: 03/26/2021 CLINICAL HISTORY: Tube placement. TECHNIQUE: Portable semiupright view of the chest. COMPARISON: 03/25/2021 FINDINGS: Redemonstrated endotracheal tube distal tip at the level of the clavicular heads. Endotrach eal tube and left internal jugular central venous catheter redemonstrated. There are low lung volumes . Cardiac silhouette is normal is mildly decreased perihilar opacities. Unchanged small left pleural effusion. No pneumothorax. IMPRESSION: Mildly decreased perihilar opacities versus 03/25/2021. Unchanged small left pleural effusion.
--- NOTE | 2021-03-26 09:00 | P.PN ---
Subjective Progress Note Date: 03/26/21 80-year-old female patient with known history of chronic atrial fibrillation, bronchial asthma, hypertension, hyperlipidemia and chronic kidney disease who is being seen in the intensive care unit and a follow-up on 03/23/2021 as the patient was brought into the intensive care unit after she suffered a cardiac arrest related patient was found to be unconscious in the bathroom in the emergency department where she was intubated and placed on mechanical ventilator resuscitated and following that she was brought into the intensive care units. On today's evaluation, the patient remains on a mechanical ventilator assist control mode at the rate of 14 with a tidal volume of 450 and FiO2 of 40% with a PEEP of 5. A sedation holiday was given to her over the past 48 hours and the patient demonstrated increased respiratory rate, restlessness and agitation and she was not following any commands. Based on that, the patient was kept sedated with propofol which is running at 25 mg/kg per minute. Repeat EKG was done yesterday and was quite abnormal and the patient was found to have sharp and slow waves over the bilateral frontal region concerning for seizure. No focal slowing. CAT scan of the brain showed diffuse atrophy. No other acute abnormalities have been noted. The patient was started on Keppra 1 g every 12 hours. The patient had a cardiac arrest for approximately 5 minutes as suspec raymundo by the emergency department team. The echocardiogram showed atrial fibrillation. The left-sided percent was normal. There was moderate concentric left ventricular hypertrophy. Overall LV function was normal with an ejection fraction of 45-50%. RV was severely enlarged. No pericardial effusion. Hemodynamically, the patient is still requiring pressors with norepinephrine running at 0.4 mcg/kg per minute. The patient is also on normal saline at the rate of 100 mL an hour and the patient is receiving enteral feeding for nutritional support with vital high protein at the rate of 40 mL an hour. Urine output is noted of 20-40 mL an hour. Chest x-ray showing bilateral pulmonary infiltrates and pleural effusions and urine cultures positive for E. coli. COVID-19 testing was negative. Influenza screen was negative. Serum cortisol was 38, pro-calcitonin level was 0.52 and the UA was normal and there was E. coli growing in the urine culture. This morning, the patient remains sedated with propofol which is running at 25 mcg/kg per minute. The patient remains on the same ventilator settings. Blood gases from this morning shows a pH of 7.38 with a pCO2 of 38 and pO2 of 128. The chest x-ray showing a some mild cardiomegaly and some interstitial infiltrates bilaterally. Pulmonary arteries are also prominent. ET tube is in a good location. The patient has a left subclavian triple-lumen catheter in place. OG tube is also in good location. The creatinine is improving is currently down to 1.27. BUN is at 56. White cell count is at 11. Remains on low-dose norepinephrine infusion for blood pressure support and remains on IV Rocephin. Evaluation of , the patient is being seen for a follow-up. Since I evaluation yesterday, the patient has been off sedation and unfortunately we have not seen any reasonable neurological recovery. The patient has brainstem reflexes. Nevertheless, she does not grimace or respond to any deep painful stimulation. She does not respond to any verbal stimulation. She has been off sedation for now. She is on a mechanical ventilator. This morning she is on no sedation, assist-control mode at the rate of 14 with a tidal volume of 450 and FiO2 of 30% with a PEEP of 5. The chest x-ray from today shows no major interval change. ET tube is in a good location. Some mild cardiomegaly and mild pulmonary vessel congestion. The blood gases from today shows a pH of 7.41 with a pCO2 of 36 and pO2 of 70 and this was done and FiO2 of 30%. The patient hemodynamically remains in the low right atrial fibrillation. She is on norepinephrine infusion running at 0.02 mcg/kg per minute. She is producing adequate amount of urine output. Echocardiogram that was done earlier showed a relatively preserved LV function with mild LV impairment with an ejection fraction of 45-50%. The patient is on long-term anticoagulation with Savaysa in terms of her unresponsiveness, the patient underwent further workup by neurology. A prolonged EEG was done yesterday that showed significant abnormalities with diffuse synchronous/asynchronous Doppler wave range slowing and no evidence of any seizure activity was noted. This was consistent with severe dyspnea diffuse cerebral dysfunction which could be seen with toxic metabolic encephalopathy versus anoxic encephalopathy.. Her last CAT scan of the head was on 03/22/2021 and it showed no acute abnormalities. Meanwhile, the patient is being supported. She is being treated for an E. coli urinary tract infection with Rocephin. She is also receiving enteral feeding for nutritional support. She has an OG tube in place and currently she is on vital high protein at the rate of 53 mL an hour which is at goal. Ammonia level was at 33. No hepatic dysfunction at this point in time. 03/25/2021, the patient remains unresponsive on a mechanical ventilator. His been off sedation for more than 48 hours have not seen any reasonable neurological recovery. Neurologist on the case. She is currently on a mechanical ventilator. She remains on assist control mode at the rate of 14 with a tidal volume of 450 and FiO2 of 30%. Chest x-ray shows no major interval change. ET tube is in a good location. No evidence of any pneumothorax. There is some underlying cardiomegaly. No other significant abnormalities noted. The peak airway pressures around 27 for now. Meanwhile, the blood gases from today is showing pH of 7.4 with a pCO2 of 36 and pO2 of 68. As such, the overall pulmonary status is stable for now. Hemodynamically, she remains in lowering atrial fibrillation. He was taken off the pressors yesterday and she has been off pressors for the past 12 hours at least. He is producing adequate amount of urine output. Fluid is in order of 100 mL of normal saline and she has a good urine output. The patient remains on long-term anticoagulation. The patient is going to have another EEG monitor today we are awaiting further input from neurology regarding her altered mentation. She is on Rocephin regarding follow urine tract infection. She is tolerating her enteral feeding which is in order of 53 mL an hour of Nepro 03/26/2021, neurologically unchanged and the patient has been off sedation for 72 hours without any neurological recovery. She continues to have brainstem reflexes. No cortical functions. EKG showing diffuse slowing with evidence of triphasic waves and there is diffuse slowing with delta waves and this is obviously consistent with metabolic encephalopathy, anoxic encephalopathy and this is quite severe. No seizure activity has been noted. Neurologist on the case. I would say metabolically, the patient has no major metabolic de rangements. Her renal function is stable with a creatinine of 1.2. Sodium is slightly elevated at 147 and this will be adjusted. Her blood gases is adequate for now and there is no significant hypoxemia. In terms of her respiratory status, the patient is on a mechanical ventilator on assist control mode with tidal volume of 450 and FiO2 of 30% and a PEEP of 5 and a rate of 14. She is breathing at the rate of 24 this morning. At times she goes above the set rate and she end generator on breath. Blood gas shows a pH of 7.42 with a pCO2 of 40 and pO2 of 73. The chest x-ray from today is showing no significant interval changes and findings are essentially unchanged. ET tube remains in a good location. The patient does have cardiomegaly. Limited infiltrates in the lung bases bilaterally. ET tube is in a good location. The patient is hemodynamically stable. The patient is on no pressors. The patient continues to be in atrial fibrillation. Her rate is slow. She is also on anticoagulation with Savaysa. She is receiving enteral feeding for nutritional support. She is currently at on Nepro at the rate of 50 mL an hour. No abdominal distention. No emesis. She is stooling. Afebrile. Neck fluid balance over the past 24 hours has been +2.5 L. The patient has been a significant positive fluid balance and currently she is on IV fluids at 0.9 at KVO. She has developed some increased edema in all 4 extremities and her blood work is showing a mild component of hyperchloremic hypernatremia. Objective - Vital Signs Vital signs: Vital Signs Temp 99 F 03/26/21 04:00 Pulse 56 L 03/26/21 08:10 Resp 26 H 03/26/21 07:00 BP 115/40 03/26/21 07:00 Pulse Ox 94 L 03/26/21 07:00 Intake & Output 03/25/21 03/26/21 03/26/21 18:59 06:59 18:59 Intake Total 1114 1030 140 Output Total 1930 685 100 Balance -816 345 40 Weight 152.6 kg Intake: IV 424 240 40 0.9 Normal Saline 24 Pressure Bag @ 3mL/hr Sodium Chloride 0.9% 1, 400 240 40 000 ml @ 100 mls/hr IV . Q10H [facility] Rx#:[id number] Intake, IV Titration 100 Amount levETIRAcetam IV 750 mg 100 In Sodium Chloride 0.9% 100 ml @ 400 mls/hr IVPB Q12HR [facility] Rx#:[id number] Tube Feeding 600 600 100 Other 90 90 Output: Urine 1930 685 100 Other: Voiding Method Indwelling Catheter Indwelling Catheter Indwelling Catheter ABP, PAP, CO, CI - Last Documented Arterial Blood Pressure 109/101 - Exam GENERAL EXAM: Intubated, sedated, morbidly obese 80-year-old female patient, in no apparent distress. Unresponsive off sedation mild the patient remains comatose without any response to verbal or painful stimulation. HEAD: Normocephalic. EYES: Sluggish reaction of pupils, equal size. NOSE: Clear with pink turbinates. THROAT: Oral endotracheal tube and gastric tube secured in place. No erythema or exudates. NECK: No masses, no JVD. CHEST: No chest wall deformity. LUNGS: Equal air entry with few bilateral scattered rhonchi. CVS: S1 and S2 normal with no audible murmur, regular rhythm. ABDOMEN: No hepatosplenomegaly, normal bowel sounds, no guarding or rigidity. SPINE: No scoliosis or deformity SKIN: No rashes CENTRAL NERVOUS SYSTEM: No focal deficits, tone is normal in all 4 extremities. The patient has brainstem reflexes. She has pupillary reflex. She has corneal reflex. She has a gag reflex. Babinski is equivocal. Reflexes are diminished in all 4 extremities. No facial asymmetry. On unresponsive to any verbal or painful stimulation. The neurologic examination remains unchanged. Cranial nerves are still present. The patient continues to have a positive cough and a gag and positive corneal. No neck stiffness. EXTREMITIES: There is no peripheral edema. No clubbing, no cyanosis. Peripheral pulses are intact. - Labs CBC & Chem 7: 03/26/21 04:40 03/26/21 04:40 Labs: Abnormal Lab Results - Last 24 Hours (Table) 03/25/21 03/25/21 03/25/21 Range/Units 12:01 13:36 18:07 WBC (3.8-10.6) k/uL RBC (3.80-5.40) m/uL Hgb (11.4-16.0) gm/dL Hct (34.0-46.0) % MCV (80.0-100.0) fL Plt Count (150-450) k/uL Neutrophils # (1.3-7.7) k/uL Lymphocytes # (1.0-4.8) k/uL ABG pO2 (83-108) mmHg ABG HCO3 (21-25) mmol/L ABG Total CO2 (19-24) mmol/L Sodium (137-145) mmol/L Chloride 114 H (98-107) mmol/L BUN 60 H (7-17) mg/dL Creatinine 1.13 H (0.52-1.04) mg/dL Glucose 156 H (74-99) mg/dL POC Glucose (mg/dL) 152 H 148 H (75-99) mg/dL Magnesium 2.5 H (1.6-2.3) mg/dL ALT (4-34) U/L Total Protein (6.3-8.2) g/dL Albumin (3.5-5.0) g/dL 03/25/21 03/26/21 03/26/21 Range/Units 23:16 04:40 04:40 WBC 10.7 H (3.8-10.6) k/uL RBC 3.26 L (3.80-5.40) m/uL Hgb 11.3 L (11.4-16.0) gm/dL Hct 33.1 L (34.0-46.0) % MCV 101.6 H (80.0-100.0) fL Plt Count 147 L (150-450) k/uL Neutrophils # 8.8 H (1.3-7.7) k/uL Lymphocytes # 0.9 L (1.0-4.8) k/uL ABG pO2 (83-108) mmHg ABG HCO3 (21-25) mmol/L ABG Total CO2 (19-24) mmol/L Sodium 147 H (137-145) mmol/L Chloride 116 H (98-107) mmol/L BUN 65 H (7-17) mg/dL Creatinine 1.20 H (0.52-1.04) mg/dL Glucose 150 H (74-99) mg/dL POC Glucose (mg/dL) 126 H (75-99) mg/dL Magnesium (1.6-2.3) mg/dL ALT 36 H (4-34) U/L Total Protein 4.6 L (6.3-8.2) g/dL Albumin 2.3 L (3.5-5.0) g/dL 03/26/21 03/26/21 Range/Units 05:19 05:26 WBC (3.8-10.6) k/uL RBC (3.80-5.40) m/uL Hgb (11.4-16.0) gm/dL Hct (34.0-46.0) % MCV (80.0-100.0) fL Plt Count (150-450) k/uL Neutrophils # (1.3-7.7) k/uL Lymphocytes # (1.0-4.8) k/uL ABG pO2 73 L (83-108) mmHg ABG HCO3 26 H (21-25) mmol/L ABG Total CO2 27 H (19-24) mmol/L Sodium (137-145) mmol/L Chloride (98-107) mmol/L BUN (7-17) mg/dL Creatinine (0.52-1.04) mg/dL Glucose (74-99) mg/dL POC Glucose (mg/dL) 136 H (75-99) mg/dL Magnesium (1.6-2.3) mg/dL ALT (4-34) U/L Total Protein (6.3-8.2) g/dL Albumin (3.5-5.0) g/dL Microbiology - Last 24 Hours (Table) 03/20/21 08:47 Blood Culture - Preliminary Blood No Growth after 120 hours 03/20/21 08:48 Blood Culture - Preliminary Blood No Growth after 120 hours Assessment and Plan Plan: 1 Status post cardiopulmonary arrest, in a patient with a history of bradycardia, and slow atrial fibrillation. Impaired left ventricular systolic function with ejection fraction 45-50%. Cardiac arrest lasting for around 5 minutes as suspected by the emergency department team and the patient was quite bradycardic in atrial fibrillation following that. Nevertheless, the patient remains unresponsive and I suspect sick encephalopathy in the cardiac arrest was probably more prolonged and the patient's hypoxemia was probably more prolonged vent was noted or reported in the emergency department. The patient's EKG showing diffuse cortical slowing and check basic waves. No metabolic derangements to explain this. No drugs to alter her mentation at this point in time. CAT scan of the brain has been negative. EEG has been done on 3 separate occasions without any signs of neurologic recovery. Discussed the possibility of lumbar puncture with neurology. 2 Status post intubation and mechanical ventilation, for airway protection, 03/19/2021. 3 Hypotension, recovered and the patient is currently off pressors 4 History of hyperlipidemia. 5 History of hypertension. 6 History of chronic atrial fibrillation with bradycardia. The patient is on long-term and to coagulation with Savaysa 7 History of chronic kidney disease. Creatinine stable at 1.2 8 Recent sinus infection. 9 Obesity. 10 acute Urinary tract infection secondary to E. coli, currently on ceftriaxone, pro-calcitonin level was mildly elevated, and the patient's white cell count is improving 11 History of COPD/asthma. 12 obesity 13 [id number] state- CT of the head in the cervical spine on 03/19/2021: CT of the brain it is reported as no acute intracranial process identified. CT cervical spine is reported as no acute osseous traumatic injury or significant abnormal alignment involving the cervical spine. Incidental degenerative changes at. No severe osseous canal stenosis. 14 hyperchloremic hypernatremia Plan IV fluids to KVO Free water supplements 200 mL every 4 hours through the NG She is currently off pressors Continuel feeding for nutritional support, She is currently receiving Nepro at 5 0 mL an hour. Hold anticoagulation for possible lumbar puncture Repeat EEG results were noted Discussion and needs to be held with the family regarding the impaired neurologic functions. The neurologist communicating with a family periodically. Obviously the concern is still the patient's unresponsiveness which could be a sign of hypoxic encephalopathy. Pro-calcitonin level is improving We'll continue to follow and make further recommendations based on her clinical status She has been off sedation for the past 72 hours and I have not seen any reasonable neurologic Critical care time > 30 minutes Time with Patient: Greater than 30
[2021-03-26 11:31] LABS: Glucose,Whole Blood 142 mg/dL (75-99)
[2021-03-26] MEDS: NOREPINEPHRINE 32 MG in SODIUM CHLORIDE 0.9% 218 ML IV SCH (13:11)
[2021-03-26] MEDS: SODIUM CHLORIDE 0.9% 1,000 ML IV SCH (14:27)
--- NOTE | 2021-03-26 16:39 | P.PN ---
Progress Note - Text Progress Note Date: 03/26/21 Chief Complaint: Short of breath History of presenting complaint: This is a 80-year-old patient of Dr. Tovar. [employer] Mason Dr. Bland. Chronic stable medical conditions include atrial fibrillation, asthma, hyperlipidemia, hypertension, chronic kidney disease. Patient presents with about 10 days of increasing shortness of breath. Basically presented with activity. No edema. No chest pain. No fever no chills. No cough. At her baseline uses a walker. patient was being held in the ER as an overflow was found unconscious in the bathroom for. With no pulse. intubated. Patient did have return of spontaneous circulation. Bradycardic. Admitted to the ICU. Patient was on propofol. Discontinued. Patient did not wake up. EKG shows encephalopathy. No seizure activity. Kimball to have anoxic encephalopathy. Today: ICU: Ventilator FiO2 30%, PEEP of 5. Heart rate 55. IV fluids. Remains comatose. Review of systems: Patient intubated Active Medications Albuterol/Ipratropium (Ipratropium-Albuterol 3 Ml Neb) 3 ml INHALATION RT-Q4H [facility] Last Admin: 03/26/21 16:21 Dose: 3 ml Documented by: Allopurinol (Allopurinol 100 Mg Tab) [facility] [place] Admin: 03/26/21 08:02 Dose: 100 mg Documented by: Anastrozole (Anastrozole 1 Mg Tab) 1 mg PO QAM [facility] Last Admin: 03/26/21 08:03 Dose: 1 mg Documented by: Atorvastatin Calcium (Atorvastatin 10 Mg Tab) 10 mg PO HS [facility] Last Admin: 03/25/21 20:08 Dose: 10 mg Documented by: Chlorhexidine Gluconate (Chlorhexidine Gluconate 15 Ml Cup) 15 ml MUCOUS MEM BID [facility] Last Admin: 03/26/21 08:02 Dose: 15 ml Documented by: Hydromorphone HCl (Hydromorphone 0.5 Mg/0.5 Ml Syringe) 0.5 mg IVP Q4HR PRN PRN Reason: Pain Last Admin: 03/26/21 15:12 Dose: 0.5 mg Documented by: Norepinephrine Bitartrate 32 (mg/ Sodium Chloride) 250 mls @ 3.381 mls/hr IV .Q24H [facility]; Protocol Last Admin: 03/26/21 13:11 Dose: Not Given Documented by: Ceftriaxone Sodium 1 gm/ (Sodium Chloride) 50 mls @ 100 mls/hr IVPB Q24HR [facility] Last Admin: 03/26/21 08:02 Dose: 100 mls/hr Documented by: Sodium Chloride (Saline 0.9%) 1,000 mls @ 20 mls/hr IV .Q24H [facility] Last Admin: 03/26/21 14:27 Dose: 20 mls/hr Documented by: Insulin Aspart (Insulin Aspart (Novolog) 100 Unit/Ml Vial) 0 unit SQ Q6H [facility]; Protocol Last Admin: 03/26/21 13:15 Dose: 1 unit Documented by: Levetiracetam (Levetiracetam 500 Mg Tab) 500 mg PO Q12HR [facility] Miscellaneous Information (Potassium Replacement Protocol 1 Each Misc) 1 each MISCELLANE DAILY PRN; Protocol PRN Reason: Per Protocol Multivitamins/Minerals (Vit A,C & S-Yvflee-Rasnfhiz 1 Each Tab) 1 each PO BID [facility] Last Admin: 03/26/21 08:03 Dose: 1 each Documented by: Naloxone HCl (Naloxone 0.4 Mg/Ml 1 Ml Vial) 0.2 mg IV Q2M PRN PRN Reason: Opioid Reversal Pantoprazole Sodium (Pantoprazole 40 Mg/10 Ml Vial) 40 mg IVP DAILY [facility] Last Admin: 03/26/21 08:02 Dose: 40 mg Documented by: Past medical history to include: Atrial fibrillation, asthma, hyperlipidemia, hypertension, chronic kidney disease Social history: Daughter lives with her. Does use a walker. No history of smoking or alcohol Family history: Reviewed, noncontributory to presentation Physical examination: VITAL SIGNS: 97.9, 54, 23, 123.48, 95% on ventilator GENERAL: Laying in bed, intubated EYES: Pupils equal. Conjunctiva normal. HEENT: External appearance of nose and ears normal, ETT. NECK: JVD unable to assess; masses not palpable. HEART: Heart sounds irregular; no edema. LUNGS: Respiratory rate increased, decreased breath sounds. ABDOMEN: Soft, nontender, liver spleen not palpable, no masses palpable. PSYCH: Patient unresponsive NEUROLOGICAL: Pupils sluggish to light, absent corneal reflex, doll's eye movement possibly present, gag reflex present, no response to pain MUSCULAR skeletal: Evidence of OA. INVESTIGATIONS, reviewed in the clinical context: March 26: Hemoglobin 11.3 platelets 147 potassium 4.4 bun 65 creatinine 1.2 March 25: Hemoglobin 11.2 platelets 139 potassium 4.4 creatinine 1.17 March 24: WBC 10.6 hemoglobin 11.1 platelets 137 potassium 4.3 BUN 58 creatinine 1.28 March 23: WBC 11 hemoglobin 11.9 potassium 4.1 creatinine 1.27 EEG: Negative for epilepsy March 22: WBC 11 hemoglobin 11.8 platelets 119 potassium 4 creatinine 1.45 March 21: WBC 13.6 hemoglobin 12.8 platelets 122 potassium 3.8 creatinine 1.91 March 20: WBC 15.2 hemoglobin 13.9 platelets 157 potassium 3.6 creatinine 1.5 for 2-D echocardiogram: Moderate concentric LVH. EF 45-50% right ventricle severely enlarged. Tricuspid regurgitation. Moderate pulmonary hypertension March 19: Obesity 14.4 hemoglobin 14.8 platelets 187 potassium 4.2 bun 28 creatinine 1.43 AST 152 ALT 129 WBC 8.2 hemoglobin 15.2 platelets 188 potassium 3.8 bun 33 creatinine 1.30 Lactic acid 2.5 troponin I less than 0.012 proBNP 63 Influenza type A, diabetic, RSV, COVID 19: Not detected EKG tracing personally reviewed by me-atrial fibrillation with a rate of 42 Chest x-ray film personally reviewed by me-elevated right diaphragm. Assessment and plan: -Persistent atrial fibrillation with a heart rate down to the 40s./Symptomatic bradycardia -slow to respond Coreg discontinued. Telemetry. Follow with cardiology -Acute hypoxic respiratory failure, requiring ventilator support- On FiO2 of 30 % -Moderate persistent asthma Continue DuoNeb and Symbicort -Morbid obesity BMI 51.3 Weight loss measures. Follow-up with PCP as an outpatient -Essential hypertension Currently antihypertensive held -Cardiogenic shock: stabilized On IV norepinephrine-discontinued -History of breast cancer Continue with arimidex -Acute kidney injury possibly from cardiorenal syndrome. Improvement Follow lites closely. -Acute metabolic/anoxic encephalopathy-not improving EEG negative for epilepsy. Patient is off sedatives. Since March 23. -Secondary pulmonary hypertension, multifactorial -Suspect acute on chronic cor pulmonale Fluid management -Hypertensive heart disease Follow blood pressure closely Care was discussed with Dr. Mallory neurologist this morning. Patient do not feel that lumbar puncture was sent any purpose. Also discussed with Dr. Felipe from pulmonary. Prognosis not good. Advanced care planning: Late in the day I spoke to patient's Dr. Armenta at length. Discussing patient's clinical picture. She does understand to patient's picture is an prognosis is rather guarded. Questions were answered. It was explained that patient has significant anoxic brain injury with subdued brainstem reflexes. Options were discussed. Including comfort care. At this point she is agreeable to proceed with that make the patient DO NOT RESUSCITATE. She'll further discuss with the family and her son and then take a decision from there. About 20 minutes was spent for this
[2021-03-26 17:59] LABS: Glucose,Whole Blood 149 mg/dL (75-99)
[2021-03-26] MEDS: ATORVASTATIN 10 MG TAB PO SCH (22:01)
[2021-03-26] MEDS: levETIRAcetam 500 MG TAB PO SCH (22:04)
[2021-03-26 23:23] LABS: Glucose,Whole Blood 137 mg/dL (75-99)
[2021-03-27] MEDS: INSULIN ASPART (NovoLOG) 100 UNIT/ML VIAL SQ SCH ×2 (00:23→07:15)
[2021-03-27] MEDS: IPRATROPIUM-ALBUTEROL 3 ML NEB INHALATION SCH ×3 (04:02→13:36)
[2021-03-27 05:24] LABS: Basophils % (A) 0 %; Eosinophils # (A) 0.2 k/uL (0-0.7); Eosinophils % (A) 2 %; HCT 32.3 % (34.0-46.0); Lymphocytes # (A) 0.8 k/uL (1.0-4.8); Lymphocytes % (A) 8 %; MCH 34.3 pg (25.0-35.0); MCHC 34.2 g/dL (31.0-37.0); MCV 100.5 fL (80.0-100.0); Macrocytosis Slight; Mean Platelet Volume 10.4; Monocytes # (A) 0.5 k/uL (0-1.0); Monocytes % (A) 5 %; Neutrophils # (A) 8.9 k/uL (1.3-7.7); Neutrophils % (A) 84 %; Platelet Count 158 k/uL (150-450); RBC 3.22 m/uL (3.80-5.40); WBC 10.6 k/uL (3.8-10.6)
[2021-03-27 05:27] VITALS: TEMP 99.2
[2021-03-27 05:27] LABS: ABG Base Excess 2.7 mmol/L; ABG HCO3 26 mmol/L (21-25); ABG Oxygen Saturation 94.4 % (94-97); ABG PCO2 35 mmHg (35-45); ABG PH 7.48 (7.35-7.45); ABG PO2 67 mmHg (83-108); ABG TCO2 27 mmol/L (19-24); Allen Test Performed? Yes
[2021-03-27 05:36] LABS: Calcium 9.5 mg/dL (8.4-10.2); Potassium 4.2 mmol/L (3.5-5.1)
--- NOTE | 2021-03-27 06:05 | XR ---
EXAMINATION TYPE: XR chest 1V portable DATE OF EXAM: 03/27/2021 CLINICAL HISTORY: Difficulty breathing progress study. TECHNIQUE: Single AP portable semiupright view of the chest is obtained. COMPARISON: Chest x-ray from one day earlier and older studies. FINDINGS: Stable endotracheal and orogastric tubes. Stable left internal jugular central venous cath eter. Persistent low lung volumes and bibasilar opacities. Persistent mild cardiomegaly and mild central va scular congestion. Osseous structures are intact. IMPRESSION: Mild cardiomegaly and low lung volumes with mild central vascular congestion and bibasila r acute infiltrate and/or atelectasis are all redemonstrated, no significant change from one day kemal ier.
[2021-03-27 06:16] LABS: Glucose,Whole Blood 148 mg/dL (75-99)
[2021-03-27] MEDS: CHLORHEXIDINE GLUCONATE 15 ML CUP MUCOUS MEM SCH (08:06)
[2021-03-27] MEDS: PANTOPRAZOLE 40 MG/10 ML VIAL IVP SCH (08:06)
[2021-03-27] MEDS: levETIRAcetam 500 MG TAB PO SCH (08:07)
[2021-03-27] MEDS: allopurinoL 100 MG TAB PO SCH (08:07)
[2021-03-27] MEDS: ANASTROZOLE 1 MG TAB PO SCH (08:07)
[2021-03-27] MEDS: VIT A,C & E-LUTEIN-MINERALS 1 EACH TAB PO SCH (08:07)
[2021-03-27] MEDS ORDERED: MORPHINE SULFATE 4 MG/ML SYRINGE IV PRN (10:08)
[2021-03-27] MEDS ORDERED: ATROPINE OPHTH SOLN 1% 5ML BTL SUBLINGUAL PRN (10:08)
[2021-03-27] MEDS ORDERED: MORPHINE SULFATE 2 MG/ML SYRINGE IV PRN (10:08)
[2021-03-27] MEDS ORDERED: LORazepam 2 MG/ML INJ IV PRN (10:08)
[2021-03-27] MEDS ORDERED: SCOPOLAMINE 1.5MG/72HR PATCH TRANSDERM SCH (10:30)
[2021-03-27] MEDS ORDERED: MORPHINE SULFATE (100 MG/2 ML) 100 MG in SODIUM CHLORIDE 0.9% 100 ML IV SCH (10:30)
--- NOTE | 2021-03-27 11:10 | P.PN ---
Subjective Progress Note Date: 03/27/21 Principal diagnosis: Acute hypoxemic respiratory failure secondary to cardiopulmonary arrest 80-year-old female, who presented to the emergency department, on March 18, at 10:50 in the morning. The patient came in with complaints of increasing shortness of breath, and cough. She recently saw her doctor who put her on some antibiotics for a sinus infection. She apparently sees my partner as well, for her COPD. She apparently has a history of atrial fibrillation, hypertension, and chronic kidney disease. Anyway, sometime in the emergency department, she got up to go to the bathroom, and was found to be unresponsive on the bathroom floor. She had a brief episode of cardiopulmonary resuscitation, she received 2 rounds of epinephrine. The ER doctor who I spoke to follow she probably had a vasovagal episode. Patient did test negative for coronavirus, has received both of her vaccinations. Anyway, she did require intubation and mechanical ventilation. Currently, she seen in the emergency department, in the trauma room. The patient's on the volume assist control mode rate of 14, tidal volume 450, FiO2 50%, with a PEEP of 5. Arterial blood gases on the same settings, but 100%, she will PaO2 of 312, pCO2 38, and a pH is 7.33. The patient is on norepinephrine at 0.11 mcg/kg/m, and when we saw her in the emergency department, was on first set, at 10 mg an hour. We told the nurse to switch her to propofol. She's not receiving any additional IV fluids. Once in the ICU, we placed a right femoral arterial line, and a left internal jugular triple-lumen c atheter. She apparently was scheduled to have a pacemaker insertion sometime in the future. Medical problem list includes atrial fibrillation, COPD/asthma, hyperlipidemia, hypertension, and chronic kidney disease. Labs include a white count of 14.4, hemoglobin 14.8, hematocrit 47.5, and a platelet count of 187,000. Repeat blood gases show a PaO2 of 102, pCO2 45, and a pH is 7.34. Sodium 138, potassium 4.2, chlorides 101, CO2 22, anion gap 15, BUN and creatinine 28 and 1.43. Lactic acid initially was 7.2. Chest x-ray shows a properly placed left internal jugular triple-lumen catheter, and endotracheal tube which is above the tracheal armaan, and relatively clear lung shaikh, but an elevated right diaphragm. Brain and cervical spine CT evaluations were both negative. The patient is seen today 03/20/2021 and follow-up in the intensive care unit. She remains intubated, sedated on the mechanical ventilator. Current settings assist-control mode at a rate of 14, tidal volume 450, FiO2 50% and a PEEP of 5. Morning blood gases reveal a P O2 75, pCO2 37, pH 7.42. She remains on pr opofol at 50 mcg/kg/m, norepinephrine at 16 mcg/m. 0.9 normal saline at 100 MLS per hour. Being nourished with vital HPI 30 MLS per hour with a goal of 55. Echocardiogram revealed ejection fraction between 45 and 50%. He had white count 15.2. Hemoglobin 13.9. Sodium 136. Potassium 3.6. Creatinine 1.54. Glucose 159. TSH 0.408. Cortisol level 38. Urine culture pending. Questionable UTI. She remains on DuoNeb inhalations. The patient is seen today in 03/21/2021 in follow-up in the intensive care unit. She remains intubated on mechanical ventilator. Current settings assist-control at a rate of 14, tidal volume 450, FiO2 40% and a PEEP of 5. Morning blood gases revealed a pO2 of 122, pCO2 35, pH 7.38. This was on 50% FiO2. She is sedated on propofol at 35 mcg/kg/m. Norepinephrine at 0.17 mcg/kg/m. 0.9 normal saline at 100 ML's per hour. Vital HPI 20 ML's per hour which is goal. She remains in a slow atrial fibrillation with a rate in the 40s. Chest x-ray reveals mild atelectasis small effusion on the left right lung mainly clear. Urine culture pending. Sputum culture pending. White count 13.6. Hemoglobin 12.8. Platelets 122. Sodium 136. Potassium 3.8. Creatinine 1.91. Glucose 179. She remains anticoagulated with Savaysa. Antibiotics in the form of ceftriaxone. Remains on bronchodilators. The patient is seen today 03/22/2021 follow-up in the intensive care unit. She remains intubated on mechanical ventilator. Current settings assist-control m ode at a rate of 14, tidal volume 450, FiO2 40% and a PEEP of 5. Morning blood gases revealed a pO2 of 106, pCO2 38, pH 7.38. She was off sedation until approximately 8:30 last night. She developed increased respiratory rate, restlessness, agitation. Not following any significant commands. She is currently sedated on propofol at 35 mcg/kg/m, norepinephrine at 0.4 mcg/kg/m. 0.9 normal saline at 100 ML's per hour. She is receiving nourishment via vital HPI at 40 ML's per hour with a goal of 53 ML's per hour. She has had some increased edema. Urine output averaging 20-40 ML's per hour. She remains bradycardic with atrial fibrillation. Anti coagulated with Savaysa. Chest x- ray reveals bilateral infiltrates and pleural effusion. Stable compared to previous. Urine culture was positive for E. coli. Blood cultures show no growth. Sputum culture no growth. Count 11.0. Hemoglobin 11.8. Platelets 119. Sodium 137. Potassium 4.0. Creatinine 1.45. She remains on ceftriaxone. Bronchodilators. 03/25/2021, the patient remains unresponsive on a mechanical ventilator. His been off sedation for more than 48 hours have not seen any reasonable neurological recovery. Neurologist on the case. She is currently on a mechanical ventilator. She remains on assist control mode at the rate of 14 with a tidal volume of 450 and FiO2 of 30%. Chest x-ray shows no major interval change. ET tube is in a good location. No evidence of any pneumothorax. There is some underlying cardiomegaly. No other significant abnormalities noted. The peak airway pressures around 27 for now. Meanwhile, the blood gases from today is showing pH of 7.4 with a pCO2 of 36 and pO2 of 68. As such, the overall pulmonary status is stable for now. Hemodynamically, she remains in lowering atrial fibrillation. He was taken off the pressors yesterday and she has been off pressors for the past 12 hours at least. He is producing adequate amount of urine output. Fluid is in order of 100 mL of normal saline and she has a good urine output. The patient remains on long-term anticoagulation. The patient is going to have another EEG monitor today we are awaiting further input from neurology regarding her altered mentation. She is on Rocephin regarding follow urine tract infection. She is tolerating her enteral feeding which is in order of 53 mL an hour of Nepro 03/26/2021, neurologically unchanged and the patient has been off sedation for 72 hours without any neurological recovery. She continues to have brainstem reflexes. No cortical functions. EKG showing diffuse slowing with evidence of triphasic waves and there is diffuse slowing with delta waves and this is obviously consistent with metabolic encephalopathy, anoxic encephalopathy and this is quite severe. No seizure activity has been noted. Neurologist on the case. I would say metabolically, the patient has no major metabolic derangements. Her renal function is stable with a creatinine of 1.2. Sodium is slightly elevated at 147 and this will be adjusted. Her blood gases is adequate for now and there is no significant hypoxemia. In terms of her respiratory status, the patient is on a mechanical ventilator on assist control mode with tidal volume of 450 and FiO2 of 30% and a PEEP of 5 and a rate of 14. She is breathing at the rate of 24 this morning. At times she goes above the set rate and she end generator on breath. Blood gas shows a pH of 7.42 with a pCO2 of 40 and pO2 of 73. The chest x-ray from today is showing no significant interval changes and findings are essentially unchanged. ET tube remains in a good location. The patient does have cardiomegaly. Limited infiltrates in the lung bases bilaterally. ET tube is in a good location. The patient is hemodynamically stable. The patient is on no pressors. The patient continues to be in atrial fibrillation. Her rate is slow. She is also on anticoagulation with Savaysa. She is receiving enteral feeding for nutritional support. She is currently at on Nepro at the rate of 50 mL an hour. No abdominal distention. No emesis. She is stooling. Afebrile. Neck fluid balance over the past 24 hours has been +2.5 L. The patient has been a significant positive fluid balance and currently she is on IV fluids at 0.9 at KVO. She has developed some increased edema in all 4 extremities and her blood work is showing a mild component of hyperchloremic hypernatremia. The patient is seen today 03/27/2021 in follow-up in the intensive care unit. She has been off sedation for 96 hours now. No neurologic recovery. She continues with some brainstem reflexes. No cortical functions. She remains intubated on mechanical ventilator settings of assist control 14, tidal volume 450, FiO2 30% and a PEEP of 5. Morning blood gases reveal a P O2 of 67, pCO2 of 35 and a pH of 7.45. Chest x-ray continues to show mild cardiomegaly with low lung volumes and mild central vascular congestion and bibasilar infiltrate/atelectasis. No significant change compared to yesterday. His 0.9 normal saline at KVO. She is being nourished with vital HPI at 50 MLS per hour which is goal. Blood cultures reveal no growth. Sputum culture revealed no growth. Initial urine culture was positive for E. coli. White count 10.6. Hemoglobin 11.0. Sodium 146. Potassium 4.2. Chloride 114. Bicarb 26. Creatinine 1.07. Glucose 142. She remains on bronchodilators. Keppra. She is currently off the Savaysa per medical services. Objective - Vital Signs Vital signs: Vital Signs Temp 99.2 F 03/27/21 04:00 Pulse 45 L 03/27/21 10:00 Resp 32 H 03/27/21 10:00 BP 133/57 03/27/21 10:00 Pulse Ox 93 L 03/27/21 10:00 Intake & Output 03/26/21 03/27/21 03/27/21 18:59 06:59 18:59 Intake Total 1680 1440 530 Output Total 540 835 260 Balance 1140 605 270 Weight 154 kg Intake: IV 380 240 80 0.9 200 240 80 Sodium Chloride 0.9% 1, 180 000 ml @ 100 mls/hr IV . Q10H [facility] Rx#:[id number] Tube Feeding 700 600 250 Other 600 600 200 Output: Urine 540 835 260 Other: Voiding Method Indwelling Catheter Indwelling Catheter Indwelling Catheter ABP, PAP, CO, CI - Last Documented Arterial Blood Pressure 109/101 - Exam GENERAL EXAM: Intubated, unresponsive, morbidly obese 80-year-old female patient, in no apparent distress. HEAD: Normocephalic. EYES: Sluggish reaction of pupils, equal size. NOSE: Clear with pink turbinates. THROAT: Oral endotracheal tube and gastric tube secured in place. No erythema or exudates. NECK: No masses, no JVD. CHEST: No chest wall deformity. LUNGS: Equal air entry with few bilateral scattered rhonchi. CVS: S1 and S2 normal with no audible murmur, regular rhythm. ABDOMEN: No hepatosplenomegaly, normal bowel sounds, no guarding or rigidity. SPINE: No scoliosis or deformity SKIN: No rashes CENTRAL NERVOUS SYSTEM: Unresponsive. tone is normal in all 4 extremities. EXTREMITIES: There is 1-2+ peripheral edema. No clubbing, no cyanosis. Per ipheral pulses are intact. - Labs CBC & Chem 7: 03/27/21 05:05 03/27/21 05:05 Labs: Abnormal Lab Results - Last 24 Hours (Table) 03/26/21 03/26/21 03/26/21 Range/Units 11:29 17:58 23:21 RBC (3.80-5.40) m/uL Hgb (11.4-16.0) gm/dL Hct (34.0-46.0) % MCV (80.0-100.0) fL Neutrophils # (1.3-7.7) k/uL Lymphocytes # (1.0-4.8) k/uL ABG pH (7.35-7.45) ABG pO2 (83-108) mmHg ABG HCO3 (21-25) mmol/L ABG Total CO2 (19-24) mmol/L Sodium (137-145) mmol/L Chloride (98-107) mmol/L BUN (7-17) mg/dL Creatinine (0.52-1.04) mg/dL Glucose (74-99) mg/dL POC Glucose (mg/dL) 142 H 149 H 137 H (75-99) mg/dL 03/27/21 03/27/21 03/27/21 Range/Units 05:05 05:05 05:22 RBC 3.22 L (3.80-5.40) m/uL Hgb 11.0 L (11.4-16.0) gm/dL Hct 32.3 L (34.0-46.0) % MCV 100.5 H (80.0-100.0) fL Neutrophils # 8.9 H (1.3-7.7) k/uL Lymphocytes # 0.8 L (1.0-4.8) k/uL ABG pH 7.48 H (7.35-7.45) ABG pO2 67 L (83-108) mmHg ABG HCO3 26 H (21-25) mmol/L ABG Total CO2 27 H (19-24) mmol/L Sodium 146 H (137-145) mmol/L Chloride 114 H (98-107) mmol/L BUN 59 H (7-17) mg/dL Creatinine 1.07 H (0.52-1.04) mg/dL Glucose 142 H (74-99) mg/dL POC Glucose (mg/dL) (75-99) mg/dL 03/27/21 Range/Units 06:15 RBC (3.80-5.40) m/uL Hgb (11.4-16.0) gm/dL Hct (34.0-46.0) % MCV (80.0-100.0) fL Neutrophils # (1.3-7.7) k/uL Lymphocytes # (1.0-4.8) k/uL ABG pH (7.35-7.45) ABG pO2 (83-108) mmHg ABG HCO3 (21-25) mmol/L ABG Total CO2 (19-24) mmol/L Sodium (137-145) mmol/L Chloride (98-107) mmol/L BUN (7-17) mg/dL Creatinine (0.52-1.04) mg/dL Glucose (74-99) mg/dL POC Glucose (mg/dL) 148 H (75-99) mg/dL Microbiology - Last 24 Hours (Table) 03/20/21 08:48 Blood Culture - Final Blood No Growth after 144 hours 03/20/21 08:47 Blood Culture - Final Blood No Growth after 144 hours Assessment and Plan Assessment: 1 Status post cardiopulmonary arrest, possible vasovagal syncope, in a patient with a history of bradycardia, and slow atrial fibrillation. Impaired left vent ricular systolic function with ejection fraction 45-50%. Cardiac arrest lasting for around 5 minutes as suspected by the emergency department team and the patient was quite bradycardic in atrial fibrillation following that. Nevertheless, the patient remains unresponsive and I suspect sick encephalopathy in the cardiac arrest was probably more prolonged and the patient's hypoxemia was probably more prolonged vent was noted or reported in the emergency department. The patient's EKG showing diffuse cortical slowing and check basic waves. No metabolic derangements to explain this. No drugs to alter her mentation at this point in time. CAT scan of the brain has been negative. EEG has been done on 3 separate occasions without any signs of neurologic recovery. Discussed the possibility of lumbar puncture with neurology. 2 Status post intubation and mechanical ventilation, for airway protection, 03/19/2021. 3 Hypotension, secondary to above, requiring pressor support recovered 4 History of hyperlipidemia. 5 History of hypertension. 6 History of chronic atrial fibrillation with bradycardia. 7 History of chronic kidney disease. Her creatinine 1.07 8 Recent sinus infection. 9 Obesity. 10 Urinary tract infection secondary to E. coli, currently on ceftriaxone 11 History of COPD/asthma. Plan: The patient was seen and evaluated by Dr. Felipe Chest x-ray, ABGs and labs reviewed Not following any purposeful commands while off sedation She has been off sedation for 96 hours Family is considering comfort care We will continue supportive care for now. Critical care time 35 minutes
[2021-03-27 11:46] LABS: Glucose,Whole Blood 133 mg/dL (75-99)
[2021-03-27 13:21] VITALS: BP 140/50; PULSE 54; RESP 11
--- NOTE | 2021-03-27 15:00 | CDI ---
Documentation Clarification Form Date: 03/27/2021 02:44:09 PM From: Ifeoma Biswas RN, CCDS Admit Date: 03/18/2021 01:55:00 PM Patient Name: Kina Barrera I Visit Number: [id number] ATTENTION: The Clinical Documentation Specialists (CDI) and [facility] Coding Staff appreciate your assistance in clarifying documentation. Please respond to the clarification below the line at the bottom and electronically sign. The CDI & [facility] Coding staff will review the response and follow-up if needed. Please note: Queries are made part of the Legal Health Record. If you have any questions, please contact the author of this message via ITS. Dr. Dax Maciel Unspecified CKD is documented in the 03/18 H&P and subsequent progress notes and Consults. Additional clarification regarding the stage of CKD is requested. History/Risk Factors: Chronic Persistent Atrial fib, CKD, HTN, HLD, moderate persistent asthma, COPD, morbid obesity Patients Historical BUN/CR/GFR - no historical results available in previous medical records Clinical Indicators: 03/18-03/27 Current BUN: 33/28/33/41/46/56/58/60/65/59 CR: 1.3/1.43/1.54/1.91/1.45/1.27/1.28/1.13/1.2/1.07 GFR: 39/34/31/24/34/40/46/43/49 Treatment: No Nephrology Consult KCL replacement Protocol 03/18 & 03/25 Lasix 40 mg IVP OT 03/19-03/24 Levophed GTT titrate for B/P 03/18 & 03/19 1 L 0.9% NS IVF Bolus Please clarify the stage of the CKD, if known: [ ] CKD Stage 1 (GFR > 90) [ ] CKD Stage 2 (GFR 60-89) [ ] CKD Stage 3 (GFR 30-59) [ ] CKD Stage 3a (GFR 45-59) [ ] CKD Stage 3b (GFR 30-44) [ ] CKD Stage 4 (GFR 15-29) [ ] CKD Stage 5 (GFR <15) [ ] ESRD [ ] Other, please specify [ ] Unable to determine (Template last revised: December 2020) No chronic kidney disease MTDD
--- NOTE | 2021-03-27 15:18 | CDI ---
Documentation Clarification Form Date: 03/27/2021 03:00:51 PM From: Ifeoma Biswas RN, CCDS Admit Date: 03/18/2021 01:55:00 PM Patient Name: Kina Barrera I Visit Number: [id number] ATTENTION: The Clinical Documentation Specialists (CDI) and [facility] Coding Staff appreciate your assistance in clarifying documentation. Please respond to the clarification below the line at the bottom and electronically sign. The CDI & [facility] Coding staff will review the response and follow-up if needed. Please note: Queries are made part of the Legal Health Record. If you have any questions, please contact the author of this message via ITS. Dr. Dax Maciel The patient presented with the following clinical indicators. Additional clarification regarding the etiology/cause of the clinical indicators is requested. History/Risk Factors: Cardiopulmonary arrest, atrial fib with slow ventricular rate, bradycardia, COPD exacerbation, moderate persistent asthma, HTN, CKD, HLD Clinical Indicators: 03/20 Cardiology progress note: "Underlying sepsis and other metabolic issues to be constricted. Suspect underlying septicemia" 03/22 Cardiology Progress Note: "It is felt that patient may have septic encephalopathy and metabolic encephalopathy. Suspect underlying septicemia" 03/22 Neuro consult: "Septic encephalopathy (UTI), has component of metabolic encephalopathy (URMILA on CKI--improving), and medication effect (Propofol)." 03/23 Pulmonary Progress note: "13 altered mental status, consider combination of septic encephalopathy/UTI, metabolic encephalopathy as the patient is a component of acute on top of chronic kidney disease in addition to medication effect as the patient is currently sedated with propofol." 03/23 & 03/24 Neuro Progress notes: "Possible Septic encephalopathy (UTI), has component of metabolic encephalopathy (URMILA on CKI--improving)." Documented Infectious process: Acute UTI with E.coli End organ dysfunction: Cardiopulmonary arrest, URMILA on CKD, Cardiogenic shock 03/18-03/27 WBC: 8.2/14.4/15.2/13.6/11/10.6/12.6/10.7/10.6 Lactic acid: 2.5/1.9/7.2/2.7/1.6 Blood cultures: Negative x 2 Sputum culture: negative Urine culture: +E. coli 03/18 1100 Admission Vital signs: Temp 98.2, HR 52, RR 18, B/P 103/68, Spo2 97% RA Treatment: ID Consult: Not Ordered Antibiotics: 03/18 & 03/19 IV Bolus: 0.9% NS 1L Ceftriaxone 1gm IVPB q24hrs In your professional opinion, please clarify if these findings signify one of the following conditions: [ ] Sepsis POA [ ] Sepsis, Not POA [ ] Sepsis ruled out [ ] Severe Sepsis with organ failure [ ] Septic Shock [ ] SIRS, without underlying infectious process [ ] Other, please specify [ ] Unable to determine SIRS Criteria: 2 or more of the following may indicate SIRS -Temperature < 96.8F (36C) or > 101.0F (38.3C) -Heart Rate > 90 bpm -Respiratory Rate > 20 breaths/min or PaCO2 < 32 mmHg -White Blood Cell Count > 12,000 or < 4,000 cells/mm3 or > 10% bands Acute UTI with cystitis, causing septic shock (Template Last Reviewed: December 2020) DAVYD
--- NOTE | 2021-03-27 16:49 | P.DS ---
Providers Date of admission: 03/18/21 13:55 Expected date of discharge: 03/27/21 Attending physician: Dax Maciel Consults: 03/18/21 14:02 Consult Physician Urgent Consulting Provider: [facility] Consult Reason/Comments: A.fib with slow VR Do you want consulting provider notified?: Yes 03/19/21 08:21 Consult Physician Stat Consulting Provider: Bi Maurer Consult Reason/Comments: ICU Do you want consulting provider notified?: Yes 03/22/21 10:19 Consult Physician Routine Consulting Provider: Tavares Maurer Consult Reason/Comments: Mental Status changes Do you want consulting provider notified?: Yes Primary care physician: [facility] Course: Chief Complaint: Short of breath History of presenting complaint: This is a 80-year-old patient of Dr. Tovar. Director Of Orthopedics Dr. Bland. Chronic stable medical conditions include atrial fibrillation, asthma, hyperlipidemia, hypertension, chronic kidney disease. Patient presents with about 10 days of increasing shortness of breath. Basically presented with activity. No edema. No chest pain. No fever no chills. No cough. At her baseline uses a walker. patient was being held in the ER as an overflow was found unconscious in the bathroom for. With no pulse. intubated. Patient did have return of spontaneous circulation. Bradycardic. Admitted to the ICU. Patient was on propofol. Discontinued. Patient did not wake up. EKG shows encephalopathy. No seizure activity. Drift to have anoxic encephalopathy. Even being off sedatives. Patient never woke up. Remained to have been on the anoxic encephalopathy. Care was discussed with Dr. Felipe and Dr. Salazar from neurology. It was felt nothing further could be offered. I did speak to patient's daughter Kathi. Patient is made DO NOT RESUSCITATE. Today: ICU: Ventilator FiO2 30%, PEEP of 5. Heart rate 55. IV fluids. No change in clinical status. Saw the patient this afternoon. Later in the day patient's daughter Kathi came in. Decided to make the patient comfort care. Patient . Discussed the nurse earlier. Consultation: Dr. Felipe in partners from pulmonary Dr. Salazar from neurology [facility] Past medical history to include: Atrial fibrillation, asthma, hyperlipidemia, hypertension, chronic kidney disease Social history: Daughter lives with her. Does use a walker. No history of smoking or alcohol Family history: Reviewed, noncontributory to presentation INVESTIGATIONS, reviewed in the clinical context: March 26: Hemoglobin 11.3 platelets 147 potassium 4.4 bun 65 creatinine 1.2 March 25: Hemoglobin 11.2 platelets 139 potassium 4.4 creatinine 1.17 March 24: WBC 10.6 hemoglobin 11.1 platelets 137 potassium 4.3 BUN 58 creatinine 1.28 March 23: WBC 11 hemoglobin 11.9 potassium 4.1 creatinine 1.27 EEG: Negative for epilepsy March 22: WBC 11 hemoglobin 11.8 platelets 119 potassium 4 creatinine 1.45 March 21: WBC 13.6 hemoglobin 12.8 platelets 122 potassium 3.8 creatinine 1.91 March 20: WBC 15.2 hemoglobin 13.9 platelets 157 potassium 3.6 creatinine 1.5 for 2-D echocardiogram: Moderate concentric LVH. EF 45-50% right ventricle severely enlarged. Tricuspid regurgitation. Moderate pulmonary hypertension March 19: Obesity 14.4 hemoglobin 14.8 platelets 187 potassium 4.2 bun 28 creatinine 1.43 AST 152 ALT 129 WBC 8.2 hemoglobin 15.2 platelets 188 potassium 3.8 bun 33 creatinine 1.30 Lactic acid 2.5 troponin I less than 0.012 proBNP 63 Influenza type A, diabetic, RSV, COVID 19: Not detected EKG tracing personally reviewed by me-atrial fibrillation with a rate of 42 Chest x-ray film personally reviewed by me-elevated right diaphragm. Cause of : Hypertensive heart disease Assessment : -Persistent atrial fibrillation with a heart rate down to the 40s./Symptomatic bradycardia - Coreg discontinued. Telemetry. Cardiology -Acute hypoxic respiratory failure, requiring ventilator support- On FiO2 of 30 % -Moderate persistent asthma Continue DuoNeb and Symbicort -Morbid obesity BMI 51.3 Weight loss measures. -Essential hypertension antihypertensive held -Cardiogenic shock: stabilized On IV norepinephrine-discontinued -History of breast cancer arimidex -Acute kidney injury possibly from cardiorenal syndrome. -Acute metabolic/anoxic encephalopathy-not improving EEG negative for epilepsy. Patient is off sedatives. Since March 23. -Secondary pulmonary hypertension, multifactorial -Suspect acute on chronic cor pulmonale Fluid management -Hypertensive heart disease Disposition: Patient Plan - Discharge Summary New Discharge Prescriptions: No Action Cyanocobalamin [Vitamin B-12] 1 tab PO QAM Edoxaban Tosylate [Savaysa] 30 mg PO QAM Fluticasone/Salmeterol [Advair Hfa 115-21 Mcg Inhaler] 2 puff INHALATION RT- BID Hydrochlorothiazide 25 mg PO QAM Simvastatin 20 mg PO HS Carvedilol [Coreg] 3.125 mg PO BID Vit C/E/Zn/Coppr/Lutein/Zeaxan [Preservision Areds 2 Softgel] 1 cap PO BID Anastrozole [Arimidex] 1 tab PO QAM Loratadine [Claritin] 10 mg PO DAILY allopurinoL [Zyloprim] 100 mg PO QAM Losartan Potassium 50 mg PO QAM Albuterol Sulfate [Proair Digihaler] 1 puff INHALATION RT-Q6H PRN PRN Reason: Shortness Of Breath Or Wheezing Fluticasone [place] [Flonase [place]] 1 spray EA NOSTRIL DAILY Acetaminophen [Tylenol Arthritis] 650 mg PO Q8H PRN PRN Reason: Pain Cholecalciferol (Vitamin D3) [Vitamin D3 (4,000 Iu)] 100 mcg PO DAILY Discharge Medication List Cyanocobalamin [Vitamin B-12] 1 tab PO QAM 08/03/16 [History] Edoxaban Tosylate [Savaysa] 30 mg PO QAM 08/03/16 [History] Fluticasone/Salmeterol [Advair Hfa 115-21 Mcg Inhaler] 2 puff INHALATION RT-BID 08/03/16 [History] Hydrochlorothiazide 25 mg PO QAM 08/03/16 [History] Simvastatin 20 mg PO HS 08/03/16 [History] Carvedilol [Coreg] 3.125 mg PO BID 03/15/18 [History] Vit C/E/Zn/Coppr/Lutein/Zeaxan [Preservision Areds 2 Softgel] 1 cap PO BID 03/15/18 [History] Anastrozole [Arimidex] 1 tab PO QAM 08/17/18 [History] Loratadine [Claritin] 10 mg PO DAILY 03/08/19 [History] Losartan Potassium 50 mg PO QAM 03/08/19 [History] allopurinoL [Zyloprim] 100 mg PO QAM 03/08/19 [History] Albuterol Sulfate [Proair Digihaler] 1 puff INHALATION RT-Q6H PRN 06/12/20 [History] Acetaminophen [Tylenol Arthritis] 650 mg PO Q8H PRN 03/18/21 [History] Cholecalciferol (Vitamin D3) [Vitamin D3 (4,000 Iu)] 100 mcg PO DAILY 03/18/21 [History] Fluticasone [place] [Flonase [place]] 1 spray EA NOSTRIL DAILY 03/18/21 [History] Follow up Appointment(s)/Referral(s): Nasim Tovar DO [Primary Care Provider] - 1-2 days
--- NOTE | 2021-03-29 15:42 | P.PN ---
Subjective Progress Note Date: 03/26/21 03/26/2021: Patient was seen for a follow-up. Patient is not on any sedation. No improvement whatsoever. Dr Maciel has discussed with the family and patient has been made DO NOT RESUSCITATE. They may consider changing it to comfort care in a.m. 03/25/2021: Patient was seen for a follow-up. Patient is undergoing a prolonged, 2.5 hours EEG. No convulsive activity was noted earlier or while I examined the patient. However later on the dialysis patient care technician witnessed some fine tremors of the hand, left or both hands. Patient is not on any sedation. 03/24/2021: Patient's grandson was present today. Patient is off sedation since 7:30 AM yesterday. No clinical improvement. Patient continues to be comatose. No seizure-like activity noted. 03/23/2021: Patient was seen for a follow-up. Patient initially seen by Dr. Tavares Maurer yesterday. Please refer to his note for details. Patient actually came to the hospital on 03/18/2021 with increasing shortness of breath, cough. Patient has history of COPD, atrial fibrillation, hypertension, renal disease. Patient has been on Edoxaban 30 mg every a.m., Lipitor 20 mg, Coreg, Arimidex losartan. Neurology was consulted for altered mental status. While in the ER, patient got up to go to the bathroom and then was found unresponsive in the bathroom. Patient had a cardiopulmonary arrest and received 2 rounds of epinephrine. Patient was down for about 5 minutes. It was felt to be a vasovagal syncope. Patient was intubated for airway protection. Patient was hypotensive and epinephrine started. 2-D echo revealed atrial fibrillation. Moderate concentric LVH, EF is 45-50%. Patient's EEG revealed frequent sharp and slow waves over the bilateral frontal region with episodes of moderate 4 date of 1-2 Hz delta activity that seems rhythmic and is concerning for seizures. The background slowing is suggestive of severe encephalopathy. Patient was given Ativan 4 mg, Keppra loaded with 1500 mg and started on 1000 mg every 12 hours. Patient's blood test shows WBC 11.0, hemoglobin 11.9, platelets 134. Sodium and potassium are normal, BUN 56 creatine 1.07. AST is normal, ALT mildly elevated 35. TSH is mildly decreased 0.40 and free T4 normal 1.62. SARS Cov-2 PCR negative. Patient also on Rocephin 1 g every 24 hours. Patient was seen in the ICU. Patient is off sedation since 7:30 AM. Patient continues to be comatose, not responding to vocal or tactile stimuli. Please refer to examination below. Objective - Vital Signs Vital signs: Vital Signs Temp 98.8 F 03/26/21 16:00 Pulse 43 L 03/26/21 19:00 Resp 28 H 03/26/21 19:00 BP 130/51 03/26/21 19:00 Pulse Ox 96 03/26/21 19:00 Intake & Output 03/26/21 03/26/21 03/27/21 06:59 18:59 06:59 Intake Total 1030 1680 70 Output Total 685 540 60 Balance 345 1140 10 Weight 152.6 kg Intake: IV 240 380 20 0.9 200 20 Sodium Chloride 0.9% 1, 240 180 000 ml @ 100 mls/hr IV . Q10H [facility] Rx#:[id number] Intake, IV Titration 100 Amount levETIRAcetam IV 750 mg 100 In Sodium Chloride 0.9% 100 ml @ 400 mls/hr IVPB Q12HR [facility]ILDA Rx#:[id number] Tube Feeding 600 700 50 Other 90 600 Output: Urine 685 540 60 Other: Voiding Method Indwelling Catheter Indwelling Catheter ABP, PAP, CO, CI - Last Documented Arterial Blood Pressure 109/101 - Exam GENERAL: The patient is an morbid obese lady, lying in bed. Patient is on mechanical ventilation. Patient appears to be often coughing, tachypneic. Patient has moderate peripheral edema. CHEST: The heart rate is regular rate rhythm. No murmurs to auscultation. LUNG: Not labored breathing. Intubated on ventilator (breathing over the vent). NEUROLOGICAL: Patient is off sedation since 7:30 AM on 03/23/2021. Not showing any meaningful response. Higher mental function: The patient is comatose. GCS 3 (E1, V1, M1). No responsive or following commands. Patient does not open her eyes to calling her name or even with painful stimuli. Sometimes she slightly opens eyes, which is not meaningful, probably reflexive. Cranial nerves: The patient does not open her eyes to calling her name or with painful stimuli. The pupils are round, equal (4-5mm) and reactive to light. Primary gaze is midline. Oculocephalics negative. Corneal negative. No obvious facial weakness. Rest of cranial nerves could not be assessed. Motor: The strength is 0/5 and no movement even with painful stimuli. Slight decreased tone in upper. No spontaneous movement noted. Cerebellum: Could not assess. Sensation: Could not assess. But to painful stimuli not grimacing or withdrawing. Reflexes (right/left): Almost absent, except biceps is 1+ on the left. Plantars are upgoing bilaterally. - Labs CBC & Chem 7: 03/27/21 05:05 03/27/21 05:05 Labs: Abnormal Lab Results - Last 24 Hours (Table) 03/25/21 03/26/21 03/26/21 Range/Units 23:16 04:40 04:40 WBC 10.7 H (3.8-10.6) k/uL RBC 3.26 L (3.80-5.40) m/uL Hgb 11.3 L (11.4-16.0) gm/dL Hct 33.1 L (34.0-46.0) % MCV 101.6 H (80.0-100.0) fL Plt Count 147 L (150-450) k/uL Neutrophils # 8.8 H (1.3-7.7) k/uL Lymphocytes # 0.9 L (1.0-4.8) k/uL ABG pO2 (83-108) mmHg ABG HCO3 (21-25) mmol/L ABG Total CO2 (19-24) mmol/L Sodium 147 H (137-145) mmol/L Chloride 116 H (98-107) mmol/L BUN 65 H (7-17) mg/dL Creatinine 1.20 H (0.52-1.04) mg/dL Glucose 150 H (74-99) mg/dL POC Glucose (mg/dL) 126 H (75-99) mg/dL ALT 36 H (4-34) U/L Total Protein 4.6 L (6.3-8.2) g/dL Albumin 2.3 L (3.5-5.0) g/dL 03/26/21 03/26/21 03/26/21 Range/Units 05:19 05:26 11:29 WBC (3.8-10.6) k/uL RBC (3.80-5.40) m/uL Hgb (11.4-16.0) gm/dL Hct (34.0-46.0) % MCV (80.0-100.0) fL Plt Count (150-450) k/uL Neutrophils # (1.3-7.7) k/uL Lymphocytes # (1.0-4.8) k/uL ABG pO2 73 L (83-108) mmHg ABG HCO3 26 H (21-25) mmol/L ABG Total CO2 27 H (19-24) mmol/L Sodium (137-145) mmol/L Chloride (98-107) mmol/L BUN (7-17) mg/dL Creatinine (0.52-1.04) mg/dL Glucose (74-99) mg/dL POC Glucose (mg/dL) 136 H 142 H (75-99) mg/dL ALT (4-34) U/L Total Protein (6.3-8.2) g/dL Albumin (3.5-5.0) g/dL 03/26/21 Range/Units 17:58 WBC (3.8-10.6) k/uL RBC (3.80-5.40) m/uL Hgb (11.4-16.0) gm/dL Hct (34.0-46.0) % MCV (80.0-100.0) fL Plt Count (150-450) k/uL Neutrophils # (1.3-7.7) k/uL Lymphocytes # (1.0-4.8) k/uL ABG pO2 (83-108) mmHg ABG HCO3 (21-25) mmol/L ABG Total CO2 (19-24) mmol/L Sodium (137-145) mmol/L Chloride (98-107) mmol/L BUN (7-17) mg/dL Creatinine (0.52-1.04) mg/dL Glucose (74-99) mg/dL POC Glucose (mg/dL) 149 H (75-99) mg/dL ALT (4-34) U/L Total Protein (6.3-8.2) g/dL Albumin (3.5-5.0) g/dL Microbiology - Last 24 Hours (Table) 03/20/21 08:48 Blood Culture - Final Blood No Growth after 144 hours 03/20/21 08:47 Blood Culture - Final Blood No Growth after 144 hours Assessment and Plan Assessment: * Persistent comatose state. Patient with history of cardiac arrest with reported downtime of 5 minutes. Patient also has severe metabolic encephalopathy, with acute UTI with E. coli, acute kidney injury, mild hepatic dysfunction, possible pneumonia. Patient continues to have low-grade fever, hypoxemia with pO2 running between around 70, borderline ammonia, mildly thyroid dysfunction, hyperphosphatemia, hypermagnesemia. * Abnormal EEG, with evidence of persistent diffuse slowing, triphasic waves suggestive of severe metabolic and/or anoxic encephalopathy. * Status post Cardiopulmonary arrest lasting 5 minutes (Was suspected by ED team possible vasovagal syncope and patient with history of bradycardia and the atrial fibrillation with ejection fraction of 45-50%). * Bradycardia (heart rate in 40-50). * Acute urinary tract infection on ceftriaxone * Status post intubation on mechanical intubation for airway protection * Atrial fibrillation with bradycardia on anticoagulation (on Edoxaban) * History of hypertension * History of hyperlipidemia * Morbid Obese Plan: Patient continues to be in a comatose state with GCS of 3. Patient is off sedation since 7:30 AM on 03/23/2021. No clinical improvement noted. Patient's Keppra was reduced to 500 mg twice a day based upon the results of EEG. Repeat EEG from yesterday apparently showed the same abnormality, with diffuse delta sl owing and some triphasic waves. Patient has some tremors noted of the hands, but there was no electrographic correlate with it. The tremors were possible metabolic in nature. No evidence of status epilepticus. Overall prognosis appears poor based upon her current neurological status. Official EEG report pending. Patient underwent prolonged, 2.5 hours EEG 03/23/2021. It was abnormal. The di ffuse synchronous and asynchronous delta range slowing mentioned above is not epileptiform in nature. This was low frequency low amplitude delta range slowing. The triphasic waves mentioned above are not epileptiform in nature. Triphasic waves can be seen in setting of metabolic encephalopathy. In combination, these findings indicate severe diffuse cerebral dysfunction as may be seen in a toxic metabolic or anoxic encephalopathy. No seizures were recorded. No epileptiform activity was present. Continue Keppra 750 mg twice a day. Initial CT Head (03/19/2021) and repeat CT of the head from 03/22/2021 negative for any acute process. 2-D echo was reported as atrial fibrillation. Moderate concentric left ventricular hypertrophy. Ejection fraction of 45-50%. Left atrium is mildly dilated that. Moderate pulmonary hypertension. EKG was reported as atrial fibrillation with slow ventricular response. Left axis deviation. Pulmonary disease pattern. Incomplete right bundle branch block. Inferior infarct, age undetermined. Assess T and T-wave abnormality, consider anterolateral ischemia or digitalis effect. Abnormal EKG. Patient on anticoagulation. AST of 38 and ALT of 35, improved. Ammonia level is borderline 30 (range <30). TSH of 0.408 which is low but the free T4 is 1.62 which is normal. SARS Covid-2 PCR was not detected EEG (03/22/2021) Preliminary report: It was an abnormal EEG. The Frequent Sharps and slow waves over the bilateral frontal region with episodes of moderate voltage of 1-2 delta activity that seems rhythmic is concerning for seizure. The background slowing is suggestive of severe encephalopathy. I spoke to patient's grandson, who mentions that patient was mentally perfectly normal before this cardiac arrest. Patient used to walk with a cane and a walker. She has some breathing difficulty but otherwise was functioning well. Spoke to patient's daughter on the phone yesterday, informed her about patient's clinical condition and overall prognosis which is poor based upon her severe comatose state with no improvement since off sedation 03/23/2021. Discussed with Dr. Felipe in detail. Discussed with Dr. Santiago about the EEGs. I also personally reviewed EEGs. Patient at present has been made DO NOT RESUSCITATE. Family consider comfort care in the morning. We will sign off.
== END 2021-03-27 16:20 | disposition expired | DRG 207 ==
LOC: EC 10:50 → 3SCARD 13:55 → 2SICU 03-19 04:24
PROVIDERS: ADMIT Hospitalist; ATTEND Hospitalist
PROC: 5A12012 Performance of Cardiac Output, Single, Manual (ICD-10-PCS; principal; 2021-03-19)
PROC: 0BH17EZ Insertion of Endotracheal Airway into Trachea, Via Natural or Artificial Opening (ICD-10-PCS; principal; 2021-03-19)
PROC: 5A1955Z Respiratory Ventilation, Greater than 96 Consecutive Hours (ICD-10-PCS; principal; 2021-03-19)
PROC: 3E033XZ Introduction of Vasopressor into Peripheral Vein, Percutaneous Approach (ICD-10-PCS; principal; 2021-03-19)
PROC: 02HV33Z Insertion of Infusion Device into Superior Vena Cava, Percutaneous Approach (ICD-10-PCS; 2021-03-19)
PROC: 04HY32Z Insertion of Monitoring Device into Lower Artery, Percutaneous Approach (ICD-10-PCS; 2021-03-19)
PROC: 4A133B1 Monitoring of Arterial Pressure, Peripheral, Percutaneous Approach (ICD-10-PCS; 2021-03-19)
PROC: 4A133J1 Monitoring of Arterial Pulse, Peripheral, Percutaneous Approach (ICD-10-PCS; 2021-03-19)
PROC: 0D9670Z Drainage of Stomach with Drainage Device, Via Natural or Artificial Opening (ICD-10-PCS; 2021-03-19)
PROC: 3E0G76Z Introduction of Nutritional Substance into Upper GI, Via Natural or Artificial Opening (ICD-10-PCS; 2021-03-19)
DX: J44.1 Chronic obstructive pulmonary disease with (acute) exacerbation (principal); A41.51 Sepsis due to Escherichia coli [E. coli]; R40.20 Unspecified coma; R65.20 Severe sepsis without septic shock; G92 Toxic encephalopathy; J18.9 Pneumonia, unspecified organism; J96.22 Acute and chronic respiratory failure with hypercapnia; J96.21 Acute and chronic respiratory failure with hypoxia; G93.1 Anoxic brain damage, not elsewhere classified; N17.9 Acute kidney failure, unspecified; I48.19 Other persistent atrial fibrillation; Z68.43 Body mass index [BMI] 50.0-59.9, adult; E87.0 Hyperosmolality and hypernatremia; J90 Pleural effusion, not elsewhere classified; N30.00 Acute cystitis without hematuria; J98.11 Atelectasis; J44.0 Chronic obstructive pulmonary disease with (acute) lower respiratory infection; I46.2 Cardiac arrest due to underlying cardiac condition; I27.29 Other secondary pulmonary hypertension; E83.39 Other disorders of phosphorus metabolism; Z66 Do not resuscitate; Z51.5 Encounter for palliative care; Z20.822 Contact with and (suspected) exposure to COVID-19; C50.919 Malignant neoplasm of unspecified site of unspecified female breast; E66.01 Morbid (severe) obesity due to excess calories; E83.41 Hypermagnesemia; E87.8 Other disorders of electrolyte and fluid balance, not elsewhere classified; K76.89 Other specified diseases of liver; I13.10 Hypertensive heart and chronic kidney disease without heart failure, with stage 1 through stage 4 chronic kidney disease, or unspecified chronic kidney disease; N18.9 Chronic kidney disease, unspecified; E78.5 Hyperlipidemia, unspecified; R55 Syncope and collapse; I45.10 Unspecified right bundle-branch block; I07.1 Rheumatic tricuspid insufficiency; E89.0 Postprocedural hypothyroidism; J45.40 Moderate persistent asthma, uncomplicated; Z79.811 Long term (current) use of aromatase inhibitors; Z79.51 Long term (current) use of inhaled steroids; Z79.899 Other long term (current) drug therapy; Z90.710 Acquired absence of both cervix and uterus; Z96.653 Presence of artificial knee joint, bilateral; Z87.42 Personal history of other diseases of the female genital tract; Z98.890 Other specified postprocedural states; Z71.3 Dietary counseling and surveillance; Z83.3 Family history of diabetes mellitus
CPT/HCPCS: 36415; 36600; 70450; 71045; 71046; 72125; 76770; 80048; 80053; 81001; 82140; 82533; 82803; 82805; 83605; 83735; 83880; 84100; 84145; 84439; 84443; 84484; 85025; 87040; 87070; 87077; 87086; 87186; 87205; 87636; 92950; 93005; 93306; 94002; 94003; 94640; 95713; 95819; 96374; 99285